=== PATIENT | female | born 1940 | race Caucasian/White ===

== ENCOUNTER 2018-07-01 13:16 | Outpatient (RCR) | payer OTHER ==
[2018-07-01 14:00] LABS: BASOPHILS % (AUTO) 0 % (0-10); EOSINOPHILS # (AUTO) 0.1 10^3/uL (0.0-0.3); EOSINOPHILS % (AUTO) 1 % (0-10); HEMATOCRIT 40 % (35-52); LYMPHOCYTES # (AUTO) 2.2 X 10^3 (1.0-4.0); LYMPHOCYTES % (AUTO) 18 % (12-44); MEAN CORPUSCULAR HEMOGLOBIN 26 PG (25-34); MEAN CORPUSCULAR HGB CONC 32 G/DL (32-36); MEAN CORPUSCULAR VOLUME 81 FL (80-99); MEAN PLATELET VOLUME 9.6 FL (7.4-10.4); MONOCYTES % (AUTO) 16 % (0-12); NEUTROPHILS # (AUTO) 8.1 X 10^3 (1.8-7.8); NEUTROPHILS % (AUTO) 65 % (42-75); PLATELET COUNT 218 10^3/uL (130-400); RED CELL DISTRIBUTION WIDTH 15.4 % (10.0-14.5); WHITE BLOOD COUNT 12.5 10^3/uL (4.3-11.0)
[2018-07-01 14:27] LABS: ALANINE AMINOTRANSFERASE 25 U/L (0-55); ALBUMIN 4.6 GM/DL (3.2-4.5); ALKALINE PHOSPHATASE 51 U/L (40-136); BILIRUBIN,TOTAL 0.3 MG/DL (0.1-1.0); BUN/CREATININE RATIO 15; CALCIUM 11.1 MG/DL (8.5-10.1); CARBON DIOXIDE 23 MMOL/L (21-32); CHLORIDE 103 MMOL/L (98-107); CREATININE SERUM 1.24 MG/DL (0.60-1.30); GFR ESTIMATED 42; GLUCOSE 113 MG/DL (70-105); POTASSIUM 3.9 MMOL/L (3.6-5.0); SODIUM 136 MMOL/L (135-145); TOTAL PROTEIN 8.2 GM/DL (6.4-8.2)
== END 2018-09-29 | disposition home or self-care (01) ==
LOC: ONC 13:16
PROVIDERS: ATTEND Internal Medicine Hematology & Oncology
DX: D72.828 Other elevated white blood cell count (principal); B35.1 Tinea unguium
CPT/HCPCS: 36415; 80053; 85025; 99214

== ENCOUNTER → 2018-10-23 | Outpatient (CLI) | payer MEDICARE, OTHER ==
[2018-10-23 09:06] LABS: BASOPHILS # (AUTO) 0.1 10^3/uL (0.0-0.1); BASOPHILS % (AUTO) 1 % (0-10); EOSINOPHILS # (AUTO) 0.2 10^3/uL (0.0-0.3); EOSINOPHILS % (AUTO) 1 % (0-10); HEMATOCRIT 40 % (35-52); HEMOGLOBIN 12.6 G/DL (11.5-16.0); LYMPHOCYTES # (AUTO) 2.5 X 10^3 (1.0-4.0); LYMPHOCYTES % (AUTO) 19 % (12-44); MEAN CORPUSCULAR HEMOGLOBIN 25 PG (25-34); MEAN CORPUSCULAR HGB CONC 31 G/DL (32-36); MEAN CORPUSCULAR VOLUME 78 FL (80-99); MEAN PLATELET VOLUME 9.9 FL (7.4-10.4); MONOCYTES # (AUTO) 2.2 X 10^3 (0.0-1.0); MONOCYTES % (AUTO) 17 % (0-12); NEUTROPHILS # (AUTO) 8.2 X 10^3 (1.8-7.8); NEUTROPHILS % (AUTO) 63 % (42-75); PLATELET COUNT 225 10^3/uL (130-400); RED CELL DISTRIBUTION WIDTH 16.1 % (10.0-14.5); WHITE BLOOD COUNT 13.1 10^3/uL (4.3-11.0)
[2018-10-23 09:25] LABS: ALANINE AMINOTRANSFERASE 28 U/L (0-55); ALBUMIN 4.6 GM/DL (3.2-4.5); ALKALINE PHOSPHATASE 50 U/L (40-136); BILIRUBIN,TOTAL 0.4 MG/DL (0.1-1.0); BUN/CREATININE RATIO 12; CALCIUM 11.2 MG/DL (8.5-10.1); CARBON DIOXIDE 19 MMOL/L (21-32); CHLORIDE 106 MMOL/L (98-107); CHOLESTEROL 173 MG/DL (< 200); CREATININE SERUM 1.12 MG/DL (0.60-1.30); GFR ESTIMATED 47; GLUCOSE 117 MG/DL (70-105); HDL CHOLESTEROL 48 MG/DL (40-60); POTASSIUM 3.9 MMOL/L (3.6-5.0); SODIUM 138 MMOL/L (135-145); TOTAL PROTEIN 8.2 GM/DL (6.4-8.2); TRIGLYCERIDES 129 MG/DL (<150); VLDL CHOLESTEROL 26 MG/DL (5-40)
== END ==
LOC: LAB 08:30
PROVIDERS: ATTEND Family Medicine
DX: E11.9 Type 2 diabetes mellitus without complications (principal); R53.83 Other fatigue; R79.89 Other specified abnormal findings of blood chemistry
CPT/HCPCS: 36415; 80053; 80061; 83036; 83970; 84443; 85025

== ENCOUNTER → 2020-01-03 | Outpatient (CLI) | payer MEDICARE ==
--- NOTE | 2020-01-03 18:21 | Diagnostic Imaging Report ---
INDICATION: Status post fall on a rock one year ago with continued small lump since then. Increasing in severity over the past 2 weeks. TECHNIQUE: Multiple real time ball scale sonographic images were obtained of the left gluteus region. CORRELATION STUDY: None FINDINGS: Imaging of the area of palpable concern, left gluteal region demonstrates a superficial heterogeneous mass to be present. This measures approximately 8.6 x 3.9 x 7.9 cm. There is presence of some vascular blood flow. IMPRESSION: 1. There is prominent, 8.6 cm vascularized mass in the left gluteal region, area of concern. This finding is nonspecific. However, given presence of vascularity, solid mass including neoplasm is not excluded. If further imaging evaluation is desired, contrast-enhanced CT and/or MRI would be recommended. Dictated by: Dictated on workstation # [id number]
== END ==
LOC: RAD 15:40
PROVIDERS: ATTEND Surgery
DX: R22.42 Localized swelling, mass and lump, left lower limb (principal); Z91.81 History of falling
CPT/HCPCS: 76881

== ENCOUNTER → 2020-01-24 | Outpatient (CLI) | payer MEDICARE ==
--- NOTE | 2020-01-24 16:33 | Diagnostic Imaging Report ---
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 Serum blood glucose level at the time of injection is 122 mg/dL. The patient was administered 14.2 mCi F18-FDG intravenously in the left forearm and PET imaging was performed from the top of the skull to mid thighs. Noncontrast CT was also performed for attenuation correction and anatomic correlation. COMPARISON: No prior studies are available for comparison. The visualized intracranial structures are unremarkable. There is hypermetabolic mass in the region of the left maxillary sinus as well as left nasal cavity and left-sided ethmoid air cells with SUV max of 9.4. The left half of the frontal sinus is opacified as well but not hypermetabolic. Remaining soft tissues of the neck are unremarkable. No mediastinal or hilar hypermetabolism is identified. There is a prominent right paratracheal lymph node measuring 14 mm short axis. No pulmonary parenchymal hypermetabolism is identified. There is a rounded soft tissue mass in a right para-aortic location at the level of the right adrenal gland measuring 5.1 cm. This demonstrates SUV max of 15. A mass arising from or inseparable from the left kidney is also noted measuring 7.8 x 5.4 cm and SUV max of 15. There is hypermetabolism within the left adrenal gland as well with SUV max of 8.5. Physiologic activity throughout the gastrointestinal tract is noted. There is a hypermetabolic mass in the subcutaneous tissues of the left buttock region measuring 9.2 x 5.2 cm. SUV max of 13.5. IMPRESSION: Multiple hypermetabolic masses, as described. These involve the left sided paranasal sinuses and left nasal cavity as well as the retroperitoneum and left adrenal gland as well as left buttock subcutaneous tissues. It is likely secondary to patient's known [place] cell neoplasm. Dictated by: Dictated on workstation # [id number]
== END ==
LOC: RAD 09:00
PROVIDERS: ATTEND Internal Medicine Hematology & Oncology
DX: C4A.59 Merkel cell carcinoma of other part of trunk (principal); J34.89 Other specified disorders of nose and nasal sinuses; E27.8 Other specified disorders of adrenal gland; N28.89 Other specified disorders of kidney and ureter
CPT/HCPCS: 78815; A9552

== ENCOUNTER 2020-01-27 05:43 | Outpatient (CLI) | payer MEDICARE ==
[~2020-01-27] VITALS: Ht 162 cm; Wt 71.8 kg
[2020-01-27] MEDS ORDERED: FLUT15.845 NS (10:55)
[2020-01-27] MEDS ORDERED: DILT240C87 PO (10:55)
[2020-01-27] MEDS ORDERED: PIOG30TA71 PO (10:55)
[2020-01-27] MEDS ORDERED: ASPI-999 PO (10:55)
[2020-01-27] MEDS ORDERED: OMEG10005 PO (10:55)
[2020-01-27] MEDS ORDERED: FEXO1TAB43 PO (10:55)
[2020-01-27] MEDS ORDERED: METF-397 PO (10:55)
[2020-01-27] MEDS ORDERED: CINN500C2 PO (10:55)
[2020-01-27] MEDS ORDERED: LISI-552 PO (10:55)
== END 2020-01-27 11:05 | disposition home or self-care (01) ==
LOC: PREOP 05:43
PROVIDERS: ATTEND Surgery
DX: Z01.818 Encounter for other preprocedural examination (principal)

== ENCOUNTER 2020-02-01 11:32 | Day surgery (SDC) | payer MEDICARE ==
[~2020-02-01] VITALS: Ht 162 cm; Wt 71.8 kg
[~2020-02-01 11:32] MED LIST: ASPI-999 PO; CINN500C2 PO; DILT240C87 PO; FEXO1TAB43 PO; FLUT15.845 NS; LISI-552 PO; METF-397 PO; OMEG10005 PO; PIOG30TA71 PO
[2020-02-01 11:45] VITALS: BP 175/83
[2020-02-01] MEDS ORDERED: LACTATED RINGERS 1,000 ML IV PRN (11:57)
[2020-02-01] MEDS ORDERED: ceFAZolin INJECTION 1,000 MG in WATER (STERILE) FOR INJECTION 10 ML IV ONE (12:00)
[2020-02-01] MEDS ORDERED: ACHD5005 PO (12:03)
[2020-02-01] MEDS ORDERED: proPOfol 200 MG/20 ML (DIPRIVAN) VIAL IV ONE (12:15)
[2020-02-01] MEDS ORDERED: MIDAZOLAM 2 MG/2 ML (VERSED) VIAL ONE (12:15)
[2020-02-01] MEDS ORDERED: LIDOCAINE PF 2% 5 ML (XYLOCAINE) VIAL ONE (12:15)
--- NOTE | 2020-02-01 12:23 | Progress Note-Pre Operative ---
Pre-Operative Progress Note H&P Reviewed The H&P was reviewed, patient examined and no changes noted. Time Seen by Provider: 11:58 Date H&P Reviewed: Feb 01, 2020 Time H&P Reviewed: 11:58 Pre-Operative Diagnosis: Yee Cell CA, Venous insufficiency VY MIR DO Feb 01, 2020 12:23
[2020-02-01] MEDS ORDERED: HEParin (CENTRAL IV FLUSH) 500 UNIT/5 ML SYR ONE (12:30)
[2020-02-01] MEDS ORDERED: 0.9% SODIUM CHLORIDE PF INJ 20 ML VIAL ONE (12:30)
[2020-02-01] MEDS ORDERED: BUP/EPI 0.25% 1:200,000 (MARCAINE) 30 ML VIAL ONE (12:30)
[2020-02-01 13:52] VITALS: BP 138/61
--- NOTE | 2020-02-01 13:55 | Progress Note-Post Operative ---
Post-Operative Progess Note Surgeon (s)/Raftsman (s) Surgeon VY MIR DO Raftsman: Sarah Victor, MSIII Pre-Operative Diagnosis [place] Cell CA, Venous insufficiency Post-Operative Diagnosis same Procedure & Operative Findings Date of Procedure 02/01/20 Procedure Performed/Findings PROCEDURE: [Right] subclavian port placement. COMPLICATIONS: None. INDICATIONS: The patient is a 79 year old female [with Yee Cell CA and venous insufficiency]. Patient understands the risks and benefits of port placement and wished to proceed with the procedure. Consent was signed on the chart. PROCEDURE: The patient was taken to the operating suite, was prepped and draped in the sterile fashion. A surgical pause was performed. Next local lidocaine was used to infiltrate toward the clavicle and on the anterior chest wall where the port would be placed. Using an 18 gauge finder needle with negative inspiration the subclavian vein was cannulated on the first attempt and dark nonpulsatile blood was withdrawn. The wire was inserted. Fluoroscopy assured proper placement. The needle was removed. The wire was then secured. A [#11] blade scalpel was used to make an incision over the [right] chest and along the guidewire. Cautery was used to dissect down to the pectoral fascia. A pocket was created with blunt dissection. The [place] catheter was tunneled into pocket and then inserted through the sheath and the sheath and wire were then removed. Fluoroscopy was used to cut to length and this was then attached to the port which was then placed within the pocket and sutured down to the chest wall with 3-0 prolene. The port was then accessed without difficulty. It was then flushed with saline and then heparin. The subcutaneous tissues were then reapproximated using 3-0 Vicryl. Skin was closed with 4-0 undyed monocryl; 3 interrupted sutures. The areas were then washed and dried. Skin Affix was placed over incision. The patient tolerated the procedure well without complication and was taken to recovery room in stable condition. Anesthesia Type IV sedation by anesthesia Estimated Blood Loss Estimated blood loss (mL): scant Specimens/Packing Specimens Removed none VY MIR DO Feb 01, 2020 13:55
--- NOTE | 2020-02-01 13:57 | Discharge Inst-Surgical ---
Discharge Inst-Surgical Depart Medication/Instructions New, Converted or Re-Newed RX: Other (pt has rx for pain meds already) Patient Instructions Follow up Appt: Make appointment for 1 week. [phone] Instructions: No strenuous activity. May shower in 24 hours, no tub bath or soaking. Use incentive spirometer at home as directed. No Smoking Skin/Wound Care: May remove bandages in am. You need to leave the Dermabond on incision it will fall off on it's own. Symptoms to Report: Appetite Changes, Extremity Discoloration, Numbness/Tingling, Swelling Increased, Bleeding Excessive, Eyesight Changes, Pain Increased, Urine Color Change, Constipation(Persistent), Fever over 101 degree F, Pain/Pressure in chest, Urinating Difficulty, Cough Up/Vomit Blood, Heart Beat Irreg/Pounding, Pain/Pressure in jaw, Cramps in feet or legs, Lightheadedness, Pain/Pressure in shoulder, Diarrhea(Persistent), Memory Changes Suddenly, Questions/Concerns, Weight gain consecutive days, Dizziness/Fainting, Nausea/Vomiting, Shortness of Breath, Weight gain over 2 pounds If questions or concerns contact your physician Or seek help at emergency department. Activity Activity as Tolerated: Yes Activity Instructions: Avoid Stress to Incision Driving Instructions: No Driving/Refer to Dr. Moses Discharge Diet: No Restrictions Diet After 24 Hours: Clear Liquid if Nauseous If Any Problems/Questions/Issu: Contact Your Physician, Go to Emergency Room Skin/Wound Care Infection Signs and Symptoms: Increased Redness, Foul Odor of Wound, Increased Drainage, Skin Itchy or Has a Rash, Increased Swelling, Temperature Above 101 F Bathing Instructions: Shower Stitches/Saritha/Dermabond Dis: Dermabond Ice Pack: Ice On and Off Site VY MIR DO Feb 01, 2020 13:57
[2020-02-01 14:00] VITALS: BP 154/70
--- NOTE | 2020-02-01 14:05 | Anesthesia-General Post-Op ---
MAC Patient Condition Mental Status/LOC: Same as Preop Cardiovascular: Satisfactory Nausea/Vomiting: Absent Respiratory: Satisfactory Pain: Controlled Complications: Absent Post Op Complications Complications None Follow Up Care/Instructions Patient Instructions None needed. Anesthesiology Discharge Order Discharge Order Patient is doing well, no complaints, stable vital signs, no apparent adverse anesthesia problems. WES ANDREWS DO Feb 01, 2020 14:05
--- NOTE | 2020-02-01 14:07 | Diagnostic Imaging Report ---
INDICATION: Fluoroscopy for right chest wall port placement. FINDINGS: Fluoroscopy was provided in the OR during port placement. 19 seconds of fluoroscopic time was utilized. A single image was obtained demonstrating a right chest wall port with the tip overlying the SVC. IMPRESSION: Fluoroscopy for right chest wall port placement. Dictated by: Dictated on workstation # [id number]
[2020-02-01 14:10] VITALS: BP_SYST 161; BP_DIAS 73; BP_DIAS 78
[2020-02-01] MEDS ORDERED: ONDANSETRON 4 MG/2 ML (SDV) Z0FRAN IVP PRN (14:15)
[2020-02-01 14:40] VITALS: BP_SYST 161; BP_SYST 166; BP_DIAS 76; BP_DIAS 78
== END 2020-02-01 14:45 | disposition home or self-care (01) ==
LOC: SDC 11:32
PROVIDERS: ATTEND Surgery
DX: C4A.59 Merkel cell carcinoma of other part of trunk (principal); E11.9 Type 2 diabetes mellitus without complications; I10 Essential (primary) hypertension; Z79.84 Long term (current) use of oral hypoglycemic drugs; Z79.899 Other long term (current) drug therapy; Z79.82 Long term (current) use of aspirin; Z11.2 Encounter for screening for other bacterial diseases
CPT/HCPCS: 36561; 76000; 82962; 87081; C1788

== ENCOUNTER 2020-04-09 14:01 | Outpatient (RCR) | payer MEDICARE ==
[2020-01-18 14:52] LABS: BASOPHILS % (AUTO) 0 % (0-10); EOSINOPHILS # (AUTO) 0.1 10^3/uL (0.0-0.3); EOSINOPHILS % (AUTO) 1 % (0-10); HEMATOCRIT 38 % (35-52); HEMOGLOBIN 12.5 G/DL (11.5-16.0); LYMPHOCYTES # (AUTO) 2.3 X 10^3 (1.0-4.0); LYMPHOCYTES % (AUTO) 15 % (12-44); MEAN CORPUSCULAR HEMOGLOBIN 25 PG (25-34); MEAN CORPUSCULAR HGB CONC 33 G/DL (32-36); MEAN CORPUSCULAR VOLUME 76 FL (80-99); MEAN PLATELET VOLUME 9.6 FL (7.4-10.4); MONOCYTES # (AUTO) 3.1 X 10^3 (0.0-1.0); MONOCYTES % (AUTO) 20 % (0-12); NEUTROPHILS # (AUTO) 9.8 X 10^3 (1.8-7.8); NEUTROPHILS % (AUTO) 64 % (42-75); PLATELET COUNT 234 10^3/uL (130-400); WHITE BLOOD COUNT 15.3 10^3/uL (4.3-11.0)
[2020-01-18 15:08] LABS: ALBUMIN 4.1 GM/DL (3.2-4.5); BILIRUBIN,TOTAL 0.3 MG/DL (0.1-1.0); CREATININE SERUM 1.25 MG/DL (0.60-1.30); POTASSIUM 4.4 MMOL/L (3.6-5.0); TOTAL PROTEIN 7.9 GM/DL (6.4-8.2)
[2020-02-15 13:30] LABS: BASOPHILS # (AUTO) 0.1 10^3/uL (0.0-0.1); BASOPHILS % (AUTO) 0 % (0-10); EOSINOPHILS # (AUTO) 0.2 10^3/uL (0.0-0.3); EOSINOPHILS % (AUTO) 1 % (0-10); HEMATOCRIT 37 % (35-52); HEMOGLOBIN 11.7 g/dL (11.5-16.0); LYMPHOCYTES # (AUTO) 1.7 10^3/uL (1.0-4.0); LYMPHOCYTES % (AUTO) 12 % (12-44); MEAN CORPUSCULAR HEMOGLOBIN 24 pg (25-34); MEAN CORPUSCULAR HGB CONC 32 g/dL (32-36); MEAN CORPUSCULAR VOLUME 78 fL (80-99); MEAN PLATELET VOLUME 9.1 fL (9.0-12.2); MONOCYTES % (AUTO) 14 % (0-12); NEUTROPHILS # (AUTO) 10.2 10^3/uL (1.8-7.8); NEUTROPHILS % (AUTO) 72 % (42-75); PLATELET COUNT 243 10^3/uL (130-400); WHITE BLOOD COUNT 14.1 10^3/uL (4.3-11.0)
[2020-02-15 13:54] LABS: BILIRUBIN,TOTAL 0.3 MG/DL (0.1-1.0); CALCIUM 10.1 MG/DL (8.5-10.1); CREATININE SERUM 1.05 MG/DL (0.60-1.30); POTASSIUM 4.1 MMOL/L (3.6-5.0); TOTAL PROTEIN 7.7 GM/DL (6.4-8.2)
[2020-03-14 15:02] LABS: BASOPHILS # (AUTO) 0.1 10^3/uL (0.0-0.1); BASOPHILS % (AUTO) 1 % (0-10); EOSINOPHILS # (AUTO) 0.1 10^3/uL (0.0-0.3); EOSINOPHILS % (AUTO) 0 % (0-10); HEMATOCRIT 40 % (35-52); HEMOGLOBIN 12.7 g/dL (11.5-16.0); LYMPHOCYTES # (AUTO) 2.5 10^3/uL (1.0-4.0); LYMPHOCYTES % (AUTO) 18 % (12-44); MEAN CORPUSCULAR HEMOGLOBIN 25 pg (25-34); MEAN CORPUSCULAR HGB CONC 32 g/dL (32-36); MEAN CORPUSCULAR VOLUME 77 fL (80-99); MEAN PLATELET VOLUME 9.4 fL (9.0-12.2); MONOCYTES # (AUTO) 2.5 10^3/uL (0.0-1.0); MONOCYTES % (AUTO) 18 % (0-12); NEUTROPHILS # (AUTO) 8.6 10^3/uL (1.8-7.8); NEUTROPHILS % (AUTO) 62 % (42-75); PLATELET COUNT 250 10^3/uL (130-400); WHITE BLOOD COUNT 13.8 10^3/uL (4.3-11.0)
[2020-03-14 15:15] LABS: ALBUMIN 4.5 GM/DL (3.2-4.5); BILIRUBIN,TOTAL 0.5 MG/DL (0.1-1.0); CALCIUM 10.9 MG/DL (8.5-10.1); CREATININE SERUM 1.2 MG/DL (0.60-1.30); POTASSIUM 4.4 MMOL/L (3.6-5.0); TOTAL PROTEIN 8.4 GM/DL (6.4-8.2)
[~2020-04-09] VITALS: Ht 162.6 cm; Wt 71.7 kg
[~2020-04-09 14:01] MED LIST changes: +ACHD5005 PO; +NIVOLUMAB 240 MG in NS (IVPB) CANCER CENTER 100 ML IV SCH; +NIVOLUMAB 480 MG in NS (IVPB) CANCER CENTER 100 ML IV SCH; +NS IV 500 ML (CANCER CENTER) IV SCH
[2020-04-09 14:40] LABS: BASOPHILS % (AUTO) 0 % (0-10); EOSINOPHILS % (AUTO) 0 % (0-10); HEMATOCRIT 38 % (35-52); HEMOGLOBIN 12.1 g/dL (11.5-16.0); LYMPHOCYTES % (AUTO) 17 % (12-44); MEAN CORPUSCULAR HEMOGLOBIN 24 pg (25-34); MEAN CORPUSCULAR HGB CONC 32 g/dL (32-36); MEAN CORPUSCULAR VOLUME 77 fL (80-99); MONOCYTES % (AUTO) 17 % (0-12); NEUTROPHILS # (AUTO) 7.8 10^3/uL (1.8-7.8); NEUTROPHILS % (AUTO) 66 % (42-75); PLATELET COUNT 227 10^3/uL (130-400); WHITE BLOOD COUNT 11.9 10^3/uL (4.3-11.0)
[2020-04-09 14:57] LABS: ALBUMIN 4.1 GM/DL (3.2-4.5); BILIRUBIN,TOTAL 0.4 MG/DL (0.1-1.0); CALCIUM 10.2 MG/DL (8.5-10.1); CREATININE SERUM 1.11 MG/DL (0.60-1.30); POTASSIUM 3.9 MMOL/L (3.6-5.0); TOTAL PROTEIN 7.8 GM/DL (6.4-8.2)
== END 2020-04-17 | disposition home or self-care (01) ==
LOC: ONC 14:01
PROVIDERS: ATTEND Internal Medicine Hematology & Oncology
DX: D72.9 Disorder of white blood cells, unspecified (principal); I10 Essential (primary) hypertension; E11.9 Type 2 diabetes mellitus without complications; C4A.59 Merkel cell carcinoma of other part of trunk; Z90.711 Acquired absence of uterus with remaining cervical stump
CPT/HCPCS: 80053; 85025; G0463; 36591; 84443; 96413; 99213; 99214

== ENCOUNTER 2020-05-07 13:56 | Outpatient (RCR) | payer MEDICARE ==
[~2020-05-07 13:56] MED LIST changes: -NIVOLUMAB 240 MG in NS (IVPB) CANCER CENTER 100 ML IV SCH
== END 2020-05-25 09:45 | disposition home or self-care (01) ==
LOC: ONC 13:56
PROVIDERS: ATTEND Internal Medicine Hematology & Oncology
DX: Z51.11 Encounter for antineoplastic chemotherapy (principal); C4A.59 Merkel cell carcinoma of other part of trunk; E11.9 Type 2 diabetes mellitus without complications; D72.9 Disorder of white blood cells, unspecified; I10 Essential (primary) hypertension; Z90.711 Acquired absence of uterus with remaining cervical stump
CPT/HCPCS: 96413

== ENCOUNTER → 2020-07-24 | Outpatient (CLI) | payer MEDICARE ==
[~2020-07-24] MED LIST changes: -LISI-552 PO; +LISI20TA26 PO; -NIVOLUMAB 480 MG in NS (IVPB) CANCER CENTER 100 ML IV SCH; -NS IV 500 ML (CANCER CENTER) IV SCH
--- NOTE | 2020-07-24 13:26 | Diagnostic Imaging Report ---
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 Serum blood glucose level at the time of injection is 136 mg/dL. Patient was administered 13.8 mCi of F-18 FDG intravenously in the left forearm and PET imaging was performed from the top of the skull to mid thighs. Noncontrast CT was also performed for attenuation correction and anatomic correlation. Correlation is made with prior PET/CT study from 01/24/2020. There is symmetric activity throughout the brain. A previously noted hypermetabolic mass in the left maxillary sinus and left nasal cavity and ethmoid air cells is no longer appreciated. No hypermetabolism at this location is identified on today's study. Soft tissues of the neck are unremarkable. No mediastinal or hilar hypermetabolism is seen. No pulmonary parenchymal hypermetabolism is identified. Previously noted nonmetabolic lymph node in the right paratracheal location is again noted and unchanged. Both adrenal glands have a normal appearance on today's exam. No suspicious hypermetabolism is identified. The soft tissue mass inseparable from the left kidney previously noted is no longer appreciated. The hypermetabolic mass in the subcutaneous tissues of the left gluteal region has resolved. There is physiologic activity throughout the gastrointestinal and genitourinary tract. No suspicious hypermetabolism is identified. IMPRESSION: Significant response to therapy since prior PET/CT study from 01/24/2020. Previously noted areas of a mass and hypermetabolism involving the left maxillary sinus and left nasal cavity as well as bilateral adrenal glands and left kidney and left gluteal region have all resolved. No new soft tissue mass or new area of hypermetabolism is identified. Dictated by: Dictated on workstation # [id number]
== END ==
LOC: RAD 08:15
PROVIDERS: ATTEND Internal Medicine Hematology & Oncology
DX: C4A.9 Merkel cell carcinoma, unspecified (principal)
CPT/HCPCS: 78815; A9552

== ENCOUNTER 2020-08-06 13:36 | Outpatient (RCR) | payer MEDICARE ==
[~2020-08-06 13:36] MED LIST changes: +NIVOLUMAB 480 MG in NS (IVPB) CANCER CENTER 100 ML IV SCH; +NS IV 500 ML (CANCER CENTER) IV SCH
[2020-08-06 14:24] LABS: BASOPHILS # (AUTO) 0.1 10^3/uL (0.0-0.1); BASOPHILS % (AUTO) 1 % (0-10); EOSINOPHILS % (AUTO) 0 % (0-10); HEMATOCRIT 38 % (35-52); HEMOGLOBIN 12.1 g/dL (11.5-16.0); LYMPHOCYTES % (AUTO) 14 % (12-44); MEAN CORPUSCULAR HEMOGLOBIN 24 pg (25-34); MEAN CORPUSCULAR HGB CONC 32 g/dL (32-36); MEAN CORPUSCULAR VOLUME 73 fL (80-99); MEAN PLATELET VOLUME 9.1 fL (9.0-12.2); MONOCYTES # (AUTO) 2.2 X 10^3 (0.0-1.0); MONOCYTES % (AUTO) 15 % (0-12); NEUTROPHILS # (AUTO) 10.2 X 10^3 (1.8-7.8); NEUTROPHILS % (AUTO) 70 % (42-75); PLATELET COUNT 195 10^3/uL (130-400); WHITE BLOOD COUNT 14.5 10^3/uL (4.3-11.0)
[2020-08-06 14:40] LABS: ALBUMIN 4.1 GM/DL (3.2-4.5); BILIRUBIN,TOTAL 0.3 MG/DL (0.1-1.0); CALCIUM 9.8 MG/DL (8.5-10.1); CREATININE SERUM 1.01 MG/DL (0.60-1.30); POTASSIUM 4.3 MMOL/L (3.6-5.0); TOTAL PROTEIN 7.7 GM/DL (6.4-8.2)
== END 2020-09-02 | disposition home or self-care (01) ==
LOC: ONC 13:36
PROVIDERS: ATTEND Internal Medicine Hematology & Oncology
DX: C4A.59 Merkel cell carcinoma of other part of trunk (principal); R53.83 Other fatigue; D72.829 Elevated white blood cell count, unspecified; M25.50 Pain in unspecified joint; M54.5 Low back pain
CPT/HCPCS: 80053; 85025; 96413; G0463; 36591

== ENCOUNTER → 2020-11-20 | Outpatient (CLI) | payer MEDICARE ==
[~2020-11-20] MED LIST changes: -NIVOLUMAB 480 MG in NS (IVPB) CANCER CENTER 100 ML IV SCH; -NS IV 500 ML (CANCER CENTER) IV SCH
--- NOTE | 2020-11-20 13:12 | Diagnostic Imaging Report ---
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 Study is performed for subsequent treatment strategy and restaging as well as to assess treatment response. Serum blood glucose level at the time of injection is 144 mg/dL. Patient was administered 14.8 mCi F-18 FDG intravenously in the right hand and PET imaging was performed from the top of the skull to mid thighs. Noncontrast CT was also performed for attenuation correction and anatomic correlation. Correlation is made with prior PET/CT study from 07/24/2020. There is symmetric activity throughout the brain. Soft tissues of the neck are unremarkable. No definite mediastinal hypermetabolism is identified. There is low level activity within a low right paratracheal node that demonstrates a short axis measurement of 12 mm. Activity within this nodes demonstrates an SUV max of 3.1. No pulmonary parenchymal hypermetabolism is seen. There is physiologic activity within the gastrointestinal and genitourinary tracts of the abdomen and pelvis. No hypermetabolic foci are seen. Uptake in the right gluteal region previously noted is no longer visualized. IMPRESSION: Continued stable PET/CT study when compared to exam from 07/24/2020. No new metabolic foci are detected. Dictated by: Dictated on workstation # [id number]
== END ==
LOC: RAD 08:15
PROVIDERS: ATTEND Internal Medicine Hematology & Oncology
DX: C4A.9 Merkel cell carcinoma, unspecified (principal)
CPT/HCPCS: 78815; A9552

== ENCOUNTER 2020-11-26 13:57 | Outpatient (RCR) | payer MEDICARE ==
[2020-10-01 13:37] LABS: BASOPHILS # (AUTO) 0.1 10^3/uL (0.0-0.1); BASOPHILS % (AUTO) 1 % (0-10); EOSINOPHILS % (AUTO) 0 % (0-10); HEMATOCRIT 39 % (35-52); HEMOGLOBIN 12.5 g/dL (11.5-16.0); LYMPHOCYTES # (AUTO) 2.1 10^3/uL (1.0-4.0); LYMPHOCYTES % (AUTO) 15 % (12-44); MEAN CORPUSCULAR HEMOGLOBIN 24 pg (25-34); MEAN CORPUSCULAR HGB CONC 32 g/dL (32-36); MEAN CORPUSCULAR VOLUME 75 fL (80-99); MONOCYTES # (AUTO) 2.1 10^3/uL (0.0-1.0); MONOCYTES % (AUTO) 15 % (0-12); NEUTROPHILS # (AUTO) 9.5 10^3/uL (1.8-7.8); NEUTROPHILS % (AUTO) 68 % (42-75); PLATELET COUNT 208 10^3/uL (130-400); WHITE BLOOD COUNT 13.9 10^3/uL (4.3-11.0)
[2020-10-01 13:58] LABS: ALBUMIN 4.3 GM/DL (3.2-4.5); BILIRUBIN,TOTAL 0.3 MG/DL (0.1-1.0); CALCIUM 10.4 MG/DL (8.5-10.1); CREATININE SERUM 1.14 MG/DL (0.60-1.30); POTASSIUM 4.2 MMOL/L (3.6-5.0); TOTAL PROTEIN 7.9 GM/DL (6.4-8.2)
[~2020-11-26 13:57] MED LIST changes: +NIVOLUMAB 480 MG in NS (IVPB) CANCER CENTER 100 ML IV SCH; +NS IV 500 ML (CANCER CENTER) IV SCH
[2020-11-26 14:39] LABS: EOSINOPHILS % (AUTO) 0 % (0-10); MEAN CORPUSCULAR HEMOGLOBIN 24 pg (25-34)
[2020-11-26 14:41] LABS: BASOPHILS % (AUTO) 0 % (0-10); HEMATOCRIT 40 % (35-52); HEMOGLOBIN 12.6 g/dL (11.5-16.0); LYMPHOCYTES # (AUTO) 1.8 10^3/uL (1.0-4.0); LYMPHOCYTES % (AUTO) 15 % (12-44); MEAN CORPUSCULAR HGB CONC 32 g/dL (32-36); MEAN CORPUSCULAR VOLUME 77 fL (80-99); MONOCYTES # (AUTO) 2.7 10^3/uL (0.0-1.0); MONOCYTES % (AUTO) 22 % (0-12); NEUTROPHILS # (AUTO) 7.2 10^3/uL (1.8-7.8); NEUTROPHILS % (AUTO) 59 % (42-75); PLATELET COUNT 100 10^3/uL (130-400); WHITE BLOOD COUNT 12.2 10^3/uL (4.3-11.0)
[2020-11-26 14:58] LABS: BILIRUBIN,TOTAL 0.4 MG/DL (0.1-1.0); CALCIUM 10.5 MG/DL (8.5-10.1); CREATININE SERUM 1.26 MG/DL (0.60-1.30); POTASSIUM 4.3 MMOL/L (3.6-5.0); TOTAL PROTEIN 7.4 GM/DL (6.4-8.2)
== END 2020-12-02 | disposition home or self-care (01) ==
LOC: ONC 13:57
PROVIDERS: ATTEND Internal Medicine Hematology & Oncology
DX: C4A.59 Merkel cell carcinoma of other part of trunk (principal); R53.83 Other fatigue; D72.829 Elevated white blood cell count, unspecified; M25.50 Pain in unspecified joint; M54.5 Low back pain
CPT/HCPCS: 36591; 80053; 85025; 96413

== ENCOUNTER → 2021-04-09 | Outpatient (CLI) | payer MEDICARE ==
[~2021-04-09] MED LIST changes: -NIVOLUMAB 480 MG in NS (IVPB) CANCER CENTER 100 ML IV SCH; -NS IV 500 ML (CANCER CENTER) IV SCH
--- NOTE | 2021-04-09 13:23 | Diagnostic Imaging Report ---
INDICATION: [place] cell carcinoma with restaging. TECHNIQUE: The serum blood glucose level at the time of injection was 132 mg/dL. The patient was administered 13.6 mCi of F-18 FDG intravenously in the right hand and PET imaging was performed from the top of the skull to the mid thighs. A noncontrast CT was also performed for attenuation correction and anatomic correlation. COMPARISON: PET/CT from 11/20/2020. FINDINGS: There is symmetric activity throughout the brain. The soft tissues of the neck are unremarkable. The previously noted low level activity in a right paratracheal node is no longer appreciated. No hypermetabolic foci in the mediastinum or kaur are seen. No pulmonary parenchymal hypermetabolism is identified. Physiologic activity throughout the GI and tracts of the abdomen and pelvis is noted. No suspicious hypermetabolism in the abdomen or pelvis is identified. IMPRESSION: Unremarkable PET/CT study. No suspicious regions of hypermetabolism are identified. Dictated by: Dictated on workstation # [id number]
== END ==
LOC: RAD 09:45
PROVIDERS: ATTEND Internal Medicine Hematology & Oncology
DX: C4A.9 Merkel cell carcinoma, unspecified (principal); D72.829 Elevated white blood cell count, unspecified
CPT/HCPCS: 78815; A9552

== ENCOUNTER 2021-04-17 14:43 | Outpatient (RCR) | payer MEDICARE ==
[2021-03-05 14:39] LABS: EOSINOPHILS % (AUTO) 0 % (0-10); MEAN PLATELET VOLUME 9.9 fL (9.0-12.2)
[2021-03-05 14:41] LABS: BASOPHILS % (AUTO) 0 % (0-10); HEMATOCRIT 37 % (35-52); HEMOGLOBIN 11.6 g/dL (11.5-16.0); LYMPHOCYTES # (AUTO) 5.5 10^3/uL (1.0-4.0); LYMPHOCYTES % (AUTO) 27 % (12-44); MEAN CORPUSCULAR HEMOGLOBIN 24 pg (25-34); MEAN CORPUSCULAR HGB CONC 32 g/dL (32-36); MEAN CORPUSCULAR VOLUME 76 fL (80-99); MONOCYTES # (AUTO) 4.5 10^3/uL (0.0-1.0); MONOCYTES % (AUTO) 22 % (0-12); NEUTROPHILS % (AUTO) 50 % (42-75); PLATELET COUNT 145 10^3/uL (130-400); WHITE BLOOD COUNT 20.1 10^3/uL (4.3-11.0)
[2021-03-05 15:11] LABS: BILIRUBIN,TOTAL 0.3 MG/DL (0.1-1.0); CALCIUM 10.6 MG/DL (8.5-10.1); CREATININE SERUM 1.11 MG/DL (0.60-1.30); POTASSIUM 4.4 MMOL/L (3.6-5.0)
[2021-03-19 12:55] LABS: BASOPHILS % (AUTO) 0 % (0-10); EOSINOPHILS % (AUTO) 0 % (0-10); HEMATOCRIT 39 % (35-52); HEMOGLOBIN 12.2 g/dL (11.5-16.0); LYMPHOCYTES # (AUTO) 4.9 10^3/uL (1.0-4.0); LYMPHOCYTES % (AUTO) 26 % (12-44); MEAN CORPUSCULAR HEMOGLOBIN 24 pg (25-34); MEAN CORPUSCULAR HGB CONC 31 g/dL (32-36); MEAN CORPUSCULAR VOLUME 76 fL (80-99); MEAN PLATELET VOLUME 9.8 fL (9.0-12.2); MONOCYTES # (AUTO) 4.1 10^3/uL (0.0-1.0); MONOCYTES % (AUTO) 22 % (0-12); NEUTROPHILS # (AUTO) 9.6 10^3/uL (1.8-7.8); NEUTROPHILS % (AUTO) 51 % (42-75); PLATELET COUNT 154 10^3/uL (130-400); WHITE BLOOD COUNT 18.7 10^3/uL (4.3-11.0)
== END 2021-05-17 | disposition home or self-care (01) ==
LOC: ONC 14:43
PROVIDERS: ATTEND Internal Medicine Hematology & Oncology
DX: Z45.2 Encounter for adjustment and management of vascular access device (principal); C4A.59 Merkel cell carcinoma of other part of trunk; D72.829 Elevated white blood cell count, unspecified; M25.50 Pain in unspecified joint
CPT/HCPCS: 80053; 85025; G0463; 36591; 99213

== ENCOUNTER 2021-07-24 14:51 | Outpatient (RCR) | payer MEDICARE ==
[2021-07-24 15:07] LABS: BASOPHILS % (AUTO) 0 % (0-10); EOSINOPHILS # (AUTO) 0.1 10^3/uL (0.0-0.3); EOSINOPHILS % (AUTO) 0 % (0-10); HEMATOCRIT 38 % (35-52); HEMOGLOBIN 12.2 g/dL (11.5-16.0); LYMPHOCYTES # (AUTO) 6.4 X 10^3 (1.0-4.0); LYMPHOCYTES % (AUTO) 31 % (12-44); MEAN CORPUSCULAR HEMOGLOBIN 25 pg (25-34); MEAN CORPUSCULAR HGB CONC 33 g/dL (32-36); MEAN CORPUSCULAR VOLUME 76 fL (80-99); MONOCYTES # (AUTO) 3.7 X 10^3 (0.0-1.0); MONOCYTES % (AUTO) 18 % (0-12); NEUTROPHILS # (AUTO) 10.3 X 10^3 (1.8-7.8); NEUTROPHILS % (AUTO) 50 % (42-75); PLATELET COUNT 390 10^3/uL (130-400); WHITE BLOOD COUNT 20.5 10^3/uL (4.3-11.0)
[2021-07-24 15:28] LABS: BILIRUBIN,TOTAL 0.3 MG/DL (0.1-1.0); CALCIUM 10.6 MG/DL (8.5-10.1); CREATININE SERUM 1.18 MG/DL (0.60-1.30); POTASSIUM 4.6 MMOL/L (3.6-5.0); TOTAL PROTEIN 7.8 GM/DL (6.4-8.2)
== END 2021-08-15 | disposition home or self-care (01) ==
LOC: ONC 14:51
PROVIDERS: ATTEND Internal Medicine Hematology & Oncology
DX: Z45.2 Encounter for adjustment and management of vascular access device (principal); C4A.59 Merkel cell carcinoma of other part of trunk; D72.829 Elevated white blood cell count, unspecified; M25.50 Pain in unspecified joint
CPT/HCPCS: 80053; 85025; G0463; 36415; 36591; 99213

== ENCOUNTER 2021-09-25 13:52 | Outpatient (RCR) | payer MEDICARE ==
[2021-09-25 14:16] LABS: BASOPHILS # (AUTO) 0.1 10^3/uL (0.0-0.1); BASOPHILS % (AUTO) 1 % (0-10); EOSINOPHILS # (AUTO) 0.2 10^3/uL (0.0-0.3); EOSINOPHILS % (AUTO) 1 % (0-10); HEMATOCRIT 38 % (35-52); HEMOGLOBIN 12.3 g/dL (11.5-16.0); LYMPHOCYTES # (AUTO) 6.3 10^3/uL (1.0-4.0); LYMPHOCYTES % (AUTO) 30 % (12-44); MEAN CORPUSCULAR HEMOGLOBIN 26 pg (25-34); MEAN CORPUSCULAR HGB CONC 32 g/dL (32-36); MEAN CORPUSCULAR VOLUME 79 fL (80-99); MONOCYTES # (AUTO) 3.6 10^3/uL (0.0-1.0); MONOCYTES % (AUTO) 17 % (0-12); NEUTROPHILS # (AUTO) 10.6 10^3/uL (1.8-7.8); NEUTROPHILS % (AUTO) 51 % (42-75); PLATELET COUNT 275 10^3/uL (130-400)
[2021-09-25 14:29] LABS: ALBUMIN 4.4 GM/DL (3.2-4.5)
[2021-09-25 14:30] LABS: POTASSIUM 4.4 MMOL/L (3.6-5.0)
[2021-09-25 14:31] LABS: CALCIUM 11.1 MG/DL (8.5-10.1)
[2021-09-25 14:32] LABS: TOTAL PROTEIN 8.4 GM/DL (6.4-8.2)
[2021-09-25 14:34] LABS: BILIRUBIN,TOTAL 0.3 MG/DL (0.1-1.0)
[2021-09-25 14:36] LABS: CREATININE SERUM 1.07 MG/DL (0.60-1.30)
== END 2021-10-15 | disposition home or self-care (01) ==
LOC: ONC 13:52
PROVIDERS: ATTEND Internal Medicine Hematology & Oncology
DX: Z45.2 Encounter for adjustment and management of vascular access device (principal); C4A.59 Merkel cell carcinoma of other part of trunk; D72.829 Elevated white blood cell count, unspecified; M25.50 Pain in unspecified joint; M54.50 Low back pain, unspecified
CPT/HCPCS: 36415; 36591; 80053; 85025

== ENCOUNTER 2021-12-25 12:43 | Outpatient (RCR) | payer MEDICARE ==
[2021-12-25 13:29] LABS: BASOPHILS # (AUTO) 0.1 10^3/uL (0.0-0.1); BASOPHILS % (AUTO) 1 % (0-10); EOSINOPHILS # (AUTO) 0.4 10^3/uL (0.0-0.3); EOSINOPHILS % (AUTO) 2 % (0-10); HEMATOCRIT 39 % (35-52); HEMOGLOBIN 12.6 g/dL (11.5-16.0); LYMPHOCYTES # (AUTO) 5.7 10^3/uL (1.0-4.0); LYMPHOCYTES % (AUTO) 30 % (12-44); MEAN CORPUSCULAR HEMOGLOBIN 26 pg (25-34); MEAN CORPUSCULAR HGB CONC 33 g/dL (32-36); MEAN CORPUSCULAR VOLUME 79 fL (80-99); MEAN PLATELET VOLUME 9.3 fL (9.0-12.2); MONOCYTES # (AUTO) 3.5 10^3/uL (0.0-1.0); MONOCYTES % (AUTO) 19 % (0-12); NEUTROPHILS # (AUTO) 9.1 10^3/uL (1.8-7.8); NEUTROPHILS % (AUTO) 48 % (42-75); PLATELET COUNT 241 10^3/uL (130-400); WHITE BLOOD COUNT 18.9 10^3/uL (4.3-11.0)
[2021-12-25 13:40] LABS: ALBUMIN 4.3 GM/DL (3.2-4.5); BILIRUBIN,TOTAL 0.4 MG/DL (0.1-1.0); CALCIUM 10.9 MG/DL (8.5-10.1); CREATININE SERUM 1.02 MG/DL (0.60-1.30); POTASSIUM 4.3 MMOL/L (3.6-5.0); TOTAL PROTEIN 7.8 GM/DL (6.4-8.2)
== END 2022-01-15 | disposition home or self-care (01) ==
LOC: ONC 12:43
PROVIDERS: ATTEND Internal Medicine Hematology & Oncology
DX: Z45.2 Encounter for adjustment and management of vascular access device (principal); C4A.59 Merkel cell carcinoma of other part of trunk; D72.829 Elevated white blood cell count, unspecified; M25.50 Pain in unspecified joint; M54.50 Low back pain, unspecified
CPT/HCPCS: 80053; 85025; G0463; 36591; 99213

== ENCOUNTER 2022-03-28 13:31 | Outpatient (RCR) | payer MEDICARE ==
[2022-03-28 14:00] LABS: BASOPHILS # (AUTO) 0.1 10^3/uL (0.0-0.1); BASOPHILS % (AUTO) 1 % (0-10); EOSINOPHILS # (AUTO) 0.4 10^3/uL (0.0-0.3); EOSINOPHILS % (AUTO) 2 % (0-10); HEMATOCRIT 39 % (35-52); HEMOGLOBIN 12.9 g/dL (11.5-16.0); LYMPHOCYTES # (AUTO) 5.3 10^3/uL (1.0-4.0); LYMPHOCYTES % (AUTO) 23 % (12-44); MEAN CORPUSCULAR HEMOGLOBIN 26 pg (25-34); MEAN CORPUSCULAR HGB CONC 33 g/dL (32-36); MEAN CORPUSCULAR VOLUME 78 fL (80-99); MEAN PLATELET VOLUME 9.5 fL (9.0-12.2); MONOCYTES # (AUTO) 4.3 10^3/uL (0.0-1.0); MONOCYTES % (AUTO) 18 % (0-12); NEUTROPHILS # (AUTO) 13.2 10^3/uL (1.8-7.8); NEUTROPHILS % (AUTO) 56 % (42-75); PLATELET COUNT 287 10^3/uL (130-400); WHITE BLOOD COUNT 23.4 10^3/uL (4.3-11.0)
[2022-03-28 14:23] LABS: ALBUMIN 4.4 GM/DL (3.2-4.5); BILIRUBIN,TOTAL 0.3 MG/DL (0.1-1.0); CALCIUM 11.4 MG/DL (8.5-10.1); CREATININE SERUM 1.1 MG/DL (0.60-1.30); POTASSIUM 4.4 MMOL/L (3.6-5.0)
== END 2022-04-16 | disposition home or self-care (01) ==
LOC: ONC 13:31
PROVIDERS: ATTEND Internal Medicine Hematology & Oncology
DX: C4A.59 Merkel cell carcinoma of other part of trunk (principal); D72.829 Elevated white blood cell count, unspecified; M25.50 Pain in unspecified joint; M54.50 Low back pain, unspecified; J32.9 Chronic sinusitis, unspecified
CPT/HCPCS: 36415; 80053; 85025

== ENCOUNTER → 2022-03-28 | Outpatient (CLI) | payer MEDICARE | LOC: LAB 13:58 | PROVIDERS: ATTEND Family Medicine | DX: Z01.89 Encounter for other specified special examinations (principal) | CPT/HCPCS: 36415; 83036 ==

== ENCOUNTER → 2022-04-07 | Outpatient (CLI) | payer MEDICARE ==
[~2022-04-07] MED LIST changes: +CATHETER FLUSH 10 ML SYR IV PRN; +HOLD METFORMIN - RECEIVED CONTRAST 20 ML VIAL IV SCH; +IOHEXOL 350 MG/ML 100 ML (OMNIPAQUE 350) VIAL IV ONE; +NS 100 ML (IVPB) BAG IV ONE
--- NOTE | 2022-04-07 14:25 | Diagnostic Imaging Report ---
EXAMINATION: CT chest, abdomen and pelvis with intravenous contrast. TECHNIQUE: Multiple contiguous axial images were obtained through the chest, abdomen and pelvis after the uneventful administration of intravenous contrast. All CT scans use one or more of the following dose optimizing techniques: automated exposure control, MA and/or KvP adjustment based on patient size and exam type or iterative reconstruction. HISTORY: Yee cell carcinoma COMPARISON: 04/09/2021 FINDINGS: There is no edema or pneumonia. No pleural effusion. No pneumothorax. No suspicious nodules. There is no axillary or supraclavicular lymphadenopathy. There is a stable 12 mm right lower paratracheal lymph node. Heart size is normal. There are moderate coronary artery calcifications. No pericardial effusion. Aorta is normal in caliber. The liver is normal without focal lesion. There is no biliary ductal dilation. Gallbladder is normal. Pancreas is normal. Spleen is normal. There is a new 5.1 x 3.5 cm left adrenal mass. The kidneys are normal. There is no hydronephrosis. Urinary bladder is normal. Bowel is normal in caliber without obstruction or inflammation. No free fluid or air. No abdominal or pelvic lymphadenopathy. Aorta is normal in caliber without aneurysm. There are no suspicious osseus lesions. IMPRESSION: 1. New large left adrenal mass consistent with metastatic disease. Dictated by: Dictated on workstation # [id number]
--- NOTE | 2022-04-07 19:02 | Diagnostic Imaging Report ---
PROCEDURE: CT maxillofacial with contrast. TECHNIQUE: After intravenous administration of contrast, axial images were obtained through the face and reformatted into coronal and sagittal planes. Auto Exposure Controls were utilized during the CT exam to meet ALARA standards for radiation dose reduction. INDICATION: Yee cell carcinoma There is minimal membrane thickening in some of the ethmoid air cells. The paranasal sinuses are clear including the mastoid air cells. Nasal passages are clear. Osseous structures appear normal. There is no pharyngeal mucosal thickening or prevertebral soft tissue swelling. Parapharyngeal fat planes are well-preserved. Submandibular and parotid glands appear normal. IMPRESSION: Minimal inflammatory change in the ethmoid air cells. Dictated by: Dictated on workstation # [id number]
== END ==
LOC: RAD 11:51
PROVIDERS: ATTEND Internal Medicine Hematology & Oncology
DX: C4A.9 Merkel cell carcinoma, unspecified (principal); E27.9 Disorder of adrenal gland, unspecified
CPT/HCPCS: 70487; 71260; 74177

== ENCOUNTER 2022-05-14 12:52 | Outpatient (RCR) | payer MEDICARE ==
[2022-05-01 10:53] LABS: BASOPHILS # (AUTO) 0.1 10^3/uL (0.0-0.1); BASOPHILS % (AUTO) 1 % (0-10); EOSINOPHILS # (AUTO) 0.5 10^3/uL (0.0-0.3); EOSINOPHILS % (AUTO) 3 % (0-10); HEMATOCRIT 38 % (35-52); HEMOGLOBIN 12.4 g/dL (11.5-16.0); LYMPHOCYTES # (AUTO) 4.6 10^3/uL (1.0-4.0); LYMPHOCYTES % (AUTO) 23 % (12-44); MEAN CORPUSCULAR HEMOGLOBIN 25 pg (25-34); MEAN CORPUSCULAR HGB CONC 32 g/dL (32-36); MEAN CORPUSCULAR VOLUME 79 fL (80-99); MEAN PLATELET VOLUME 9.5 fL (9.0-12.2); MONOCYTES # (AUTO) 2.9 10^3/uL (0.0-1.0); MONOCYTES % (AUTO) 15 % (0-12); NEUTROPHILS # (AUTO) 11.5 10^3/uL (1.8-7.8); NEUTROPHILS % (AUTO) 58 % (42-75); PLATELET COUNT 263 10^3/uL (130-400); WHITE BLOOD COUNT 19.7 10^3/uL (4.3-11.0)
[2022-05-01 11:19] LABS: ALBUMIN 4.2 GM/DL (3.2-4.5); BILIRUBIN,TOTAL 0.3 MG/DL (0.1-1.0); CALCIUM 10.7 MG/DL (8.5-10.1); CREATININE SERUM 1.24 MG/DL (0.60-1.30); POTASSIUM 3.6 MMOL/L (3.6-5.0)
[~2022-05-14] VITALS: Ht 162.6 cm; Wt 61.7 kg
[~2022-05-14 12:52] MED LIST changes: -CATHETER FLUSH 10 ML SYR IV PRN; +HEParin (CENTRAL IV FLUSH) 500 UNIT/5 ML SYR IV PRN; -HOLD METFORMIN - RECEIVED CONTRAST 20 ML VIAL IV SCH; -IOHEXOL 350 MG/ML 100 ML (OMNIPAQUE 350) VIAL IV ONE; +NIVOLUMAB 480 MG in NS (IVPB) 100 ML IV SCH; +NIVOLUMAB IV SCH; +NS (IVPB) 250 ML IV SCH; -NS 100 ML (IVPB) BAG IV ONE; +NS IV SCH
[2022-05-14 13:16] LABS: BASOPHILS # (AUTO) 0.1 10^3/uL (0.0-0.1); BASOPHILS % (AUTO) 1 % (0-10); EOSINOPHILS # (AUTO) 0.6 10^3/uL (0.0-0.3); EOSINOPHILS % (AUTO) 3 % (0-10); HEMATOCRIT 37 % (35-52); HEMOGLOBIN 11.8 g/dL (11.5-16.0); LYMPHOCYTES # (AUTO) 4.1 10^3/uL (1.0-4.0); LYMPHOCYTES % (AUTO) 23 % (12-44); MEAN CORPUSCULAR HEMOGLOBIN 25 pg (25-34); MEAN CORPUSCULAR HGB CONC 32 g/dL (32-36); MEAN CORPUSCULAR VOLUME 79 fL (80-99); MEAN PLATELET VOLUME 9.6 fL (9.0-12.2); MONOCYTES # (AUTO) 3.3 10^3/uL (0.0-1.0); MONOCYTES % (AUTO) 18 % (0-12); NEUTROPHILS # (AUTO) 9.6 10^3/uL (1.8-7.8); NEUTROPHILS % (AUTO) 54 % (42-75); PLATELET COUNT 247 10^3/uL (130-400); WHITE BLOOD COUNT 17.8 10^3/uL (4.3-11.0)
[2022-05-14 13:34] LABS: BILIRUBIN,TOTAL 0.3 MG/DL (0.1-1.0); CALCIUM 10.1 MG/DL (8.5-10.1); CREATININE SERUM 1.07 MG/DL (0.60-1.30); TOTAL PROTEIN 7.6 GM/DL (6.4-8.2)
== END 2022-05-17 | disposition home or self-care (01) ==
LOC: ONC 12:52
PROVIDERS: ATTEND Internal Medicine Hematology & Oncology
DX: Z51.11 Encounter for antineoplastic chemotherapy (principal); C4A.59 Merkel cell carcinoma of other part of trunk; D72.829 Elevated white blood cell count, unspecified; M25.50 Pain in unspecified joint; M54.50 Low back pain, unspecified; J32.9 Chronic sinusitis, unspecified
CPT/HCPCS: 36591; 80053; 85025; 96360; 96413; 99213

== ENCOUNTER 2022-06-10 13:49 | Inpatient (IN) | payer MEDICARE ==
[~2022-06-10] VITALS: Ht 162.5 cm; Wt 64.4 kg
[~2022-06-10 13:49] MED LIST changes: -HEParin (CENTRAL IV FLUSH) 500 UNIT/5 ML SYR IV PRN; -NIVOLUMAB 480 MG in NS (IVPB) 100 ML IV SCH; -NIVOLUMAB IV SCH; -NS (IVPB) 250 ML IV SCH; -NS IV SCH
[2022-06-10] MEDS ORDERED: fentaNYL INJ 100 MCG/2 ML AMP IVP STA (13:56)
--- NOTE | 2022-06-10 14:10 | ED Fall/Injury ---
General Chief Complaint: Trauma-Non Activation Stated Complaint: FALL | LT HIP PAIN Source: patient Exam Limitations: no limitations History of Present Illness Date Seen by Provider: Jun 10, 2022 Time Seen by Provider: 13:54 Initial Comments Here by EMS with report of fall at home. Apparently she was going out to put birdseed in the bird feeder when she slipped and fell and landed on her left hip. She did not fall all the way to her back and did not hit her head. She did not lose consciousness. She had to scoot her way to the house to call for help. EMS was summoned. They arrived and evaluated her. EMS reports that she did not have significant pain when not moving but she did have more significant pain on standing but still is only 2 or 3 out of 10. They did not give pain medicine. They do not note shortening or rotation. Patient reports pain to the left hip with movement and standing. She reports the same as above. Denies other injury. Patient is currently undergoing therapy for Yee tumor and has chemotherapy next week. Occurred: this afternoon (Approximately 1 hour ago) Severity: moderate Injuries/Pain Location: pelvis Loss of Consciousness: no loss of consciousness Modifying Factors: Worse With Movement Associated Symptoms (Fall): No Abdominal Pain, No Headache, No Nausea/Vomiting, No Neck Pain, No Shortness of Air Allergies and Home Medications Allergies Coded Allergies: No Known Drug Allergies (Unverified , 02/01/20) Patient Home Medication List Home Medication List Reviewed: Yes Aspirin (Aspirin) 81 Mg Tab.chew, 81 MG PO DAILY, (Reported) Entered as Reported by: PAULIE ARCE on 01/27/20 1055 Cinnamon Bark (Cinnamon) 500 Mg Capsule, 1,000 MG PO BID, (Reported) Entered as Reported by: PAULIE ARCE on 01/27/20 1055 Diltiazem HCl (Diltiazem ER) 240 Mg Capsule.er, 240 MG PO DAILY, (Reported) Entered as Reported by: PAULIE ARCE on 01/27/20 1055 Fexofenadine/Pseudoephedrine (Lachelle-D 24 Hour Tablet) 1 Each Tab.er.24h, 1 EACH PO DAILY, (Reported) Entered as Reported by: PAULIE ARCE on 01/27/20 1055 Fluticasone Propionate (Fluticasone Propionate) 15.8 Ml [place].susp, 15.8 ML NS BID, (Reported) Entered as Reported by: PAULIE ARCE on 01/27/20 1055 Hydrocodone/Acetaminophen (Hydrocodone-Acetamin 5-325 mg) 1 Each Tablet, 1 EACH PO, (Reported) Entered as Reported by: SENTHIL VERGARA on 02/01/20 1203 Lisinopril (Lisinopril) 20 Mg Tablet, 20 MG PO DAILY, (Reported) Entered as Reported by: PAULIE ARCE on 01/27/20 1055 Metformin HCl (Metformin HCl) 500 Mg Tablet, 1,000 MG PO BID, (Reported) Entered as Reported by: PAULIE ARCE on 01/27/20 1055 Franklin-3 Fatty Acids (Franklin-3) 1,000 Mg Capsule, 2,000 MG PO DAILY, (Reported) Entered as Reported by: PAULIE ARCE on 01/27/20 105 Pioglitazone HCl (Pioglitazone HCl) 30 Mg Tablet, 30 MG PO DAILY, (Reported) Entered as Reported by: PAULIE ARCE on 01/27/20 1055 Review of Systems Review of Systems Constitutional: see HPI; No chills, No fever Respiratory: No cough, No short of breath Cardiovascular: no symptoms reported Musculoskeletal: joint pain; No joint swelling; muscle pain Skin: No change in color, No lesions All Other Systems Reviewed Negative Unless Noted: Yes Past Ookgqec-Xtbjot-Czmzbu Hx Patient Social History Tobacco Use?: No Substance use?: No Alcohol Use?: No Seasonal Allergies Seasonal Allergies: Yes Past Medical History Surgeries: Yes (UMBILICAL HERNIA) Appendectomy, Hysterectomy, Oophorectomy Respiratory: No Currently Using CPAP: No Currently Using BIPAP: No Cardiac: Yes Hypertension Neurological: No 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 Sexually Transmitted Disease: No HIV/AIDS: No Genitourinary: No Gastrointestinal: No Musculoskeletal: No Endocrine: Yes Diabetes, Non-Insulin dep HEENT: Yes (READING GLASSES, DENTURES) Loss of Vision: Denies Hearing Impairment: Denies Cancer: Yes (YEE CELL CARCINOMA) Skin Psychosocial: No Integumentary: No Blood Disorders: No Adverse Reaction/Blood Tranf: No (N/A) Family Medical History Reviewed Nursing Family Hx Physical Exam Vital Signs Vital Signs - First Documented 06/10/22 13:52 Temp 36.3 Pulse 79 Resp 14 B/P (MAP) 114/44 (67) Pulse Ox 97 O2 Delivery Room Air Capillary Refill : Height, Weight, BMI Height: '" Weight: lbs. oz. kg; 27.35 BMI Method: General Appearance: WD/WN, no apparent distress HEENT: PERRL/EOMI, pharynx normal Neck: full range of motion, supple Cardiovascular: regular rate, rhythm, no murmur Respiratory: lungs clear, normal breath sounds Gastrointestinal: non tender, soft Back: normal inspection, no CVA tenderness, no vertebral tenderness Extremities: pelvis stable, other (Tender at left hip lateral and anterior no obvious bruising.) Neurologic/Psychiatric: alert, oriented x 3 Skin: normal color, warm/dry [place] Coma Score Best Eye Response: (4) Open Spontaneously Best Verbal Response: (5) Oriented Best Motor Response: (6) Obeys Commands Progress/Results/Core Measures Results/Orders My Orders Orders - AMANDA HERNANDES MD Ed Iv/Invasive Line Start (06/10/22 13:56) Fentanyl Inj (Sublimaze Injection) (06/10/22 13:56) Pelvis With Left Hip 2-3 Views (06/10/22 13:56) Chest 1 View, Ap/Pa Only (06/10/22 14:23) Cbc With Automated Diff (06/10/22 14:25) Comprehensive Metabolic Panel (06/10/22 14:25) Protime With Inr (06/10/22 14:25) Partial Thromboplastin Time (06/10/22 14:25) Ekg Tracing (06/10/22 14:25) Ed Admission (Communication) (06/10/22 14:48) Code/Resuscitation (06/10/22 14:48) Fentanyl Inj (Sublimaze Injection) (06/10/22 15:00) Vital Signs/I&O 06/10/22 13:52 Temp 36.3 Pulse 79 Resp 14 B/P (MAP) 114/44 (67) Pulse Ox 97 O2 Delivery Room Air Progress Progress Note : Progress Note Seen and evaluated. Poor access. Fentanyl 50 mcg IV ordered. X-ray of pelvis and left hip ordered. Monitor patient. Differential diagnosis includes pelvic fracture, hip fracture, contusion 1430: Left hip x-ray clearly shows intertrochanteric fracture on my interpretation. I have added chest x-ray as well as basic labs and EKG for admission. I have discussed the case with Dr. Verduzco and she accepts patient for admission, inpatient status. 1435: I have discussed the case with Dr. Mckeon who accepts patient in consult and request n.p.o. after midnight. All findings and concerns discussed with patient who agrees. Admit, inpatient status. We will repeat fentanyl 50 mcg IV as she is having continued pain. Initial ECG Impression Date: Jun 10, 2022 Initial ECG Impression Time: 14:33 Initial ECG Rate: 73 Initial ECG Rhythm: Normal Sinus Comment Sinus rhythm with normal axis. No evidence of ST elevation RI. Normal QRS duration. Interpreted by me. Diagnostic Imaging Diagonstic Imaging: Xray Plain Films/CT/US/NM/MRI: pelvis, hip Comments [facility] [place], [place] NAME: BRENDA COONEY [facility] REC#: [id number] PT STATUS: REG ER : 1940 PHYSICIAN: AMANDA HERNANDES MD ADMIT DATE: 06/10/22/ER Signed Date of Exam:06/10/22 PELVIS WITH LEFT HIP 2-3 VIEWS INDICATION: Pelvic pain. AP pelvis and two-view left hip performed There is an acute appearing intertrochanteric left hip fracture with no significant angulation. Femoral head is intact. The acetabulum and pubic rings intact. IMPRESSION: Intertrochanteric left femoral neck fracture. Underlying osteopenia suspected. No other injury. Dictated by: Dictated on workstation # [id number] Dict: 06/10/22 1434 Trans: 06/10/22 1439 [facility] [id number] Interpreted by: WENDY COLE Electronically signed by: WENDY COLE 06/10/22 1439 Diagonstic Imaging: Xray Plain Films/CT/US/NM/MRI: chest Comments [facility] [place] [place] NAME: BRENDA COONEY [facility] REC#: [id number] PT STATUS: REG ER : 1940 PHYSICIAN: AMANDA HERNANDES MD ADMIT DATE: 06/10/22/ER Signed Date of Exam:06/10/22 CHEST 1 VIEW, AP/PA ONLY INDICATION: Hip fracture. FINDINGS: There is an acute-appearing left seventh rib fracture laterally which may be incomplete. No significant displacement. No pulmonary parenchymal or pleural injury apparent. Hilar and mediastinal contours are normal. There is elevation of the right diaphragm but no findings of diaphragmatic injury. Subclavian line via the right chest wall port has its tip at the mid SVC. IMPRESSION: Acute or subacute left seventh rib fracture laterally. Clear lungs. No other significant finding. Dictated by: Dictated on workstation # [id number] Dict: 06/10/22 1435 Trans: 06/10/22 1439 [id number] [id number] Interpreted by: WENDY COLE Electronically signed by: WENDY COLE 06/10/22 1439 Departure Communication (Admissions) Time/Spoke to Admitting Phy: 14:30 Time/Spoke to Consulting Phy: 14:35 Impression Primary Impression: Hip fracture Qualified Codes: S72.002A - Fracture of unspecified part of neck of left femur, initial encounter for closed fracture Additional Impression: [place] cell carcinoma Disposition: ADMITTED INPATIENT Condition: Stable Admissions Decision to Admit Reason: Admit from ER (General) Decision to Admit/Date: Jun 10, 2022 Time/Decision to Admit Time: 14:30 Departure-Patient Inst. Referrals: RICK ROSS MD (PCP/Family) Primary Care Physician AMANDA HERNANDES MD Jun 10, 2022 14:10
--- NOTE | 2022-06-10 14:37 | Diagnostic Imaging Report ---
INDICATION: Pelvic pain. AP pelvis and two-view left hip performed There is an acute appearing intertrochanteric left hip fracture with no significant angulation. Femoral head is intact. The acetabulum and pubic rings intact. IMPRESSION: Intertrochanteric left femoral neck fracture. Underlying osteopenia suspected. No other injury. Dictated by: Dictated on workstation # [id number]
--- NOTE | 2022-06-10 14:41 | Diagnostic Imaging Report ---
INDICATION: Hip fracture. FINDINGS: There is an acute-appearing left seventh rib fracture laterally which may be incomplete. No significant displacement. No pulmonary parenchymal or pleural injury apparent. Hilar and mediastinal contours are normal. There is elevation of the right diaphragm but no findings of diaphragmatic injury. Subclavian line via the right chest wall port has its tip at the mid SVC. IMPRESSION: Acute or subacute left seventh rib fracture laterally. Clear lungs. No other significant finding. Dictated by: Dictated on workstation # [id number]
[2022-06-10] MEDS ORDERED: fentaNYL INJ 100 MCG/2 ML AMP IVP ONE (15:00)
--- NOTE | 2022-06-10 15:01 | History & Physical-Hospitalist ---
History of Present Illness HPI/Chief Complaint Patient is 81-year-old female past medical history of Yee cell tumor, yff-cupxpql-udcjwdicx diabetes type 2, hypertension who presented to the emergency department due to left hip pain. There is an upcoming snowstorm and she was walking out of the back of her porch to go fill up her birdfeeders when she tripped on the steps and fell. She was able to scoot back up the steps and call for help. She was found to have a left hip fracture on imaging in the ER. She is being admitted for operative management by orthopedic surgery. She reports pain as 2/10 but had no improvement with fentanyl. She otherwise has no complaints. She was to get her next dose of treatment for her cancer on 06/12. Source: patient Date Seen 06/10/22 Time Seen by a Provider: 14:55 Attending Physician Ever Rsos MD PCP Admitting Physician: Attending Physician: Referring Physician Date of Admission Home Medications & Allergies Home Medications Reviewed patient Home Medication Reconciliation performed by pharmacy medication reconciliations plating technician and/or nursing. Patients Allergies have been reviewed. Allergies Allergies Coded Allergies No Known Drug Allergies (Unverified02/01/20) Past Etztocz-Xbjrmk-Wnepda Hx Patient Social History Tobacco Use?: No Use of E-Cig and/or Vaping dev: No Substance use?: No Alcohol Use?: No Pt feels they are or have been: No Immunizations Up To Date Date of Influenza Vaccine: Feb 21, 2019 First/Initial COVID19 Vaccinat: YES Second COVID19 Vaccination Jabier: YES Date of Pneumonia Vaccine: Feb 19, 2015 Seasonal Allergies Seasonal Allergies: Yes Current Status Advance Directives: No Communicates: Verbally Primary Language: Salvadorean Preferred Spoken Language: Salvadorean Is interpretation needed?: No Past Medical History Surgeries: Appendectomy, Hysterectomy, Oophorectomy Currently Using CPAP: No Currently Using BIPAP: No 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 oz. kg; 23.00 BMI Method: General Appearance: No Apparent Distress, Thin HEENT: PERRL/EOMI, Moist Mucous Membranes Respiratory: Lungs Clear, No Respiratory Distress Cardiovascular: Regular Rate, Rhythm, No JVD, No Murmur Gastrointestinal: Normal Bowel Sounds, Non Tender, Soft Extremity: No Calf Tenderness, No Pedal Edema, Other Neurologic/Psychiatric: Alert, Oriented x3 Skin: Normal Color, Warm/Dry Results Results/Procedures Labs Laboratory Tests 06/10/22 14:56 06/11/22 05:30 Patient resulted labs reviewed. Imaging: Reviewed Imaging Films, Reviewed Imaging Report Imaging [facility], [place] NAME: BRENDA COONEY [facility] REC#: [id number] PT STATUS: REG ER : 1940 PHYSICIAN: AMANDA HERNANDES MD ADMIT DATE: 06/10/22/ER Signed Date of Exam:06/10/22 PELVIS WITH LEFT HIP 2-3 VIEWS INDICATION: Pelvic pain. AP pelvis and two-view left hip performed There is an acute appearing intertrochanteric left hip fracture with no significant angulation. Femoral head is intact. The acetabulum and pubic rings intact. IMPRESSION: Intertrochanteric left femoral neck fracture. Underlying osteopenia suspected. No other injury. Dictated by: Dictated on workstation # [id number] Dict: 06/10/22 1434 Trans: 06/10/22 1439 [facility] [id number] Interpreted by: WENDY COLE Electronically signed by: WENDY COLE 06/10/22 1439 Assessment/Plan Admission Diagnosis Intertrochanteric left hip fracture Admission Status: Inpatient Order (span 2 midnights) Reason for Inpatient Admission: see below Assessment and Plan Intertrochanteric left hip fracture Ortho consulted, appreciate recs Will continue fentanyl for pain Oxycodone prn as well NPO after midnight PT/OT after surgery NIDDMII Takes metformin only at home Hold for now SSI ACHS accu checks HTN On lisinopril/HCTZ at home BP well controlled, trend for now and resume if needed yee Cell tumor Follows with Dr Clark Was due for immunotherapy on 06/12 I called and updated Dr June on admission- reviewed leaukocytosis with her and up from her baseline but normally is around 20- likely stress response NO acute needs at this time DVT ppx: Lovenox after surgery Diagnosis/Problems Diagnosis/Problems (1) [place] cell carcinoma (2) Hip fracture Qualifiers: Encounter type: initial encounter Fracture type: closed Laterality: left Qualified Codes: S72.002A - Fracture of unspecified part of neck of left femur, initial encounter for closed fracture (3) Essential (primary) hypertension (4) Non-insulin dependent type 2 diabetes mellitus Copy Copies To 1: EVER ROSS MD, KATELYN M MD Jun 10, 2022 3:01 pm
[2022-06-10 15:21] LABS: ALBUMIN 3.9 GM/DL (3.2-4.5); POTASSIUM 3.9 MMOL/L (3.6-5.0)
[2022-06-10 15:22] LABS: CALCIUM 11.1 MG/DL (8.5-10.1)
[2022-06-10 15:24] LABS: TOTAL PROTEIN 7.6 GM/DL (6.4-8.2)
[2022-06-10 15:25] LABS: BILIRUBIN,TOTAL 0.3 MG/DL (0.1-1.0)
[2022-06-10 15:26] LABS: BASOPHILS # (AUTO) 0.2 10^3/uL (0.0-0.1); BASOPHILS % (AUTO) 1 % (0-10); EOSINOPHILS # (AUTO) 0.2 10^3/uL (0.0-0.3); EOSINOPHILS % (AUTO) 1 % (0-10); HEMATOCRIT 36 % (35-52); HEMOGLOBIN 11.4 g/dL (11.5-16.0); LYMPHOCYTES # (AUTO) 3.7 10^3/uL (1.0-4.0); LYMPHOCYTES % (AUTO) 11 % (12-44); MEAN CORPUSCULAR HEMOGLOBIN 25 pg (25-34); MEAN CORPUSCULAR HGB CONC 32 g/dL (32-36); MEAN CORPUSCULAR VOLUME 78 fL (80-99); MEAN PLATELET VOLUME 9.8 fL (9.0-12.2); MONOCYTES # (AUTO) 3.9 10^3/uL (0.0-1.0); MONOCYTES % (AUTO) 12 % (0-12); NEUTROPHILS # (AUTO) 23.8 10^3/uL (1.8-7.8); NEUTROPHILS % (AUTO) 73 % (42-75); PLATELET COUNT 326 10^3/uL (130-400)
[2022-06-10 15:35] VITALS: BP 133/62
[2022-06-10 15:36] LABS: WHITE BLOOD COUNT 32.7 10^3/uL (4.3-11.0)
[2022-06-10 15:40] LABS: PROTHROMBIN TIME PATIENT 13.7 SEC (12.2-14.7)
[2022-06-10] MEDS ORDERED: LACTULOSE SYRUP 10GM/15ML (ENULOSE) 30ML UDC PO PRN (16:00)
[2022-06-10] MEDS ORDERED: polyethylene glycoL POWDER 17 GM (MIRALAX) PACK PO PRN (16:00)
[2022-06-10] MEDS ORDERED: MELATONIN 3 MG TABLET PO PRN (16:00)
[2022-06-10] MEDS ORDERED: CALCIUM CARBONATE 500 MG (TUMS) TAB.CHEW PO PRN (16:00)
[2022-06-10] MEDS ORDERED: MILK OF MAGNESIA 400 MG/5 ML 30 ML UDC PO PRN (16:00)
[2022-06-10] MEDS ORDERED: BISACODYL 10 MG SUPP (DULCOLAX) PR PRN (16:00)
[2022-06-10] MEDS ORDERED: ONDANSETRON 4 MG/2 ML (SDV) Z0FRAN IV PRN (16:00)
[2022-06-10] MEDS ORDERED: ANTACID SUSP 30 ML UDC (MYLANTA) PO PRN (16:00)
[2022-06-10] MEDS ORDERED: ACETAMINOPHEN 325 MG TABLET PO PRN (16:00)
[2022-06-10 16:01] VITALS: BP 135/64
[2022-06-10 16:19] LABS: BAND NEUTROPHILS 2 %; LYMPHOCYTES % (MANUAL) 9 %; NEUTROPHILS % (MANUAL) 76 %
[2022-06-10 16:20] LABS: EOSINOPHILS % (MANUAL) 1 %; MICROCYTOSIS SLIGHT; MONOCYTES % (MANUAL) 12 %; POIKILOCYTOSIS SLIGHT
[2022-06-10] MEDS: oxyCODONE/APAP 5/325MG (PERCOCET 5) TABLET PO PRN ×2 (16:27→21:15)
--- NOTE | 2022-06-10 16:39 | CONSULTATION REPORT ---
DATE OF SERVICE: 06/10/2022 REASON FOR CONSULTATION: Left intertrochanteric femur fracture. HISTORY OF PRESENT ILLNESS: The patient is a 81-year-old independently living female who fell while filling her bird feeder at home. She landed on her left hip. She was found to have an intertrochanteric femur fracture for which she was admitted and I was consulted. She denies any antecedent pain. ALLERGIES: NO KNOWN DRUG ALLERGIES. PAST MEDICAL HISTORY: [place]'s carcinoma, hypertension, diabetes. PAST SURGICAL HISTORY: Appendectomy, hysterectomy, oophorectomy. ORTHOPEDIC EXAM: Left lower extremity is shortened and externally rotated. She has intact dorsiflexion and plantarflexion of the toes. Pulses are symmetric. She has intact sensation to light touch throughout. She is tender over the lateral aspect of her hip. Radiographs reveal a left intertrochanteric femur fracture. IMPRESSION: Left intertrochanteric femur fracture. PLAN: Left hip intramedullary nail. The risks, benefits, options, ramifications of recovery were discussed at length with the patient. She understands and wishes to proceed. Job ID: [id number] DocumentID: [id number] Dictated Date: 06/10/2022 16:24:01 Risk Control Manager Date: 06/10/2022 16:37:00 Dictated By: TREVOR MENENDEZ MD
[2022-06-10 19:02] VITALS: BP 139/63
[2022-06-10] MEDS: SENNOSIDES 8.6 MG (SENOKOT) TAB PO SCH (20:34)
[2022-06-10] MEDS: DOCUSATE SODIUM 100 MG (COLACE) CAP PO SCH (20:34)
[2022-06-10] MEDS: inSUlin ASPART (NovoLOG) 1 UNIT/0.01 ML (CHARGE PER UNIT) SC SCH (20:53)
[2022-06-10] MEDS: NS IV 1000 ML 1,000 ML IV SCH (21:24)
[2022-06-10 23:03] VITALS: BP 121/71
[2022-06-11] VITALS (13 sets, daily range): BP systolic 104–150; BP diastolic 52–69
[2022-06-11] MEDS: fentaNYL INJ 100 MCG/2 ML AMP IVP PRN ×3 (02:21→14:56)
[2022-06-11 05:54] LABS: HEMATOCRIT 29 % (35-52); HEMOGLOBIN 9.4 g/dL (11.5-16.0); MEAN CORPUSCULAR HEMOGLOBIN 25 pg (25-34); MEAN CORPUSCULAR HGB CONC 32 g/dL (32-36); MEAN CORPUSCULAR VOLUME 77 fL (80-99); MEAN PLATELET VOLUME 9.4 fL (9.0-12.2); PLATELET COUNT 269 10^3/uL (130-400); WHITE BLOOD COUNT 23.2 10^3/uL (4.3-11.0)
[2022-06-11 06:02] LABS: PROTHROMBIN TIME PATIENT 13.9 SEC (12.2-14.7)
[2022-06-11 06:15] LABS: CALCIUM 10.2 MG/DL (8.5-10.1); CREATININE SERUM 0.85 MG/DL (0.60-1.30); POTASSIUM 3.8 MMOL/L (3.6-5.0)
[2022-06-11] MEDS: inSUlin ASPART (NovoLOG) 1 UNIT/0.01 ML (CHARGE PER UNIT) SC SCH ×4 (06:18→20:46)
[2022-06-11] MEDS ORDERED: ONDANSETRON 4 MG/2 ML (SDV) Z0FRAN IVP PRN ×2 (07:30→11:45)
[2022-06-11] MEDS: SENNOSIDES 8.6 MG (SENOKOT) TAB PO SCH ×2 (07:39→20:49)
[2022-06-11] MEDS: DOCUSATE SODIUM 100 MG (COLACE) CAP PO SCH ×2 (07:39→20:49)
[2022-06-11] MEDS: NS IV 1000 ML 1,000 ML IV SCH ×3 (07:49→20:43)
--- NOTE | 2022-06-11 08:59 | Physical Therapy Progress Note ---
Therapy Progress Note Orders received for PT evaluation. Patient is having surgery today. Will check back this afternoon if patient is available or start in the morning. ADÁN FARIA PT Jun 11, 2022 08:59
[2022-06-11] MEDS ORDERED: BUPIVACAINE 0.25% 30 ML (SENSORCAINE) VIAL ONE (09:04)
--- NOTE | 2022-06-11 09:38 | Progress Note-Pre Operative ---
Pre-Operative Progress Note Date of Available H&P: Jun 11, 2022 Date H&P Reviewed: Jun 11, 2022 Time H&P Reviewed: 09:37 Changes from last HP none Pre-Operative Diagnosis: left hip intertrochanter femur fracture closed, displaced TREVOR MENENDEZ MD Jun 11, 2022 09:38
--- NOTE | 2022-06-11 09:40 | Progress Note-Post Operative ---
Post-Operative Progess Note Surgeon (s)/Automotive Manufacturer (s) Surgeon TREVOR MENENDEZ MD Automotive Manufacturer: Noam Faust Pre-Operative Diagnosis left hip intertrochanter femur fracture closed, displaced Post-Operative Diagnosis left hip intertrochanter femur fracture closed, displaced Procedure & Operative Findings Date of Procedure 06/11/22 Procedure Performed/Findings left hip intramedullary nail Anesthesia Type GETA Estimated Blood Loss Estimated blood loss (mL): 2ooml Specimens/Packing Specimens Removed none Packing: none TREVOR MENENDEZ MD Jun 11, 2022 09:40
[2022-06-11] MEDS ORDERED: SEVOFLURANE (ULTANE) 15 ML INHAL SOLN ONE ×2 (09:43→11:45)
[2022-06-11] MEDS ORDERED: ONDANSETRON 4 MG/2 ML (SDV) Z0FRAN ONE (09:43)
[2022-06-11] MEDS ORDERED: proPOfol 200 MG/20 ML (DIPRIVAN) VIAL IV ONE (09:43)
[2022-06-11] MEDS ORDERED: LIDOCAINE PF 2% 5 ML (XYLOCAINE) VIAL ONE (09:43)
[2022-06-11] MEDS ORDERED: fentaNYL INJ 100 MCG/2 ML AMP ONE (09:43)
--- NOTE | 2022-06-11 10:14 | Progress Note - Hospitalist ---
Subjective HPI/CC On Admission Date Seen by Provider: Jun 11, 2022 Patient is 81-year-old female past medical history of [place] cell tumor, ftc-qmenmgj-vsdgtyvqh diabetes type 2, hypertension who presented to the emergency department due to left hip pain. There is an upcoming snowstorm and she was walking out of the back of her porch to go fill up her birdfeeders when she tripped on the steps and fell. She was able to scoot back up the steps and call for help. She was found to have a left hip fracture on imaging in the ER. She is being admitted for operative management by orthopedic surgery. She reports pain as 2/10 but had no improvement with fentanyl. She otherwise has no complaints. She was to get her next dose of treatment for her cancer on 06/12. Subjective/Events-last exam Pt reports doing well. Pain controlled. States she was told surgery is scheduled around noon today. Objective Exam Vital Signs Vital Signs Date Time Temp Pulse Resp B/P (MAP) Pulse Ox O2 Delivery O2 Flow Rate FiO2 06/11/22 08:00 94 Room Air 06/11/22 07:17 36.8 79 20 150/69 (96) Capillary Refill : Less Than 3 Seconds General Appearance: No Apparent Distress, Thin Respiratory: Lungs Clear, No Accessory Muscle Use, No Respiratory Distress Cardiovascular: Regular Rate, Rhythm, No Murmur Gastrointestinal: Normal Bowel Sounds, Non Tender, Soft Neurologic/Psychiatric: Alert, Oriented x3 Results/Procedures Lab Laboratory Tests 06/10/22 14:56 06/11/22 05:30 Patient resulted labs reviewed. Imaging: Reviewed Imaging Films, Reviewed Imaging Report Assessment/Plan Assessment and Plan Assess & Plan/Chief Complaint Intertrochanteric left hip fracture Ortho consulted, appreciate recs Fentanyl for pain Oxycodone prn as well Scheduled for surgery today PT/OT after surgery NIDDMII Takes metformin only at home Hold for now SSI ACHS accu checks HTN On lisinopril/HCTZ at home BP mostly well controlled, trend for now and resume postoperatively shu Cell tumor Follows with Dr Clark Was due for immunotherapy on 06/12 I called and updated Dr Clark on admission- reviewed leaukocytosis with her and up from her baseline but normally is around 20- likely stress response WBC back down to baseline this AM No acute needs at this time DVT ppx: Lovenox after surgery Diagnosis/Problems Diagnosis/Problems (1) [place] cell carcinoma (2) Hip fracture Qualifiers: Encounter type: initial encounter Fracture type: closed Laterality: left Qualified Codes: S72.002A - Fracture of unspecified part of neck of left femur, initial encounter for closed fracture (3) Essential (primary) hypertension (4) Non-insulin dependent type 2 diabetes mellitus VAL VANESSA MD Jun 11, 2022 10:13 am
[2022-06-11] MEDS ORDERED: LACTATED RINGERS 1,000 ML IV PRN (10:30)
[2022-06-11] MEDS ORDERED: DIPH25CA79 PO (10:46)
[2022-06-11] MEDS ORDERED: ASCO-262 PO (10:46)
[2022-06-11] MEDS ORDERED: ASPI-808 PO (10:46)
[2022-06-11] MEDS ORDERED: LISI1TAB46 PO (10:46)
[2022-06-11] MEDS ORDERED: DILT240C91 PO (10:46)
[2022-06-11] MEDS ORDERED: [UNRECOGNIZED DRUG - CODE] IV (10:46)
[2022-06-11] MEDS ORDERED: CYAN500T8 PO (10:46)
--- NOTE | 2022-06-11 10:49 | Occ Therapy Progress Note ---
Therapy Progress Note OT orders received and chart reviewed, patient in surgery today, OT will monitor for evaluation and complete next available opportunity GUY SANDHU OT Jun 11, 2022 10:49
[2022-06-11] MEDS ORDERED: ROPIVACAINE 5MG/ML 30ML VIAL ONE (11:23)
[2022-06-11] MEDS ORDERED: MEPERIDINE (DEMEROL) INJ 50 MG/ML IVP ONE (11:45)
[2022-06-11] MEDS ORDERED: HYDROmorphone 2 MG/ML VIAL (DILAUDID) IV ONE (11:45)
[2022-06-11] MEDS ORDERED: PHENYLEPHRINE 100 MCG/ML 10 ML (ANESTHESIA) SYR ONE (11:45)
[2022-06-11] MEDS ORDERED: BUPIVACAINE 0.25% 30 ML (SENSORCAINE) VIAL INJ ONE (11:46)
[2022-06-11] MEDS ORDERED: ceFAZolin INJECTION 2,000 MG in NS (IVPB) 50 ML IV NR (12:00)
[2022-06-11] MEDS ORDERED: HYDROmorphone 2 MG/ML VIAL (DILAUDID) ONE (12:04)
--- NOTE | 2022-06-11 14:07 | Physical Therapy Evaluation ---
PT Evaluation-General Medical Diagnosis Admission Date Jun 10, 2022 at 14:50 Medical Diagnosis: left IM jessica Onset Date: Jun 11, 2022 Therapy Diagnosis Therapy Diagnosis: impaired mobility Precautions Precautions/Isolations: Fall Prevention, Standard Precautions Weight Bear Status Right Lower Extremity: Right Weight Bearing/Tolerated Left Lower Extremity: Left Weight Bearing/Tolerated Referral Physician: Govind Reason for Referral: Evaluation/Treatment Medical History Additional Medical History Past Medical History Surgeries: Appendectomy, Hysterectomy, Oophorectomy Currently Using CPAP: No Currently Using BIPAP: No 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 3-Erucyhmdgx-qsorakj completes the activity by him/herself with no assistance from a helper. 5-Set-up or Clean-up Assistance-helper sets up or cleans up; patient completes activity. [place] assists only prior to or following the activity. 4-Supervision or Touching Assistance-helper provides verbal cues and/or touching/steadying and/or contact guard assistance as patient completes activity . Assistance may be provided throughout the activity or intermittently. 3-Partial/Moderate Assistance-helper does LESS THAN HALF the effort. [place] lifts, holds or supports trunk or limbs, but provides less than half the effort. 2-Substantial/Maximal Assistance-helper does MORE THAN HALF the effort. [place] lifts or holds trunk or limbs and provides more than half the effort. 8-Mkfwrzfqf-crpaps does ALL the effort. Patient does none of the effort to complete the activity. Or, the assistance of 2 or more helpers is required for the patient to complete the activity. If activity was not attempted, code reason: 7-Patient Refused. 9-Not Applicable-not attempted and the patient did not perform the activity before the current illness, exacerbation or injury. 10-Not Attempted due to Environmental Limitations-(lack of equipment, weather restraints, etc.). 88-Not Attempted due to Medical Conditions or Safety Concerns. Bed Mobility: 6 Transfers (B,C,W/C): 6 Gait: 6 Stairs: 6 Indoor Mobility (Ambulation): Independent Stairs: Independent PT Evaluation-Current Subjective Patient in bed pre tx, agrees to PT, has 6/10 pain in left hip. Pt/Family Goals to be independent at home Objective Patient Orientation: Person, Place, Situation Attachments: Ogden Catheter, IV Sensory Vision: Functional Hearing: Functional Sensation Right Lower Extremit: Intact Sensation Left Lower Extremity: Intact Transfers Roll Left to Right (QC): 4 Sit to Lying (QC): 3 Lying to Sitting/Side of Bed(Q: 3 Sit to Stand (QC): 3 Patient needed min assist for supine to sit, min assist for sit to stand. Patient was not able to bear any weight on her left leg, just nacho. Sat back down, performed LLE exercises and they layed back down with min assist, she was able to scoot up in bed on her own with cues for positioning. Balance Sitting Static: Fair Sitting Dynamic: Fair Standing Static: Fair Treatment seated exercises x10 (GS, LAQ AAROM, AP) Assessment/Needs Patient in bed post tx with nurse call, phone, tray, all needs met. Patient has impaired mobility, strength, endurance. Patient was not able to ambulate yet, left leg nacho, cannot bear weight yet. Rehab Potential: Fair PT Residential Goals Residential Goals PT Communications Clerk Goals Time Frame: Jun 18, 2022 Roll Left & Right (QC): 6 Sit to Lying (QC): 4 Lying-Sitting on Side/Bed(QC): 4 Sit to Stand (QC): 4 Chair/Ckg-nh-Rrntv Xfer(QC): 4 Walk 10 feet (QC): 4 Walk 50ft with 2 Turns (QC): 4 PT Plan Problem List Problem List: Activity Tolerance, Functional Strength, Safety, Balance, Gait, Transfer, Bed Mobility, ROM Treatment/Plan Treatment Plan: Continue Plan of Care Treatment Plan: Bed Mobility, Education, Functional Activity Kaitlyn, Functional Strength, Gait, Safety, Therapeutic Exercise, Transfers Treatment Duration: Jun 18, 2022 Frequency: 11 times per week Estimated Hrs Per Day: .25 hour per day Patient and/or Family Agrees t: Yes Safety Risks/Education Patient Education: Correct Positioning, Safety Issues Teaching Recipient: Patient Teaching Methods: Demonstration, Discussion Response to Teaching: Reinforcement Needed Discharge Recommendations Plan Patient will perform bed mobility and transfer training, balance and endurance training, functional strengthening, stair training, gait training, and education, to improve functional mobility and independence at home. Therapy Discharge Recommendati: Home & Family, Post Acute PT Time Time In: 1330 Time Out: 1345 DATE: Jun 11, 2022 Total Billed Treatment Time: 15 Total Billed Treatment 1 visit THEODORE Martin' ADÁN FARIA PT Jun 11, 2022 14:07
[2022-06-11] MEDS: oxyCODONE/APAP 5/325MG (PERCOCET 5) TABLET PO PRN ×2 (14:56→20:43)
--- NOTE | 2022-06-11 19:51 | OPERATIVE REPORT ---
PREOPERATIVE DIAGNOSIS: Closed, displaced left intertrochanteric femur fracture. POSTOPERATIVE DIAGNOSIS: Closed, displaced left intertrochanteric femur fracture. PROCEDURE: Left hip intramedullary nail. SURGEON: Clovis Menendez MD SOLE CEMENTER: Noam Faust, who assisted throughout the procedure and closed the incisions. ANESTHESIA: General endotracheal by Celso Pandey CRNA. ESTIMATED BLOOD LOSS: 200 mL DRAINS: None. COMPLICATIONS: None. POSTOPERATIVE PLANS: Weightbearing as tolerated with a walker. MATERIALS: Synthes TFN short nail, 10 mm in diameter with a 105 mm blade statically locked. The patient was transferred to the recovery room awake and stable. STATEMENT OF MEDICAL NECESSITY: The patient is a 81-year-old female who fell yesterday and was found to have a closed displaced left intertrochanteric femur fracture. The patient was counseled regarding treatment options and elected to proceed with surgical intervention. DESCRIPTION OF PROCEDURE: After risks and benefits of the procedure were discussed and questions were answered, informed consent signed and placed on the chart. The operative site was confirmed in the preoperative holding area and initialed by surgeon. The patient was then transported to the operating room and after adequate levels of general endotracheal anesthetic was obtained, a timeout was called, confirming the operative site. The patient was then carefully placed on the fracture table, gentle longitudinal traction was applied. Under fluoroscopic visualization, the fracture was anatomically reduced. The left hip and lower extremity were then prepped and draped in the usual sterile fashion. An incision was made from the greater trochanter extending proximally. The iliotibial band was incised in line with the incision. The guidewire was passed into the femoral canal and was confirmed to have proper placement in the AP and lateral planes. This was then overreamed with the proximal reamer. A 10 mm short nail was then placed with good purchase. The guidewire was then passed through a percutaneous incision laterally into the femoral head. The patient's anatomy was in more varus than typically 430 degree nail, but the guidewire was felt to be in excellent position. This was then overreamed laterally and 105 mm blade was placed with good purchase. Fluoroscopy in AP and lateral planes revealed well reduced fracture with well placed hardware. Through the same distal percutaneous incision, a distal locking screw was placed with good purchase. Fluoroscopy in the AP and lateral planes revealed anatomic reduction and placement of the screw. Prior to distal screw placement, the fracture site was compressed. Fluoroscopy in AP and lateral planes revealed anatomic reduction of the fracture with well placed hardware. The wounds were copiously irrigated. The iliotibial band was closed with #1 Vicryl in diklgw-ns-zciwc interrupted fashion. The wounds were further irrigated. 2-0 Vicryl was used for the subcutaneous tissue. Skin was closed with saurabh. The incisions were infiltrated with plain Marcaine. A soft dressing was applied and the patient was transported to the recovery room awake and in stable condition. Job ID: [id number] DocumentID: [id number] Dictated Date: 06/11/2022 11:26:22 Detective Bureau Chief Date: 06/11/2022 19:50:00 Dictated By: CLOVIS MENENDEZ MD
[2022-06-12] VITALS (8 sets, daily range): BP systolic 119–145; BP diastolic 60–70
[2022-06-12] MEDS: oxyCODONE/APAP 5/325MG (PERCOCET 5) TABLET PO PRN ×4 (05:57→21:42)
[2022-06-12 06:14] LABS: MEAN CORPUSCULAR HEMOGLOBIN 26 pg (25-34); MEAN CORPUSCULAR HGB CONC 33 g/dL (32-36); MEAN CORPUSCULAR VOLUME 78 fL (80-99); MEAN PLATELET VOLUME 9.6 fL (9.0-12.2); PLATELET COUNT 205 10^3/uL (130-400); WHITE BLOOD COUNT 27.7 10^3/uL (4.3-11.0)
[2022-06-12 06:16] LABS: HEMOGLOBIN 6.3 g/dL (11.5-16.0)
[2022-06-12 06:17] LABS: HEMATOCRIT 19 % (35-52)
[2022-06-12] MEDS: inSUlin ASPART (NovoLOG) 1 UNIT/0.01 ML (CHARGE PER UNIT) SC SCH ×4 (06:18→20:17)
[2022-06-12 06:23] LABS: POTASSIUM 4.5 MMOL/L (3.6-5.0)
[2022-06-12 06:24] LABS: CALCIUM 9.1 MG/DL (8.5-10.1)
[2022-06-12 06:28] LABS: CREATININE SERUM 0.92 MG/DL (0.60-1.30)
--- NOTE | 2022-06-12 07:38 | Progress Note ---
Standard Progress Note Progress Notes/Assess & Plan Date Seen by a Provider: Jun 12, 2022 Time Seen by a Provider: 07:36 Progress/Assessment & Plan no complaints Laboratory Tests Test 06/11/22 15:49 06/11/22 20:42 06/12/22 05:23 06/12/22 06:00 Range/Units Glucometer 170 H 219 H 151 H 70-110 MG/DL White Blood Count 27.7 H 4.3-11.0 10^3/uL Red Blood Count 2.44 L 3.80-5.11 10^6/uL Hemoglobin 6.3 #*L 11.5-16.0 g/dL Hematocrit 19 *L 35-52 % Mean Corpuscular Volume 78 L 80-99 fL Mean Corpuscular Hemoglobin 26 25-34 pg Mean Corpuscular Hemoglobin Concent 33 32-36 g/dL Red Cell Distribution Width 16.0 H 10.0-14.5 % Platelet Count 205 130-400 10^3/uL Mean Platelet Volume 9.6 9.0-12.2 fL Sodium Level 132 L 135-145 MMOL/L Potassium Level 4.5 3.6-5.0 MMOL/L Chloride Level 105 98-107 MMOL/L Carbon Dioxide Level 21 21-32 MMOL/L Anion Gap 6 5-14 MMOL/L Blood Urea Nitrogen 19 H 7-18 MG/DL Creatinine 0.92 0.60-1.30 MG/DL Estimat Glomerular Filtration Rate 63 BUN/Creatinine Ratio 21 Glucose Level 149 H 70-105 MG/DL Calcium Level 9.1 8.5-10.1 MG/DL Vital Signs Date Time Temp Pulse Resp B/P (MAP) Pulse Ox O2 Delivery O2 Flow Rate FiO2 06/12/22 06:27 36.5 06/12/22 05:57 36.5 06/12/22 03:00 36.5 80 20 122/60 (80) 93 Room Air 0.00 0.00 06/11/22 23:12 36.1 76 20 108/67 (81) 95 Room Air 06/11/22 21:13 36.2 06/11/22 20:43 36.2 06/11/22 20:00 Room Air 06/11/22 19:40 36.2 78 20 104/52 (69) Room Air 06/11/22 18:34 Room Air 06/11/22 15:20 36.4 76 20 120/60 (80) 96 Room Air 06/11/22 12:37 36.3 71 18 141/64 (89) 93 Room Air 06/11/22 12:30 OxyMask 3.00 06/11/22 12:30 36.4 18 114/53 (73) 97 Room Air 06/11/22 12:20 14 120/52 (74) 94 Room Air 06/11/22 12:15 OxyMask 3.00 06/11/22 12:10 12 118/52 (74) 97 OxyMask 3.00 06/11/22 12:00 OxyMask 3.00 06/11/22 12:00 12 126/59 (81) 98 OxyMask 3.00 06/11/22 11:50 14 133/57 (82) 99 OxyMask 8 06/11/22 11:45 OxyMask 8 06/11/22 11:40 16 138/62 (87) 99 OxyMask 8 06/11/22 11:34 OxyMask 8 06/11/22 11:34 36.2 16 128/60 (82) 97 OxyMask 8 06/11/22 08:00 94 Room Air I & O 06/12/22 07:00 Intake Total 1010 ml Output Total 1600 ml Balance -590 ml LLE--dressing intact intact DF and PF of toes and ankle sensation intact to light touch throughout pulses equal s/p L hip IM jessica mobilize TREVOR Vela MD Jun 12, 2022 07:38
[2022-06-12] MEDS ORDERED: NS IV 500 ML 500 ML IV SCH ×2 (07:45)
[2022-06-12] MEDS: DOCUSATE SODIUM 100 MG (COLACE) CAP PO SCH ×2 (08:21→19:56)
[2022-06-12] MEDS: SENNOSIDES 8.6 MG (SENOKOT) TAB PO SCH ×2 (08:21→19:56)
[2022-06-12] MEDS: ENOXAPARIN 40 MG/0.4 ML (LOVENOX) SYR SC SCH ×2 (08:22→08:25)
--- NOTE | 2022-06-12 09:21 | Occupational Therapy Eval ---
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 0-Fpajyuduvs-bjgieel completes the activity by him/herself with no assistance from a helper. 5-Set-up or Clean-up Assistance-helper sets up or cleans up; patient completes activity. [place] assists only prior to or following the activity. 4-Supervision or Touching Assistance-helper provides verbal cues and/or touching/steadying and/or contact guard assistance as patient completes activity. Assistance may be provided throughout the activity or intermittently. 3-Partial/Moderate Assistance-helper does LESS THAN HALF the effort. [place] lifts, holds or supports trunk or limbs, but provides less than half the effort. 2-Substantial/Maximal Assistance-helper does MORE THAN HALF the effort. [place] lifts or holds trunk or limbs and provides more than half the effort. 4-Papiuoddg-vfbqbu does ALL the effort. Patient does none of the effort to complete the activity. Or, the assistance of 2 or more helpers is required for the patient to complete the activity. If activity was not attempted, code reason: 7-Patient Refused. 9-Not Applicable-not attempted and the patient did not perform the activity before the current illness, exacerbation or injury. 10-Not Attempted due to Environmental Limitations-(lack of equipment, weather restraints, etc.). 88-Not Attempted due to Medical Conditions or Safety Concerns. Self Care: Independent Functional Cognition: Independent Drive Self: Yes OT Current Status Subjective Up in chair, finished breakfast and therapy w/ PT Pain Numeric Pain Scale: 5-Moderate Pain Location: Left Location Body Site: Hip Pain Description: Ache, Pressure Comment: edema noted on LLE Mental Status/Objective Patient Orientation: Person, Place, Time, Situation Attachments: Mena Catheter, IV Current Glasses/Contacts: Yes Upper Extremity ROM BUE ROM WFLS Upper Extremity Strength BUE WFLS -4/5 however does not tolerate endurance for FWW mobility and offloading of LLE s/p IM nail WBAT ADL-Treatment ADL-Current Verbal and demonstration education for LB dressing/transfer sequences and ADS use Eating (QC): 6 Upper Body Dressing (QC): 3 (d/t tubing and cords) Lower Body Dressing (QC): 2 (Requires assist with threading mena, LLE weakness, does not lift LLE from floor, requires assist with pants over hips and balance corrction during LB garment management) On/Off Footwear (QC): 2 Education OT Patient Education: Correct positioning, Modified ADL techniques, Progress toward Goal/Update tx plan, Purpose of tx/functional activities, Reviewed precautions, Rehab process, Safety issues, Transfer techniques, Use of adapted equipment Teaching Recipient: Patient Teaching Methods: Demonstration, Discussion Response to Teaching: Verbalize Understanding, Return Demonstration, Reinforcement Needed OT Fci Goals Fci Goals Eating (QC): 6 Oral Hygiene (QC): 6 Toileting Hygiene (QC): 6 Shower/Bathe Self (QC): 6 Upper Body Dressing (QC): 6 Lower Body Dressing (QC): 6 On/Off Footwear (QC): 6 1=Demonstrate adherence to instructed precautions during ADL tasks. 2=Patient will verbalize/demonstrate understanding of assistive devices/modifications for ADL. 3=Patient will improve strength/tolerance for activity to enable patient to perform ADL's. OT Education/Plan Problem List/Assessment Assessment: Decreased Activ Tolerance, Decreased UE Strength, Edema, Impaired Bed Mobility, Impaired Funct Balance, Impaired I ADL's, Impaired Self-Care Skills Discharge Recommendations Plan/Recommendations: Continue POC Therapy Discharge Recommendati: Post Acute OT Treatment Plan/Plan of Care Treatment,Training & Education: Yes Patient would benefit from OT for education, treatment and training to promote independence in ADL's, mobility, safety and/or upper extremity function for ADL's. Plan of Care: ADL Retraining, Concurrent Therapy, Functional Mobility, Group Exercise/Act as Ind, UE Funct Exercise/Act Treatment Duration: Jun 21, 2022 Frequency: 3 times per week (3-5 times per week) Estimated Hrs Per Day: .25 hour per day Agreement: Yes Rehab Potential: Fair Time Start Time: 08:57 Stop Time: 09:29 DATE: Jun 12, 2022 Total Time Billed (hr/min): 32 Billed Treatment Time 1 EVM 15min, 1 ADL 17min GUY SANDHU OT Jun 12, 2022 09:21
--- NOTE | 2022-06-12 09:22 | Progress Note - Hospitalist ---
Subjective HPI/CC On Admission Date Seen by Provider: Jun 12, 2022 Patient is 81-year-old female past medical history of [place] cell tumor, lzw-mzeushz-idnbswwdm diabetes type 2, hypertension who presented to the emergency department due to left hip pain. There is an upcoming snowstorm and she was walking out of the back of her porch to go fill up her birdfeeders when she tripped on the steps and fell. She was able to scoot back up the steps and call for help. She was found to have a left hip fracture on imaging in the ER. She is being admitted for operative management by orthopedic surgery. She reports pain as 2/10 but had no improvement with fentanyl. She otherwise has no complaints. She was to get her next dose of treatment for her cancer on 06/12. Subjective/Events-last exam Pt reports doing well. No complaints. Pain controlled. Discussed Hgb results and need for transfusion. She has needed this transfusions in the past as well. We also discussed rehab options and she is hopeful for DC to IRU if needed. Objective Exam Vital Signs Vital Signs Date Time Temp Pulse Resp B/P (MAP) Pulse Ox O2 Delivery O2 Flow Rate FiO2 06/12/22 07:48 36.5 83 17 120/67 (84) 97 Room Air 06/12/22 03:00 0.00 0.00 Capillary Refill : Less Than 3 SecondsLess Than 3 Seconds General Appearance: No Apparent Distress Respiratory: Lungs Clear, No Respiratory Distress Cardiovascular: Regular Rate, Rhythm, No Murmur Neurologic/Psychiatric: Alert, Oriented x3 Results/Procedures Lab Laboratory Tests 06/12/22 06:00 Patient resulted labs reviewed. Imaging: Reviewed Imaging Films, Reviewed Imaging Report Assessment/Plan Assessment and Plan Assess & Plan/Chief Complaint Intertrochanteric left hip fracture Ortho consulted, appreciate recs Fentanyl for pain Oxycodone prn as well POD #1 PT/OT DC mena if mobility improves today Hold Lovenox today for anemia Anemia Likely multifactorial (baseline anemia, dilution, and iatrogenic from blood draws) transfuse 1 unit pRBCs today Trend Surgical dressing without significant bleeding NIDDMII Takes metformin only at home Hold for now SSI ACHS accu checks HTN On lisinopril/HCTZ at home BP mostly well controlled, trend for now and resume if need shu Cell tumor Follows with Dr Clark Was due for immunotherapy on 06/12 I called and updated Dr Clark on admission- reviewed leaukocytosis with her and up from her baseline but normally is around 20- likely stress response WBC up slightly today likely in response to surgery No acute needs at this time DVT ppx: SCDs Diagnosis/Problems Diagnosis/Problems (1) [place]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
--- NOTE | 2022-06-12 09:38 | Physical Therapy Daily Note ---
PT Daily Note-Current Subjective Patient agrees to PT. Pain Numeric Pain Scale: 5-Moderate Pain Location: Left Location Body Site: Hip Pain Description: Acute Section J - Health Conditions 1. Rarely or not at all 2. Occasionally 3. Frequently 4. Almost constantly 8. Unable to answer Pain Effect on Sleep: 1 Pain Interference with Therapy: 1 Pain Interference w/Day-to-Day: 1 Mental Status Patient Orientation: Normal For Age Attachments: Ogden Catheter, IV Transfers SCALE: Activities may be completed with or without assistive devices. 2-Liyiifocxw-rwccyaa completes the activity by him/herself with no assistance from a helper. 5-Set-up or Clean-up Assistance-helper sets up or cleans up; patient completes activity. [place] assists only prior to or following the activity. 4-Supervision or Touching Assistance-helper provides verbal cues and/or touching/steadying and/or contact guard assistance as patient completes activity. Assistance may be provided throughout the activity or intermittently. 3-Partial/Moderate Assistance-helper does LESS THAN HALF the effort. [place] lifts, holds or supports trunk or limbs, but provides less than half the effort. 2-Substantial/Maximal Assistance-helper does MORE THAN HALF the effort. [place] lifts or holds trunk or limbs and provides more than half the effort. 5-Lmkspdoib-mtwbvu does ALL the effort. Patient does none of the effort to complete the activity. Or, the assistance of 2 or more helpers is required for the patient to complete the activity. If activity was not attempted, code reason: 7-Patient Refused. 9-Not Applicable-not attempted and the patient did not perform the activity before the current illness, exacerbation or injury. 10-Not Attempted due to Environmental Limitations-(lack of equipment, weather restraints, etc.). 88-Not Attempted due to Medical Conditions or Safety Concerns. Lying to Sitting/Side of Bed(Q: 3 Sit to Stand (QC): 3 Chair/Iov-wt-Bohze Xfer(QC): 3 Weight Bearing Right Lower Extremity: Right Weight Bearing/Tolerated Left Lower Extremity: Left Weight Bearing/Tolerated Gait Training Distance: 10' Walk 10 feet (QC): 3 Gait Assistive Device: FWW step to gait sequence Exercises Seated Therapy Exercises: Ankle pumps, Long arc quads, Hip flexion Seated Reps: 12 (AAROM left with minimal quad contraction noted) Assessment Patient reports less pain today with activity. Patient has critical Hgb and will be receiving PRBC. Patient c/o lightheadedness with minimal activity this morning. PT to increase activity as tolerated by patient. PT Sand Bobber Goals Longterm Goals PT Longterm Goals Time Frame: Jun 18, 2022 Roll Left & Right (QC): 6 Sit to Lying (QC): 4 Lying-Sitting on Side/Bed(QC): 4 Sit to Stand (QC): 4 Chair/Xdk-ot-Jrgby Xfer(QC): 4 Walk 10 feet (QC): 4 Walk 50ft with 2 Turns (QC): 4 PT Plan Treatment/Plan Treatment Plan: Continue Plan of Care Treatment Plan: Bed Mobility, Education, Functional Activity Kaitlyn, Functional Strength, Gait, Safety, Therapeutic Exercise, Transfers Treatment Duration: Jun 18, 2022 Frequency: 11 times per week Estimated Hrs Per Day: .25 hour per day Patient and/or Family Agrees t: Yes Time Time In: 806 Time Out: 820 DATE: Jun 12, 2022 Total Billed Treatment Time: 14 Total Billed Treatment 1 visit FA 14 min ROYA PHILLIPS PT Jun 12, 2022 09:38
[2022-06-12] MEDS: NS IV 1000 ML 1,000 ML IV SCH ×2 (13:22→23:27)
--- NOTE | 2022-06-12 13:54 | Physical Therapy Daily Note ---
PT Daily Note-Current Subjective Patient is very flushed and report her heart is pounding. RN notified to assess patient. Pain Section J - Health Conditions 1. Rarely or not at all 2. Occasionally 3. Frequently 4. Almost constantly 8. Unable to answer Pain Effect on Sleep: 1 Pain Interference with Therapy: 1 Pain Interference w/Day-to-Day: 1 Mental Status Patient Orientation: Normal For Age Transfers SCALE: Activities may be completed with or without assistive devices. 9-Ptohgwaxxx-haunufk completes the activity by him/herself with no assistance from a helper. 5-Set-up or Clean-up Assistance-helper sets up or cleans up; patient completes activity. [place] assists only prior to or following the activity. 4-Supervision or Touching Assistance-helper provides verbal cues and/or touching/steadying and/or contact guard assistance as patient completes activity. Assistance may be provided throughout the activity or intermittently. 3-Partial/Moderate Assistance-helper does LESS THAN HALF the effort. [place] lifts, holds or supports trunk or limbs, but provides less than half the effort. 2-Substantial/Maximal Assistance-helper does MORE THAN HALF the effort. [place] lifts or holds trunk or limbs and provides more than half the effort. 5-Mnjpnclwc-mipnpy does ALL the effort. Patient does none of the effort to complete the activity. Or, the assistance of 2 or more helpers is required for the patient to complete the activity. If activity was not attempted, code reason: 7-Patient Refused. 9-Not Applicable-not attempted and the patient did not perform the activity before the current illness, exacerbation or injury. 10-Not Attempted due to Environmental Limitations-(lack of equipment, weather restraints, etc.). 88-Not Attempted due to Medical Conditions or Safety Concerns. Weight Bearing Right Lower Extremity: Right Weight Bearing/Tolerated Left Lower Extremity: Left Weight Bearing/Tolerated Exercises Supine Ex: Ankle pumps, Quad Set, Heel Slides, Straight leg raise Supine Reps: 15 (x 2 sets) Assessment Patient to receive PRBC and is not safe for OOB activity at this time. Bilateral LE exercises AAROM performed. PT Mcc Goals Fuel Storage Technician Goals PT Fuel Storage Technician Goals Time Frame: Jun 18, 2022 Roll Left & Right (QC): 6 Sit to Lying (QC): 4 Lying-Sitting on Side/Bed(QC): 4 Sit to Stand (QC): 4 Chair/Xtj-od-Cximr Xfer(QC): 4 Walk 10 feet (QC): 4 Walk 50ft with 2 Turns (QC): 4 PT Plan Treatment/Plan Treatment Plan: Continue Plan of Care Treatment Plan: Bed Mobility, Education, Functional Activity Kaitlyn, Functional Strength, Gait, Safety, Therapeutic Exercise, Transfers Treatment Duration: Jun 18, 2022 Frequency: 11 times per week Estimated Hrs Per Day: .25 hour per day Patient and/or Family Agrees t: Yes Time Time In: 1306 Time Out: 1318 DATE: Jun 12, 2022 Total Billed Treatment Time: 12 Total Billed Treatment 1 visit EX 12 min ROYA PHILLIPS PT Jun 12, 2022 13:54
--- NOTE | 2022-06-12 17:53 | Physician Query Clarification ---
Physician Query-General Query to Physician: The medical record reflects the following clinical evidence: Clinical Indicators: Admission H/H 11.4/36 decreased to 6.3/19, EBL of 200, Documentation of "Anemia, likely multifactorial" Risk Factor(s): Fall with Left Hip Fracture with surgical repair, [place] Cell tumor on Immunotherapy Treatment: Frequent H/H monitoring, 1 Unit PRBC's, Question: Can you further specify Anemia (multifactorial) per the clinical indicators above? Please document your response in the Progress Notes or Discharge Summary. 1. Anemia, likely due in part to acute blood loss 2. Other, with explanation of clinical findings 3. Clinically undetermined, no explanation for clinical findings Please clarify and document your clinical opinion in the Progress Notes and Discharge Summary including the definitive and/or presumptive diagnosis, (suspected or probable), related to the above clinical findings. Please include clinical findings supporting your diagnosis. In responding to this query, please exercise your independent professional judgment. The purpose of this communication is to more accurately reflect the complexity of your patients condition. The fact that a question is asked does not imply that any particular answer is desired or expected. Thank you for timely response to this clarification. Daisha House, MSN, RN Clinical Maintenance And Repair Worker [phone] [email or web address] PHYSICIAN RESPONSE: Based on the clinical findings in the record, please respond to the query above on this document as an addendum. Physician Response: Physician Response 2- likely multifactorial from surgery, blood draws, and cancer If you have questions please contact: Rock Mason Apprentice: Ext: Thank you for your time and cooperation. Clinical Maintenance And Repair Worker/[employer] Mason Apprentice This is a permanent part of the medical record DAISHA HOUSE Jun 12, 2022 17:53 VAL VANESSA MD Jun 13, 2022 14:30
[2022-06-12] MEDS: fentaNYL INJ 100 MCG/2 ML AMP IVP PRN (20:00)
[2022-06-13] VITALS (7 sets, daily range): BP systolic 121–171; BP diastolic 70–85
[2022-06-13] MEDS: oxyCODONE/APAP 5/325MG (PERCOCET 5) TABLET PO PRN ×2 (02:04→06:48)
[2022-06-13 05:06] LABS: POTASSIUM 4.2 MMOL/L (3.6-5.0)
[2022-06-13 05:07] LABS: CALCIUM 8.6 MG/DL (8.5-10.1)
[2022-06-13] MEDS: fentaNYL INJ 100 MCG/2 ML AMP IVP PRN (05:07)
[2022-06-13 05:12] LABS: CREATININE SERUM 0.84 MG/DL (0.60-1.30)
[2022-06-13] MEDS: inSUlin ASPART (NovoLOG) 1 UNIT/0.01 ML (CHARGE PER UNIT) SC SCH ×4 (05:14→21:47)
[2022-06-13 05:30] LABS: HEMATOCRIT 22 % (35-52); HEMOGLOBIN 7.3 g/dL (11.5-16.0); MEAN CORPUSCULAR HEMOGLOBIN 27 pg (25-34); MEAN CORPUSCULAR HGB CONC 34 g/dL (32-36); MEAN CORPUSCULAR VOLUME 80 fL (80-99); MEAN PLATELET VOLUME 9.6 fL (9.0-12.2); PLATELET COUNT 179 10^3/uL (130-400); WHITE BLOOD COUNT 28.3 10^3/uL (4.3-11.0)
--- NOTE | 2022-06-13 07:02 | Progress Note ---
Standard Progress Note Progress Notes/Assess & Plan Date Seen by a Provider: Jun 13, 2022 Time Seen by a Provider: 07:00 Progress/Assessment & Plan no complaints Laboratory Tests Test 06/11/22 15:49 06/11/22 20:42 06/12/22 05:23 06/12/22 06:00 Range/Units Glucometer 170 H 219 H 151 H 70-110 MG/DL White Blood Count 27.7 H 4.3-11.0 10^3/uL Red Blood Count 2.44 L 3.80-5.11 10^6/uL Hemoglobin 6.3 #*L 11.5-16.0 g/dL Hematocrit 19 *L 35-52 % Mean Corpuscular Volume 78 L 80-99 fL Mean Corpuscular Hemoglobin 26 25-34 pg Mean Corpuscular Hemoglobin Concent 33 32-36 g/dL Red Cell Distribution Width 16.0 H 10.0-14.5 % Platelet Count 205 130-400 10^3/uL Mean Platelet Volume 9.6 9.0-12.2 fL Sodium Level 132 L 135-145 MMOL/L Potassium Level 4.5 3.6-5.0 MMOL/L Chloride Level 105 98-107 MMOL/L Carbon Dioxide Level 21 21-32 MMOL/L Anion Gap 6 5-14 MMOL/L Blood Urea Nitrogen 19 H 7-18 MG/DL Creatinine 0.92 0.60-1.30 MG/DL Estimat Glomerular Filtration Rate 63 BUN/Creatinine Ratio 21 Glucose Level 149 H 70-105 MG/DL Calcium Level 9.1 8.5-10.1 MG/DL Vital Signs Date Time Temp Pulse Resp B/P (MAP) Pulse Ox O2 Delivery O2 Flow Rate FiO2 06/12/22 06:27 36.5 06/12/22 05:57 36.5 06/12/22 03:00 36.5 80 20 122/60 (80) 93 Room Air 0.00 0.00 06/11/22 23:12 36.1 76 20 108/67 (81) 95 Room Air 06/11/22 21:13 36.2 06/11/22 20:43 36.2 06/11/22 20:00 Room Air 06/11/22 19:40 36.2 78 20 104/52 (69) Room Air 06/11/22 18:34 Room Air 06/11/22 15:20 36.4 76 20 120/60 (80) 96 Room Air 06/11/22 12:37 36.3 71 18 141/64 (89) 93 Room Air 06/11/22 12:30 OxyMask 3.00 06/11/22 12:30 36.4 18 114/53 (73) 97 Room Air 06/11/22 12:20 14 120/52 (74) 94 Room Air 06/11/22 12:15 OxyMask 3.00 06/11/22 12:10 12 118/52 (74) 97 OxyMask 3.00 06/11/22 12:00 OxyMask 3.00 06/11/22 12:00 12 126/59 (81) 98 OxyMask 3.00 06/11/22 11:50 14 133/57 (82) 99 OxyMask 8 06/11/22 11:45 OxyMask 8 06/11/22 11:40 16 138/62 (87) 99 OxyMask 8 06/11/22 11:34 OxyMask 8 06/11/22 11:34 36.2 16 128/60 (82) 97 OxyMask 8 06/11/22 08:00 94 Room Air I & O 06/12/22 07:00 Intake Total 1010 ml Output Total 1600 ml Balance -590 ml LLE--dressing intact intact DF and PF of toes and ankle sensation intact to light touch throughout pulses equal s/p L hip IM jessica mobilize IRU eval Final Diagnosis no complaints Laboratory Tests Test 06/12/22 11:04 06/12/22 16:04 06/12/22 19:30 06/13/22 04:50 Range/Units Glucometer 170 H 151 H 174 H 70-110 MG/DL Sodium Level 135 135-145 MMOL/L Potassium Level 4.2 3.6-5.0 MMOL/L Chloride Level 106 98-107 MMOL/L Carbon Dioxide Level 20 L 21-32 MMOL/L Anion Gap 9 5-14 MMOL/L Blood Urea Nitrogen 18 7-18 MG/DL Creatinine 0.84 0.60-1.30 MG/DL Estimat Glomerular Filtration Rate 71 BUN/Creatinine Ratio 21 Glucose Level 131 H 70-105 MG/DL Calcium Level 8.6 8.5-10.1 MG/DL Test 06/13/22 05:12 Range/Units White Blood Count 28.3 H 4.3-11.0 10^3/uL Red Blood Count 2.72 L 3.80-5.11 10^6/uL Hemoglobin 7.3 L 11.5-16.0 g/dL Hematocrit 22 L 35-52 % Mean Corpuscular Volume 80 80-99 fL Mean Corpuscular Hemoglobin 27 25-34 pg Mean Corpuscular Hemoglobin Concent 34 32-36 g/dL Red Cell Distribution Width 15.8 H 10.0-14.5 % Platelet Count 179 130-400 10^3/uL Mean Platelet Volume 9.6 9.0-12.2 fL Glucometer 123 H 70-110 MG/DL Vital Signs Date Time Temp Pulse Resp B/P (MAP) Pulse Ox O2 Delivery O2 Flow Rate FiO2 06/13/22 03:44 36.7 84 18 147/70 (95) 98 Room Air 0.00 0.00 06/12/22 23:39 37.1 98 18 145/64 (91) 99 Room Air 0.00 0.00 06/12/22 22:15 36.9 06/12/22 20:30 99 Room Air 06/12/22 19:26 36.9 98 18 132/67 (88) 98 Room Air 06/12/22 15:43 36.8 84 18 121/62 (81) 98 Room Air 06/12/22 13:57 36.6 86 18 139/63 98 Room Air 06/12/22 13:47 97 Room Air 06/12/22 13:38 36.4 95 18 137/63 97 Room Air 06/12/22 11:36 36.7 83 18 119/70 (86) 97 Room Air 06/12/22 08:00 Room Air 06/12/22 07:48 36.5 83 17 120/67 (84) 97 Room Air I & O 06/13/22 07:00 Intake Total 1790 ml Output Total 2950 ml Balance -1160 ml L hip incisions clean and dry no calf tenderness s/p L hip IM jessica continue PT IRU? TREVOR MENENDEZ MD Jun 13, 2022 07:01
--- NOTE | 2022-06-13 07:12 | Anesthesia-General Post-Op ---
General Patient Condition Mental Status/LOC: Same as Preop Cardiovascular: Satisfactory Nausea/Vomiting: Absent Respiratory: Satisfactory Pain: Controlled Complications: Absent Post Op Complications Complications None Follow Up Care/Instructions Patient Instructions None needed. Anesthesia/Patient Condition Patient Condition Patient is doing well, does have some hip pain which is controlled and expected, stable vital signs, no apparent adverse anesthesia problems. No complications reported per nursing. WES ANDREWS DO Jun 13, 2022 07:12
[2022-06-13] MEDS: ENOXAPARIN 40 MG/0.4 ML (LOVENOX) SYR SC SCH (09:08)
[2022-06-13] MEDS: NS IV 1000 ML 1,000 ML IV SCH ×2 (09:08→15:17)
[2022-06-13] MEDS: DOCUSATE SODIUM 100 MG (COLACE) CAP PO SCH ×2 (09:08→19:20)
[2022-06-13] MEDS: SENNOSIDES 8.6 MG (SENOKOT) TAB PO SCH ×2 (09:08→19:20)
--- NOTE | 2022-06-13 10:12 | Physical Therapy Daily Note ---
PT Daily Note-Current Subjective Patient agrees to PT. Pain Numeric Pain Scale: 5-Moderate Pain Location: Left Location Body Site: Hip Pain Description: Acute Section J - Health Conditions 1. Rarely or not at all 2. Occasionally 3. Frequently 4. Almost constantly 8. Unable to answer Pain Effect on Sleep: 1 Pain Interference with Therapy: 1 Pain Interference w/Day-to-Day: 1 Mental Status Patient Orientation: Normal For Age Attachments: IV Transfers SCALE: Activities may be completed with or without assistive devices. 1-Hbmktndwgp-nfplfwj completes the activity by him/herself with no assistance from a helper. 5-Set-up or Clean-up Assistance-helper sets up or cleans up; patient completes activity. [place] assists only prior to or following the activity. 4-Supervision or Touching Assistance-helper provides verbal cues and/or to uching/steadying and/or contact guard assistance as patient completes activity. Assistance may be provided throughout the activity or intermittently. 3-Partial/Moderate Assistance-helper does LESS THAN HALF the effort. [place] lifts, holds or supports trunk or limbs, but provides less than half the effort. 2-Substantial/Maximal Assistance-helper does MORE THAN HALF the effort. [place] lifts or holds trunk or limbs and provides more than half the effort. 8-Wvdhrzbkp-lvozqr does ALL the effort. Patient does none of the effort to complete the activity. Or, the assistance of 2 or more helpers is required for the patient to complete the activity. If activity was not attempted, code reason: 7-Patient Refused. 9-Not Applicable-not attempted and the patient did not perform the activity before the current illness, exacerbation or injury. 10-Not Attempted due to Environmental Limitations-(lack of equipment, weather restraints, etc.). 88-Not Attempted due to Medical Conditions or Safety Concerns. Lying to Sitting/Side of Bed(Q: 3 Sit to Stand (QC): 3 Chair/Fsi-hl-Azkvs Xfer(QC): 3 Toilet Transfer (QC): 3 Weight Bearing Right Lower Extremity: Right Weight Bearing/Tolerated Left Lower Extremity: Left Weight Bearing/Tolerated Gait Training Distance: 15' x 2 Walk 10 feet (QC): 3 Walk 50 ft with 2 Turns(QC): 7 Gait Assistive Device: FWW very slow, NBOS with VC's to widen, trunk flexed posture with VC's to correct Exercises Supine Ex: Ankle pumps, Quad Set, Heel Slides, Straight leg raise (AAROM) Supine Reps: 15 Seated Therapy Exercises: Long arc quads Seated Reps: 15 Assessment Patient improving slowly with treatment plan. Patient is up in recliner with needs met. PT to continue to increase activity as tolerated by patient. PT Paste Maker Goals Retirement Goals PT Retirement Goals Time Frame: Jun 18, 2022 Roll Left & Right (QC): 6 Sit to Lying (QC): 4 Lying-Sitting on Side/Bed(QC): 4 Sit to Stand (QC): 4 Chair/Tmt-hk-Nlmce Xfer(QC): 4 Walk 10 feet (QC): 4 Walk 50ft with 2 Turns (QC): 4 PT Plan Treatment/Plan Treatment Plan: Continue Plan of Care Treatment Plan: Bed Mobility, Education, Functional Activity Kaitlyn, Functional Strength, Gait, Safety, Therapeutic Exercise, Transfers Treatment Duration: Jun 18, 2022 Frequency: 11 times per week Estimated Hrs Per Day: .25 hour per day Patient and/or Family Agrees t: Yes Time Time In: 750 Time Out: 813 DATE: Jun 13, 2022 Total Billed Treatment Time: 23 Total Billed Treatment 1 visit EX 9 min GT 14 min ROYA PHILLIPS PT Jun 13, 2022 10:12
--- NOTE | 2022-06-13 11:24 | Progress Note - Hospitalist ---
Subjective HPI/CC On Admission Date Seen by Provider: Jun 13, 2022 Patient is 81-year-old female past medical history of [place] cell tumor, vbp-thtqido-uefqyhbdu diabetes type 2, hypertension who presented to the emergency department due to left hip pain. There is an upcoming snowstorm and she was walking out of the back of her porch to go fill up her birdfeeders when she tripped on the steps and fell. She was able to scoot back up the steps and call for help. She was found to have a left hip fracture on imaging in the ER. She is being admitted for operative management by orthopedic surgery. She reports pain as 2/10 but had no improvement with fentanyl. She otherwise has no complaints. She was to get her next dose of treatment for her cancer on 06/12. Subjective/Events-last exam Pt reports doing well. No complaints. Pain controlled. Awaiting response from insurance to request for approval for ARU. Objective Exam Vital Signs Vital Signs Date Time Temp Pulse Resp B/P (MAP) Pulse Ox O2 Delivery O2 Flow Rate FiO2 06/13/22 09:18 Room Air 06/13/22 08:31 36.7 78 18 121/85 (97) 91 06/13/22 03:44 0.00 0.00 Capillary Refill : Less Than 3 SecondsLess Than 3 Seconds General Appearance: No Apparent Distress, WD/WN Respiratory: Lungs Clear, No Respiratory Distress Cardiovascular: Regular Rate, Rhythm, No Murmur Gastrointestinal: Normal Bowel Sounds, Non Tender, Soft Neurologic/Psychiatric: Alert, Oriented x3 Results/Procedures Lab Laboratory Tests 06/13/22 04:50 06/13/22 05:12 Patient resulted labs reviewed. Imaging: Reviewed Imaging Films, Reviewed Imaging Report Assessment/Plan Assessment and Plan Assess & Plan/Chief Complaint Intertrochanteric left hip fracture Ortho consulted, appreciate recs Fentanyl for pain Oxycodone prn as well POD #2 PT/OT Resume Lovenox Await insurance response Anemia s/p 1 unit pRBCs yesterday Trend, up today Surgical dressing without significant bleeding NIDDMII Takes metformin only at home Hold for now SSI ACHS accu checks HTN On lisinopril/HCTZ at home BP mostly well controlled, trend for now and resume if need shu Cell tumor Follows with Dr Clark Was due for immunotherapy on 06/12 No acute needs at this time DVT ppx: SCDs Diagnosis/Problems Diagnosis/Problems (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
--- NOTE | 2022-06-13 12:05 | Occupational Ther Daily Note ---
OT Current Status-Daily Note Subjective Up in chair discussion DC plan and home accommodations with daughter Mental Status/Objective Patient Orientation: Person, Place, Time, Situation Attachments: IV Melvi DC'd, ADL-Treatment Toileting tasks and standing hand hygiene, safety w/ FWW use and thoroughly drying hands Therapy Code Descriptions/Definitions Functional [place] Measure: 0=Not Assessed/NA 4=Minimal Assistance 1=Total Assistance 5=Supervision or Setup 2=Maximal Assistance 6=Modified [place] 3=Moderate Assistance 7=Complete IndependenceSCALE: Activities may be completed with or without assistive devices. 2-Iqfnafwuxo-gzypnka completes the activity by him/herself with no assistance from a helper. 5-Set-up or Clean-up Assistance-helper sets up or cleans up; patient completes activity. [place] assists only prior to or following the activity. 4-Supervision or Touching Assistance-helper provides verbal cues and/or touching/steadying and/or contact guard assistance as patient completes activity. Assistance may be provided throughout the activity or intermittently. 3-Partial/Moderate Assistance-helper does LESS THAN HALF the effort. [place] lifts, holds or supports trunk or limbs, but provides less than half the effort. 2-Substantial/Maximal Assistance-helper does MORE THAN HALF the effort. [place] lifts or holds trunk or limbs and provides more than half the effort. 8-Ywvzxvhlq-egolzq does ALL the effort. Patient does none of the effort to complete the activity. Or, the assistance of 2 or more helpers is required for the patient to complete the activity. If activity was not attempted, code reason: 7-Patient Refused. 9-Not Applicable-not attempted and the patient did not perform the activity before the current illness, exacerbation or injury. 10-Not Attempted due to Environmental Limitations-(lack of equipment, weather restraints, etc.). 88-Not Attempted due to Medical Conditions or Safety Concerns. Toileting Hygiene (QC): 3 Toilet Transfer (QC): 3 patient reports increased pain in LLE from this morning, Education OT Patient Education: Energy conservation, Modified ADL techniques, Progress toward Goal/Update tx plan, Purpose of tx/functional activities, Reviewed precautions, Rehab process, Safety issues, Transfer techniques, Use of adapted equipment Teaching Recipient: Patient Teaching Methods: Demonstration, Discussion Response to Teaching: Verbalize Understanding, Return Demonstration, Reinf orcement Needed OT Care Home Goals Care Home Goals Eating (QC): 6 Oral Hygiene (QC): 6 Toileting Hygiene (QC): 6 Shower/Bathe Self (QC): 6 Upper Body Dressing (QC): 6 Lower Body Dressing (QC): 6 On/Off Footwear (QC): 6 1=Demonstrate adherence to instructed precautions during ADL tasks. 2=Patient will verbalize/demonstrate understanding of assistive devices/modifications for ADL. 3=Patient will improve strength/tolerance for activity to enable patient to perf orm ADL's. OT Education/Plan Problem List/Assessment Assessment: Decreased Activ Tolerance, Impaired Funct Balance, Impaired Self- Care Skills Discharge Recommendations Plan/Recommendations: Continue POC Therapy Discharge Recommendati: Post Acute OT Treatment Plan/Plan of Care Treatment,Training & Education: Yes Patient would benefit from OT for education, treatment and training to promote independence in ADL's, mobility, safety and/or upper extremity function for ADL's. Plan of Care: ADL Retraining, Concurrent Therapy, Functional Mobility, Group Exercise/Act as Ind, UE Funct Exercise/Act Treatment Duration: Jun 21, 2022 Frequency: 3 times per week (3-5 times per week) Estimated Hrs Per Day: .25 hour per day Agreement: Yes Rehab Potential: Fair Patient returned to recliner w/ lunch meal set up. all needs met Time Start Time: 11:37 Stop Time: 11:56 DATE: Jun 13, 2022 Total Time Billed (hr/min): 19 Billed Treatment Time 1 ADL 19 min GUY SANDHU OT Jun 13, 2022 12:05
[2022-06-13] MEDS: HYDROcodone/APAP 7.5 MG/325 MG (LORTAB, LORCET PLUS) TABLET PO PRN (13:17)
--- NOTE | 2022-06-13 13:50 | Physical Therapy Daily Note ---
PT Daily Note-Current Subjective Patient had just returned to bed. Declined OOB activity. Agrees to bed exercises. Pain Numeric Pain Scale: 7 Location: Left Location Body Site: Hip Pain Description: Acute Section J - Health Conditions 1. Rarely or not at all 2. Occasionally 3. Frequently 4. Almost constantly 8. Unable to answer Pain Effect on Sleep: 1 Pain Interference with Therapy: 1 Pain Interference w/Day-to-Day: 1 Mental Status Attachments: IV Transfers SCALE: Activities may be completed with or without assistive devices. 4-Eooyrrdjah-uajarsj completes the activity by him/herself with no assistance from a helper. 5-Set-up or Clean-up Assistance-helper sets up or cleans up; patient completes activity. [place] assists only prior to or following the activity. 4-Supervision or Touching Assistance-helper provides verbal cues and/or touching/steadying and/or contact guard assistance as patient completes activity. Assistance may be provided throughout the activity or intermittently. 3-Partial/Moderate Assistance-helper does LESS THAN HALF the effort. [place] lifts, holds or supports trunk or limbs, but provides less than half the effort. 2-Substantial/Maximal Assistance-helper does MORE THAN HALF the effort. [place] l ifts or holds trunk or limbs and provides more than half the effort. 3-Kocojtwfy-nuelyl does ALL the effort. Patient does none of the effort to complete the activity. Or, the assistance of 2 or more helpers is required for the patient to complete the activity. If activity was not attempted, code reason: 7-Patient Refused. 9-Not Applicable-not attempted and the patient did not perform the activity before the current illness, exacerbation or injury. 10-Not Attempted due to Environmental Limitations-(lack of equipment, weather restraints, etc.). 88-Not Attempted due to Medical Conditions or Safety Concerns. Weight Bearing Right Lower Extremity: Right Weight Bearing/Tolerated Left Lower Extremity: Left Weight Bearing/Tolerated Exercises Supine Ex: Ankle pumps, Quad Set, Heel Slides, Straight leg raise, Hip abd/add Supine Reps: 15 (x 2 sets AAROM) Assessment Current Status: Fair Progress Patient progressing with AROM left LE. Continue to increase activity PT Mcc Goals Mcc Goals PT Mcc Goals Time Frame: Jun 18, 2022 Roll Left & Right (QC): 6 Sit to Lying (QC): 4 Lying-Sitting on Side/Bed(QC): 4 Sit to Stand (QC): 4 Chair/Nzb-xl-Xmtdv Xfer(QC): 4 Walk 10 feet (QC): 4 Walk 50ft with 2 Turns (QC): 4 PT Plan Treatment/Plan Treatment Plan: Continue Plan of Care Treatment Plan: Bed Mobility, Education, Functional Activity Kaitlyn, Functional Strength, Gait, Safety, Therapeutic Exercise, Transfers Treatment Duration: Jun 18, 2022 Frequency: 11 times per week Estimated Hrs Per Day: .25 hour per day Patient and/or Family Agrees t: Yes Time Time In: 1310 Time Out: 1322 DATE: Jun 13, 2022 Total Billed Treatment Time: 12 Total Billed Treatment 1 visit EX 12 min ROYA PHILLIPS PT Jun 13, 2022 13:50
[2022-06-14] VITALS (10 sets, daily range): BP systolic 144–181; BP diastolic 66–82
[2022-06-14] MEDS: NS IV 1000 ML 1,000 ML IV SCH ×3 (02:05→23:01)
[2022-06-14 04:17] LABS: MEAN CORPUSCULAR HEMOGLOBIN 27 pg (25-34); MEAN CORPUSCULAR HGB CONC 34 g/dL (32-36); MEAN CORPUSCULAR VOLUME 81 fL (80-99); MEAN PLATELET VOLUME 9.4 fL (9.0-12.2); PLATELET COUNT 187 10^3/uL (130-400); WHITE BLOOD COUNT 28.9 10^3/uL (4.3-11.0)
[2022-06-14 04:30] LABS: HEMATOCRIT 20 % (35-52)
[2022-06-14 04:31] LABS: HEMOGLOBIN 6.7 g/dL (11.5-16.0)
[2022-06-14 04:38] LABS: POTASSIUM 3.8 MMOL/L (3.6-5.0)
[2022-06-14 04:39] LABS: CALCIUM 8.7 MG/DL (8.5-10.1)
[2022-06-14 04:43] LABS: CREATININE SERUM 0.73 MG/DL (0.60-1.30)
[2022-06-14] MEDS: inSUlin ASPART (NovoLOG) 1 UNIT/0.01 ML (CHARGE PER UNIT) SC SCH ×4 (05:05→20:21)
--- NOTE | 2022-06-14 06:28 | Progress Note ---
Standard Progress Note Progress Notes/Assess & Plan Date Seen by a Provider: Jun 14, 2022 Time Seen by a Provider: 06:26 Progress/Assessment & Plan no complaints Laboratory Tests Test 06/11/22 15:49 06/11/22 20:42 06/12/22 05:23 06/12/22 06:00 Range/Units Glucometer 170 H 219 H 151 H 70-110 MG/DL White Blood Count 27.7 H 4.3-11.0 10^3/uL Red Blood Count 2.44 L 3.80-5.11 10^6/uL Hemoglobin 6.3 #*L 11.5-16.0 g/dL Hematocrit 19 *L 35-52 % Mean Corpuscular Volume 78 L 80-99 fL Mean Corpuscular Hemoglobin 26 25-34 pg Mean Corpuscular Hemoglobin Concent 33 32-36 g/dL Red Cell Distribution Width 16.0 H 10.0-14.5 % Platelet Count 205 130-400 10^3/uL Mean Platelet Volume 9.6 9.0-12.2 fL Sodium Level 132 L 135-145 MMOL/L Potassium Level 4.5 3.6-5.0 MMOL/L Chloride Level 105 98-107 MMOL/L Carbon Dioxide Level 21 21-32 MMOL/L Anion Gap 6 5-14 MMOL/L Blood Urea Nitrogen 19 H 7-18 MG/DL Creatinine 0.92 0.60-1.30 MG/DL Estimat Glomerular Filtration Rate 63 BUN/Creatinine Ratio 21 Glucose Level 149 H 70-105 MG/DL Calcium Level 9.1 8.5-10.1 MG/DL Vital Signs Date Time Temp Pulse Resp B/P (MAP) Pulse Ox O2 Delivery O2 Flow Rate FiO2 06/12/22 06:27 36.5 06/12/22 05:57 36.5 06/12/22 03:00 36.5 80 20 122/60 (80) 93 Room Air 0.00 0.00 06/11/22 23:12 36.1 76 20 108/67 (81) 95 Room Air 06/11/22 21:13 36.2 06/11/22 20:43 36.2 06/11/22 20:00 Room Air 06/11/22 19:40 36.2 78 20 104/52 (69) Room Air 06/11/22 18:34 Room Air 06/11/22 15:20 36.4 76 20 120/60 (80) 96 Room Air 06/11/22 12:37 36.3 71 18 141/64 (89) 93 Room Air 06/11/22 12:30 OxyMask 3.00 06/11/22 12:30 36.4 18 114/53 (73) 97 Room Air 06/11/22 12:20 14 120/52 (74) 94 Room Air 06/11/22 12:15 OxyMask 3.00 06/11/22 12:10 12 118/52 (74) 97 OxyMask 3.00 06/11/22 12:00 OxyMask 3.00 06/11/22 12:00 12 126/59 (81) 98 OxyMask 3.00 06/11/22 11:50 14 133/57 (82) 99 OxyMask 8 06/11/22 11:45 OxyMask 8 06/11/22 11:40 16 138/62 (87) 99 OxyMask 8 06/11/22 11:34 OxyMask 8 06/11/22 11:34 36.2 16 128/60 (82) 97 OxyMask 8 06/11/22 08:00 94 Room Air I & O 06/12/22 07:00 Intake Total 1010 ml Output Total 1600 ml Balance -590 ml LLE--dressing intact intact DF and PF of toes and ankle sensation intact to light touch throughout pulses equal s/p L hip IM jessica mobilize IRU eval Final Diagnosis no complaints Vital Signs Date Time Temp Pulse Resp B/P (MAP) Pulse Ox O2 Delivery O2 Flow Rate FiO2 06/14/22 05:49 37.0 84 18 157/75 93 Room Air 06/14/22 05:31 36.5 86 20 149/76 95 Room Air 06/14/22 03:38 36.6 80 16 161/71 (101) 95 Room Air 06/13/22 23:22 36.9 93 16 149/74 (99) 95 Room Air 06/13/22 20:40 37.1 06/13/22 20:29 37.1 95 20 160/72 (101) 93 Room Air 06/13/22 19:23 Room Air 06/13/22 19:21 38.7 06/13/22 19:13 38.7 74 20 159/74 (102) 96 Room Air 06/13/22 15:51 36.8 86 20 171/77 (108) 97 Room Air 06/13/22 12:17 36.6 85 18 155/73 (100) 99 Room Air 06/13/22 09:18 Room Air 06/13/22 08:31 36.7 78 18 121/85 (97) 91 Room Air I & O 06/14/22 07:00 Intake Total 3370 ml Output Total 950 ml Balance 2420 ml Laboratory Tests Test 06/13/22 11:18 06/13/22 13:28 06/13/22 15:49 06/13/22 20:35 Range/Units Glucometer 129 H 141 H 189 H 70-110 MG/DL Lab Scanned Report Transfusion Reaction Form [id number] Test 06/14/22 04:10 Range/Units White Blood Count 28.9 H 4.3-11.0 10^3/uL Red Blood Count 2.47 L 3.80-5.11 10^6/uL Hemoglobin 6.7 *L 11.5-16.0 g/dL Hematocrit 20 *L 35-52 % Mean Corpuscular Volume 81 80-99 fL Mean Corpuscular Hemoglobin 27 25-34 pg Mean Corpuscular Hemoglobin Concent 34 32-36 g/dL Red Cell Distribution Width 16.1 H 10.0-14.5 % Platelet Count 187 130-400 10^3/uL Mean Platelet Volume 9.4 9.0-12.2 fL Sodium Level 134 L 135-145 MMOL/L Potassium Level 3.8 3.6-5.0 MMOL/L Chloride Level 104 98-107 MMOL/L Carbon Dioxide Level 22 21-32 MMOL/L Anion Gap 8 5-14 MMOL/L Blood Urea Nitrogen 15 7-18 MG/DL Creatinine 0.73 0.60-1.30 MG/DL Estimat Glomerular Filtration Rate 84 BUN/Creatinine Ratio 21 Glucose Level 139 H 70-105 MG/DL Calcium Level 8.7 8.5-10.1 MG/DL L hip incisions clean and dry no calf tenderness s/p L hip IM jessica receiving blood await placement continue PT/OT TREVOR MENENDEZ MD Jun 14, 2022 06:28
[2022-06-14] MEDS: ENOXAPARIN 40 MG/0.4 ML (LOVENOX) SYR SC SCH (07:54)
[2022-06-14] MEDS: DOCUSATE SODIUM 100 MG (COLACE) CAP PO SCH ×2 (07:55→19:09)
[2022-06-14] MEDS: SENNOSIDES 8.6 MG (SENOKOT) TAB PO SCH ×2 (07:55→19:09)
--- NOTE | 2022-06-14 08:36 | Progress Note - Hospitalist ---
Subjective HPI/CC On Admission Date Seen by Provider: Jun 14, 2022 Patient is 81-year-old female past medical history of [place] cell tumor, zyr-tibamvb-lresosczw diabetes type 2, hypertension who presented to the emergency department due to left hip pain. There is an upcoming snowstorm and she was walking out of the back of her porch to go fill up her birdfeeders when she tripped on the steps and fell. She was able to scoot back up the steps and call for help. She was found to have a left hip fracture on imaging in the ER. She is being admitted for operative management by orthopedic surgery. She reports pain as 2/10 but had no improvement with fentanyl. She otherwise has no complaints. She was to get her next dose of treatment for her cancer on 06/12. Subjective/Events-last exam Pt reports doing well. Up in chair. Pain controlled. Currently getting blood transfusion. Objective Exam Vital Signs Vital Signs Date Time Temp Pulse Resp B/P (MAP) Pulse Ox O2 Delivery O2 Flow Rate FiO2 06/14/22 07:45 36.5 79 18 167/80 97 Room Air 06/13/22 03:44 0.00 0.00 Capillary Refill : Less Than 3 SecondsLess Than 3 Seconds General Appearance: No Apparent Distress, WD/WN Respiratory: Lungs Clear, No Respiratory Distress Cardiovascular: Regular Rate, Rhythm, No Murmur Neurologic/Psychiatric: Alert, Oriented x3 Results/Procedures Lab Laboratory Tests 06/14/22 04:10 Patient resulted labs reviewed. Imaging: Reviewed Imaging Films, Reviewed Imaging Report Assessment/Plan Assessment and Plan Assess & Plan/Chief Complaint Intertrochanteric left hip fracture Ortho consulted, appreciate recs Fentanyl for pain Oxycodone prn as well POD #3 PT/OT Hold Lovenox with worsening anemia Await insurance response Anemia s/p 1 unit pRBCs yand receiving another now Back down to 6.7 this AM likely multifactorial Attempt to call her oncologist- awaiting phone call back Surgical dressing without significant bleeding NIDDMII Takes metformin only at home Hold for now SSI ACHS accu checks HTN On lisinopril/HCTZ at home BP mostly well controlled, trend for now and resume if need yee Cell tumor Follows with Dr Clark Was due for immunotherapy on 06/12 No acute needs at this time DVT ppx: SCDs Diagnosis/Problems Diagnosis/Problems (1) Yee cell carcinoma (2) Hip fracture Qualifiers: Encounter type: initial encounter Fracture type: closed Laterality: left Qualified Codes: S72.002A - Fracture of unspecified part of neck of left femur, initial encounter for closed fracture (3) Essential (primary) hypertension (4) Non-insulin dependent type 2 diabetes mellitus VAL VANESSA MD Jun 14, 2022 8:36 am
[2022-06-14 10:01] LABS: HEMOGLOBIN 9.2 g/dL (11.5-16.0)
--- NOTE | 2022-06-14 10:42 | Physical Therapy Daily Note ---
PT Daily Note-Current Subjective Patient sitting in chair upon PT arrival, agreeable to treatment. Rates pain currently at 3/10 Pain Section J - Health Conditions 1. Rarely or not at all 2. Occasionally 3. Frequently 4. Almost constantly 8. Unable to answer Pain Effect on Sleep: 1 Pain Interference with Therapy: 1 Pain Interference w/Day-to-Day: 1 Mental Status Patient Orientation: Person, Place, Time, Situation Transfers SCALE: Activities may be completed with or without assistive devices. 9-Fvxxvkbwcz-iwoofue completes the activity by him/herself with no assistance from a helper. 5-Set-up or Clean-up Assistance-helper sets up or cleans up; patient completes activity. [place] assists only prior to or following the activity. 4-Supervision or Touching Assistance-helper provides verbal cues and/or touching/steadying and/or contact guard assistance as patient completes activity. Assistance may be provided throughout the activity or intermittently. 3-Partial/Moderate Assistance-helper does LESS THAN HALF the effort. [place] lifts, holds or supports trunk or limbs, but provides less than half the effort. 2-Substantial/Maximal Assistance-helper does MORE THAN HALF the effort. [place] lifts or holds trunk or limbs and provides more than half the effort. 6-Xgqhatbej-skwbei does ALL the effort. Patient does none of the effort to complete the activity. Or, the assistance of 2 or more helpers is required for the patient to complete the activity. If activity was not attempted, code reason: 7-Patient Refused. 9-Not Applicable-not attempted and the patient did not perform the activity before the current illness, exacerbation or injury. 10-Not Attempted due to Environmental Limitations-(lack of equipment, weather restraints, etc.). 88-Not Attempted due to Medical Conditions or Safety Concerns. Sit to Stand (QC): 3 Chair/Nxu-ui-Bxibj Xfer(QC): 3 Toilet Transfer (QC): 3 Weight Bearing Right Lower Extremity: Right Weight Bearing/Tolerated Left Lower Extremity: Left Weight Bearing/Tolerated Gait Training Does the Patient Walk?: Yes Distance: 50 feet Walk 10 feet (QC): 4 Walk 50 ft with 2 Turns(QC): 4 Gait Assistive Device: FWW Assessment Current Status: Fair Progress Patient tolerated treatment well. Demonstrates improved overall gait pattern and distance. Patient ambulates 50 feet with FWW with CGA and verbal cues for posture, progression and conservation of energy. Patient ambulates into the BR and requires min A while standing and lowering her pants to use BR. Patient ambulates to the chair with CGA. Patient in chair post treatment with all needs met, nursing notified, call light in hand. PT Supervisor Public Message Service Goals Detention Goals PT Supervisor Public Message Service Goals Time Frame: Jun 18, 2022 Roll Left & Right (QC): 6 Sit to Lying (QC): 4 Lying-Sitting on Side/Bed(QC): 4 Sit to Stand (QC): 4 Chair/Mmw-wj-Fxxah Xfer(QC): 4 Walk 10 feet (QC): 4 Walk 50ft with 2 Turns (QC): 4 PT Plan Treatment/Plan Treatment Plan: Continue Plan of Care Treatment Plan: Bed Mobility, Education, Functional Activity Kaitlyn, Functional Strength, Gait, Safety, Therapeutic Exercise, Transfers Treatment Duration: Jun 18, 2022 Frequency: 11 times per week Estimated Hrs Per Day: .25 hour per day Patient and/or Family Agrees t: Yes Safety Risks/Education Patient Education: Gait Training Teaching Recipient: Patient Teaching Methods: Demonstration, Discussion Response to Teaching: Verbalize Understanding, Return Demonstration Time Time In: 855 Time Out: 911 DATE: Jun 14, 2022 Total Billed Treatment Time: 16 Total Billed Treatment Visit, EITAN Garrett PT Jun 14, 2022 10:42
--- NOTE | 2022-06-14 11:35 | Oncology Consultation ---
Visit Information Visit Information Date of Admission Jun 10, 2022 at 14:50 Attending Physician Ever Peterson MD Admitting Physician Admitting Physician: Lyly Verdzuco MD Attending Physician: Lyly Verduzco MD Chief Complaint Called to see patient about anemia and leukocytosis, left hip fracture s/p surgery. 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 She fall while going to feed her bird and broke her left hip. She had surgical repair and did well during and a fter the procedure. She became anemia Hb 6.7 after surgery and required 3 units of RBC transfusion. Dr Verduzco called me to make sure that she is doing all right and we are not missing anything else in terms of her treatment. She is now up to chair and doing her rehab. She has quite bit swelling of the left thigh and leg. The plan is to got rehab next Thursday. Pertinent PMH [place] cell carcinoma, stage IV as of 01/24/2020, as shown above of PET CT. Multiple organ lesions, largest 9.2cm at left buttock. She had complete response after the 6 cycles treatment of Opdivo treatment and complete resolution of the tumor throughout. We then had additional 3 more months of the treatment and then treatment stopped 10/2020. Repeat PET CT 11/20/2020 showed unremarkable scan as above Repeat PET CT 04-09-2021 to evaluate elevated WBC showed stable PET CT. She has the recurrence of sinus issues and CBC showed elevated WBC again and chronic diarrhea. CT of sinus, chest, abd/pelvis with contrast evaluation 2021 showed recurrence of disease in the adrenal. Since she had excellent response to opdivo before and her disease recurrence when she is off the opdivo, she was back on opdivo treatment. I consulted the patient on: 06/14/22 11:24 Time Seen by Provider: 11:00 Review of Systems Constitutional: see HPI Health Status Allergies Coded Allergies: No Known Drug Allergies (Unverified , 02/01/20) Home Medications Ascorbate Calcium (Vitamin C) 500 Mg Tablet, 500 MG PO DAILY, (Reported) Aspirin (Aspirin) 325 Mg Tablet, 325 MG PO 1800, (Reported) Cinnamon Bark (Cinnamon) 500 Mg Capsule, 1,000 MG PO BID, (Reported) Cyanocobalamin (Vitamin B-12) (Vitamin B-12) 500 Mcg Tablet, 500 MCG PO DAILY, (Reported) Diltiazem HCl (Diltiazem 24Hr ER) 240 Mg Cap.er.24h, 240 MG PO DAILY, (Reported) Diphenhydramine HCl (Benadryl) 25 Mg Capsule, 25 MG PO DAILY, (Reported) Lisinopril/Hydrochlorothiazide (Lisinopril-Hctz 20-12.5 mg Tab) 20 Mg-12.5 Mg Tablet, 1 EA PO DAILY, (Reported) Metformin HCl (Metformin HCl) 500 Mg Tablet, 1,000 MG PO BID WITH MEALS, (Reported) TAKE 2 (500MG) TABS Nivolumab (Opdivo) 120 Mg/12 Ml Vial, 480 MG IV MONTHLY, (Reported) VOJ-Ggsbac-Sunlrs Hx Patient Social History 2nd Hand Smoke Exposure: No Recent Hopitalizations: No Alcohol Use?: Yes Have you traveled recently?: No Immunizations Up To Date Date of Pneumonia Vaccine: Feb 19, 2015 Date of Influenza Vaccine: Feb 21, 2019 Physical Exam Vital Signs Vital Signs - First Documented 06/10/22 13:52 Temp 36.3 Pulse 79 Resp 14 B/P (MAP) 114/44 (67) Pulse Ox 97 O2 Delivery Room Air Capillary Refill : Less Than 3 SecondsLess Than 3 Seconds Height, Weight, BMI Height: '" Weight: lbs. oz. kg; 23.74 BMI Method: General Appearance: No Apparent Distress HEENT: PERRL/EOMI Respiratory: No Accessory Muscle Use, No Respiratory Distress Cardiovascular: Regular Rate, Rhythm Gastrointestinal: Non Tender Extremity: Swelling Neurologic/Psychiatric: Alert, Oriented x3 Data Review Labs Laboratory Tests 06/16/22 05:08 Laboratory Tests 06/13/22 15:49: Glucometer 141H 06/13/22 20:35: Glucometer 189H 06/14/22 04:10: White Blood Count 28.9H, Red Blood Count 2.47L, Hemoglobin 6.7*L, Hematocrit 20*L, Red Cell Distribution Width 16.1H, Sodium Level 134L, Glucose Level 139H 06/14/22 09:53: Hemoglobin 9.2#L, Hematocrit 27L 06/14/22 11:10: Glucometer 135H 06/14/22 16:15: Glucometer 124H 06/14/22 20:20: Glucometer 143H 06/15/22 05:22: White Blood Count 26.5H, Red Blood Count 3.01L, Hemoglobin 8.4L, Hematocrit 25L, Red Cell Distribution Width 16.0H, Glucose Level 128H 06/15/22 10:10: Glucometer 162H 06/15/22 16:00: Glucometer 155H 06/15/22 20:53: Glucometer 153H 06/16/22 05:08: White Blood Count 30.2*H, Red Blood Count 3.09L, Hemoglobin 8.6L, Hematocrit 26L , Red Cell Distribution Width 17.2H, Glucose Level 142H 06/16/22 11:26: Glucometer 124H Impression & Plan Impression & Plan IMP: 1. Left hip fracture, s/p surgical repair, doing well so far. 2. Anemia most likely due to the bleeding into soft tissue of left thigh. Pt can have one liter blood slowly oozing into the soft tissue without showing any sign outside or skin. She had proper response to 3 units of blood transfusion. Her Hb was up from 6.7 to 9.3 today. 3. Leukocytosis due to Yee cell carcinoma 4. Recurrence stage IV Yee cell carcinoma extensive disease on immunotherapy Opdivo, last dose 6 weeks ago. Plan: 1. Agree to rehab next week. 2. Contact cancer center once discharge from rehab to schedule next immunotherapy. 3. Since the iron from the soft tissue hemorrhage will be reabsorbed again, she does NOT need extra oral iron supplement which will have risk to cause her constipation specially when she is on narcotic for the pain. 4. I anticipate she will do well and be able to go home soon. Thank you for the consultation. SHERLY POLO MD Jun 14, 2022 11:35
[2022-06-14] MEDS: HYDROcodone/APAP 7.5 MG/325 MG (LORTAB, LORCET PLUS) TABLET PO PRN (19:12)
[2022-06-14] MEDS ORDERED: lisINopril 20 MG (PRINIVIL) TABLET PO ONE (21:00)
[2022-06-14] MEDS: oxyCODONE/APAP 5/325MG (PERCOCET 5) TABLET PO PRN (21:27)
[2022-06-15 03:32] VITALS: BP 160/70
[2022-06-15 05:30] LABS: HEMATOCRIT 25 % (35-52); HEMOGLOBIN 8.4 g/dL (11.5-16.0); MEAN CORPUSCULAR HEMOGLOBIN 28 pg (25-34); MEAN CORPUSCULAR HGB CONC 34 g/dL (32-36); MEAN CORPUSCULAR VOLUME 82 fL (80-99); MEAN PLATELET VOLUME 9.4 fL (9.0-12.2); PLATELET COUNT 200 10^3/uL (130-400); WHITE BLOOD COUNT 26.5 10^3/uL (4.3-11.0)
[2022-06-15 05:36] LABS: POTASSIUM 3.7 MMOL/L (3.6-5.0)
[2022-06-15 05:38] LABS: CALCIUM 8.8 MG/DL (8.5-10.1)
[2022-06-15 05:42] LABS: CREATININE SERUM 0.72 MG/DL (0.60-1.30)
[2022-06-15] MEDS: inSUlin ASPART (NovoLOG) 1 UNIT/0.01 ML (CHARGE PER UNIT) SC SCH ×4 (05:54→21:40)
[2022-06-15 07:28] VITALS: BP 163/83
[2022-06-15] MEDS: lisINopril 20 MG (PRINIVIL) TABLET PO SCH (08:26)
[2022-06-15] MEDS: HYDROcodone/APAP 7.5 MG/325 MG (LORTAB, LORCET PLUS) TABLET PO PRN (08:26)
[2022-06-15] MEDS: DOCUSATE SODIUM 100 MG (COLACE) CAP PO SCH ×2 (08:26→19:24)
[2022-06-15] MEDS: SENNOSIDES 8.6 MG (SENOKOT) TAB PO SCH ×2 (08:27→19:24)
--- NOTE | 2022-06-15 10:19 | Progress Note - Hospitalist ---
Subjective HPI/CC On Admission Date Seen by Provider: Jun 15, 2022 Patient is 81-year-old female past medical history of [place] cell tumor, puo-xzojyca-tlhqjxrcg diabetes type 2, hypertension who presented to the emergency department due to left hip pain. There is an upcoming snowstorm and she was walking out of the back of her porch to go fill up her birdfeeders when she tripped on the steps and fell. She was able to scoot back up the steps and call for help. She was found to have a left hip fracture on imaging in the ER. She is being admitted for operative management by orthopedic surgery. She reports pain as 2/10 but had no improvement with fentanyl. She otherwise has no complaints. She was to get her next dose of treatment for her cancer on 06/12. Subjective/Events-last exam Pt up walking to the bathroom today. Doing well. pain controlled. No complaints. Objective Exam Vital Signs Vital Signs Date Time Temp Pulse Resp B/P (MAP) Pulse Ox O2 Delivery O2 Flow Rate FiO2 06/15/22 07:28 36.7 78 16 163/83 (109) 96 Room Air 06/15/22 07:27 0.00 Capillary Refill : Less Than 3 SecondsLess Than 3 Seconds General Appearance: No Apparent Distress, WD/WN Respiratory: No Respiratory Distress Neurologic/Psychiatric: Alert, Oriented x3, Other (antalgic gait) Results/Procedures Lab Laboratory Tests 06/15/22 05:22 Patient resulted labs reviewed. Imaging: Reviewed Imaging Films, Reviewed Imaging Report Assessment/Plan Assessment and Plan Assess & Plan/Chief Complaint Intertrochanteric left hip fracture Ortho consulted, appreciate recs Fentanyl for pain Oxycodone prn as well POD #4 PT/OT Hold Lovenox with worsening anemia- resume tomorrow Await insurance response for IRF prior auth Anemia s/p 2 unit pRBCs total Hgb up today Heme consulted, appreciate recs Surgical dressing without significant bleeding NIDDMII Takes metformin only at home Hold for now SSI ACHS accu checks- BS within goal HTN BP trended up overnight Lisinopril resumed shu Cell tumor Follows with Dr Clark Was due for immunotherapy on 06/12 No acute needs at this time DVT ppx: SCDs Diagnosis/Problems Diagnosis/Problems (1) [place] cell carcinoma (2) Hip fracture Qualifiers: Encounter type: initial encounter Fracture type: closed Laterality: left Qualified Codes: S72.002A - Fracture of unspecified part of neck of left femur, initial encounter for closed fracture (3) Essential (primary) hypertension (4) Non-insulin dependent type 2 diabetes mellitus VAL VANESSA MD Jun 15, 2022 10:19
[2022-06-15] MEDS: NS IV 1000 ML 1,000 ML IV SCH ×2 (10:20→19:24)
[2022-06-15 11:18] VITALS: BP 137/81
[2022-06-15 15:35] VITALS: BP 163/75
[2022-06-15] MEDS: oxyCODONE/APAP 5/325MG (PERCOCET 5) TABLET PO PRN (19:24)
[2022-06-15 19:56] VITALS: BP 173/72
[2022-06-15 23:12] VITALS: BP 153/69
[2022-06-16 03:13] VITALS: BP 154/68
[2022-06-16] MEDS: oxyCODONE/APAP 5/325MG (PERCOCET 5) TABLET PO PRN (05:02)
[2022-06-16] MEDS: NS IV 1000 ML 1,000 ML IV SCH ×2 (05:02→14:41)
[2022-06-16 05:13] LABS: HEMATOCRIT 26 % (35-52); HEMOGLOBIN 8.6 g/dL (11.5-16.0); MEAN CORPUSCULAR HEMOGLOBIN 28 pg (25-34); MEAN CORPUSCULAR HGB CONC 33 g/dL (32-36); MEAN CORPUSCULAR VOLUME 84 fL (80-99); MEAN PLATELET VOLUME 9.1 fL (9.0-12.2); PLATELET COUNT 221 10^3/uL (130-400)
[2022-06-16 05:17] LABS: WHITE BLOOD COUNT 30.2 10^3/uL (4.3-11.0)
[2022-06-16 05:28] LABS: POTASSIUM 3.7 MMOL/L (3.6-5.0)
[2022-06-16 05:33] LABS: CREATININE SERUM 0.83 MG/DL (0.60-1.30)
[2022-06-16] MEDS: inSUlin ASPART (NovoLOG) 1 UNIT/0.01 ML (CHARGE PER UNIT) SC SCH ×3 (06:07→16:15)
[2022-06-16 07:37] VITALS: BP 148/74
[2022-06-16] MEDS: lisINopril 20 MG (PRINIVIL) TABLET PO SCH (08:09)
[2022-06-16] MEDS: SENNOSIDES 8.6 MG (SENOKOT) TAB PO SCH (08:09)
[2022-06-16] MEDS: DOCUSATE SODIUM 100 MG (COLACE) CAP PO SCH (08:09)
[2022-06-16] MEDS: HYDROcodone/APAP 7.5 MG/325 MG (LORTAB, LORCET PLUS) TABLET PO PRN (08:10)
--- NOTE | 2022-06-16 08:22 | Occupational Ther Daily Note ---
OT Current Status-Daily Note Subjective Up in recliner w/ feet elevated, watching TV Pain Numeric Pain Scale: 4 Location: Left Location Body Site: Hip Pain Description: Ache, Pressure Comment: Reports ambulation w/ PT earlier this morning. Mental Status/Objective Patient Orientation: Person, Place, Time, Situation Attachments: IV ADL-Treatment Ambulation to bathroom for grooming ADLS and toileting, OT assisted w/ IV pole management and VCs given for use of FWW for transfers, hand placement and safety Therapy Code Descriptions/Definitions Functional [place] Measure: 0=Not Assessed/NA 4=Minimal Assistance 1=Total Assistance 5=Supervision or Setup 2=Maximal Assistance 6=Modified [place] 3=Moderate Assistance 7=Complete IndependenceSCALE: Activities may be completed with or without assistive devices. 7-Rnuxvznhav-ptmimyq completes the activity by him/herself with no assistance from a helper. 5-Set-up or Clean-up Assistance-helper sets up or cleans up; patient completes activity. [place] assists only prior to or following the activity. 4-Supervision or Touching Assistance-helper provides verbal cues and/or touching/steadying and/or contact guard assistance as patient completes activity. Assistance may be provided throughout the activity or intermittently. 3-Partial/Moderate Assistance-helper does LESS THAN HALF the effort. [place] lifts, holds or supports trunk or limbs, but provides less than half the effort. 2-Substantial/Maximal Assistance-helper does MORE THAN HALF the effort. [place] lifts or holds trunk or limbs and provides more than half the effort. 9-Itopmulsf-jdpgac does ALL the effort. Patient does none of the effort to complete the activity. Or, the assistance of 2 or more helpers is required for the patient to complete the activity. If activity was not attempted, code reason: 7-Patient Refused. 9-Not Applicable-not attempted and the patient did not perform the activity before the current illness, exacerbation or injury. 10-Not Attempted due to Environmental Limitations-(lack of equipment, weather restraints, etc.). 88-Not Attempted due to Medical Conditions or Safety Concerns. Eating (QC): 6 (finished breakfast prior to therapy) Oral Hygiene (QC): 5 (continues to stand garded at sink fo rgrooming w/ FWW) Shower/Bathe Self (QC): 7 (OT offered assitance to shower and patient declined) Upper Body Dressing (QC): 4 (remains in gown, requires assistance d/t IV) Lower Body Dressing (QC): 4 (Sequence cues and LLE assistance) On/Off Footwear: 4 (nonskid slipper socks) Toileting Hygiene (QC): 4 (VC for safety and rotation to flush and use trash) Toilet Transfer (QC): 4 (VC for transfer and hand placemnt patient attemtps to poush and pull on FWW during transfer) Education OT Patient Education: Correct positioning, Modified ADL techniques, Progress toward Goal/Update tx plan, Purpose of tx/functional activities, Reviewed precautions, Rehab process, Safety issues, Transfer techniques, Use of adapted equipment Teaching Recipient: Patient Teaching Methods: Demonstration, Discussion Response to Teaching: Verbalize Understanding, Return Demonstration, Reinforcement Needed (Patient returned to recliner and OT assisted in functional reach education to adjust pillows and blankets. IV plugged in behind recliner, tray table beside patient w/ call light and phon ein reach, RN to address pain. All needs met.) OT Alf Goals Alf Goals Eating (QC): 6 Oral Hygiene (QC): 6 Toileting Hygiene (QC): 6 Shower/Bathe Self (QC): 6 Upper Body Dressing (QC): 6 Lower Body Dressing (QC): 6 On/Off Footwear (QC): 6 1=Demonstrate adherence to instructed precautions during ADL tasks. 2=Patient will verbalize/demonstrate understanding of assistive devices/modifications for ADL. 3=Patient will improve strength/tolerance for activity to enable patient to perform ADL's. OT Education/Plan Problem List/Assessment Assessment: Decreased Activ Tolerance, Decreased Safety Aware, Decreased UE Strength, Impaired Bed Mobility, Impaired Funct Balance, Impaired I ADL's, Restricted Funct UE ROM Discharge Recommendations Plan/Recommendations: Continue POC Therapy Discharge Recommendati: Post Acute OT Treatment Plan/Plan of Care Patient would benefit from OT for education, treatment and training to promote independence in ADL's, mobility, safety and/or upper extremity function for ADL's. Plan of Care: ADL Retraining, Concurrent Therapy, Functional Mobility, Group Exercise/Act as Ind, UE Funct Exercise/Act Treatment Duration: Jun 21, 2022 Frequency: 3 times per week (3-5 times per week) Estimated Hrs Per Day: .25 hour per day Agreement: Yes Rehab Potential: Fair Time Start Time: 08:57 Stop Time: 08:20 DATE: Jun 16, 2022 Total Time Billed (hr/min): 23 Billed Treatment Time 1 visit ADL 2 23 min GUY SANDHU OT Jun 16, 2022 08:21
--- NOTE | 2022-06-16 09:19 | Physical Therapy Daily Note ---
PT Daily Note-Current Subjective Patient agrees to PT. Pain Numeric Pain Scale: 3 Location: Left Location Body Site: Hip Section J - Health Conditions 1. Rarely or not at all 2. Occasionally 3. Frequently 4. Almost constantly 8. Unable to answer Pain Effect on Sleep: 1 Pain Interference with Therapy: 1 Pain Interference w/Day-to-Day: 1 Mental Status Patient Orientation: Normal For Age Attachments: Central Line Transfers SCALE: Activities may be completed with or without assistive devices. 7-Kzqvqyanwc-eyaqomu completes the activity by him/herself with no assistance from a helper. 5-Set-up or Clean-up Assistance-helper sets up or cleans up; patient completes activity. [place] assists only prior to or following the activity. 4-Supervision or Touching Assistance-helper provides verbal cues and/or touching/steadying and/or contact guard assistance as patient completes activity. Assistance may be provided throughout the activity or intermittently. 3-Partial/Moderate Assistance-helper does LESS THAN HALF the effort. [place] lifts, holds or supports trunk or limbs, but provides less than half the effort. 2-Substantial/Maximal Assistance-helper does MORE THAN HALF the effort. [place] lifts or holds trunk or limbs and provides more than half the effort. 8-Jpryxnotd-grpiqe does ALL the effort. Patient does none of the effort to complete the activity. Or, the assistance of 2 or more helpers is required for the patient to complete the activity. If activity was not attempted, code reason: 7-Patient Refused. 9-Not Applicable-not attempted and the patient did not perform the activity before the current illness, exacerbation or injury. 10-Not Attempted due to Environmental Limitations-(lack of equipment, weather restraints, etc.). 88-Not Attempted due to Medical Conditions or Safety Concerns. Sit to Stand (QC): 4 Weight Bearing Right Lower Extremity: Right Weight Bearing/Tolerated Left Lower Extremity: Left Weight Bearing/Tolerated Gait Training Distance: 200' Walk 10 feet (QC): 4 Walk 50 ft with 2 Turns(QC): 4 Walk 150 ft (QC): 4 Gait Assistive Device: FWW slow, reciprocal pattern/slightly antalgic Exercises Supine Ex: Ankle pumps, Quad Set, Heel Slides Supine Reps: 15 (in recliner with bilateral LE elevated) Seated Therapy Exercises: Ankle pumps, Long arc quads, Hip flexion Seated Reps: 15 Assessment Patient progressing with treatment plan and remains up in recliner. PT to continue to increase activity as tolerated by patient. PT Jail Goals Jail Goals PT Jail Goals Time Frame: Jun 18, 2022 Roll Left & Right (QC): 6 Sit to Lying (QC): 4 Lying-Sitting on Side/Bed(QC): 4 Sit to Stand (QC): 4 Chair/Qwt-em-Aptgq Xfer(QC): 4 Walk 10 feet (QC): 4 Walk 50ft with 2 Turns (QC): 4 PT Plan Treatment/Plan Treatment Plan: Continue Plan of Care Treatment Plan: Bed Mobility, Education, Functional Activity Kaitlyn, Functional Strength, Gait, Safety, Therapeutic Exercise, Transfers Treatment Duration: Jun 18, 2022 Frequency: 11 times per week Estimated Hrs Per Day: .25 hour per day Patient and/or Family Agrees t: Yes Time Time In: 725 Time Out: 748 DATE: Jun 16, 2022 Total Billed Treatment Time: 23 Total Billed Treatment 1 visit EX 9 min GT 14 min ROYA PHILLIPS PT Jun 16, 2022 09:19
[2022-06-16 11:23] VITALS: BP 149/76
--- NOTE | 2022-06-16 13:33 | Physical Therapy Daily Note ---
PT Daily Note-Current Subjective Patient agrees to PT. Pain Numeric Pain Scale: 5-Moderate Pain Location: Left Location Body Site: Hip Pain Description: Acute Section J - Health Conditions 1. Rarely or not at all 2. Occasionally 3. Frequently 4. Almost constantly 8. Unable to answer Pain Effect on Sleep: 1 Pain Interference with Therapy: 1 Pain Interference w/Day-to-Day: 1 Mental Status Patient Orientation: Normal For Age Attachments: Central Line Transfers SCALE: Activities may be completed with or without assistive devices. 6-Iqcbzmsjkl-utgdwlh completes the activity by him/herself with no assistance from a helper. 5-Set-up or Clean-up Assistance-helper sets up or cleans up; patient completes activity. [place] assists only prior to or following the activity. 4-Supervision or Touching Assistance-helper provides verbal cues and/or touching/steadying and/or contact guard assistance as patient completes activity. Assistance may be provided throughout the activity or intermittently. 3-Partial/Moderate Assistance-helper does LESS THAN HALF the effort. [place] lifts, holds or supports trunk or limbs, but provides less than half the effort. 2-Substantial/Maximal Assistance-helper does MORE THAN HALF the effort. [place] lifts or holds trunk or limbs and provides more than half the effort. 6-Zctcjoome-ppdqmg does ALL the effort. Patient does none of the effort to complete the activity. Or, the assistance of 2 or more helpers is required for the patient to complete the activity. If activity was not attempted, code reason: 7-Patient Refused. 9-Not Applicable-not attempted and the patient did not perform the activity before the current illness, exacerbation or injury. 10-Not Attempted due to Environmental Limitations-(lack of equipment, weather restraints, etc.). 88-Not Attempted due to Medical Conditions or Safety Concerns. Sit to Stand (QC): 4 Weight Bearing Right Lower Extremity: Right Weight Bearing/Tolerated Left Lower Extremity: Left Weight Bearing/Tolerated Gait Training Distance: 200' Walk 10 feet (QC): 4 Walk 50 ft with 2 Turns(QC): 4 Walk 150 ft (QC): 4 Gait Assistive Device: FWW reciprocal, antalgic Exercises Supine Ex: Ankle pumps, Quad Set, Heel Slides Supine Reps: 12 (AAROM left) Seated Therapy Exercises: Long arc quads Seated Reps: 15 Assessment Improved jose this p.m. Improving with treatment plan. PT Fdc Goals Fdc Goals PT Fdc Goals Time Frame: Jun 18, 2022 Roll Left & Right (QC): 6 Sit to Lying (QC): 4 Lying-Sitting on Side/Bed(QC): 4 Sit to Stand (QC): 4 Chair/Dxu-od-Zofom Xfer(QC): 4 Walk 10 feet (QC): 4 Walk 50ft with 2 Turns (QC): 4 PT Plan Treatment/Plan Treatment Plan: Continue Plan of Care Treatment Plan: Bed Mobility, Education, Functional Activity Kaitlyn, Functional Strength, Gait, Safety, Therapeutic Exercise, Transfers Treatment Duration: Jun 18, 2022 Frequency: 11 times per week Estimated Hrs Per Day: .25 hour per day Patient and/or Family Agrees t: Yes Time Time In: 1305 Time Out: 1321 DATE: Jun 16, 2022 Total Billed Treatment Time: 16 Total Billed Treatment 1 visit FA 16 min ROYA PHILLIPS PT Jun 16, 2022 13:33
[2022-06-16 16:08] VITALS: BP 149/73
--- NOTE | 2022-06-16 20:29 | Discharge Summary ---
Discharge Summary Hospital Course Problems/Dx: (1) Hip fracture Qualifiers: Qualified Codes: S72.002A - Fracture of unspecified part of neck of left femur, initial encounter for closed fracture (2) [place] cell carcinoma (3) Essential (primary) hypertension (4) Non-insulin dependent type 2 diabetes mellitus Hospital Course Date of Admission: Jun 10, 2022 at 14:50 Admission Diagnosis : Family Physician/Provider: Ever Peterson MD Date of Discharge: 06/16/22 Discharge Diagnosis: [ ] Hospital Course: [ ] Labs and Pending Lab Test: Laboratory Tests 06/15/22 20:53: Glucometer 153H 06/16/22 05:08: White Blood Count 30.2*H, Red Blood Count 3.09L, Hemoglobin 8.6L, Hematocrit 26L , Mean Corpuscular Volume 84, Mean Corpuscular Hemoglobin 28, Mean Corpuscular Hemoglobin Concent 33, Red Cell Distribution Width 17.2H, Platelet Count 221, Mean Platelet Volume 9.1, Sodium Level 135, Potassium Level 3.7, Chloride Level 104, Carbon Dioxide Level 21, Anion Gap 10, Blood Urea Nitrogen 14, Creatinine 0.83, Estimat Glomerular Filtration Rate 72, BUN/Creatinine Ratio 17, Glucose Level 142H, Calcium Level 9.0 06/16/22 11:26: Glucometer 124H 06/16/22 15:32: Glucometer 171H Microbiology 06/10/22 MRSA Screen - Final, Complete MRSA not isolated Home Meds Active Reported Vitamin C (Ascorbate Calcium) 500 Mg Tablet 500 Mg PO DAILY Aspirin 325 Mg Tablet 325 Mg PO 1800 Vitamin B-12 (Cyanocobalamin (Vitamin B-12)) 500 Mcg Tablet 500 Mcg PO DAILY Benadryl (Diphenhydramine HCl) 25 Mg Capsule 25 Mg PO DAILY Diltiazem 24Hr ER (Diltiazem HCl) 240 Mg Cap.er.24h 240 Mg PO DAILY Lisinopril-Hctz 20-12.5 mg Tab (Lisinopril/Hydrochlorothiazide) 20 Mg-12.5 Mg Ta blet 1 Ea PO DAILY Opdivo (Nivolumab) 120 Mg/12 Ml Vial 480 Mg IV MONTHLY Cinnamon (Cinnamon Bark) 500 Mg Capsule 1,000 Mg PO BID Metformin HCl 500 Mg Tablet 1,000 Mg PO BID WITH MEALS TAKE 2 (500MG) TABS Discharge Planning: >30 minutes discharge planning Discharge Instructions Discharge Diet: No Restrictions Activity as Tolerated: Yes Discharge Physical Examination Vital Signs Vital Signs Date Time Temp Pulse Resp B/P (MAP) Pulse Ox O2 Delivery O2 Flow Rate FiO2 06/16/22 16:08 36.8 78 16 149/73 (98) 97 Room Air 06/16/22 08:00 0.00 Allergies: Coded Allergies: No Known Drug Allergies (Unverified , 02/01/20) Discharge Summary Date of Admission Jun 10, 2022 at 14:50 Date of Discharge Jun 16, 2022 at 16:30 Discharge Date: Jun 16, 2022 Admission Diagnosis Intertrochanteric left hip fracture Discharge Diagnosis (1) [place] cell carcinoma (2) Hip fracture Qualifiers: Qualified Codes: S72.002A - Fracture of unspecified part of neck of left femur, initial encounter for closed fracture (3) Essential (primary) hypertension (4) Non-insulin dependent type 2 diabetes mellitus RAJAN HURT MD Jun 16, 2022 20:29
== END 2022-06-16 16:30 | DRG 481 ==
LOC: EDUNIT# 13:49 → ER 13:50 → 4TH 14:50
PROVIDERS: ADMIT Family Medicine; ATTEND Internal Medicine
PROC: 0QS736Z Reposition Left Upper Femur with Intramedullary Internal Fixation Device, Percutaneous Approach (ICD-10-PCS; principal; 2022-06-11 10:19)
DX: S72.142A Displaced intertrochanteric fracture of left femur, initial encounter for closed fracture (principal); C79.70 Secondary malignant neoplasm of unspecified adrenal gland; D63.0 Anemia in neoplastic disease; D50.0 Iron deficiency anemia secondary to blood loss (chronic); E11.9 Type 2 diabetes mellitus without complications; I10 Essential (primary) hypertension; Z85.821 Personal history of Merkel cell carcinoma; Z79.82 Long term (current) use of aspirin; Z79.84 Long term (current) use of oral hypoglycemic drugs; W01.0XXA Fall on same level from slipping, tripping and stumbling without subsequent striking against object, initial encounter; Y92.007 Garden or yard of unspecified non-institutional (private) residence as the place of occurrence of the external cause
CPT/HCPCS: 36415; 71045; 76000; 80048; 80053; 82947; 85007; 85014; 85018; 85027; 85610; 85730; 86850; 86900; 86901; 86920; 87081; 93005; 94664; 94760

== ENCOUNTER 2022-06-16 15:41 | Inpatient (IN) | payer MEDICARE ==
[~2022-06-16] VITALS: Ht 162.5 cm; Wt 64.4 kg
[~2022-06-16 15:41] MED LIST changes: +ASCO-262 PO; +ASPI-808 PO; +CYAN500T8 PO; +DILT240C91 PO; +DIPH25CA79 PO; +LISI1TAB46 PO; +[UNRECOGNIZED DRUG - CODE] IV
[2022-06-16] MEDS ORDERED: ALPRAZolam 0.25 MG (XANAX) TAB PO PRN (16:15)
[2022-06-16] MEDS ORDERED: LACTULOSE SYRUP 10GM/15ML (ENULOSE) 30ML UDC PO PRN (16:15)
[2022-06-16] MEDS ORDERED: MELATONIN 3 MG TABLET PO PRN (16:15)
[2022-06-16] MEDS ORDERED: ONDANSETRON 4 MG (ZOFRAN) ORAL DISSOLVE TAB PO PRN (16:15)
[2022-06-16] MEDS ORDERED: DOCUSATE SODIUM 100 MG (COLACE) CAP PO PRN (16:15)
[2022-06-16] MEDS ORDERED: CALCIUM CARBONATE 500 MG (TUMS) TAB.CHEW PO PRN (16:15)
[2022-06-16] MEDS ORDERED: diphenhydrAMINE 25 MG TAB (BENADRYL) PO PRN (16:15)
[2022-06-16] MEDS ORDERED: FLEET ENEMA ADULT 1 EA BTL PR PRN (16:15)
[2022-06-16] MEDS ORDERED: BISACODYL 10 MG SUPP (DULCOLAX) PR PRN (16:15)
[2022-06-16] MEDS ORDERED: guaiFENesin/CODEINE (ROBITUSSIN AC) 10ML UDC PO PRN (16:15)
[2022-06-16 17:07] VITALS: BP 190/83
[2022-06-16] MEDS ORDERED: cloNIDine 0.1 MG (CATAPRES) TAB PO PRN (17:45)
--- NOTE | 2022-06-16 17:45 | Progress Note ---
TRAVIS PARRA 06/16/22 1745: Progress Note HPI Ramya Valladares is a pleasant 81 yo F who [facility] with a chief complaint of left hip fracture. She was brought by EMS to [facility] ED on 06/10/2022 after a fall in her home. Imaging resulted an intertrochanteric left hip fracture and patient was subsequently taken to surgery on 06/11/[address] Mckeon for a left hip intramedullary nail. Upon interview the patient is relaxing comfortably in a recliner. She is alert, oriented, and in no acute distress. She reports that she has been working with PT/OT already and has been ambulating throughout the hallways. She is independent with eating, voiding fine, and notes two soft bowel movements were taken one or two days ago. There is some 2-3/10 pain in the left hip at rest. She has been receiving Fentanyl and prn Percocet and believes her pain is well controlled. Patient has a past medical history of [place] cell carcinoma for which she receives immunotherapy treatments. Mentions these treatments decrease her appetite but she has had no trouble eating. Last treatment was 06/12/2022 and she states her next one is possibly next week. She has a port in place. PMH: Intertrochanteric left hip fracture, Non-insulin dependent diabetes mellitus II, Essential HTN, [place] cell carcinoma, and Anemia with hx of blood transfusion PSH: Left Hip intramedullary nail, Appendectomy (in her 30s), Complete Hysterectomy (in her 40s) ALL: NKDA Meds: reviewed with patient and correctly listed in chart SH: Never smoker, denies chewing tobacco or illicit drug use, has one glass of wine on occasion FH: F: HTN, DM; M: HTN; Brother: Hemochromatosis; Sister: Breast cancer ROS: (+) swelling left leg (-) CP, SOB, palpitations, diarrhea Physical Exam Heart: regular rate and rhythm, normal S1/S2, no murmur, rubs, or gallops Lungs: clear to auscultation bilaterally, normal air movement throughout, no wheezing, rales, or rhonchi Abdomen: soft, non-tender, non-distended, normoactive bowel sounds Chest: Non-tender, Port in place on right side Neck: supple, no cervical lymphadenopathy, no thyromegaly Extremities: Non-pitting edema present in the left lower extremity compared to the right Pulses: 2+ radial bilaterally Assessment Left hip Fracture Non-insulin dependent diabetes mellitus II Essential HTN Leukocytosis Yee cell carcinoma Anemia with hx of blood transfusion Plan Left hip Fracture Continue to increase strength and endurance with PT/OT Manage pain with current regimen and taper with improvement Non-insulin dependent diabetes mellitus II Monitor blood glucose ADA diet Essential HTN Recent BP was 190/83 (HR: 118) Managed with Lisinopril Leukocytosis Likely elevated due to postoperative status Patient is afebrile with no current signs of infection Yee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 Clark Anemia with hx of blood transfusion Last HgB was 8.6 Monitor for decreases RENETTA ADEN DO 06/17/22 0527: Supervisory-Addendum Brief Verification & Attestation Participated in pt care: history, MDM, physical Personally performed: exam, history, MDM, supervision of care Care discussed with: Medical Student Procedures: n/a Results interpretation: Verified all documentation Verification and Attestation of Medical Student E/M Service A medical student performed and documented this service in my presence. I reviewed and verified all information documented by the medical student and made modifications to such information, when appropriate. I personally performed the physical exam and medical decision making. Renetta Aden, Jun 17, 2022,05:27 TRAVIS PARRA Jun 16, 2022 17:45 RENETTA ADEN DO Jun 17, 2022 05:27
--- NOTE | 2022-06-16 17:47 | PM&R Post Admission Assessment ---
PM&R Date of Visit: Jun 16, 2022 Time of Visit: 18:00 History of Present Illness CC: Left hip fracture with debility HPI Ramya Valladares is a pleasant 81 yo F who is admitted to Inpatient Rehab from [facility] with a chief complaint of left hip fracture. She was brought by EMS to [facility] ED on 06/10/2022 after a fall in her home. Imaging resulted an intertrochanteric left hip fracture and patient was subsequently taken to [facility] on 06/11/[address] Mckeon for a left hip intramedullary nail. Upon interview the patient is relaxing comfortably in a recliner. She is alert, oriented, and in no acute distress. She reports that she has been working with PT/OT already and has been ambulating throughout the hallways. She is independent with eating, voiding fine, and notes two soft bowel movements were taken one or two days ago. There is some 2-3/10 pain in the left hip at rest. She has been receiving Fentanyl and prn Percocet and believes her pain is well controlled. 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 Mentions these treatments decrease her appetite but she has had no trouble eating. Last treatment was 06/12/2022 and she states her next one is possibly next week. She has a port in place. PMH: Intertrochanteric left hip fracture, Non-insulin dependent diabetes mellitus II, Essential HTN, Yee cell carcinoma, and Anemia with hx of blood transfusion PSH: Left Hip intramedullary nail, Appendectomy (in her 30s), Complete Hysterectomy (in her 40s) ALL: NKDA Meds: reviewed with patient and correctly listed in chart SH: Never smoker, denies chewing tobacco or illicit drug use, has one glass of wine on occasion FH: F: HTN, DM; M: HTN; Brother: Hemochromatosis; Sister: Breast cancer ROS: (+) swelling left leg (-) CP, SOB, palpitations, diarrhea Physical Exam Heart: regular rate and rhythm, normal S1/S2, no murmur, rubs, or gallops Lungs: clear to auscultation bilaterally, normal air movement throughout, no wheezing, rales, or rhonchi Abdomen: soft, non-tender, non-distended, normoactive bowel sounds Chest: Non-tender, Port in place on right side Neck: supple, no cervical lymphadenopathy, no thyromegaly Extremities: Non-pitting edema present in the left lower extremity compared to the right Pulses: 2+ radial bilaterally Assessment Left hip Fracture Non-insulin dependent diabetes mellitus II Essential HTN Leukocytosis Yee cell carcinoma Anemia with hx of blood transfusion Plan Left hip Fracture Continue to increase strength and endurance with PT/OT Manage pain with current regimen and taper with improvement Non-insulin dependent diabetes mellitus II Monitor blood glucose ADA diet Essential HTN Recent BP was 190/83 (HR: 118) Managed with Lisinopril Leukocytosis Likely elevated due to postoperative status Patient is afebrile with no current signs of infection [place]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 Clark Anemia with hx of blood transfusion Last HgB was 8.6 Monitor for decreases Past Hxpwvmy-Ftzwuo-Qevhrp Hx Past Med/Social Hx: Reviewed Nursing Past Med/Soc Hx, Reviewed and Corrections made Patient Social History Marrital Status: single Employed/Student: retired Alcohol Use: Rarely Uses Smoking Status: Never a Smoker 2nd Hand Smoke Exposure: No Recent Hopitalizations: No Immunizations Up To Date Date of Pneumonia Vaccine: Feb 19, 2015 Date of Influenza Vaccine: Feb 21, 2019 Seasonal Allergies Seasonal Allergies: Yes Past Medical History Surgeries: Appendectomy, Hysterectomy, Oophorectomy, Orthopedic Currently Using CPAP: No Currently Using BIPAP: No Cardiac: Hypertension Sexually Transmitted Disease: No HIV/AIDS: No Hysterectomy Endocrine: Diabetes, Non-Insulin dep Loss of Vision: Denies Hearing Impairment: Denies Cancer: Skin History of Blood Disorders: No Adverse Reaction to Blood Stiles: No (N/A) PM&R Allergy/Meds/Data Review Allergies Coded Allergies: No Known Drug Allergies (Unverified , 02/01/20) Home Medications Scheduled Ascorbate Calcium (Vitamin C), 500 MG PO DAILY, (Reported) Aspirin (Aspirin), 325 MG PO 1800, (Reported) Cinnamon Bark (Cinnamon), 1,000 MG PO BID, (Reported) Cyanocobalamin (Vitamin B-12) (Vitamin B-12), 500 MCG PO DAILY, (Reported) Diltiazem HCl (Diltiazem 24Hr ER), 240 MG PO DAILY, (Reported) Diphenhydramine HCl (Benadryl), 25 MG PO DAILY, (Reported) Lisinopril/Hydrochlorothiazide (Lisinopril-Hctz 20-12.5 mg Tab), 1 EA PO DAILY, (Reported) Metformin HCl (Metformin HCl), 1,000 MG PO BID WITH MEALS, (Reported) Nivolumab (Opdivo), 480 MG IV MONTHLY, (Reported) Discontinued Medications Aspirin (Aspirin), 81 MG PO DAILY, (Reported) Discontinued Reason: No Longer Taking Diltiazem HCl (Diltiazem ER), 240 MG PO DAILY, (Reported) Discontinued Reason: No Longer Taking Fexofenadine/Pseudoephedrine (Lachelle-D 24 Hour Tablet), 1 EACH PO DAILY, (Reported) Discontinued Reason: No Longer Taking Fluticasone Propionate (Fluticasone Propionate), 15.8 ML NS BID, (Reported) Discontinued Reason: No Longer Taking Hydrocodone/Acetaminophen (Hydrocodone-Acetamin 5-325 mg), 1 EACH PO, (Reported) Discontinued Reason: No Longer Taking Lisinopril (Lisinopril), 20 MG PO DAILY, (Reported) Discontinued Reason: No Longer Taking [place]-3 Fatty Acids ([place]-3), 2,000 MG PO DAILY, (Reported) Discontinued Reason: No Longer Taking Pioglitazone HCl (Pioglitazone HCl), 30 MG PO DAILY, (Reported) Discontinued Reason: No Longer Taking Current Medications Current Medications Reviewed Review of Systems Constitutional: see HPI, malaise, weakness EENTM: no symptoms reported Respiratory: no symptoms reported Cardiovascular: no symptoms reported Gastrointestinal: constipation Genitourinary: no symptoms reported Musculoskeletal: back pain, joint pain Skin: no symptoms reported Psychiatric/Neurological: No Symptoms Reported All Other Systems Reviewed Negative Unless Noted: Yes Physical Exam Physical Exam Vital Signs Vital Signs - First Documented 06/16/22 17:07 Temp 36.2 Pulse 82 Resp 16 B/P (MAP) 190/83 (118) Pulse Ox 97 O2 Delivery Room Air Capillary Refill : Height, Weight, BMI Height: '" Weight: lbs. oz. kg; 24.38 BMI Method: General Appearance: No Apparent Distress, WD/WN, Chronically ill Eyes: Bilateral Eye Normal Inspection, Bilateral Eye PERRL HEENT: PERRL/EOMI, Normal ENT Inspection, Pharynx Normal Neck: Full Range of Motion, Normal Inspection, Non Tender, Supple, Carotid Bruit Respiratory: Chest Non Tender, Lungs Clear, Normal Breath Sounds, No Accessory Muscle Use, No Respiratory Distress Cardiovascular: Regular Rate, Rhythm, No Edema, No Gallop, No JVD, No Murmur, Normal Peripheral Pulses Gastrointestinal: Normal Bowel Sounds, No Organomegaly, No Pulsatile Mass, Non Tender, Soft Back: Normal Inspection, No CVA Tenderness, No Vertebral Tenderness Extremity: Normal Capillary Refill, Normal Inspection, Normal Range of Motion ( except left leg), Non Tender, No Calf Tenderness, No Pedal Edema Neurologic/Psychiatric: Alert, Oriented x3, No Motor/Sensory Deficits, Normal Mood/Affect, Abnormal Gait (left leg), Motor Weakness Skin: Normal Color, Warm/Dry Lymphatic: No Adenopathy PM&R Medical Assessment & Plan REHAB/MEDICAL ASSESSMENT AND PLAN: REHAB IMPAIRMENT GROUP: [ ] ETIOLOGIC DIAGNOSIS: [ (condition that led to rehab admission) ] The comorbidities that impact the patients function and/or functional outcome by: [ ] REHAB PLAN: The patient is being admitted to our comprehensive inpatient rehabilitation facility and can tolerate the intensity of service consisting of at least: 180 minutes of therapy a day, 5 out of 7 days a week Rehab treatment will consist of: [ (write brief focus that includes physician, rehab nursing and therapies/modalitiesIPOC will have more specifics) ] The patient/family has a good understanding of our discharge process and will benefit from an interdisciplinary inpatient rehabilitation program. The patient has potential to make improvement and is in need of at least two of the following multidisciplinary therapies including but not limited to physical, occupational, speech, and prosthetics and orthotics. Additionally the patient will need services from respiratory, nutritional services, wound care, psychology, etc. (Customize this to each patient). Given the patients complex condition and risk of further medical complications, rehabilitation services cannot be safely or effectively provided at a lower level of care such as a alf facility. BARRIERS TO DISCHARGE: [ ] ESTIMATED LOS: [ ] DISPOSITION: [ ] RELEVANT CHANGES SINCE PREADMISSION SCREENING: I have compared the patients medical and functional status at the time of the preadmission screening and there are: [no changes] [changes as follows: (if there is a discrepancy between the IGC/Etiologic stated on the PAS, address/clarify this as well) ] PROGNOSIS: [ ] REHABILITATION GOALS: 1. [ (specific to the patient) ] All the above goals were reviewed with the patient and he/she is in agreement. By signing this document, I acknowledge that I have personally performed a full physical examination on this patient within 24 hours of admission to this inpatient rehabilitation facility and have determined the patient to be able to tolerate the above course of treatment at an intensive level for a reasonable period of time. I will be completing a detailed individualized Plan of Care for this patient by day #4 of the patients stay based upon the Preadmission Screen, the Post-Admission Evaluation, and the therapy evaluations. Admission Dx/Comorbidities: (1) Hip fracture ICD Codes: S72.009A - Fracture of unspecified part of neck of unspecified femur, initial encounter for closed fracture (2) Non-insulin dependent type 2 diabetes mellitus ICD Codes: E11.9 - Type 2 diabetes mellitus without complications (3) Essential (primary) hypertension ICD Codes: I10 - Essential (primary) hypertension (4) Yee cell carcinoma ICD Codes: C4A.9 - [place] cell carcinoma, unspecified Assessment/Plan Assessment and Plan Assess & Plan/Chief Complaint Assessment Left hip Fracture Non-insulin dependent diabetes mellitus II Essential HTN Leukocytosis [place] cell carcinoma Anemia with hx of blood transfusion Plan Left hip Fracture Continue to increase strength and endurance with PT/OT Manage pain with current regimen and taper with improvement Non-insulin dependent diabetes mellitus II Monitor blood glucose ADA diet Essential HTN Recent BP was 190/83 (HR: 118) Managed with Lisinopril Leukocytosis Likely elevated due to postoperative status Patient is afebrile with no current signs of infection [place]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 Clark Anemia with hx of blood transfusion Last HgB was 8.6 Monitor for decreases Plan: Rehab protocol Monitor hgb Pain control JEREMIAH ADEN DO Jun 16, 2022 17:47
[2022-06-16 17:58] VITALS: BP 151/80
[2022-06-16] MEDS: ASPIRIN 325 MG (5 GR) TABLET PO SCH (18:40)
[2022-06-16] MEDS: metFORMIN 500 MG (GLUCOPHAGE) TAB PO SCH (18:40)
[2022-06-16 19:48] VITALS: BP 159/74
[2022-06-16] MEDS: DOCUSATE SODIUM 100 MG (COLACE) CAP PO SCH (20:57)
[2022-06-16] MEDS: inSUlin ASPART (NovoLOG) 1 UNIT/0.01 ML (CHARGE PER UNIT) SC SCH (20:57)
[2022-06-16] MEDS: ACETAMINOPHEN 325 MG TABLET PO PRN (20:57)
[2022-06-16] MEDS: SENNA W/DOCUSATE (SENOKOT S) TABLET PO SCH (20:58)
[2022-06-16] MEDS: polyethylene glycoL POWDER 17 GM (MIRALAX) PACK PO SCH (21:00)
[2022-06-16] MEDS ORDERED: NON-FORMULARY MEDICATION 1 EA EA (Cinnamon Bark (Cinnamon) 1,000 MG) PO SCH (21:00)
[2022-06-17] VITALS (7 sets, daily range): BP systolic 125–174; BP diastolic 66–79
[2022-06-17] MEDS: ASCORBIC ACID (VIT C) 500 MG TABLET PO SCH (06:01)
[2022-06-17] MEDS: CYANOCOBALAMIN 1,000 MCG (VITAMIN B-12) TABLET PO SCH (06:02)
[2022-06-17] MEDS: ACETAMINOPHEN 325 MG TABLET PO PRN ×3 (06:02→17:25)
[2022-06-17 06:19] LABS: BASOPHILS # (AUTO) 0.1 10^3/uL (0.0-0.1); BASOPHILS % (AUTO) 0 % (0-10); EOSINOPHILS # (AUTO) 0.1 10^3/uL (0.0-0.3); EOSINOPHILS % (AUTO) 0 % (0-10); HEMATOCRIT 28 % (35-52); LYMPHOCYTES % (AUTO) 21 % (12-44); MEAN CORPUSCULAR HEMOGLOBIN 28 pg (25-34); MEAN CORPUSCULAR HGB CONC 33 g/dL (32-36); MEAN CORPUSCULAR VOLUME 85 fL (80-99); MEAN PLATELET VOLUME 9.3 fL (9.0-12.2); MONOCYTES % (AUTO) 18 % (0-12); NEUTROPHILS # (AUTO) 15.9 10^3/uL (1.8-7.8); NEUTROPHILS % (AUTO) 57 % (42-75); PLATELET COUNT 256 10^3/uL (130-400); WHITE BLOOD COUNT 27.9 10^3/uL (4.3-11.0)
--- NOTE | 2022-06-17 06:29 | PM&R Progress Note ---
Subjective HPI/CC On Admission Date Seen by Provider: Jun 17, 2022 Time Seen by Provider: 08:40 Subjective/Events-last exam 06/17/2022: Patient doing well Slept well last night No BM so laxatives given Pain improved Review of Systems General: Fatigue, Malaise Objective Exam Vital Signs Vital Signs Date Time Temp Pulse Resp B/P (MAP) Pulse Ox O2 Delivery O2 Flow Rate FiO2 06/17/22 14:39 77 18 125/66 (85) 96 Room Air 06/17/22 07:52 36.8 Capillary Refill : General Appearance: No Apparent Distress, WD/WN, Chronically ill HEENT: PERRL/EOMI, Normal ENT Inspection, Pharynx Normal Neck: Full Range of Motion, Normal Inspection, Non Tender, Supple, Carotid Bruit Respiratory: Chest Non Tender, Lungs Clear, Normal Breath Sounds, No Accessory Muscle Use, No Respiratory Distress Cardiovascular: Regular Rate, Rhythm, No Edema, No Gallop, No JVD, No Murmur, Normal Peripheral Pulses Gastrointestinal: Normal Bowel Sounds, No Organomegaly, No Pulsatile Mass, Non Tender, Soft Back: Normal Inspection, No CVA Tenderness, No Vertebral Tenderness Extremity: Normal Capillary Refill, Normal Inspection, Normal Range of Motion (except left leg), Non Tender, No Calf Tenderness, No Pedal Edema Neurologic/Psychiatric: Alert, Oriented x3, No Motor/Sensory Deficits, Normal Mood/Affect, Abnormal Gait (left leg), Motor Weakness Skin: Normal Color, Warm/Dry Lymphatic: No Adenopathy Results/Procedures Lab Laboratory Tests 06/17/22 06:10 Patient resulted labs reviewed. FIM Transfers Therapy Code Descriptions/Definitions Functional [place] Measure: 0=Not Assessed/NA 4=Minimal Assistance 1=Total Assistance 5=Supervision or Setup 2=Maximal Assistance 6=Modified [place] 3=Moderate Assistance 7=Complete IndependenceSCALE: Activities may be completed with or without assistive devices. 7-Tmmxarvuqz-tkvjfhk completes the activity by him/herself with no assistance from a helper. 5-Set-up or Clean-up Assistance-helper sets up or cleans up; patient completes activity. [place] assists only prior to or following the activity. 4-Supervision or Touching Assistance-helper provides verbal cues and/or touching/steadying and/or contact guard assistance as patient completes activity. Assistance may be provided throughout the activity or intermittently. 3-Partial/Moderate Assistance-helper does LESS THAN HALF the effort. [place] lifts, holds or supports trunk or limbs, but provides less than half the effort. 2-Substantial/Maximal Assistance-helper does MORE THAN HALF the effort. [place] lifts or holds trunk or limbs and provides more than half the effort. 9-Imfsgzjhq-zddnmu does ALL the effort. Patient does none of the effort to complete the activity. Or, the assistance of 2 or more helpers is required for the patient to complete the activity. If activity was not attempted, code reason: 7-Patient Refused. 9-Not Applicable-not attempted and the patient did not perform the activity before the current illness, exacerbation or injury. 10-Not Attempted due to Environmental Limitations-(lack of equipment, weather restraints, etc.). 88-Not Attempted due to Medical Conditions or Safety Concerns. Assessment/Plan Assessment and Plan Assess & Plan/Chief Complaint Assessment Left hip Fracture Non-insulin dependent diabetes mellitus II Essential HTN Leukocytosis [place] cell carcinoma Anemia with hx of blood transfusion Plan Left hip Fracture Continue to increase strength and endurance with PT/OT Manage pain with current regimen and taper with improvement Non-insulin dependent diabetes mellitus II Monitor blood glucose ADA diet Essential HTN Recent BP was 190/83 (HR: 118) Managed with Lisinopril Leukocytosis Likely elevated due to postoperative status Patient is afebrile with no current signs of infection [place]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 Clark Anemia with hx of blood transfusion Last HgB was 8.6 Monitor for decreases Plan: Rehab protocol Monitor hgb Pain control 06/17/2022: Hgb monitored Pain control (1) Hip fracture (2) Non-insulin dependent type 2 diabetes mellitus (3) Essential (primary) hypertension (4) [place] cell carcinoma JEREMIAH ADEN DO Jun 17, 2022 06:29
[2022-06-17 06:33] LABS: ALBUMIN 3.1 GM/DL (3.2-4.5)
[2022-06-17 06:35] LABS: CALCIUM 9.5 MG/DL (8.5-10.1)
[2022-06-17 06:38] LABS: BILIRUBIN,TOTAL 1.4 MG/DL (0.1-1.0); LYMPHOCYTES % (MANUAL) 14 %; MONOCYTES % (MANUAL) 18 %; NEUTROPHILS % (MANUAL) 68 %
[2022-06-17 06:39] LABS: ANISOCYTOSIS MODERATE; CREATININE SERUM 0.79 MG/DL (0.60-1.30); MICROCYTOSIS SLIGHT; NUCLEATED RED BLOOD CELLS 1; POIKILOCYTOSIS SLIGHT; POLYCHROMASIA MODERATE
[2022-06-17] MEDS: inSUlin ASPART (NovoLOG) 1 UNIT/0.01 ML (CHARGE PER UNIT) SC SCH ×4 (06:50→20:29)
[2022-06-17] MEDS ORDERED: diphenhydrAMINE 25 MG TAB (BENADRYL) PO SCH (09:00)
[2022-06-17] MEDS ORDERED: NON-FORMULARY MEDICATION 1 EA EA (Ascorbate Calcium (Vitamin C) 500 MG) PO SCH (09:00)
[2022-06-17] MEDS ORDERED: NON-FORMULARY MEDICATION 1 EA EA (Cyanocobalamin (Vitamin B-12) (Vitamin B-12) 500 MCG) PO SCH (09:00)
[2022-06-17] MEDS ORDERED: NON-FORMULARY MEDICATION 1 EA EA (Diphenhydramine HCl (Benadryl) 25 MG) PO SCH (09:00)
[2022-06-17] MEDS: metFORMIN 500 MG (GLUCOPHAGE) TAB PO SCH ×2 (09:35→17:21)
[2022-06-17] MEDS: HydroCHLOROthiazide CAP/TABLET 12.5 MG TAB PO SCH (09:39)
[2022-06-17] MEDS: lisINopril 20 MG (PRINIVIL) TABLET PO SCH (09:40)
[2022-06-17] MEDS: polyethylene glycoL POWDER 17 GM (MIRALAX) PACK PO SCH ×2 (09:48→20:07)
[2022-06-17] MEDS: DOCUSATE SODIUM 100 MG (COLACE) CAP PO SCH ×2 (09:54→20:07)
[2022-06-17] MEDS: SENNA W/DOCUSATE (SENOKOT S) TABLET PO SCH ×2 (09:54→20:07)
--- NOTE | 2022-06-17 09:58 | Physical Therapy Evaluation ---
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 3-Hbpyducxwc-jyqlcou completes the activity by him/herself with no assistance from a helper. 5-Set-up or Clean-up Assistance-helper sets up or cleans up; patient completes activity. [place] assists only prior to or following the activity. 4-Supervision or Touching Assistance-helper provides verbal cues and/or touching/steadying and/or contact guard assistance as patient completes activity. Assistance may be provided throughout the activity or intermittently. 3-Partial/Moderate Assistance-helper does LESS THAN HALF the effort. [place] lifts, holds or supports trunk or limbs, but provides less than half the effort. 2-Substantial/Maximal Assistance-helper does MORE THAN HALF the effort. [place] lifts or holds trunk or limbs and provides more than half the effort. 2-Xyoafidwd-mksldo does ALL the effort. Patient does none of the effort to compl ete the activity. Or, the assistance of 2 or more helpers is required for the patient to complete the activity. If activity was not attempted, code reason: 7-Patient Refused. 9-Not Applicable-not attempted and the patient did not perform the activity before the current illness, exacerbation or injury. 10-Not Attempted due to Environmental Limitations-(lack of equipment, weather restraints, etc.). 88-Not Attempted due to Medical Conditions or Safety Concerns. Bed Mobility: 6 Transfers (B,C,W/C): 6 Gait: 6 Stairs: 6 Indoor Mobility (Ambulation): Independent Stairs: Independent PT Evaluation-Current Subjective Patient in recliner pre tx, agrees to PT, has 6/10 pain in left hip. Pain Section J - Health Conditions 1. Rarely or not at all 2. Occasionally 3. Frequently 4. Almost constantly 8. Unable to answer Pain Effect on Sleep: 3 Pain Interference with Therapy: 2 Pain Interference w/Day-to-Day: 2 Pt/Family Goals to be independent at home Objective Patient Orientation: Person, Place, Situation Sensory Hearing: Functional Sensation Right Lower Extremit: Intact Sensation Left Lower Extremity: Intact Transfers Roll Left & Right (QC): 4 Sit to Lying (QC): 3 Lying to Sitting/Side of Bed(Q: 3 Sit to Stand (QC): 4 Chair/Lcd-ue-Kbebg Xfer(QC): 4 Toilet Transfer (QC): 4 Car Transfer (QC): 3 Patient performs rolling with SBA, supine <-> sit min assist, sit <-> stand and transfers CGA, car transfer min assist. Patient needs occasional cues for hand placement and positioning. Gait Does the Patient Walk?: Yes Mode of Locomotion: Walk Anticipated Mode of Locomotion: Walk Walk 10 feet (QC): 4 Walk 50 ft with 2 Turns(QC): 4 Walk 150 ft (QC): 4 Walking 10ft/uneven surface-QC: 4 Distance: 150'x2 Gait Assistive Device: FWW Comments/Gait Description Patient can ambulate 150' with a rolling walker with CGA (including 50' with at least 2 turns of 90 degrees and 10' over an uneven surface), gait is slow and antalgic, decreased weight bearing on left leg. Wheelchair Training Wheel 50 ft with 2 turns (QC): 9 Wheel 150 ft (QC): 9 Stairs #of Steps: 1 1 Step (curb) (QC): 4 4 Steps (QC): 88 12 Steps (QC): 88 Patient can go up and down 1 step using 2 handrails with CGA, cues for foot placement, attempted more but she could not do it due to pain Balance Sitting Static: Normal Sitting Dynamic: Normal Standing Static: Fair Standing Dynamic: Fair Picking up an Object (QC): 4 (CGA using a instantizer operator) Treatment NuStep level 4 for 15 min Assessment/Needs Patient in recliner post tx with nurse call, phone, tray, all needs met. Patient has impaired mobility, strength, endurance. CGA with most transfers and ambulation. Has some pain with activity. Rehab Potential: Fair PT Short Term Goals Short Term Goals Time Frame: Jun 24, 2022 Sit to lyin Lying to sitting on side of be: 4 Walk 10 feet: 4 Walk 50 feet with two turns: 4 Walk 150 feet: 4 PT Care Home Goals Principal Law Clerk Goals PT Care Home Goals Time Frame: Jul 01, 2022 Roll Left to Right (QC): 6 Sit to Lying (QC): 6 Lying-Sitting on Side/Bed(QC): 6 Sit to Stand (QC): 6 Chair/Vtr-yd-Weqmx Xfer(QC): 6 Toilet/Commode Transfer (QC): 6 Car Transfer (QC): 6 Walk 10 feet (QC): 6 Walk 10ft-Uneven Surface(QC): 6 Walk 50ft with 2 Turns (QC): 6 Walk 150 ft (QC): 6 Wheel 50 feet with 2 turns (QC: 9 Wheel 150 feet: 9 1 Step (curb) (QC): 4 (SBA) 4 Steps (QC): 4 (SBA) 12 Steps (QC): 88 Picking up an Object (QC): 6 (using instantizer operator) PT Plan Problem List Problem List: Activity Tolerance, Functional Strength, Safety, Balance, Gait, Transfer, Bed Mobility, ROM Treatment/Plan Treatment Plan: Continue Plan of Care Treatment Plan: Bed Mobility, Education, Functional Activity Kaitlyn, Functional Strength, Group Therapy, Gait, Safety, Therapeutic Exercise, Transfers Treatment Duration: Jul 01, 2022 Frequency: At least 5 of 7 days/Wk (IRF) Estimated Hrs Per Day: 1.5 hours per day Patient and/or Family Agrees t: Yes Safety Risks/Education Patient Education: Gait Training, Transfer Techniques, Steps, Correct Positioning, Safety Issues Teaching Recipient: Patient Teaching Methods: Demonstration, Discussion Response to Teaching: Reinforcement Needed Discharge Recommendations Plan Patient will perform bed mobility and transfer training, balance and endurance training, functional strengthening, stair training, gait training, and education, to improve functional mobility and independence at home. Therapy Discharge Recommendati: Home & Family, Post Acute PT Time Time In: 0900 Time Out: 1000 DATE: Jun 17, 2022 Total Billed Treatment Time: 60 Total Billed Treatment 1 visit EVL 15' EX 15' FA 30' ADÁN FARIA PT Jun 17, 2022 09:58
--- NOTE | 2022-06-17 11:09 | Occupational Therapy Eval ---
OT Evaluation-General/PLF Medical Diagnosis Admission Date Jun 16, 2022 at 16:45 Medical Diagnosis: left IM jessica Onset Date: Jun 11, 2022 Therapy Diagnosis Therapy Diagnosis: decreased ADL status Precautions Precautions/Isolations: Standard Precautions Weight Bear Status Weight Bearing Restriction: Weight Bearing/Tolerated Location Restriction: L LE Referral Physician: Renetta Powers DO Referral Reason: Evaluation/Treatment Medical History Additional Medical History [place] cell tumor, DM, HTN Current History ED due to L hip pain after fall 06/10/22, s/p L IM nail 06/11/22 Social History Home: Single Level Current Living Status: Alone Entry Into Home: Stairs With Railing Steps Into Home: 3 ADL-Prior Level of Function SCALE: Activities may be completed with or without assistive devices. 2-Gxvnmvksac-pdxmfri completes the activity by him/herself with no assistance from a helper. 5-Set-up or Clean-up Assistance-helper sets up or cleans up; patient completes activity. [place] assists only prior to or following the activity. 4-Supervision or Touching Assistance-helper provides verbal cues and/or touching/steadying and/or contact guard assistance as patient completes activity. Assistance may be provided throughout the activity or intermittently. 3-Partial/Moderate Assistance-helper does LESS THAN HALF the effort. [place] lifts, holds or supports trunk or limbs, but provides less than half the effort. 2-Substantial/Maximal Assistance-helper does MORE THAN HALF the effort. [place] lifts or holds trunk or limbs and provides more than half the effort. 8-Qhnwnzeul-sctfzs does ALL the effort. Patient does none of the effort to complete the activity. Or, the assistance of 2 or more helpers is required for the patient to complete the activity. If activity was not attempted, code reason: 7-Patient Refused. 9-Not Applicable-not attempted and the patient did not perform the activity before the current illness, exacerbation or injury. 10-Not Attempted due to Environmental Limitations-(lack of equipment, weather restraints, etc.). 88-Not Attempted due to Medical Conditions or Safety Concerns. ADL PLOF Comments Pt reports IND with ADLs and functional mobility at OF, no AD. She was independent with IADLs, driving and completing her own grocery shopping. Pt has a walk in shower, no SC. her bathroom is small, pt unsure if a walker will fit, but she has a sturdy vanity she can hold on to. Self Care: Independent Functional Cognition: Independent DME/Equipment: Shower OT Current Status Subjective Pt agreeable to OT tx. Rates L hip pain as 4/10 Mental Status/Objective Patient Orientation: Person, Place, Time, Situation Current Glasses/Contacts: Yes (reading) Hearing Aids: No Dentures/Partials: Yes (upper) Hand Dominance: Right Upper Extremity ROM WFL Upper Extremity Coordination WFL Upper Extremity Sensation WFL Upper Extremity Strength grossly 4-/5 BUEs. ADL-Treatment Eating (QC): 6 Oral Hygiene (QC): 4 (CGA) Shower/Bathe Self (QC): 3 (Min A washing/drying L foot.) Upper Body Dressing (QC): 5 Lower Body Dressing (QC): 3 (Min A threading RLE) On/Off Footwear (QC): 3 (Mod A. Pt able to doff/don R gripper sock, assist L.) Toileting Hygiene (QC): 4 (CGA) Other Treatments Pt up in recliner, agreeable to OT evaluation followed by ADL tx. Pt used FWW to transfer into bathroom, onto BSC over toilet, CGA. Pt completed toileting, then transferred to IA. Pt doffed clothes, completed shower, then donned clothes. Pt had increased difficulty with dressing of LLE due to swelling/pain. Pt may benefit from education on AE for LE dressing. Pt used FWW to transfer into bedroom, transferring to recliner, [facility]. Pt stood at [facility], as RN changed bandages on L hip. Post tx, pt in recliner, call light in reach and all needs met. Education OT Patient Education: Correct positioning, Energy conservation, Modified ADL techniques, Progress toward Goal/Update tx plan, Purpose of tx/functional activities, Rehab process Teaching Recipient: Patient Teaching Methods: Discussion Response to Teaching: Verbalize Understanding BIMS CAM BIMS Expression of Ideas and Wants: Without Difficulty Understanding Verbal Content: Understands IRF SHARON BIMS: IRF SHARON BIMS Response (Comments) Value Repitition of Three Words Three 3 Recalls Socks Yes, No Cue Required 2 Recalls Blue Yes, No Cue Required 2 Recalls Bed No, Could Not Recall 0 Year Correct 3 Month Accurate Within 5 Days 2 Day Correct 1 Total [address] Staff Asses[address] Mental [address] No CAM Mental Status Change/Baseline: 0 Inattention: 0 Disorganized thinkin Altered level of consciousness: 0 OT Short Term Goals Short Term Goals Time Frame: Jun 27, 2022 Shower/bathe self: 5 Upper body dressin Lower body dressin Putting on/taking off footwear: 5 OT Detail Technician Goals Care Home Goals Time Frame: Jul 11, 2022 Eating (QC): 6 Oral Hygiene (QC): 6 Toileting Hygiene (QC): 6 Shower/Bathe Self (QC): 6 Upper Body Dressing (QC): 6 Lower Body Dressing (QC): 6 On/Off Footwear (QC): 6 Additional Goals: 1-Demonstrate ADL Tasks, 2-Verbalize Understanding, 3- ImproveStrength/Kaitlyn 1=Demonstrate adherence to instructed precautions during ADL tasks. 2=Patient will verbalize/demonstrate understanding of assistive devices/modifications for ADL. 3=Patient will improve strength/tolerance for activity to enable patient to perform ADL's. OT Education/Plan Problem List/Assessment Assessment: Decreased Activ Tolerance, Decreased UE Strength, Impaired Funct Balance, Impaired I ADL's, Impaired Self-Care Skills Discharge Recommendations Plan/Recommendations: Continue POC Equpiment Recommendations-D/C: Bath Chair, Hip Kit Treatment Plan/Plan of Care Patient would benefit from OT for education, treatment and training to promote independence in ADL's, mobility, safety and/or upper extremity function for ADL's. Plan of Care: ADL Retraining, Functional Mobility, Group Exercise/Act as Ind, UE Funct Exercise/Act Treatment Duration: Jul 11, 2022 Frequency: At least 5 of 7 days/Wk (IRF) Estimated Hrs Per Day: 1.5 hours per day Agreement: Yes Rehab Potential: Good Time Start Time: 10:00 Stop Time: 11:20 DATE: Jun 17, 2022 Total Time Billed (hr/min): 80 Billed Treatment Time 1, EVM (15'), ADL 4 (65') YESSENIA MELENDEZ OT Jun 17, 2022 11:09
--- NOTE | 2022-06-17 11:52 | ST Cognitive Linguistic Eval ---
Speech Evaluation-General Medical Diagnosis Left IM Sunny Onset Date: Jun 11, 2022 Therapy Diagnosis Therapy Diagnosis: Intact (Baseline) Cognition Precautions Precautions: Fall Precautions/Isolations: Fall Prevention, Standard Precautions Referral Referring Physician: Dr. Powers Reason for Referral: Evaluation/Treatment Medical History Reviewed History: Yes Social History Current Living Status: Alone Speech PLF-Current Status Prior Level of Function The patient denied prior or current concerns with her speech, language, or cognition. Subjective The patient was seated upright in her recliner, awake and alert, upon entrance to her room by the clinician. The patient greeted the clinician appropriately and was agreeable to participation in the cognitive linguistic assessment. Language Eval: Auditory Comprehends Simple Yes/No Ques: Functional Indent/Objects Multiple Yañez: Functional Follows 1-Step Commands: Functional Follows Complex Directions: Functional Follows General Conversations: Functional Language Eval: Verbal Language Completes Spontaneous Greeting: Functional Produces Auto, Serial Info: Functional Word Finding: Functional Requests Basic Needs: Functional States Basic Personal Info: Functional Language Evaluation: Reading Follows Simple Written Direct: Functional Language Evaluation: Writing Writes to Simple Dictation: Functional Cognitive Patient Orientation The patient was independently oriented to self, location, month, day of the week, date and year. Objective Cognitive Domain Attention: WNL Memory: WNL Problem Solving: Functional Executive Functions: WNL Visuospatial Skills: WNL Composite Severity Rating: WNL Clock Drawing Severity Rating: WNL Objective Formal/Standardized Tests [facility] Mental Status Exam (UMS) Results The patient demonstrated a result of +30/30 on the SLUMS which correlates to cognitive linguistic skills within normal limits. Oral Motor/Speech Production The patient does not display dysarthria or apraxia of speech. The patient is 100% intelligible in known and unknown contexts. Impression The patient displays cognitive linguistic skills within normal limits. Speech-Plan Treatment Plan Speech Therapy Treatment Plan: Discontinue ST Treatment Duration: Jun 17, 2022 Frequency: 1 time per week Estimated Hrs Per Day: .25 hour per day Rehab Potential: Good Safety Risks/Education Teaching Recipient: Patient Teaching Methods: Discussion Response to Teaching: Verbalize Understanding Education Topics Provided: Results, Recommendations, Plan of Care Time Speech Therapy Time In: 08:40 Speech Therapy Time Out: 09:00 DATE: Jun 17, 2022 Total Billed Time: 20 Billed Treatment Time 1, JOSE FLANNERY ELIZ[facility] ST Jun 17, 2022 11:52
--- NOTE | 2022-06-17 13:16 | Physical Therapy Daily Note ---
PT Daily Note-Current Subjective Patient in recliner pre tx, agrees to PT, has 6/10 pain Pain Section J - Health Conditions 1. Rarely or not at all 2. Occasionally 3. Frequently 4. Almost constantly 8. Unable to answer Pain Effect on Sleep: 3 Pain Interference with Therapy: 2 Pain Interference w/Day-to-Day: 2 Appearance Patient in recliner post tx with nurse call, phone, tray, all needs met. Transfers SCALE: Activities may be completed with or without assistive devices. 5-Yubvntqjqi-hcbrzgf completes the activity by him/herself with no assistance from a helper. 5-Set-up or Clean-up Assistance-helper sets up or cleans up; patient completes activity. [place] assists only prior to or following the activity. 4-Supervision or Touching Assistance-helper provides verbal cues and/or touching/steadying and/or contact guard assistance as patient completes activity. Assistance may be provided throughout the activity or intermittently. 3-Partial/Moderate Assistance-helper does LESS THAN HALF the effort. [place] lifts, holds or supports trunk or limbs, but provides less than half the effort. 2-Substantial/Maximal Assistance-helper does MORE THAN HALF the effort. [place] lifts or holds trunk or limbs and provides more than half the effort. 8-Zaioegdcb-mygbke does ALL the effort. Patient does none of the effort to complete the activity. Or, the assistance of 2 or more helpers is required for the patient to complete the activity. If activity was not attempted, code reason: 7-Patient Refused. 9-Not Applicable-not attempted and the patient did not perform the activity before the current illness, exacerbation or injury. 10-Not Attempted due to Environmental Limitations-(lack of equipment, weather restraints, etc.). 88-Not Attempted due to Medical Conditions or Safety Concerns. 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 Ch[facility] Goals PT [facility] Goals Time Frame: Jul 01, 2022 Roll Left & Right (QC): 6 Sit to Lying (QC): 6 Lying-Sitting on Side/Bed(QC): 6 Sit to Stand (QC): 6 Chair/Fxb-wa-Rghno Xfer(QC): 6 Toilet Transfer (QC): 6 Car Transfer (QC): 6 Does the Patient Walk: Yes Walk 10 feet (QC): 6 Walk 50ft with 2 Turns (QC): 6 Walk 150 ft (QC): 6 Walking 10ft on Uneven Surface: 6 1 Step (curb) (QC): 4 (SBA) 4 Steps (QC): 4 (SBA) 12 Steps (QC): 88 Picking up an Object (QC): 6 (using hot dip plater) Wheel 50 feet with 2 turns (QC: 9 Wheel 150 feet: 9 PT Plan Problem List Problem List: Activity Tolerance, Functional Strength, Safety, Balance, Gait, Transfer, Bed Mobility, ROM Treatment/Plan Treatment Plan: Continue Plan of Care Treatment Plan: Bed Mobility, Education, Functional Activity Kaitlyn, Functional Strength, Group Therapy, Gait, Safety, Therapeutic Exercise, Transfers Treatment Duration: Jul 01, 2022 Frequency: At least 5 of 7 days/Wk (IRF) Estimated Hrs Per Day: 1.5 hours per day Patient and/or Family Agrees t: Yes Safety Risks/Education Patient Education: Gait Training, Transfer Techniques, Correct Positioning, Safety Issues Teaching Recipient: Patient Teaching Methods: Demonstration, Discussion Response to Teaching: Reinforcement Needed Time Time In: 1255 Time Out: 1315 DATE: Jun 17, 2022 Total Billed Treatment Time: 20 Total Billed Treatment 1 visit FA 20' ADÁN FARIA PT Jun 17, 2022 13:16
[2022-06-17] MEDS: ASPIRIN 325 MG (5 GR) TABLET PO SCH (17:20)
[2022-06-17] MEDS: LOPERAMIDE 2 MG (IMODIUM) TABLET PO PRN (20:04)
[2022-06-18] MEDS: ACETAMINOPHEN 325 MG TABLET PO PRN ×4 (00:23→21:06)
[2022-06-18] MEDS: LOPERAMIDE 2 MG (IMODIUM) TABLET PO PRN (04:01)
--- NOTE | 2022-06-18 04:56 | Individualized Plan of Care ---
Individualized Plan of Care Rehab Nursing IPOC Order Admission Date Jun 16, 2022 at 16:45 Current Orders Orders Admission Order(Inpt,Obs,Sdc) (06/16/22 16:10) Vital Signs: Per Unit Policy ( 08,16,00 (06/16/22 16:10) Lee Cantu ,21 (06/16/22 16:10) Sequential Compression Device (06/16/22 16:10) Livestock Trucker-Inpt Rehab Con (06/16/22 16:10) Rehab Nursing Orders-Ipoc (06/16/22 16:10) Physical Therapy Rehab Orders (06/16/22 16:10) Occupational Therapy Rehab Ord (06/16/22 16:10) Speech Therapy Rehab Orders (06/16/22 16:10) Cbc With Automated Diff (06/17/22 06:00) Comprehensive Metabolic Panel (06/17/22 06:00) Precautions (Aru) (06/16/22 16:10) Rehab-Intensity Of Therapy (06/16/22 16:10) Initiate Admission Nursing Pro .admission (06/16/22 16:10) Alprazolam Tablet (Xanax Tablet) (06/16/22 16:15) Calcium Carbonate Chew Tablet (Antacid C (06/16/22 16:15) Diphenhydramine Tablet (Benadryl Tablet) (06/16/22 16:15) Docusate Sodium Capsule (Colace Capsule) (06/16/22 21:00) Docusate Sodium Capsule (Colace Capsule) (06/16/22 16:15) Bisacodyl Suppository (Dulcolax Supposit (06/16/22 16:15) Lactulose Oral Solution (Enulose Oral So (06/16/22 16:15) Na Phos/Na Biphos Enema (Fleet Enema Allen (06/16/22 16:15) Guaifenesin/Codeine Syrup (Robitussin Ac (06/16/22 16:15) Loperamide Tablet (Imodium Tablet) (06/16/22 16:15) Melatonin Tablet (Melatonin Tablet) (06/16/22 16:15) Polyethylene Glycol Powder Pkt (Miralax (06/16/22 21:00) Ondansetron Oral Dissolve Tab (Zofran (06/16/22 16:15) Senna S Tablet (Senokot S Tablet) (06/16/22 21:00) Acetaminophen Tablet/Caplet (Tylenol T (06/16/22 16:15) Admission Arrival Bed Request (06/16/22 15:57) Aspirin Tablet (Aspirin Tablet) (06/16/22 18:00) Diltiazem Cd 24 Hr Capsule (Cardizem Cd (06/17/22 09:00) Metformin Tablet (Glucophage Tablet) (06/16/22 18:00) (Nf) Ascorbate Calcium (Vitamin C) (06/17/22 09:00) (Nf) Cinnamon Bark (Cinnamon) (06/16/22 21:00) (Nf) Cyanocobalamin (Vitamin B-12) (Adeline (06/17/22 09:00) (Nf) Diphenhydramine Hcl (Benadryl) (06/17/22 09:00) (Nf) Lisinopril/Hydrochlorothiazide (Lis (06/17/22 09:00) Clonidine Tablet (Catapres Tablet) (06/16/22 17:45) Ascorbic Acid Tablet (Vitamin C Tablet) (06/17/22 07:00) Accucheck Achs ACHS (06/16/22 17:38) Insulin Aspart (Novolog) (Novolog (Charg (06/16/22 21:00) Cyanocobalamin Tablet (Vitamin B-12 Tabl (06/17/22 07:00) Lisinopril Tablet (Zestril Tablet) (06/17/22 09:00) Hydrochlorothiazide Cap/Tablet (Hctz Cap (06/17/22 09:00) Diphenhydramine Tablet (Benadryl Tablet) (06/17/22 09:00) Manual Differential (06/17/22 06:10) Cho 75g/M 3snack (21-2400 Danial) (06/17/22 Breakfast) Patient Visit (06/17/22 ) Speech Sound Lang Comp (06/17/22 ) Treat. Speech/Lang/Voice (06/17/22 ) Patient Visit (06/17/22 ) Pt Eval Low Complexity (06/17/22 ) Exercise Therap, Ea 15 Min (06/17/22 ) Functional Activities, Ea 15 (06/17/22 ) Diphenhydramine Tablet (Benadryl Tablet) (06/18/22 21:00) Patient Visit (06/18/22 ) Exercise Therap, Ea 15 Min (06/18/22 ) Functional Activities, Ea 15 (06/18/22 ) Gait Training, Ea 15 Min (06/18/22 ) Rehab Nursing Orders: Ongoing Assess. of Cognitive Status, Ongoing Assess. of Function Status, Bladder Management, Bladder Scan, Bladder Training, Bowel Management, Bowel Training, Disease Management & Educaiton, DVT Prophylaxis, Fall Prevention, Fluid/Electrolyte/Nutrition Mgmt, Infection Prevention, Medication Management & Education, Management of Risks & Complications, Management of Skin Intergrity, Nutrition Management, Pain Management, Patient/Family Support, Safety Management Intensity of Therapy to be met Patient to be seen: Min.3h per day/5 of 7d PT IPOC Problem List: Activity Tolerance, Functional Strength, Safety, Balance, Gait, Transfer, Bed Mobility, ROM Treatment Plan: Continue Plan of Care Bed Mobility, Education, Functional Activity Kaitlyn, Functional Strength, Group Therapy, Gait, Safety, Therapeutic Exercise, Transfers Treatment Duration: Jul 01, 2022 Frequency: At least 5 of 7 days/Wk (IRF) Estimated Hrs Per Day: 1.5 hours per day OT IPOC Problems: Decreased Activ Tolerance, Decreased UE Strength, Impaired Funct Balance, Impaired I ADL's, Impaired Self-Care Skills OT Treatment, Training and Edu: Yes Plan of Care: ADL Retraining, Functional Mobility, Group Exercise/Act as Ind, UE Funct Exercise/Act Treatment Duration: Jul 11, 2022 Frequency: At least 5 of 7 days/Wk (IRF) Estimated Hrs Per Day: 1.[address] IPOC Speech Therapy Treatment Plan: Discontinue ST Treatment Duration: Jun 17, 2022 Frequency: 1 time per week Estimated Hrs Per Day: .25 hour per day Livestock Trucker/Case Mgmt Livestock Trucker/Case Managemen: Discharge Planning Dietitian/Planner Intern Dietitian/Planner Intern to monitor nutritional status and make changes and/or recommendations as needed and work with speech pathology on dietary upgrades as the occur. Physician IPOC Medical Issues being managed closely and that require the 24 hour availability of a physician: Recent hip fracture with current cancer process with severe anemia and higher risk for infection will require close monitoring from physician to note subtle signs of decline Medical Issues: Bowel/Bladder Function, DVT Prophylaxis, Falls Precautions, Fluid/Electrolyte/Nutrition Balance, Infection Protection, Pain Management, Wound Care Brief Synthesis of Preadmission Screen, Post-Admission Evaluation, and Therapy Evaluations: PT OT will focus on regaining function with use of AD in order to regain function in order to return back to independent living Medical Prognosis: Good Anticipated Length of Stay: 7 days JEREMIAH ADEN DO Jun 18, 2022 04:56
--- NOTE | 2022-06-18 04:56 | PM&R Progress Note ---
Subjective HPI/CC On Admission Date Seen by Provider: Jun 18, 2022 Time Seen by Provider: 08:30 Subjective/Events-last exam 06/18/2022: Much improved Walking with therapy Pain controlled BM+ loose 06/17/2022: Patient doing well Slept well last night No BM so laxatives given Pain improved Review of Systems General: Fatigue, Malaise Musculoskeletal: leg pain Objective Exam Vital Signs Vital Signs Date Time Temp Pulse Resp B/P (MAP) Pulse Ox O2 Delivery O2 Flow Rate FiO2 06/18/22 21:10 96 Room Air 06/18/22 19:49 36.4 73 18 144/65 (91) Capillary Refill : General Appearance: No Apparent Distress, WD/WN, Chronically ill HEENT: PERRL/EOMI, Normal ENT Inspection, Pharynx Normal Neck: Full Range of Motion, Normal Inspection, Non Tender, Supple, Carotid Bruit Respiratory: Chest Non Tender, Lungs Clear, Normal Breath Sounds, No Accessory Muscle Use, No Respiratory Distress Cardiovascular: Regular Rate, Rhythm, No Edema, No Gallop, No JVD, No Murmur, N ormal Peripheral Pulses Gastrointestinal: Normal Bowel Sounds, No Organomegaly, No Pulsatile Mass, Non Tender, Soft Back: Normal Inspection, No CVA Tenderness, No Vertebral Tenderness Extremity: Normal Capillary Refill, Normal Inspection, Normal Range of Motion (except left leg), Non Tender, No Calf Tenderness, No Pedal Edema Neurologic/Psychiatric: Alert, Oriented x3, No Motor/Sensory Deficits, Normal Mood/Affect, Abnormal Gait (left leg), Motor Weakness Skin: Normal Color, Warm/Dry Lymphatic: No Adenopathy Results/Procedures Lab Patient resulted labs reviewed. FIM Transfers Therapy Code Descriptions/Definitions Functional [place] Measure: 0=Not Assessed/NA 4=Minimal Assistance 1=Total Assistance 5=Supervision or Setup 2=Maximal Assistance 6=Modified [place] 3=Moderate Assistance 7=Complete IndependenceSCALE: Activities may be completed with or without assistive devices. 4-Mrxfkwkbri-yjmqllp completes the activity by him/herself with no assistance from a helper. 5-Set-up or Clean-up Assistance-helper sets up or cleans up; patient completes activity. [place] assists only prior to or following the activity. 4-Supervision or Touching Assistance-helper provides verbal cues and/or touching/steadying and/or contact guard assistance as patient completes activity. Assistance may be provided throughout the activity or intermittently. 3-Partial/Moderate Assistance-helper does LESS THAN HALF the effort. [place] lifts, holds or supports trunk or limbs, but provides less than half the effort. 2-Substantial/Maximal Assistance-helper does MORE THAN HALF the effort. [place] lifts or holds trunk or limbs and provides more than half the effort. 2-Sgmobeqku-fnhnqt does ALL the effort. Patient does none of the effort to complete the activity. Or, the assistance of 2 or more helpers is required for the patient to complete the activity. If activity was not attempted, code reason: 7-Patient Refused. 9-Not Applicable-not attempted and the patient did not perform the activity before the current illness, exacerbation or injury. 10-Not Attempted due to Environmental Limitations-(lack of equipment, weather restraints, etc.). 88-Not Attempted due to Medical Conditions or Safety Concerns. Roll Left to Right (QC): 4 Sit to Lying (QC): 3 Sit to Stand (QC): 4 Chair/Zkc-xx-Admeu Xfer(QC): 4 Car Transfer (QC): 3 Gait Training Does the Patient Walk?: Yes Distance: 150'x2 Walk 10 feet (QC): 4 Walk 50 ft with 2 Turns(QC): 4 Walk 150 ft (QC): 4 Walking 10ft/uneven surface-QC: 4 Gait Assistive Device: FWW Wheelchair Training Does the Pt Use a Wheelchair?: No Wheel 50 ft with 2 turns (QC): 9 Wheel 150 ft (QC): 9 Type of Wheelchair: N/A Stair Training #of Steps: 1 1 Step (curb) (QC): 4 4 Steps (QC): 88 12 Steps (QC): 88 Balance Picking up an Object (QC): 4 (CGA using a patient care coordinator) ADL-Treatment Eating (QC): 6 Oral Hygiene (QC): 4 (CGA) Shower/Bathe Self (QC): 3 (Min A washing/drying L foot.) Upper Body Dressing (QC): 5 Lower Body Dressing (QC): 3 (Min A threading RLE) On/Off Footwear (QC): 3 (Mod A. 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 Clark Anemia with hx of blood transfusion Last HgB was 8.6 Monitor for decreases Plan: Rehab protocol Monitor hgb Pain control 06/17/2022: Hgb monitored Pain control 06/18/2022: Pain control (1) Hip fracture (2) Non-insulin dependent type 2 diabetes mellitus (3) Essential (primary) hypertension (4) Yee cell carcinoma JEREMIAH ADEN DO Jun 18, 2022 04:56
[2022-06-18] MEDS: inSUlin ASPART (NovoLOG) 1 UNIT/0.01 ML (CHARGE PER UNIT) SC SCH ×4 (06:14→20:24)
[2022-06-18] MEDS: CYANOCOBALAMIN 1,000 MCG (VITAMIN B-12) TABLET PO SCH (06:51)
[2022-06-18] MEDS: ASCORBIC ACID (VIT C) 500 MG TABLET PO SCH (06:51)
[2022-06-18 07:27] VITALS: BP 150/66
--- NOTE | 2022-06-18 08:52 | Physical Therapy Daily Note ---
PT Daily Note-Current Subjective Pt.c/o pain in left hip at 4/10. Pt. states the bed is very uncomfortable and she did not sleep well. Pain Numeric Pain Scale: 4 Location: Left Location Body Site: Hip Pain Description: Tightness Section J - Health Conditions 1. Rarely or not at all 2. Occasionally 3. Frequently 4. Almost constantly 8. Unable to answer Pain Effect on Sleep: 3 Pain Interference with Therapy: 2 Pain Interference w/Day-to-Day: 2 Appearance continued edema left hip and distally Mental Status Patient Orientation: Normal For Age Transfers SCALE: Activities may be completed with or without assistive devices. 5-Muklnyuxqs-pxfkuhu completes the activity by him/herself with no assistance from a helper. 5-Set-up or Clean-up Assistance-helper sets up or cleans up; patient completes activity. [place] assists only prior to or following the activity. 4-Supervision or Touching Assistance-helper provides verbal cues and/or touching/steadying and/or contact guard assistance as patient completes activity. Assistance may be provided throughout the activity or intermittently. 3-Partial/Moderate Assistance-helper does LESS THAN HALF the effort. [place] lifts, holds or supports trunk or limbs, but provides less than half the effort. 2-Substantial/Maximal Assistance-helper does MORE THAN HALF the effort. [place] lifts or holds trunk or limbs and provides more than half the effort. 4-Gujdtfkyz-mvspbt does ALL the effort. Patient does none of the effort to complete the activity. Or, the assistance of 2 or more helpers is required for the patient to complete the activity. If activity was not attempted, code reason: 7-Patient Refused. 9-Not Applicable-not attempted and the patient did not perform the activity before the current illness, exacerbation or injury. 10-Not Attempted due to Environmental Limitations-(lack of equipment, weather restraints, etc.). 88-Not Attempted due to Medical Conditions or Safety Concerns. Roll Left & Right (QC): 4 Sit to Lying (QC): 4 Lying to Sitting/Side of Bed(Q: 4 Sit to Stand (QC): 6 Chair/Veu-se-Pdslm Xfer(QC): 4 Toilet Transfer (QC): 4 emphasis on sit to supine mimicking her home bed situation as much as possible. this required min to CGA of left leg and instruction Weight Bearing Left Lower Extremity: Left Weight Bearing/Tolerated Gait Training Does the Patient Walk?: Yes Walk 10 feet (QC): 4 Walk 50 ft with 2 Turns(QC): 4 Walk 150 ft (QC): 4 Gait Persons Needed: 1 Gait Assistive Device: FWW slow, heavy wt bearing on FWW, flexed posture Exercises Supine Ex: Ankle pumps, Quad Set, Rolling, Glut sets, Heel Slides (asstd), Short Arc Quads, Scooting, Straight leg raise (asst x 4 only), Hip abd/add (asstd) Supine Reps: 10 (x2) Seated Therapy Exercises: Ankle pumps, Sit to stand, Long arc quads, Hip abd/add Seated Reps: 15 NuStep Minutes: 8 NuStep Workload: 1 Treatments TRFs, toileting, gait, therex, Assessment Current Status: Good Progress gives full effort, progress noted PT Short Term Goals Short Term Goals Time Frame: Jun 24, 2022 Sit to lyin Lying to sitting on side of be: 4 Walk 10 feet: 4 Walk 50 feet with two turns: 4 Walk 150 feet: 4 PT Retirement Goals Retirement Goals PT Retirement Goals Time Frame: Jul 01, 2022 Roll Left & Right (QC): 6 Sit to Lying (QC): 6 Lying-Sitting on Side/Bed(QC): 6 Sit to Stand (QC): 6 Chair/Fkp-mr-Tusgy Xfer(QC): 6 Toilet Transfer (QC): 6 Car Transfer (QC): 6 Does the Patient Walk: Yes Walk 10 feet (QC): 6 Walk 50ft with 2 Turns (QC): 6 Walk 150 ft (QC): 6 Walking 10ft on Uneven Surface: 6 1 Step (curb) (QC): 4 (SBA) 4 Steps (QC): 4 (SBA) 12 Steps (QC): 88 Picking up an Object (QC): 6 (using clinical rehabilitation specialist) Wheel 50 feet with 2 turns (QC: 9 Wheel 150 feet: 9 PT Plan Treatment/Plan Treatment Plan: Continue Plan of Care Treatment Plan: Bed Mobility, Education, Functional Activity Kaitlyn, Functional Strength, Group Therapy, Gait, Safety, Therapeutic Exercise, Transfers Treatment Duration: Jul 01, 2022 Frequency: At least 5 of 7 days/Wk (IRF) Estimated Hrs Per Day: 1.5 hours per day Patient and/or Family Agrees t: Yes Safety Risks/Education Patient Education: Gait Training, Transfer Techniques, Correct Positioning, Disease Process, Safety Issues Teaching Recipient: Patient Teaching Methods: Demonstration, Discussion Response to Teaching: Verbalize Understanding, Return Demonstration, Reinforcement Needed Time Time In: 730 Time Out: 900 DATE: Jun 18, 2022 Total Billed Treatment Time: 90 Total Billed Treatment 1,FA35m,GT25m,EX30m HUI WAYNE FACING GRINDER Jun 18, 2022 08:51
[2022-06-18] MEDS: metFORMIN 500 MG (GLUCOPHAGE) TAB PO SCH ×2 (09:16→17:32)
[2022-06-18] MEDS: lisINopril 20 MG (PRINIVIL) TABLET PO SCH (09:16)
[2022-06-18] MEDS: HydroCHLOROthiazide CAP/TABLET 12.5 MG TAB PO SCH (09:16)
[2022-06-18] MEDS: polyethylene glycoL POWDER 17 GM (MIRALAX) PACK PO SCH ×2 (09:17→20:54)
[2022-06-18] MEDS: DOCUSATE SODIUM 100 MG (COLACE) CAP PO SCH ×2 (09:17→20:54)
[2022-06-18] MEDS: SENNA W/DOCUSATE (SENOKOT S) TABLET PO SCH ×2 (09:17→20:55)
--- NOTE | 2022-06-18 10:42 | Occupational Ther Daily Note ---
OT Current Status-Daily Note Subjective Pt up in recliner, agreeable to OT Tx. Pt rates pain 1-2/10 in L hip. ADL-Treatment Therapy Code Descriptions/Definitions Functional [place] Measure: 0=Not Assessed/NA 4=Minimal Assistance 1=Total Assistance 5=Supervision or Setup 2=Maximal Assistance 6=Modified [place] 3=Moderate Assistance 7=Complete IndependenceSCALE: Activities may be completed with or without assistive devices. 0-Nrjljdkhfk-duasrxi completes the activity by him/herself with no assistance from a helper. 5-Set-up or Clean-up Assistance-helper sets up or cleans up; patient completes activity. [place] assists only prior to or following the activity. 4-Supervision or Touching Assistance-helper provides verbal cues and/or touching/steadying and/or contact guard assistance as patient completes activity. Assistance may be provided throughout the activity or intermittently. 3-Partial/Moderate Assistance-helper does LESS THAN HALF the effort. [place] lifts, holds or supports trunk or limbs, but provides less than half the effort. 2-Substantial/Maximal Assistance-helper does MORE THAN HALF the effort. [place] lifts or holds trunk or limbs and provides more than half the effort. 5-Mbhsdqexl-zoupcf does ALL the effort. Patient does none of the effort to complete the activity. Or, the assistance of 2 or more helpers is required for the patient to complete the activity. If activity was not attempted, code reason: 7-Patient Refused. 9-Not Applicable-not attempted and the patient did not perform the activity before the current illness, exacerbation or injury. 10-Not Attempted due to Environmental Limitations-(lack of equipment, weather restraints, etc.). 88-Not Attempted due to Medical Conditions or Safety Concerns. Toileting Hygiene (QC): 4 (sba) Other Treatment Pt in recliner, agreeable to OT Tx. Pt declines ADLs on this date, as she had a shower yesterday. Pt agreeable to OT tx with focus on UE strengthening and activity tolerance. Pt used FWW to perform functional mobility to therapy gym, [facility]. Pt completed arm bike, x20 Watt resistance, 15 mins, no rest breaks. Pt removed beads from moderate resistance (green) theraputty, able to locate all beads without cues. Pt indicates she likes to complete fine motor crafts at home, this task was performed for fine motor strengthening. Pt completed UE reaching task, placing/removing 1" pegs from foam pegboard, alternating hands, 1lb wrist weights BUEs. Pt used FWW to return to room, transferring to toilet, SBA. Pt completed toileting, then used FWW to transfer to chair in kitchen area. OT educated pt on kitchen management, and walker basket to increase pt's safety and independence at home, as pt lives by herself. Pt verbalized understanding, and states she has no concerns with managing the kitchen upon returning home. Pt used FWW to return to room, SBA, transferring to recliner. Post tx, pt in recliner, call light in reach and all needs met. Education OT Patient Education: Correct positioning, Energy conservation, Modified ADL techniques, Progress toward Goal/Update tx plan, Purpose of tx/functional activities, Rehab process Teaching Recipient: Patient Teaching Methods: Discussion Response to Teaching: Verbalize Understanding OT Short Term Goals Short Term Goals Time Frame: Jun 27, 2022 Shower/bathe self: 5 Upper body dressin Lower body dressin Putting on/taking off footwear: 5 OT Game Advisor Goals Mcc Goals Time Frame: Jul 11, 2022 Acute change in mental status: 0 Inattention: 0 Disorganized thinkin Altered level of consciousness: 0 Eating (QC): 6 Oral Hygiene (QC): 6 Toileting Hygiene (QC): 6 Shower/Bathe Self (QC): 6 Upper Body Dressing (QC): 6 Lower Body Dressing (QC): 6 On/Off Footwear (QC): 6 Additional Goals: 1-Demonstrate ADL Tasks, 2-Verbalize Understanding, 3- ImproveStrength/Kaitlyn 1=Demonstrate adherence to instructed precautions during ADL tasks. 2=Patient will verbalize/demonstrate understanding of assistive devices/modifications for ADL. 3=Patient will improve strength/tolerance for activity to enable patient to perform ADL's. OT Education/Plan Problem List/Assessment Assessment: Decreased Activ Tolerance, Decreased UE Strength, Impaired Funct B alance, Impaired I ADL's, Impaired Self-Care Skills Discharge Recommendations Plan/Recommendations: Continue POC Treatment Plan/Plan of Care Patient would benefit from OT for education, treatment and training to promote independence in ADL's, mobility, safety and/or upper extremity function for ADL's. Plan of Care: ADL Retraining, Functional Mobility, Group Exercise/Act as Ind, UE Funct Exercise/Act Treatment Duration: Jul 11, 2022 Frequency: At least 5 of 7 days/Wk (IRF) Estimated Hrs Per Day: 1.5 hours per day Agreement: Yes Rehab Potential: Fair Time Start Time: 10:15 Stop Time: 11:45 DATE: Jun 18, 2022 Total Time Billed (hr/min): 90 Billed Treatment Time 1, EX (15'), ADL 2 (30'), FA 3 (45') YESSENIA MELENDEZ OT Jun 18, 2022 10:42
--- NOTE | 2022-06-18 11:33 | Progress Note ---
Standard Progress Note Progress Notes/Assess & Plan Date Seen by a Provider: Jun 18, 2022 Time Seen by a Provider: 11:00 Progress/Assessment & Plan no complaints working with OT able to SLR on left s/p L hip IM jessica PT/OT TREVOR MENENDEZ MD Jun 18, 2022 11:33
[2022-06-18] MEDS: ASPIRIN 325 MG (5 GR) TABLET PO SCH (17:32)
[2022-06-18 19:49] VITALS: BP 144/65
[2022-06-18] MEDS: diphenhydrAMINE 25 MG TAB (BENADRYL) PO SCH (20:54)
[2022-06-19] MEDS: ASCORBIC ACID (VIT C) 500 MG TABLET PO SCH (05:57)
[2022-06-19] MEDS: CYANOCOBALAMIN 1,000 MCG (VITAMIN B-12) TABLET PO SCH (05:57)
[2022-06-19] MEDS: inSUlin ASPART (NovoLOG) 1 UNIT/0.01 ML (CHARGE PER UNIT) SC SCH ×4 (06:17→20:50)
[2022-06-19 07:20] VITALS: BP 145/67
[2022-06-19] MEDS: metFORMIN 500 MG (GLUCOPHAGE) TAB PO SCH ×2 (08:41→17:37)
[2022-06-19] MEDS: HydroCHLOROthiazide CAP/TABLET 12.5 MG TAB PO SCH (08:42)
[2022-06-19] MEDS: lisINopril 20 MG (PRINIVIL) TABLET PO SCH (08:42)
[2022-06-19] MEDS: ACETAMINOPHEN 325 MG TABLET PO PRN (08:42)
[2022-06-19] MEDS: DOCUSATE SODIUM 100 MG (COLACE) CAP PO SCH ×3 (08:43→20:01)
[2022-06-19] MEDS: SENNA W/DOCUSATE (SENOKOT S) TABLET PO SCH ×2 (08:44→20:01)
[2022-06-19] MEDS: polyethylene glycoL POWDER 17 GM (MIRALAX) PACK PO SCH ×2 (08:44→20:01)
--- NOTE | 2022-06-19 08:45 | Physical Therapy Daily Note ---
PT Daily Note-Current Subjective Pt. agrees to Rx, states she was up a lot last night to urinate. Pt. initially does not c/o pain but during TRF training pt. began to c/o pain in left hip and requested pain meds. Pain Numeric Pain Scale: 6 Location: Left Location Body Site: Hip Pain Description: Ache Section J - Health Conditions 1. Rarely or not at all 2. Occasionally 3. Frequently 4. Almost constantly 8. Unable to answer Pain Effect on Sleep: 2 Pain Interference with Therapy: 3 Pain Interference w/Day-to-Day: 3 Mental Status Patient Orientation: Normal For Age Transfers SCALE: Activities may be completed with or without assistive devices. 9-Ammefpgdkt-tdetocy completes the activity by him/herself with no assistance from a helper. 5-Set-up or Clean-up Assistance-helper sets up or cleans up; patient completes activity. [place] assists only prior to or following the activity. 4-Supervision or Touching Assistance-helper provides verbal cues and/or touching/steadying and/or contact guard assistance as patient completes activity. Assistance may be provided throughout the activity or intermittently. 3-Partial/Moderate Assistance-helper does LESS THAN HALF the effort. [place] lifts, holds or supports trunk or limbs, but provides less than half the effort. 2-Substantial/Maximal Assistance-helper does MORE THAN HALF the effort. [place] lifts or holds trunk or limbs and provides more than half the effort. 5-Rcbrzefxb-gtzmfi does ALL the effort. Patient does none of the effort to complete the activity. Or, the assistance of 2 or more helpers is required for the patient to complete the activity. If activity was not attempted, code reason: 7-Patient Refused. 9-Not Applicable-not attempted and the patient did not perform the activity before the current illness, exacerbation or injury. 10-Not Attempted due to Environmental Limitations-(lack of equipment, weather restraints, etc.). 88-Not Attempted due to Medical Conditions or Safety Concerns. Roll Left & Right (QC): 6 Sit to Lying (QC): 4 Lying to Sitting/Side of Bed(Q: 4 Sit to Stand (QC): 6 Chair/Rja-dy-Xmovv Xfer(QC): 6 Toilet Transfer (QC): 6 Car Transfer (QC): 6 pt. requires only min to CGA LLE and instruction. in out car slow but indep with instruct Weight Bearing Left Lower Extremity: Left Weight Bearing/Tolerated Gait Training Does the Patient Walk?: Yes Walk 10 feet (QC): 6 Walk 50 ft with 2 Turns(QC): 6 Walk 150 ft (QC): 6 Gait Persons Needed: 1 Gait Assistive Device: FWW no LOB, good use of device with heavy wt bearing and antalgic gait, this pt requires FWW for safe gait and is unable to manage gait with out this device, pt. is dependent on this device for safe ambulation and demonstrates her ability to function with this device in a safe manner during Rx Stair Training Stair Training: Handrails/: 2 handrails #of Steps: 4 4 Steps (QC): 4 Stairs: Pattern: Step to Exercises Supine Ex: Ankle pumps, Quad Set, Rolling, Glut sets, Heel Slides, Short Arc Quads, Scooting, Straight leg raise (asstd), Hip abd/add (asstd) Supine Reps: 10 (x2) Seated Therapy Exercises: Ankle pumps, Sit to stand, Long arc quads Seated Reps: 15 NuStep Minutes: 12 NuStep Workload: 1 Treatments TRFs, toileting, gait , therex, car TRF, steps Assessment Current Status: Good Progress good progress, some pain at end of Rx, fatigue as well but recovers well, motivated PT Short Term Goals Short Term Goals Time Frame: Jun 24, 2022 Sit to lyin Lying to sitting on side of be: 4 Walk 10 feet: 4 Walk 50 feet with two turns: 4 Walk 150 feet: 4 PT Nursing Home Goals Director Of Institutional Research Goals PT Nursing Home Goals Time Frame: Jul 01, 2022 Roll Left & Right (QC): 6 Sit to Lying (QC): 6 Lying-Sitting on Side/Bed(QC): 6 Sit to Stand (QC): 6 Chair/Kpx-gb-Eetry Xfer(QC): 6 Toilet Transfer (QC): 6 Car Transfer (QC): 6 Does the Patient Walk: Yes Walk 10 feet (QC): 6 Walk 50ft with 2 Turns (QC): 6 Walk 150 ft (QC): 6 Walking 10ft on Uneven Surface: 6 1 Step (curb) (QC): 4 (SBA) 4 Steps (QC): 4 (SBA) 12 Steps (QC): 88 Picking up an Object (QC): 6 (using shingles roofer) Wheel 50 feet with 2 turns (QC: 9 Wheel 150 feet: 9 PT Plan Treatment/Plan Treatment Plan: Continue Plan of Care Treatment Plan: Bed Mobility, Education, Functional Activity Kaitlyn, Functional Strength, Group Therapy, Gait, Safety, Therapeutic Exercise, Transfers Treatment Duration: Jul 01, 2022 Frequency: At least 5 of 7 days/Wk (IRF) Estimated Hrs Per Day: 1.5 hours per day Patient and/or Family Agrees t: Yes Safety Risks/Education Patient Education: Gait Training, Transfer Techniques, Steps, Correct Positioning, Disease Process, Safety Issues Teaching Recipient: Patient Teaching Methods: Demonstration, Discussion Response to Teaching: Verbalize Understanding, Return Demonstration, Reinforcement Needed Time Time In: 730 Time Out: 900 DATE: Jun 19, 2022 Total Billed Treatment Time: 90 Total Billed Treatment 1 ,GT25m,EX37m,FA28m HUI WAYNE MANAGER ACCESS Jun 19, 2022 08:45
--- NOTE | 2022-06-19 11:03 | Occupational Ther Daily Note ---
OT Current Status-Daily Note Subjective Pt up in recliner, agreeable to OT Tx with focus on ADLs. Pt rates pain ~3/10 in L hip ADL-Treatment Therapy Code Descriptions/Definitions Functional [place] Measure: 0=Not Assessed/NA 4=Minimal Assistance 1=Total Assistance 5=Supervision or Setup 2=Maximal Assistance 6=Modified [place] 3=Moderate Assistance 7=Complete IndependenceSCALE: Activities may be completed with or without assistive devices. 3-Qjkdwpjghz-ynpgkxd completes the activity by him/herself with no assistance from a helper. 5-Set-up or Clean-up Assistance-helper sets up or cleans up; patient completes activity. [place] assists only prior to or following the activity. 4-Supervision or Touching Assistance-helper provides verbal cues and/or touching/steadying and/or contact guard assistance as patient completes activity. Assistance may be provided throughout the activity or intermittently. 3-Partial/Moderate Assistance-helper does LESS THAN HALF the effort. [place] lif ts, holds or supports trunk or limbs, but provides less than half the effort. 2-Substantial/Maximal Assistance-helper does MORE THAN HALF the effort. [place] lifts or holds trunk or limbs and provides more than half the effort. 0-Ogzdlxylj-qalclj does ALL the effort. Patient does none of the effort to complete the activity. Or, the assistance of 2 or more helpers is required for the patient to complete the activity. If activity was not attempted, code reason: 7-Patient Refused. 9-Not Applicable-not attempted and the patient did not perform the activity before the current illness, exacerbation or injury. 10-Not Attempted due to Environmental Limitations-(lack of equipment, weather restraints, etc.). 88-Not Attempted due to Medical Conditions or Safety Concerns. Eating (QC): 6 Oral Hygiene (QC): 6 Shower/Bathe Self (QC): 5 Upper Body Dressing (QC): 5 Lower Body Dressing (QC): 4 (SBA, min VCs using information developer) On/Off Footwear: 4 (SBA, min VCs with sock aide.) Toileting Hygiene (QC): 6 Toilet Transfer (QC): 6 Other Treatment Pt in recliner, agreeable to OT Tx. Pt used FWW to transfer into bathroom and onto toilet independently. Pt completed toileting independently, then transferred to WA. Pt doffed clothes, education on utilizing information developer to doff L gripper sock. Pt completed shower, LH sponge provided to wash L foot. Pt then donned clothes, educated on AE for LE dressing, pt demo'd understanding after instruction. Pt stood at sink for oral care, IND, transferring to recliner for seated rest break using FWW, IND. Pt then used FWW to perform functional mobility to therapy gym, IND, no LOB. In order to increase BUE strength and activity tolerance, pt completed arm bike, x15 mins, 15-20 Watt resistance, no rest break. Pt used FWW to return to her room, transferring to recliner, IND. Post tx, pt in recliner, call light in reach and all needs met, Education OT Patient Education: Correct positioning, Energy conservation, Exercise program, Modified ADL techniques, Progress toward Goal/Update tx plan, Purpose of tx/functional activities, Rehab process Teaching Recipient: Patient OT Short Term Goals Short Term Goals Time Frame: Jun 27, 2022 Shower/bathe self: 5 Upper body dressin Lower body dressin Putting on/taking off footwear: 5 OT Nursing Home Goals Nursing Home Goals Time Frame: Jul 11, 2022 Acute change in mental status: 0 Inattention: 0 Disorganized thinkin Altered level of consciousness: 0 Eating (QC): 6 Oral Hygiene (QC): 6 Toileting Hygiene (QC): 6 Shower/Bathe Self (QC): 6 Upper Body Dressing (QC): 6 Lower Body Dressing (QC): 6 On/Off Footwear (QC): 6 Additional Goals: 1-Demonstrate ADL Tasks, 2-Verbalize Understanding, 3- ImproveStrength/Kaitlyn 1=Demonstrate adherence to instructed precautions during ADL tasks. 2=Patient will verbalize/demonstrate understanding of assistive devices/modifications for ADL. 3=Patient will improve strength/tolerance for activity to enable patient to perform ADL's. OT Education/Plan Problem List/Assessment Assessment: Decreased Activ Tolerance, Decreased UE Strength, Impaired I ADL's, Impaired Self-Care Skills Discharge Recommendations Plan/Recommendations: Continue POC Treatment Plan/Plan of Care Patient would benefit from OT for education, treatment and training to promote independence in ADL's, mobility, safety and/or upper extremity function for ADL's. Plan of Care: ADL Retraining, Functional Mobility, Group Exercise/Act as Ind, UE Funct Exercise/Act Treatment Duration: Jul 11, 2022 Frequency: At least 5 of 7 days/Wk (IRF) Estimated Hrs Per Day: 1.5 hours per day Agreement: Yes Rehab Potential: Fair Time Start Time: 10:50 Stop Time: 11:20 DATE: Jun 19, 2022 Total Time Billed (hr/min): 90 Billed Treatment Time 1, ADL 5 (75'), EX (15') YESSENIA MELENDEZ OT Jun 19, 2022 11:03
--- NOTE | 2022-06-19 12:04 | PM&R Progress Note ---
Subjective HPI/CC On Admission Date Seen by Provider: Jun 19, 2022 Subjective/Events-last exam 06/19/2022: Improved overall Pain minimal No loose stools now Voiding well 06/18/2022: Much improved Walking with therapy Pain controlled BM+ loose 06/17/2022: Patient doing well Slept well last night No BM so laxatives given Pain improved Review of Systems General: Fatigue, Malaise Musculoskeletal: leg pain Objective Exam Vital Signs Vital Signs Date Time Temp Pulse Resp B/P (MAP) Pulse Ox O2 Delivery O2 Flow Rate FiO2 06/19/22 20:47 36.4 74 12 130/70 (90) 94 Room Air Capillary Refill : General Appearance: No Apparent Distress, WD/WN, Chronically ill HEENT: PERRL/EOMI, Normal ENT Inspection, Pharynx Normal Neck: Full Range of Motion, Normal Inspection, Non Tender, Supple, Carotid Bruit Respiratory: Chest Non Tender, Lungs Clear, Normal Breath Sounds, No Accessory Muscle Use, No Respiratory Distress Cardiovascular: Regular Rate, Rhythm, No Edema, No Gallop, No JVD, No Murmur, Normal Peripheral Pulses Gastrointestinal: Normal Bowel Sounds, No Organomegaly, No Pulsatile Mass, Non Tender, Soft Back: Normal Inspection, No CVA Tenderness, No Vertebral Tenderness Extremity: Normal Capillary Refill, Normal Inspection, Normal Range of Motion (except left leg), Non Tender, No Calf Tenderness, No Pedal Edema Neurologic/Psychiatric: Alert, Oriented x3, No Motor/Sensory Deficits, Normal Mood/Affect, Abnormal Gait (left leg), Motor Weakness Skin: Normal Color, Warm/Dry Lymphatic: No Adenopathy Results/Procedures Lab Patient resulted labs reviewed. FIM Transfers Therapy Code Descriptions/Definitions Functional [place] Measure: 0=Not Assessed/NA 4=Minimal Assistance 1=Total Assistance 5=Supervision or Setup 2=Maximal Assistance 6=Modified [place] 3=Moderate Assistance 7=Complete IndependenceSCALE: Activities may be completed with or without assistive devices. 8-Ugswcfdddy-ngfmjeg completes the activity by him/herself with no assistance from a helper. 5-Set-up or Clean-up Assistance-helper sets up or cleans up; patient completes activity. [place] assists only prior to or following the activity. 4-Supervision or Touching Assistance-helper provides verbal cues and/or touching/steadying and/or contact guard assistance as patient completes activity. Assistance may be provided throughout the activity or intermittently. 3-Partial/Moderate Assistance-helper does LESS THAN HALF the effort. [place] lifts, holds or supports trunk or limbs, but provides less than half the effort. 2-Substantial/Maximal Assistance-helper does MORE THAN HALF the effort. [place] lifts or holds trunk or limbs and provides more than half the effort. 8-Spzyocdux-hpbiyl does ALL the effort. Patient does none of the effort to compl ete the activity. Or, the assistance of 2 or more helpers is required for the patient to complete the activity. If activity was not attempted, code reason: 7-Patient Refused. 9-Not Applicable-not attempted and the patient did not perform the activity before the current illness, exacerbation or injury. 10-Not Attempted due to Environmental Limitations-(lack of equipment, weather restraints, etc.). 88-Not Attempted due to Medical Conditions or Safety Concerns. Roll Left to Right (QC): 6 Sit to Lying (QC): 4 Sit to Stand (QC): 6 Chair/Kvj-wr-Eesab Xfer(QC): 6 Car Transfer (QC): 6 Gait Training Does the Patient Walk?: Yes Distance: 150'x2 Walk 10 feet (QC): 6 Walk 50 ft with 2 Turns(QC): 6 Walk 150 ft (QC): 6 Walking 10ft/uneven surface-QC: 4 Gait Persons Needed: 1 Gait Assistive Device: FWW Wheelchair Training Does the Pt Use a Wheelchair?: No Wheel 50 ft with 2 turns (QC): 9 Wheel 150 ft (QC): 9 Type of Wheelchair: N/A Stair Training Stair Training: Handrails/: 2 handrails #of Steps: 4 1 Step (curb) (QC): 4 4 Steps (QC): 4 12 Steps (QC): 88 Stairs: Pattern: Step to Balance Picking up an Object (QC): 4 (CGA using a learning and development director) ADL-Treatment Eating (QC): 6 Oral Hygiene (QC): 6 Shower/Bathe Self (QC): 5 Upper Body Dressing (QC): 5 Lower Body Dressing (QC): 4 (SBA, min VCs using learning and development director) On/Off Footwear (QC): 4 (SBA, min VCs with sock aide.) Toileting Hygiene (QC): 6 Toilet Transfer (QC): 6 Assessment/Plan Assessment and Plan Assess & Plan/Chief Complaint Assessment Left hip Fracture Non-insulin dependent diabetes mellitus II Essential HTN Leukocytosis 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 Clark Anemia with hx of blood transfusion Last HgB was 8.6 Monitor for decreases Plan: Rehab protocol Monitor hgb Pain control 06/17/2022: Hgb monitored Pain control 06/18/2022: Pain control 06/19/2022: Improved overall (1) Hip fracture (2) Non-insulin dependent type 2 diabetes mellitus (3) Essential (primary) hypertension (4) [place] cell carcinoma JEREMIAH DAEN DO Jun 19, 2022 12:04
[2022-06-19] MEDS: ASPIRIN 325 MG (5 GR) TABLET PO SCH (17:37)
[2022-06-19 20:47] VITALS: BP 130/70
[2022-06-19] MEDS: diphenhydrAMINE 25 MG TAB (BENADRYL) PO SCH (20:57)
[2022-06-20] MEDS: ACETAMINOPHEN 325 MG TABLET PO PRN ×3 (00:56→21:16)
[2022-06-20] MEDS: inSUlin ASPART (NovoLOG) 1 UNIT/0.01 ML (CHARGE PER UNIT) SC SCH ×4 (05:56→21:11)
--- NOTE | 2022-06-20 06:20 | PM&R Progress Note ---
Subjective HPI/CC On Admission Date Seen by Provider: Jun 20, 2022 Time Seen by Provider: 12:30 Subjective/Events-last exam 06/20/2022: Doing well DC planned for Thursday Pain controlled 06/19/2022: Improved overall Pain minimal No loose stools now Voiding well 06/18/2022: Much improved Walking with therapy Pain controlled BM+ loose 06/17/2022: Patient doing well Slept well last night No BM so laxatives given Pain improved Review of Systems General: Fatigue, Malaise Musculoskeletal: leg pain Objective Exam Vital Signs Vital Signs Date Time Temp Pulse Resp B/P (MAP) Pulse Ox O2 Delivery O2 Flow Rate FiO2 06/20/22 09:11 Room Air 06/20/22 07:18 36.1 77 18 151/72 (98) 96 Capillary Refill : General Appearance: No Apparent Distress, WD/WN, Chronically ill HEENT: PERRL/EOMI, Normal ENT Inspection, Pharynx Normal Neck: Full Range of Motion, Normal Inspection, Non Tender, Supple, Carotid Bruit Respiratory: Chest Non Tender, Lungs Clear, Normal Breath Sounds, No Accessory Muscle Use, No Respiratory Distress Cardiovascular: Regular Rate, Rhythm, No Edema, No Gallop, No JVD, No Murmur, Normal Peripheral Pulses Gastrointestinal: Normal Bowel Sounds, No Organomegaly, No Pulsatile Mass, Non Tender, Soft Back: Normal Inspection, No CVA Tenderness, No Vertebral Tenderness Extremity: Normal Capillary Refill, Normal Inspection, Normal Range of Motion (except left leg), Non Tender, No Calf Tenderness, No Pedal Edema Neurologic/Psychiatric: Alert, Oriented x3, No Motor/Sensory Deficits, Normal Mood/Affect, Abnormal Gait (left leg), Motor Weakness Skin: Normal Color, Warm/Dry Lymphatic: No Adenopathy Results/Procedures Lab Laboratory Tests 06/20/22 06:50 Patient resulted labs reviewed. FIM Transfers Therapy Code Descriptions/Definitions Functional [place] Measure: 0=Not Assessed/NA 4=Minimal Assistance 1=Total Assistance 5=Supervision or Setup 2=Maximal Assistance 6=Modified [place] 3=Moderate Assistance 7=Complete IndependenceSCALE: Activities may be completed with or without assistive devices. 7-Hapbywdnrl-osylskw completes the activity by him/herself with no assistance from a helper. 5-Set-up or Clean-up Assistance-helper sets up or cleans up; patient completes activity. [place] assists only prior to or following the activity. 4-Supervision or Touching Assistance-helper provides verbal cues and/or touching/steadying and/or contact guard assistance as patient completes activity. Assistance may be provided throughout the activity or intermittently. 3-Partial/Moderate Assistance-helper does LESS THAN HALF the effort. [place] lift s, holds or supports trunk or limbs, but provides less than half the effort. 2-Substantial/Maximal Assistance-helper does MORE THAN HALF the effort. [place] lifts or holds trunk or limbs and provides more than half the effort. 3-Xmhznvoqy-hhmiao does ALL the effort. Patient does none of the effort to complete the activity. Or, the assistance of 2 or more helpers is required for the patient to complete the activity. If activity was not attempted, code reason: 7-Patient Refused. 9-Not Applicable-not attempted and the patient did not perform the activity before the current illness, exacerbation or injury. 10-Not Attempted due to Environmental Limitations-(lack of equipment, weather restraints, etc.). 88-Not Attempted due to Medical Conditions or Safety Concerns. Roll Left to Right (QC): 6 Sit to Lying (QC): 4 Sit to Stand (QC): 6 Chair/Ire-ml-Ynjac Xfer(QC): 6 Car Transfer (QC): 6 Gait Training Does the Patient Walk?: Yes Distance: 150'x2 Walk 10 feet (QC): 6 Walk 50 ft with 2 Turns(QC): 6 Walk 150 ft (QC): 6 Walking 10ft/uneven surface-QC: 4 Gait Persons Needed: 1 Gait Assistive Device: FWW Wheelchair Training Does the Pt Use a Wheelchair?: No Wheel 50 ft with 2 turns (QC): 9 Wheel 150 ft (QC): 9 Type of Wheelchair: N/A Stair Training Stair Training: Handrails/: 2 handrails #of Steps: 4 1 Step (curb) (QC): 4 4 Steps (QC): 4 12 Steps (QC): 88 Stairs: Pattern: Step to Balance Picking up an Object (QC): 4 (CGA using a outside sales advertising executive) ADL-Treatment Eating (QC): 6 Oral Hygiene (QC): 6 Shower/Bathe Self (QC): 5 Upper Body Dressing (QC): 5 Lower Body Dressing (QC): 4 (SBA, min VCs using outside sales advertising executive) On/Off Footwear (QC): 4 (SBA, min VCs with sock aide.) Toileting Hygiene (QC): 6 Toilet Transfer (QC): 6 Assessment/Plan Assessment and Plan Assess & Plan/Chief Complaint Assessment Left hip Fracture Non-insulin dependent diabetes mellitus II Essential HTN Leukocytosis 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 Clark Anemia with hx of blood transfusion Last HgB was 8.6 Monitor for decreases Plan: Rehab protocol Monitor hgb Pain control 06/17/2022: Hgb monitored Pain control 06/18/2022: Pain control 06/19/2022: Improved overall 06/20/2022: Monitor closely Supportive care (1) Hip fracture (2) Non-insulin dependent type 2 diabetes mellitus (3) Essential (primary) hypertension (4) [place] cell carcinoma JEREMIAH ADEN DO Jun 20, 2022 06:20
[2022-06-20] MEDS: ASCORBIC ACID (VIT C) 500 MG TABLET PO SCH (06:23)
[2022-06-20] MEDS: CYANOCOBALAMIN 1,000 MCG (VITAMIN B-12) TABLET PO SCH (06:23)
--- NOTE | 2022-06-20 06:58 | Progress Note ---
Standard Progress Note Progress Notes/Assess & Plan Date Seen by a Provider: Jun 20, 2022 Time Seen by a Provider: 06:51 Progress/Assessment & Plan no complaints working with OT able to SLR on left s/p L hip IM jessica PT/OT Final Diagnosis no complaints Vital Signs Date Time Temp Pulse Resp B/P (MAP) Pulse Ox O2 Delivery O2 Flow Rate FiO2 06/19/22 20:47 36.4 74 12 130/70 (90) 94 Room Air 06/19/22 20:20 Room Air 06/19/22 09:08 Room Air 06/19/22 07:20 35.7 69 18 145/67 (93) 95 Room Air I & O 06/20/22 07:00 Intake Total 1865 ml Balance 1865 ml Laboratory Tests Test 06/19/22 10:51 06/19/22 15:07 06/19/22 20:46 06/20/22 05:51 Range/Units Glucometer 112 H 116 H 98 122 H 70-110 MG/DL LLE without calf tenderness neg Allyssa's s/p L hip IM jessica continue PT/OT TREVOR MENENDEZ MD Jun 20, 2022 06:58
[2022-06-20 07:03] LABS: BASOPHILS # (AUTO) 0.1 10^3/uL (0.0-0.1); BASOPHILS % (AUTO) 0 % (0-10); EOSINOPHILS % (AUTO) 0 % (0-10); HEMATOCRIT 29 % (35-52); HEMOGLOBIN 9.4 g/dL (11.5-16.0); LYMPHOCYTES # (AUTO) 4.2 10^3/uL (1.0-4.0); LYMPHOCYTES % (AUTO) 20 % (12-44); MEAN CORPUSCULAR HEMOGLOBIN 28 pg (25-34); MEAN CORPUSCULAR HGB CONC 33 g/dL (32-36); MEAN CORPUSCULAR VOLUME 87 fL (80-99); MEAN PLATELET VOLUME 9.4 fL (9.0-12.2); MONOCYTES # (AUTO) 3.3 10^3/uL (0.0-1.0); MONOCYTES % (AUTO) 16 % (0-12); NEUTROPHILS # (AUTO) 12.8 10^3/uL (1.8-7.8); NEUTROPHILS % (AUTO) 62 % (42-75); PLATELET COUNT 343 10^3/uL (130-400); WHITE BLOOD COUNT 20.5 10^3/uL (4.3-11.0)
[2022-06-20 07:18] VITALS: BP 151/72
[2022-06-20 07:23] LABS: ALBUMIN 3.1 GM/DL (3.2-4.5); BILIRUBIN,TOTAL 1.1 MG/DL (0.1-1.0); CREATININE SERUM 0.8 MG/DL (0.60-1.30); POTASSIUM 3.8 MMOL/L (3.6-5.0); TOTAL PROTEIN 6.4 GM/DL (6.4-8.2)
--- NOTE | 2022-06-20 08:56 | Physical Therapy Daily Note ---
PT Daily Note-Current Subjective Pt. states she slept a little better. States she has pain in left hip at 5/10 after Rx. Pain Numeric Pain Scale: 5-Moderate Pain Location: Left Location Body Site: Hip Pain Description: Ache Section J - Health Conditions 1. Rarely or not at all 2. Occasionally 3. Frequently 4. Almost constantly 8. Unable to answer Pain Effect on Sleep: 2 Pain Interference with Therapy: 3 Pain Interference w/Day-to-Day: 3 Mental Status Patient Orientation: Normal For Age Transfers SCALE: Activities may be completed with or without assistive devices. 2-Optoiqkzmk-bzukyfs completes the activity by him/herself with no assistance from a helper. 5-Set-up or Clean-up Assistance-helper sets up or cleans up; patient completes activity. [place] assists only prior to or following the activity. 4-Supervision or Touching Assistance-helper provides verbal cues and/or touching/steadying and/or contact guard assistance as patient completes activity. Assistance may be provided throughout the activity or intermittently. 3-Partial/Moderate Assistance-helper does LESS THAN HALF the effort. [place] lifts, holds or supports trunk or limbs, but provides less than half the effort. 2-Substantial/Maximal Assistance-helper does MORE THAN HALF the effort. [place] lifts or holds trunk or limbs and provides more than half the effort. 9-Bpqxelmkd-yjzllw does ALL the effort. Patient does none of the effort to complete the activity. Or, the assistance of 2 or more helpers is required for the patient to complete the activity. If activity was not attempted, code reason: 7-Patient Refused. 9-Not Applicable-not attempted and the patient did not perform the activity before the current illness, exacerbation or injury. 10-Not Attempted due to Environmental Limitations-(lack of equipment, weather restraints, etc.). 88-Not Attempted due to Medical Conditions or Safety Concerns. Roll Left & Right (QC): 6 Sit to Lying (QC): 4 Lying to Sitting/Side of Bed(Q: 4 Sit to Stand (QC): 6 Chair/Kvm-tm-Slmjp Xfer(QC): 6 Toilet Transfer (QC): 6 Weight Bearing Left Lower Extremity: Left Weight Bearing/Tolerated Gait Training Does the Patient Walk?: Yes Walk 10 feet (QC): 6 Walk 50 ft with 2 Turns(QC): 6 Walk 150 ft (QC): 6 Gait Persons Needed: 1 Gait Assistive Device: FWW antalgic gait, heavy wt bearing on FWW, flexed over FWW at times, pt. voicing pain c/o at end of Rx Stair Training stairs were demonstrated to pt today , will trial tomorrow Exercises Supine Ex: Ankle pumps, Quad Set, Rolling, Glut sets, Heel Slides, Short Arc Quads, Scooting, Straight leg raise (asstd), Hip abd/add (asstd) Supine Reps: 12 (x2) Seated Therapy Exercises: Ankle pumps, Sit to stand, Long arc quads, Hip abd/add Seated Reps: 12 Standing: Hip Abduction (left), Hamstring curls (left), Heel/toe raises, Marching Standing Reps: 12 Nustep leg presses x 12 NuStep Minutes: 12 NuStep Workload: 1 Treatments TRFs, gait, ex, toileting Assessment Current Status: Good Progress PT Short Term Goals Short Term Goals Time Frame: Jun 24, 2022 Sit to lyin Lying to sitting on side of be: 4 Walk 10 feet: 4 Walk 50 feet with two turns: 4 Walk 150 feet: 4 PT Senior Living Goals Senior Living Goals PT Senior Living Goals Time Frame: Jul 01, 2022 Roll Left & Right (QC): 6 Sit to Lying (QC): 6 Lying-Sitting on Side/Bed(QC): 6 Sit to Stand (QC): 6 Chair/Wma-rd-Ywjdj Xfer(QC): 6 Toilet Transfer (QC): 6 Car Transfer (QC): 6 Does the Patient Walk: Yes Walk 10 feet (QC): 6 Walk 50ft with 2 Turns (QC): 6 Walk 150 ft (QC): 6 Walking 10ft on Uneven Surface: 6 1 Step (curb) (QC): 4 (SBA) 4 Steps (QC): 4 (SBA) 12 Steps (QC): 88 Picking up an Object (QC): 6 (using cosmetics presser) Wheel 50 feet with 2 turns (QC: 9 Wheel 150 feet: 9 PT Plan Treatment/Plan Treatment Plan: Continue Plan of Care Treatment Plan: Bed Mobility, Education, Functional Activity Kaitlyn, Functional Strength, Group Therapy, Gait, Safety, Therapeutic Exercise, Transfers Treatment Duration: Jul 01, 2022 Frequency: At least 5 of 7 days/Wk (IRF) Estimated Hrs Per Day: 1.5 hours per day Patient and/or Family Agrees t: Yes Safety Risks/Education Patient Education: Gait Training, Transfer Techniques, Correct Positioning, Disease Process, Safety Issues Teaching Recipient: Patient Teaching Methods: Demonstration, Discussion Response to Teaching: Verbalize Understanding, Return Demonstration, Reinforcement Needed Time Time In: 730 Time Out: 900 DATE: Jun 20, 2022 Total Billed Treatment Time: 900 Total Billed Treatment 1,GT28m,,EX41m,FA21m HUI WAYNE FREIGHT CAR BUILDER Jun 20, 2022 08:56
[2022-06-20] MEDS: HydroCHLOROthiazide CAP/TABLET 12.5 MG TAB PO SCH (09:08)
[2022-06-20] MEDS: lisINopril 20 MG (PRINIVIL) TABLET PO SCH (09:08)
[2022-06-20] MEDS: metFORMIN 500 MG (GLUCOPHAGE) TAB PO SCH ×2 (09:08→17:19)
[2022-06-20] MEDS: polyethylene glycoL POWDER 17 GM (MIRALAX) PACK PO SCH ×2 (09:10→21:12)
[2022-06-20] MEDS: SENNA W/DOCUSATE (SENOKOT S) TABLET PO SCH ×2 (09:10→21:12)
[2022-06-20] MEDS: DOCUSATE SODIUM 100 MG (COLACE) CAP PO SCH ×2 (09:10→21:12)
[2022-06-20] MEDS ORDERED: CATHETER FLUSH 10 ML SYR IVP PRN (09:15)
--- NOTE | 2022-06-20 10:15 | Occupational Ther Daily Note ---
OT Current Status-Daily Note Subjective Pt up in recliner, agreeable to OT Tx. ADL-Treatment Therapy Code Descriptions/Definitions Functional [place] Measure: 0=Not Assessed/NA 4=Minimal Assistance 1=Total Assistance 5=Supervision or Setup 2=Maximal Assistance 6=Modified [place] 3=Moderate Assistance 7=Complete IndependenceSCALE: Activities may be completed with or without assistive devices. 2-Eqsviwuwti-dvtydav completes the activity by him/herself with no assistance from a helper. 5-Set-up or Clean-up Assistance-helper sets up or cleans up; patient completes activity. [place] assists only prior to or following the activity. 4-Supervision or Touching Assistance-helper provides verbal cues and/or touching/steadying and/or contact guard assistance as patient completes activity. Assistance may be provided throughout the activity or intermittently. 3-Partial/Moderate Assistance-helper does LESS THAN HALF the effort. [place] lifts, holds or supports trunk or limbs, but provides less than half the effort. 2-Substantial/Maximal Assistance-helper does MORE THAN HALF the effort. [place] lifts or holds trunk or limbs and provides more than half the effort. 1-Xnmwmzqgj-mikvjn does ALL the effort. Patient does none of the effort to co mplete the activity. Or, the assistance of 2 or more helpers is required for the patient to complete the activity. If activity was not attempted, code reason: 7-Patient Refused. 9-Not Applicable-not attempted and the patient did not perform the activity before the current illness, exacerbation or injury. 10-Not Attempted due to Environmental Limitations-(lack of equipment, weather restraints, etc.). 88-Not Attempted due to Medical Conditions or Safety Concerns. Other Treatment Pt up in recliner, agreeable to OT Tx. Pt used FWW to transfer into bathroom, completing toileting independently. Pt then performed functional mobility to therapy gym, FWW, IND. OT tx focused on increasing BUE strength and activity tolerance. Pt completed arm bike x15 mins, 20 Watt resistance, no rest breaks. Pt then completed UE reaching task, placing/removing 1" pegs from foam pegboard, alternating hands, 1lb wrist weights BUEs. Pt completed x100 pegs. Pt completed UE reaching task, 1lb wrist weights BUEs, placing/removing nuts/bolts from block. Pt able to complete x32. Pt used FWW to return to her room, transferring to recliner independently. Post tx, pt in recliner, call light in reach and all needs met. Education OT Patient Education: Correct positioning, Energy conservation, Modified ADL techniques, Progress toward Goal/Update tx plan, Purpose of tx/functional activities Teaching Recipient: Patient Teaching Methods: Discussion Response to Teaching: Verbalize Understanding OT Short Term Goals Short Term Goals Time Frame: Jun 27, 2022 Shower/bathe self: 5 Upper body dressin Lower body dressin Putting on/taking off footwear: 5 OT Senior Care Goals Package Center Supervisor Goals Time Frame: Jul 11, 2022 Acute change in mental status: 0 Inattention: 0 Disorganized thinkin Altered level of consciousness: 0 Eating (QC): 6 Oral Hygiene (QC): 6 Toileting Hygiene (QC): 6 Shower/Bathe Self (QC): 6 Upper Body Dressing (QC): 6 Lower Body Dressing (QC): 6 On/Off Footwear (QC): 6 Additional Goals: 1-Demonstrate ADL Tasks, 2-Verbalize Understanding, 3- ImproveStrength/Kaitlyn 1=Demonstrate adherence to instructed precautions during ADL tasks. 2=Patient will verbalize/demonstrate understanding of assistive devices/modifications for ADL. 3=Patient will improve strength/tolerance for activity to enable patient to perform ADL's. OT Education/Plan Problem List/Assessment Assessment: Decreased Activ Tolerance, Decreased UE Strength, Impaired I ADL's, Impaired Self-Care Skills Discharge Recommendations Plan/Recommendations: Continue POC Treatment Plan/Plan of Care Patient would benefit from OT for education, treatment and training to promote independence in ADL's, mobility, safety and/or upper extremity function for ADL's. Plan of Care: ADL Retraining, Functional Mobility, Group Exercise/Act as Ind, UE Funct Exercise/Act Treatment Duration: Jul 11, 2022 Frequency: At least 5 of 7 days/Wk (IRF) Estimated Hrs Per Day: 1.5 hours per day Agreement: Yes Rehab Potential: Fair Time Start Time: 09:45 Stop Time: 11:15 DATE: Jun 20, 2022 Total Time Billed (hr/min): 90 Billed Treatment Time 1, ADL (15'), EX (15'), FA 4 (60') YESSENIA MELENDEZ OT Jun 20, 2022 10:15
[2022-06-20] MEDS: CATHETER FLUSH 10 ML SYR IVP SCH ×2 (14:00→21:17)
[2022-06-20] MEDS: LOPERAMIDE 2 MG (IMODIUM) TABLET PO PRN ×3 (15:34→21:22)
[2022-06-20] MEDS: ASPIRIN 325 MG (5 GR) TABLET PO SCH (17:19)
[2022-06-20 20:00] VITALS: BP 132/63
[2022-06-20] MEDS: diphenhydrAMINE 25 MG TAB (BENADRYL) PO SCH (21:16)
[2022-06-21] MEDS: inSUlin ASPART (NovoLOG) 1 UNIT/0.01 ML (CHARGE PER UNIT) SC SCH ×4 (06:00→20:33)
[2022-06-21] MEDS: CATHETER FLUSH 10 ML SYR IVP SCH ×3 (06:24→20:37)
[2022-06-21] MEDS: ASCORBIC ACID (VIT C) 500 MG TABLET PO SCH (06:24)
[2022-06-21] MEDS: CYANOCOBALAMIN 1,000 MCG (VITAMIN B-12) TABLET PO SCH (06:24)
--- NOTE | 2022-06-21 06:38 | PM&R Progress Note ---
Subjective HPI/CC On Admission Date Seen by Provider: Jun 21, 2022 Time Seen by Provider: 12:00 Subjective/Events-last exam 06/21/2022: Patient doing really well Taking Tylenol for the pain No major concerns 06/20/2022: Doing well DC planned for Thursday Pain controlled 06/19/2022: Improved overall Pain minimal No loose stools now Voiding well 06/18/2022: Much improved Walking with therapy Pain controlled BM+ loose 06/17/2022: Patient doing well Slept well last night No BM so laxatives given Pain improved Review of Systems General: Fatigue, Malaise Objective Exam Vital Signs Vital Signs Date Time Temp Pulse Resp B/P (MAP) Pulse Ox O2 Delivery O2 Flow Rate FiO2 06/21/22 08:54 Room Air 06/21/22 07:24 36.6 80 16 145/78 (100) 96 Capillary Refill : General Appearance: No Apparent Distress, WD/WN, Chronically ill HEENT: PERRL/EOMI, Normal ENT Inspection, Pharynx Normal Neck: Full Range of Motion, Normal Inspection, Non Tender, Supple, Carotid Bruit Respiratory: Chest Non Tender, Lungs Clear, Normal Breath Sounds, No Accessory Muscle Use, No Respiratory Distress Cardiovascular: Regular Rate, Rhythm, No Edema, No Gallop, No JVD, No Murmur, Normal Peripheral Pulses Gastrointestinal: Normal Bowel Sounds, No Organomegaly, No Pulsatile Mass, Non Tender, Soft Back: Normal Inspection, No CVA Tenderness, No Vertebral Tenderness Extremity: Normal Capillary Refill, Normal Inspection, Normal Range of Motion (except left leg), Non Tender, No Calf Tenderness, No Pedal Edema Neurologic/Psychiatric: Alert, Oriented x3, No Motor/Sensory Deficits, Normal Mood/Affect, Abnormal Gait (left leg), Motor Weakness Skin: Normal Color, Warm/Dry Lymphatic: No Adenopathy Results/Procedures Lab Patient resulted labs reviewed. FIM Transfers Therapy Code Descriptions/Definitions Functional [place] Measure: 0=Not Assessed/NA 4=Minimal Assistance 1=Total Assistance 5=Supervision or Setup 2=Maximal Assistance 6=Modified [place] 3=Moderate Assistance 7=Complete IndependenceSCALE: Activities may be completed with or without assistive devices. 7-Ozjvtcqztk-kcisugg completes the activity by him/herself with no assistance from a helper. 5-Set-up or Clean-up Assistance-helper sets up or cleans up; patient completes activity. [place] assists only prior to or following the activity. 4-Supervision or Touching Assistance-helper provides verbal cues and/or touching/steadying and/or contact guard assistance as patient completes activity. Assistance may be provided throughout the activity or intermittently. 3-Partial/Moderate Assistance-helper does LESS THAN HALF the effort. [place] lifts, holds or supports trunk or limbs, but provides less than half the effort. 2-Substantial/Maximal Assistance-helper does MORE THAN HALF the effort. [place] lifts or holds trunk or limbs and provides more than half the effort. 9-Mxtonpugi-axdtwl does ALL the effort. Patient does none of the effort to complete the activity. Or, the assistance of 2 or more helpers is required for the patient to complete the activity. If activity was not attempted, code reason: 7-Patient Refused. 9-Not Applicable-not attempted and the patient did not perform the activity before the current illness, exacerbation or injury. 10-Not Attempted due to Environmental Limitations-(lack of equipment, weather restraints, etc.). 88-Not Attempted due to Medical Conditions or Safety Concerns. Roll Left to Right (QC): 6 Sit to Lying (QC): 4 Sit to Stand (QC): 6 Chair/Rrc-og-Ffytp Xfer(QC): 6 Car Transfer (QC): 6 Gait Training Does the Patient Walk?: Yes Distance: 150'x2 Walk 10 feet (QC): 6 Walk 50 ft with 2 Turns(QC): 6 Walk 150 ft (QC): 6 Walking 10ft/uneven surface-QC: 4 Gait Persons Needed: 1 Gait Assistive Device: FWW Wheelchair Training Does the Pt Use a Wheelchair?: No Wheel 50 ft with 2 turns (QC): 9 Wheel 150 ft (QC): 9 Type of Wheelchair: N/A Stair Training Stair Training: Handrails/: 2 handrails #of Steps: 4 1 Step (curb) (QC): 4 4 Steps (QC): 4 12 Steps (QC): 88 Stairs: Pattern: Step to Balance Picking up an Object (QC): 4 (CGA using a auto former machine operator) ADL-Treatment Eating (QC): 6 Oral Hygiene (QC): 6 Shower/Bathe Self (QC): 5 Upper Body Dressing (QC): 5 Lower Body Dressing (QC): 4 (SBA, min VCs using auto former machine operator) On/Off Footwear (QC): 4 (SBA, min VCs with sock aide.) Toileting Hygiene (QC): 6 Toilet Transfer (QC): 6 Assessment/Plan Assessment and Plan Assess & Plan/Chief Complaint Assessment Left hip Fracture Non-insulin dependent diabetes mellitus II Essential HTN Leukocytosis Adrian cell carcinoma Anemia with hx of blood transfusion Polyneuropathy Plan Left hip Fracture Continue to increase strength and endurance with PT/OT Manage pain with current regimen and taper with improvement Non-insulin dependent diabetes mellitus II Monitor blood glucose ADA diet Essential HTN Recent BP was 190/83 (HR: 118) Managed with Lisinopril Leukocytosis Likely elevated due to postoperative status Patient is afebrile with no current signs of infection 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
[2022-06-21 07:24] VITALS: BP 145/78
--- NOTE | 2022-06-21 07:27 | Occupational Ther Daily Note ---
OT Current Status-Daily Note Subjective Pt alert, sitting in recliner. Pt agrees to therapy. No c/o pain. Mental Status/Objective Patient Orientation: Person, Place, Time, Situation ADL-Treatment Pt agrees to shower after breakfast. Pt educated on donning/doffing shoes using AE and modifications to shoes, demonstrated understanding. Pt educated on using leg credit risk specialist to use to lift L LE into bed or higher surfaces, demonstrated understanding. Independent with eating. SBA to gather clothing from drawer, education on safety with FWW mobility when reaching/retrieving objects. Independent with toileting using FWW, grabbars and BSC. Sitting on shower bench, pt able to complete shower using grabbars and hand held shower by self, set up. Using AE pt able to doff lower body clothing, dons clothing over feet by self then SBA to hike over hips. Pt able to don/doff shirt by self. Assist to don JEANNE hose. Min A to don shoes. Independent standing at sink to complete oral care. After session, pt sitting in recliner with call light/phone in reach. All needs met in room. Therapy Code Descriptions/Definitions Functional [place] Measure: 0=Not Assessed/NA 4=Minimal Assistance 1=Total Assistance 5=Supervision or Setup 2=Maximal Assistance 6=Modified [place] 3=Moderate Assistance 7=Complete IndependenceSCALE: Activities may be completed with or without assistive devices. 0-Dusciftzis-cmueqds completes the activity by him/herself with no assistance from a helper. 5-Set-up or Clean-up Assistance-helper sets up or cleans up; patient completes activity. [place] assists only prior to or following the activity. 4-Supervision or Touching Assistance-helper provides verbal cues and/or touching/steadying and/or contact guard assistance as patient completes activity. Assistance may be provided throughout the activity or intermittently. 3-Partial/Moderate Assistance-helper does LESS THAN HALF the effort. [place] lifts, holds or supports trunk or limbs, but provides less than half the effort. 2-Substantial/Maximal Assistance-helper does MORE THAN HALF the effort. [place] lifts or holds trunk or limbs and provides more than half the effort. 9-Wqyamazau-cstkpt does ALL the effort. Patient does none of the effort to complete the activity. Or, the assistance of 2 or more helpers is required for the patient to complete the activity. If activity was not attempted, code reason: 7-Patient Refused. 9-Not Applicable-not attempted and the patient did not perform the activity before the current illness, exacerbation or injury. 10-Not Attempted due to Environmental Limitations-(lack of equipment, weather restraints, etc.). 88-Not Attempted due to Medical Conditions or Safety Concerns. Eating (QC): 6 Oral Hygiene (QC): 6 Shower/Bathe Self (QC): 5 Upper Body Dressing (QC): 5 Lower Body Dressing (QC): 4 On/Off Footwear: 3 (assist with donning JEANNE hose) Toileting Hygiene (QC): 6 Toilet Transfer (QC): 6 Other Treatment Pt completed 3 B UE exercises with 2# wt, 1 set 30 reps each. OT Short Term Goals Short Term Goals Time Frame: Jun 27, 2022 Shower/bathe self: 5 Upper body dressin Lower body dressin Putting on/taking off footwear: 5 OT Chairman & Ceo Goals Jail Goals Time Frame: Jul 11, 2022 Acute change in mental status: 0 Inattention: 0 Disorganized thinkin Altered level of consciousness: 0 Eating (QC): 6 Oral Hygiene (QC): 6 Toileting Hygiene (QC): 6 Shower/Bathe Self (QC): 6 Upper Body Dressing (QC): 6 Lower Body Dressing (QC): 6 On/Off Footwear (QC): 6 Additional Goals: 1-Demonstrate ADL Tasks, 2-Verbalize Understanding, 3- ImproveStrength/Kaitlyn 1=Demonstrate adherence to instructed precautions during ADL tasks. 2=Patient will verbalize/demonstrate understanding of assistive devices/modifications for ADL. 3=Patient will improve strength/tolerance for activity to enable patient to perform ADL's. OT Education/Plan Problem List/Assessment Assessment: Impaired Self-Care Skills Discharge Recommendations Plan/Recommendations: Continue POC Treatment Plan/Plan of Care Patient would benefit from OT for education, treatment and training to promote independence in ADL's, mobility, safety and/or upper extremity function for A DL's. Plan of Care: ADL Retraining, Functional Mobility, Group Exercise/Act as Ind, UE Funct Exercise/Act Treatment Duration: Jul 11, 2022 Frequency: At least 5 of 7 days/Wk (IRF) Estimated Hrs Per Day: 1.5 hours per day Agreement: Yes Rehab Potential: Fair Time Start Time: 06:30 Stop Time: 08:15 DATE: Jun 21, 2022 Total Time Billed (hr/min): 105 Billed Treatment Time 1 visit-ADL 6 (90 min) EX 1 (15 min) GABY SKINNER Jun 21, 2022 07:26
[2022-06-21] MEDS: metFORMIN 500 MG (GLUCOPHAGE) TAB PO SCH ×2 (08:59→17:07)
[2022-06-21] MEDS: HydroCHLOROthiazide CAP/TABLET 12.5 MG TAB PO SCH (09:03)
[2022-06-21] MEDS: lisINopril 20 MG (PRINIVIL) TABLET PO SCH (09:03)
[2022-06-21] MEDS: DOCUSATE SODIUM 100 MG (COLACE) CAP PO SCH ×2 (09:06→20:33)
[2022-06-21] MEDS: polyethylene glycoL POWDER 17 GM (MIRALAX) PACK PO SCH ×2 (09:06→20:33)
[2022-06-21] MEDS: SENNA W/DOCUSATE (SENOKOT S) TABLET PO SCH ×2 (09:07→20:33)
[2022-06-21] MEDS: ACETAMINOPHEN 325 MG TABLET PO PRN (09:10)
--- NOTE | 2022-06-21 12:05 | Physical Therapy Daily Note ---
PT Daily Note-Current Subjective Pt. delightful and agrees to Rx. still c/o pain at 5/10 left hip sushil after and during Rx. Subsides with rest. Pain Numeric Pain Scale: 5-Moderate Pain Location: Left Location Body Site: Hip Pain Description: Ache Section J - Health Conditions 1. Rarely or not at all 2. Occasionally 3. Frequently 4. Almost constantly 8. Unable to answer Pain Effect on Sleep: 2 Pain Interference with Therapy: 3 Pain Interference w/Day-to-Day: 3 Mental Status Patient Orientation: Normal For Age Transfers SCALE: Activities may be completed with or without assistive devices. 9-Iuosgodovx-pxyszse completes the activity by him/herself with no assistance from a helper. 5-Set-up or Clean-up Assistance-helper sets up or cleans up; patient completes activity. [place] assists only prior to or following the activity. 4-Supervision or Touching Assistance-helper provides verbal cues and/or touching/steadying and/or contact guard assistance as patient completes activity. Assistance may be provided throughout the activity or intermittently. 3-Partial/Moderate Assistance-helper does LESS THAN HALF the effort. [place] lifts, holds or supports trunk or limbs, but provides less than half the effort. 2-Substantial/Maximal Assistance-helper does MORE THAN HALF the effort. [place] lifts or holds trunk or limbs and provides more than half the effort. 9-Kslashhfk-tvbryr does ALL the effort. Patient does none of the effort to complete the activity. Or, the assistance of 2 or more helpers is required for the patient to complete the activity. If activity was not attempted, code reason: 7-Patient Refused. 9-Not Applicable-not attempted and the patient did not perform the activity before the current illness, exacerbation or injury. 10-Not Attempted due to Environmental Limitations-(lack of equipment, weather restraints, etc.). 88-Not Attempted due to Medical Conditions or Safety Concerns. Car Transfer (QC): 6 all TRFs SBA to Mod I only Weight Bearing Left Lower Extremity: Left Weight Bearing/Tolerated Gait Training Does the Patient Walk?: Yes Gait Assistive Device: FWW 150 ft SBA, no LOB, antalgia conts, heavy wt bearing on FWW Stair Training Stair Training: Handrails/: 2 handrails #of Steps: 4 4 Steps (QC): 4 Stairs: Pattern: Step to needs CGA and sequence instructions Exercises Supine Ex: Ankle pumps, Quad Set, Glut sets, Heel Slides, Short Arc Quads, Scooting, Straight leg raise (asstd), Hip abd/add (asstd) Supine Reps: 12 (x2) Seated Therapy Exercises: Ankle pumps, Sit to stand, Long arc quads, Hip abd/add Seated Reps: 15 (x2) NuStep Minutes: 10 NuStep Workload: 1 Treatments 2 Rx sessions , TRFs, gait, therex sit and supine, Nustep, car TRFs, Assessment Current Status: Good Progress PT Short Term Goals Short Term Goals Time Frame: Jun 24, 2022 Sit to lyin Lying to sitting on side of be: 4 Walk 10 feet: 4 Walk 50 feet with two turns: 4 Walk 150 feet: 4 PT Nursing Home Goals Audit Reviewer Goals PT Audit Reviewer Goals Time Frame: Jul 01, 2022 Roll Left & Right (QC): 6 Sit to Lying (QC): 6 Lying-Sitting on Side/Bed(QC): 6 Sit to Stand (QC): 6 Chair/Dvd-ff-Nqgss Xfer(QC): 6 Toilet Transfer (QC): 6 Car Transfer (QC): 6 Does the Patient Walk: Yes Walk 10 feet (QC): 6 Walk 50ft with 2 Turns (QC): 6 Walk 150 ft (QC): 6 Walking 10ft on Uneven Surface: 6 1 Step (curb) (QC): 4 (SBA) 4 Steps (QC): 4 (SBA) 12 Steps (QC): 88 Picking up an Object (QC): 6 (using shuttle threader) Wheel 50 feet with 2 turns (QC: 9 Wheel 150 feet: 9 PT Plan Treatment/Plan Treatment Plan: Continue Plan of Care Treatment Plan: Bed Mobility, Education, Functional Activity Kaitlyn, Functional Strength, Group Therapy, Gait, Safety, Therapeutic Exercise, Transfers Treatment Duration: Jul 01, 2022 Frequency: At least 5 of 7 days/Wk (IRF) Estimated Hrs Per Day: 1.5 hours per day Patient and/or Family Agrees t: Yes Safety Risks/Education Patient Education: Gait Training, Transfer Techniques, Steps, Reviewed Precautions, Correct Positioning, Disease Process, Safety Issues Teaching Recipient: Patient Teaching Methods: Demonstration, Discussion Response to Teaching: Verbalize Understanding, Return Demonstration, Reinforcement Needed Time Time In: 915 (9184) Time Out: 1000 (1130) DATE: Jun 21, 2022 Total Billed Treatment Time: 90 Total Billed Treatment 1x2,GT35m,[id number] HUI WAYNE NATIONAL GUARD MEMBER Jun 21, 2022 12:05
[2022-06-21] MEDS: ASPIRIN 325 MG (5 GR) TABLET PO SCH (17:07)
[2022-06-21] MEDS: LOPERAMIDE 2 MG (IMODIUM) TABLET PO PRN (17:38)
[2022-06-21 19:15] VITALS: BP 153/67
[2022-06-21] MEDS: diphenhydrAMINE 25 MG TAB (BENADRYL) PO SCH (20:37)
[2022-06-22] MEDS: ACETAMINOPHEN 325 MG TABLET PO PRN ×3 (02:18→23:49)
[2022-06-22] MEDS: ASCORBIC ACID (VIT C) 500 MG TABLET PO SCH (06:33)
[2022-06-22] MEDS: CYANOCOBALAMIN 1,000 MCG (VITAMIN B-12) TABLET PO SCH (06:33)
[2022-06-22] MEDS: inSUlin ASPART (NovoLOG) 1 UNIT/0.01 ML (CHARGE PER UNIT) SC SCH ×4 (06:43→20:22)
[2022-06-22] MEDS: CATHETER FLUSH 10 ML SYR IVP SCH ×3 (06:43→21:12)
[2022-06-22 07:37] VITALS: BP 125/68
--- NOTE | 2022-06-22 07:44 | PM&R Progress Note ---
Subjective HPI/CC On Admission Date Seen by Provider: Jun 22, 2022 Time Seen by Provider: 12:00 Subjective/Events-last exam 06/22/2022: Patient doing really well No pain is reported No falls Ambulating around pretty well 06/21/2022: Patient doing really well Taking Tylenol for the pain No major concerns 06/20/2022: Doing well DC planned for Thursday Pain controlled 06/19/2022: Improved overall Pain minimal No loose stools now Voiding well 06/18/2022: Much improved Walking with therapy Pain controlled BM+ loose 06/17/2022: Patient doing well Slept well last night No BM so laxatives given Pain improved Review of Systems General: Fatigue, Malaise Objective Exam Vital Signs Vital Signs Date Time Temp Pulse Resp B/P (MAP) Pulse Ox O2 Delivery O2 Flow Rate FiO2 06/22/22 08:17 Room Air 06/22/22 07:37 36.4 75 20 125/68 (87) 97 Capillary Refill : General Appearance: No Apparent Distress, WD/WN, Chronically ill HEENT: PERRL/EOMI, Normal ENT Inspection, Pharynx Normal Neck: Full Range of Motion, Normal Inspection, Non Tender, Supple, Carotid Bruit Respiratory: Chest Non Tender, Lungs Clear, Normal Breath Sounds, No Accessory Muscle Use, No Respiratory Distress Cardiovascular: Regular Rate, Rhythm, No Edema, No Gallop, No JVD, No Murmur, Normal Peripheral Pulses Gastrointestinal: Normal Bowel Sounds, No Organomegaly, No Pulsatile Mass, Non Tender, Soft Back: Normal Inspection, No CVA Tenderness, No Vertebral Tenderness Extremity: Normal Capillary Refill, Normal Inspection, Normal Range of Motion (except left leg), Non Tender, No Calf Tenderness, No Pedal Edema Neurologic/Psychiatric: Alert, Oriented x3, No Motor/Sensory Deficits, Normal Mood/Affect, Abnormal Gait (left leg), Motor Weakness Skin: Normal Color, Warm/Dry Lymphatic: No Adenopathy Results/Procedures Lab Patient resulted labs reviewed. FIM Transfers Therapy Code Descriptions/Definitions Functional [place] Measure: 0=Not Assessed/NA 4=Minimal Assistance 1=Total Assistance 5=Supervision or Setup 2=Maximal Assistance 6=Modified [place] 3=Moderate Assistance 7=Complete IndependenceSCALE: Activities may be completed with or without assistive devices. 0-Dbiythohbu-hgbnhxl completes the activity by him/herself with no assistance f rom a helper. 5-Set-up or Clean-up Assistance-helper sets up or cleans up; patient completes activity. [place] assists only prior to or following the activity. 4-Supervision or Touching Assistance-helper provides verbal cues and/or touching/steadying and/or contact guard assistance as patient completes activity. Assistance may be provided throughout the activity or intermittently. 3-Partial/Moderate Assistance-helper does LESS THAN HALF the effort. [place] lifts, holds or supports trunk or limbs, but provides less than half the effort. 2-Substantial/Maximal Assistance-helper does MORE THAN HALF the effort. [place] lifts or holds trunk or limbs and provides more than half the effort. 5-Yjaqknyhk-fjkwfm does ALL the effort. Patient does none of the effort to complete the activity. Or, the assistance of 2 or more helpers is required for the patient to complete the activity. If activity was not attempted, code reason: 7-Patient Refused. 9-Not Applicable-not attempted and the patient did not perform the activity before the current illness, exacerbation or injury. 10-Not Attempted due to Environmental Limitations-(lack of equipment, weather restraints, etc.). 88-Not Attempted due to Medical Conditions or Safety Concerns. Roll Left to Right (QC): 6 Sit to Lying (QC): 4 Sit to Stand (QC): 6 Chair/Frs-li-Qrsqk Xfer(QC): 6 Car Transfer (QC): 6 Gait Training Does the Patient Walk?: Yes Distance: 150'x2 Walk 10 feet (QC): 6 Walk 50 ft with 2 Turns(QC): 6 Walk 150 ft (QC): 6 Walking 10ft/uneven surface-QC: 4 Gait Persons Needed: 1 Gait Assistive Device: FWW Wheelchair Training Does the Pt Use a Wheelchair?: No Wheel 50 ft with 2 turns (QC): 9 Wheel 150 ft (QC): 9 Type of Wheelchair: N/A Stair Training Stair Training: Handrails/: 2 handrails #of Steps: 4 1 Step (curb) (QC): 4 4 Steps (QC): 4 12 Steps (QC): 88 Stairs: Pattern: Step to Balance Picking up an Object (QC): 4 (CGA using a senior mechanical estimator) ADL-Treatment Eating (QC): 6 Oral Hygiene (QC): 6 Shower/Bathe Self (QC): 5 Upper Body Dressing (QC): 5 Lower Body Dressing (QC): 4 On/Off Footwear (QC): 3 (assist with donning JEANNE hose) Toileting Hygiene (QC): 6 Toilet Transfer (QC): 6 Assessment/Plan Assessment and Plan Assess & Plan/Chief Complaint Assessment Left hip Fracture Non-insulin dependent diabetes mellitus II Essential HTN Leukocytosis 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 Clark Anemia with hx of blood transfusion Last HgB was 8.6 Monitor for decreases Plan: Rehab protocol Monitor hgb Pain control 06/17/2022: Hgb monitored Pain control 06/18/2022: Pain control 06/19/2022: Improved overall 06/20/2022: Monitor closely Supportive care 06/21/2022: Pain control 06/22/2022: Supportive care (1) Hip fracture (2) Non-insulin dependent type 2 diabetes mellitus Status: Chronic (3) Essential (primary) hypertension Status: Chronic (4) Yee cell carcinoma Status: Chronic JEREMIAH ADEN DO Jun 22, 2022 07:44
[2022-06-22] MEDS: lisINopril 20 MG (PRINIVIL) TABLET PO SCH (08:13)
[2022-06-22] MEDS: metFORMIN 500 MG (GLUCOPHAGE) TAB PO SCH ×2 (08:13→17:44)
[2022-06-22] MEDS: DOCUSATE SODIUM 100 MG (COLACE) CAP PO SCH ×2 (08:13→20:22)
[2022-06-22] MEDS: SENNA W/DOCUSATE (SENOKOT S) TABLET PO SCH ×2 (08:13→20:22)
[2022-06-22] MEDS: polyethylene glycoL POWDER 17 GM (MIRALAX) PACK PO SCH ×2 (08:13→20:22)
[2022-06-22] MEDS: HydroCHLOROthiazide CAP/TABLET 12.5 MG TAB PO SCH (08:13)
[2022-06-22] MEDS: ASPIRIN 325 MG (5 GR) TABLET PO SCH (17:44)
[2022-06-22 19:44] VITALS: BP 124/69
[2022-06-22] MEDS: diphenhydrAMINE 25 MG TAB (BENADRYL) PO SCH (21:12)
--- NOTE | 2022-06-23 05:16 | PM&R Progress Note ---
Subjective HPI/CC On Admission Date Seen by Provider: Jun 23, 2022 Time Seen by Provider: 08:30 Subjective/Events-last exam 06/23/2022: Improved status Ready for DC tomorrow 06/22/2022: Patient doing really well No pain is reported No falls Ambulating around pretty well 06/21/2022: Patient doing really well Taking Tylenol for the pain No major concerns 06/20/2022: Doing well DC planned for Thursday Pain controlled 06/19/2022: Improved overall Pain minimal No loose stools now Voiding well 06/18/2022: Much improved Walking with therapy Pain controlled BM+ loose 06/17/2022: Patient doing well Slept well last night No BM so laxatives given Pain improved Review of Systems General: Fatigue, Malaise Objective Exam Vital Signs Vital Signs Date Time Temp Pulse Resp B/P (MAP) Pulse Ox O2 Delivery O2 Flow Rate FiO2 06/23/22 20:30 Room Air 06/23/22 20:12 36.5 76 20 132/72 (92) 96 Capillary Refill : General Appearance: No Apparent Distress, WD/WN, Chronically ill HEENT: PERRL/EOMI, Normal ENT Inspection, Pharynx Normal Neck: Full Range of Motion, Normal Inspection, Non Tender, Supple, Carotid Bruit Respiratory: Chest Non Tender, Lungs Clear, Normal Breath Sounds, No Accessory Muscle Use, No Respiratory Distress Cardiovascular: Regular Rate, Rhythm, No Edema, No Gallop, No JVD, No Murmur, Normal Peripheral Pulses Gastrointestinal: Normal Bowel Sounds, No Organomegaly, No Pulsatile Mass, Non Tender, Soft Back: Normal Inspection, No CVA Tenderness, No Vertebral Tenderness Extremity: Normal Capillary Refill, Normal Inspection, Normal Range of Motion (except left leg), Non Tender, No Calf Tenderness, No Pedal Edema Neurologic/Psychiatric: Alert, Oriented x3, No Motor/Sensory Deficits, Normal Mood/Affect, Abnormal Gait (left leg), Motor Weakness Skin: Normal Color, Warm/Dry Lymphatic: No Adenopathy Results/Procedures Lab Laboratory Tests 06/23/22 05:15 Patient resulted labs reviewed. FIM Transfers Therapy Code Descriptions/Definitions Functional [place] Measure: 0=Not Assessed/NA 4=Minimal Assistance 1=Total Assistance 5=Supervision or Setup 2=Maximal Assistance 6=Modified [place] 3=Moderate Assistance 7=Complete IndependenceSCALE: Activities may be completed with or without assistive devices. 9-Ymkbsxtyow-nztmzgh completes the activity by him/herself with no assistance from a helper. 5-Set-up or Clean-up Assistance-helper sets up or cleans up; patient completes activity. [place] assists only prior to or following the activity. 4-Supervision or Touching Assistance-helper provides verbal cues and/or touching/steadying and/or contact guard assistance as patient completes activity. Assistance may be provided throughout the activity or intermittently. 3-Partial/Moderate Assistance-helper does LESS THAN HALF the effort. [place] lifts, holds or supports trunk or limbs, but provides less than half the effort. 2-Substantial/Maximal Assistance-helper does MORE THAN HALF the effort. [place] lifts or holds trunk or limbs and provides more than half the effort. 3-Qiwtovkhy-hnonve does ALL the effort. Patient does none of the effort to complete the activity. Or, the assistance of 2 or more helpers is required for the patient to complete the activity. If activity was not attempted, code reason: 7-Patient Refused. 9-Not Applicable-not attempted and the patient did not perform the activity before the current illness, exacerbation or injury. 10-Not Attempted due to Environmental Limitations-(lack of equipment, weather restraints, etc.). 88-Not Attempted due to Medical Conditions or Safety Concerns. Roll Left to Right (QC): 6 Sit to Lying (QC): 4 Sit to Stand (QC): 6 Chair/Wsi-ps-Neqqd Xfer(QC): 6 Car Transfer (QC): 6 Gait Training Does the Patient Walk?: Yes Distance: 150'x2 Walk 10 feet (QC): 6 Walk 50 ft with 2 Turns(QC): 6 Walk 150 ft (QC): 6 Walking 10ft/uneven surface-QC: 4 Gait Persons Needed: 1 Gait Assistive Device: FWW Wheelchair Training Does the Pt Use a Wheelchair?: No Wheel 50 ft with 2 turns (QC): 9 Wheel 150 ft (QC): 9 Type of Wheelchair: N/A Stair Training Stair Training: Handrails/: 2 handrails #of Steps: 4 1 Step (curb) (QC): 4 4 Steps (QC): 4 12 Steps (QC): 88 Stairs: Pattern: Step to Balance Picking up an Object (QC): 4 (CGA using a insurance sales producer) ADL-Treatment Eating (QC): 6 Oral Hygiene (QC): 6 Shower/Bathe Self (QC): 5 Upper Body Dressing (QC): 5 Lower Body Dressing (QC): 4 On/Off Footwear (QC): 3 (assist with donning JEANNE hose) Toileting Hygiene (QC): 6 Toilet Transfer (QC): 6 Assessment/Plan Assessment and Plan Assess & Plan/Chief Complaint Assessment Left hip Fracture Non-insulin dependent diabetes mellitus II Essential HTN Leukocytosis 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 Clark Anemia with hx of blood transfusion Last HgB was 8.6 Monitor for decreases Plan: Rehab protocol Monitor hgb Pain control 06/17/2022: Hgb monitored Pain control 06/18/2022: Pain control 06/19/2022: Improved overall 06/20/2022: Monitor closely Supportive care 06/21/2022: Pain control 06/22/2022: Supportive care 06/23/2022: DC home tomorrow (1) Hip fracture (2) Non-insulin dependent type 2 diabetes mellitus Status: Chronic (3) Essential (primary) hypertension Status: Chronic (4) [place]urry cell carcinoma Status: Chronic JEREMIAH ADEN DO Jun 23, 2022 05:16
[2022-06-23] MEDS: CYANOCOBALAMIN 1,000 MCG (VITAMIN B-12) TABLET PO SCH (05:25)
[2022-06-23] MEDS: ASCORBIC ACID (VIT C) 500 MG TABLET PO SCH (05:25)
[2022-06-23] MEDS: ACETAMINOPHEN 325 MG TABLET PO PRN ×2 (05:26→09:36)
[2022-06-23] MEDS: CATHETER FLUSH 10 ML SYR IVP SCH ×3 (05:26→21:24)
[2022-06-23 05:43] LABS: BASOPHILS # (AUTO) 0.1 10^3/uL (0.0-0.1); BASOPHILS % (AUTO) 0 % (0-10); EOSINOPHILS % (AUTO) 0 % (0-10); HEMATOCRIT 33 % (35-52); HEMOGLOBIN 10.4 g/dL (11.5-16.0); LYMPHOCYTES # (AUTO) 4.6 10^3/uL (1.0-4.0); LYMPHOCYTES % (AUTO) 21 % (12-44); MEAN CORPUSCULAR HEMOGLOBIN 28 pg (25-34); MEAN CORPUSCULAR HGB CONC 32 g/dL (32-36); MEAN CORPUSCULAR VOLUME 88 fL (80-99); MEAN PLATELET VOLUME 9.3 fL (9.0-12.2); MONOCYTES # (AUTO) 3.5 10^3/uL (0.0-1.0); MONOCYTES % (AUTO) 16 % (0-12); NEUTROPHILS # (AUTO) 14.1 10^3/uL (1.8-7.8); NEUTROPHILS % (AUTO) 63 % (42-75); PLATELET COUNT 411 10^3/uL (130-400); WHITE BLOOD COUNT 22.5 10^3/uL (4.3-11.0)
[2022-06-23] MEDS: inSUlin ASPART (NovoLOG) 1 UNIT/0.01 ML (CHARGE PER UNIT) SC SCH ×4 (06:27→21:14)
[2022-06-23 06:29] LABS: ALBUMIN 3.4 GM/DL (3.2-4.5); BILIRUBIN,TOTAL 0.9 MG/DL (0.1-1.0); CALCIUM 10.3 MG/DL (8.5-10.1); CREATININE SERUM 0.95 MG/DL (0.60-1.30); POTASSIUM 4.1 MMOL/L (3.6-5.0); TOTAL PROTEIN 6.9 GM/DL (6.4-8.2)
[2022-06-23 07:52] VITALS: BP 137/80
--- NOTE | 2022-06-23 09:29 | Physical Therapy Daily Note ---
PT Daily Note-Current Subjective Patient sitting in chair upon PT arrival, agreeable to treatment. Patient rates pain at 1/10 in left hip/knee. Pain Section J - Health Conditions 1. Rarely or not at all 2. Occasionally 3. Frequently 4. Almost constantly 8. Unable to answer Pain Effect on Sleep: 1 Pain Interference with Therapy: 1 Pain Interference w/Day-to-Day: 1 Mental Status Patient Orientation: Person, Place, Time, Situation Transfers SCALE: Activities may be completed with or without assistive devices. 7-Mnqkzcruub-ifflhzf completes the activity by him/herself with no assistance from a helper. 5-Set-up or Clean-up Assistance-helper sets up or cleans up; patient completes activity. [place] assists only prior to or following the activity. 4-Supervision or Touching Assistance-helper provides verbal cues and/or touchi ng/steadying and/or contact guard assistance as patient completes activity. Assistance may be provided throughout the activity or intermittently. 3-Partial/Moderate Assistance-helper does LESS THAN HALF the effort. [place] lifts, holds or supports trunk or limbs, but provides less than half the effort. 2-Substantial/Maximal Assistance-helper does MORE THAN HALF the effort. [place] lifts or holds trunk or limbs and provides more than half the effort. 1-Ztzmllwka-pnlrnv does ALL the effort. Patient does none of the effort to complete the activity. Or, the assistance of 2 or more helpers is required for the patient to complete the activity. If activity was not attempted, code reason: 7-Patient Refused. 9-Not Applicable-not attempted and the patient did not perform the activity before the current illness, exacerbation or injury. 10-Not Attempted due to Environmental Limitations-(lack of equipment, weather restraints, etc.). 88-Not Attempted due to Medical Conditions or Safety Concerns. Roll Left & Right (QC): 6 Sit to Lying (QC): 6 Lying to Sitting/Side of Bed(Q: 6 Sit to Stand (QC): 6 Chair/Cmm-nh-Wdvit Xfer(QC): 6 Toilet Transfer (QC): 6 Car Transfer (QC): 6 Weight Bearing Left Lower Extremity: Left Weight Bearing/Tolerated Gait Training Does the Patient Walk?: Yes Distance: 150 feet x 4 Walk 10 feet (QC): 6 Walk 50 ft with 2 Turns(QC): 6 Walk 150 ft (QC): 6 Gait Assistive Device: FWW Wheelchair Training Does the Pt Use a Wheelchair?: No Stair Training Stair Training: Handrails/: 2 handrails #of Steps: 12 1 Step (curb) (QC): 6 4 Steps (QC): 6 12 Steps (QC): 6 Stairs: Pattern: Step to Balance Picking up an Object (QC): 6 Special Test Comments Performed with use of FWW and public housing manager Exercises Seated Therapy Exercises: Ankle pumps, Long arc quads, Hip flexion, Hamstring Curls, Hip abd/add Seated Reps: 20 NuStep Minutes: 10 NuStep Workload: 3 Assessment Current Status: Excellent Progress Patient tolerated treatment well. Demonstrates good overall improvement in bed mobility, transfers, gait distance and ability to perform stair. Patient performs all bed mobility and transfers with independence. Patient ambulates 150 feet x 4 with FWW, with independence. Patient ascends/descends 4 steps x 3 reps with bilateral handrails and independence. Patient performs LE therapeutic exercise as listed above. Patient in chair post treatment with all needs met, nursing notified, call light in hand. PT Short Term Goals Short Term Goals Time Frame: Jun 24, 2022 Sit to lyin Lying to sitting on side of be: 4 Walk 10 feet: 4 Walk 50 feet with two turns: 4 Walk 150 feet: 4 PT Fdc Goals Fdc Goals PT Cable Installer Repairer Goals Time Frame: Jul 01, 2022 Roll Left & Right (QC): 6 (MET) Sit to Lying (QC): 6 (MET) Lying-Sitting on Side/Bed(QC): 6 (MET) Sit to Stand (QC): 6 (MET) Chair/Qvy-uj-Chogs Xfer(QC): 6 (MET) Toilet Transfer (QC): 6 (MET) Car Transfer (QC): 6 (MET) Does the Patient Walk: Yes Walk 10 feet (QC): 6 (MET) Walk 50ft with 2 Turns (QC): 6 (MET) Walk 150 ft (QC): 6 (MET) Walking 10ft on Uneven Surface: 6 (MET) 1 Step (curb) (QC): 4 (SBA) 4 Steps (QC): 4 (SBA) 12 Steps (QC): 88 Picking up an Object (QC): 6 (using public housing manager) Does the Pt use WC or Scooter?: No Wheel 50 feet with 2 turns (QC: 9 Wheel 150 feet: 9 PT Plan Treatment/Plan Treatment Plan: Discontinue PT, goals met Treatment Plan: Bed Mobility, Education, Functional Activity Kaitlyn, Functional Strength, Group Therapy, Gait, Safety, Therapeutic Exercise, Transfers Treatment Duration: Jul 01, 2022 Frequency: At least 5 of 7 days/Wk (IRF) Estimated Hrs Per Day: 1.5 hours per day Patient and/or Family Agrees t: Yes Safety Risks/Education Patient Education: Gait Training, Transfer Techniques, Steps Teaching Recipient: Patient Teaching Methods: Demonstration, Discussion Response to Teaching: Verbalize Understanding, Return Demonstration Time Time In: 800 Time Out: 930 DATE: Jun 23, 2022 Total Billed Treatment Time: 90 Total Billed Treatment Visit, Gait (2), FA (2), Ex (2) EITAN VALERO PT Jun 23, 2022 09:29
[2022-06-23] MEDS: metFORMIN 500 MG (GLUCOPHAGE) TAB PO SCH ×2 (09:35→17:24)
[2022-06-23] MEDS: lisINopril 20 MG (PRINIVIL) TABLET PO SCH (09:36)
[2022-06-23] MEDS: HydroCHLOROthiazide CAP/TABLET 12.5 MG TAB PO SCH (09:36)
[2022-06-23] MEDS: DOCUSATE SODIUM 100 MG (COLACE) CAP PO SCH ×2 (09:37→19:38)
[2022-06-23] MEDS: polyethylene glycoL POWDER 17 GM (MIRALAX) PACK PO SCH ×2 (09:37→19:38)
[2022-06-23] MEDS: SENNA W/DOCUSATE (SENOKOT S) TABLET PO SCH ×2 (09:37→19:38)
--- NOTE | 2022-06-23 10:24 | Occupational Ther Daily Note ---
OT Current Status-Daily Note Subjective Pt agreeable to OT Tx. States she feels ready for d/c tomorrow. ADL-Treatment Therapy Code Descriptions/Definitions Functional [place] Measure: 0=Not Assessed/NA 4=Minimal Assistance 1=Total Assistance 5=Supervision or Setup 2=Maximal Assistance 6=Modified [place] 3=Moderate Assistance 7=Complete IndependenceSCALE: Activities may be completed with or without assistive devices. 7-Qkjcjltssi-fookvml completes the activity by him/herself with no assistance from a helper. 5-Set-up or Clean-up Assistance-helper sets up or cleans up; patient completes activity. [place] assists only prior to or following the activity. 4-Supervision or Touching Assistance-helper provides verbal cues and/or touc ruy/steadying and/or contact guard assistance as patient completes activity. Assistance may be provided throughout the activity or intermittently. 3-Partial/Moderate Assistance-helper does LESS THAN HALF the effort. [place] lifts, holds or supports trunk or limbs, but provides less than half the effort. 2-Substantial/Maximal Assistance-helper does MORE THAN HALF the effort. [place] lifts or holds trunk or limbs and provides more than half the effort. 6-Yvkizyxvz-lvaoso does ALL the effort. Patient does none of the effort to complete the activity. Or, the assistance of 2 or more helpers is required for the patient to complete the activity. If activity was not attempted, code reason: 7-Patient Refused. 9-Not Applicable-not attempted and the patient did not perform the activity before the current illness, exacerbation or injury. 10-Not Attempted due to Environmental Limitations-(lack of equipment, weather restraints, etc.). 88-Not Attempted due to Medical Conditions or Safety Concerns. Eating (QC): 6 Oral Hygiene (QC): 6 Shower/Bathe Self (QC): 6 Upper Body Dressing (QC): 6 Lower Body Dressing (QC): 6 On/Off Footwear: 6 Toileting Hygiene (QC): 6 Toilet Transfer (QC): 6 Other Treatment Pt in recliner, used FWW in room to gather clothes. Pt completed toileting, then transferred to PR. Pt completed showering and dressing. Pt did not use AE for LE dressing on this date. Pt stood at sink for oral care and grooming tasks, independently. Pt used FWW to return to recliner, IND. Post tx, ANDERSON present for continued OT tx. Education OT Patient Education: Correct positioning, Energy conservation, Modified ADL techniques, Progress toward Goal/Update tx plan, Purpose of tx/functional activities, Rehab process Teaching Recipient: Patient Teaching Methods: Discussion Response to Teaching: Verbalize Understanding BIMS CAM BIMS Expression of Ideas and Wants: Without Difficulty Understanding Verbal Content: Understands Brief Interview/Mental Status: Yes IRF SHARON BIMS: IRF SHARON BIMS Response (Comments) Value Repitition of Three Words Three 3 Recalls Socks Yes, No Cue Required 2 Recalls Blue Yes, No Cue Required 2 Recalls Bed Yes, No Cue Required 2 Year Correct 3 Month Accurate Within 5 Days 2 Day Correct 1 Total 15 Should Staff Asses. Mental St.: No CAM Mental Status Change/Baseline: 0 Inattention: 0 Disorganized thinkin Altered level of consciousness: 0 OT Short Term Goals Short Term Goals Time Frame: Jun 27, 2022 Shower/bathe self: 5 Upper body dressin Lower body dressin Putting on/taking off footwear: 5 OT Skilled Nursing Goals Body Joiner Goals Time Frame: Jul 11, 2022 Acute change in mental status: 0 Inattention: 0 Disorganized thinkin Altered level of consciousness: 0 Eating (QC): 6 (met) Oral Hygiene (QC): 6 (met) Toileting Hygiene (QC): 6 (met) Shower/Bathe Self (QC): 6 (met) Upper Body Dressing (QC): 6 (met) Lower Body Dressing (QC): 6 (met) On/Off Footwear (QC): 6 (met) Additional Goals: 1-Demonstrate ADL Tasks, 2-Verbalize Understanding, 3- ImproveStrength/[place] 1=Demonstrate adherence to instructed precautions during ADL tasks. 2=Patient will verbalize/demonstrate understanding of assistive devices/modifications for ADL. 3=Patient will improve strength/tolerance for activity to enable patient to perform ADL's. OT Education/Plan Problem List/Assessment Assessment: Decreased Activ Tolerance, Decreased UE Strength, Impaired I ADL's Discharge Recommendations Plan/Recommendations: Continue POC Treatment Plan/Plan of Care Patient would benefit from OT for education, treatment and training to promote independence in ADL's, mobility, safety and/or upper extremity function for ADL's. Plan of Care: ADL Retraining, Functional Mobility, Group Exercise/Act as Ind, UE Funct Exercise/Act Treatment Duration: Jul 11, 2022 Frequency: At least 5 of 7 days/Wk (IRF) Estimated Hrs Per Day: 1.5 hours per day Agreement: Yes Rehab Potential: Fair Time Start Time: 10:00 Stop Time: 11:00 DATE: Jun 23, 2022 Total Time Billed (hr/min): 60 Billed Treatment Time 1, ADL 4 YESSENIA MELENDEZ OT Jun 23, 2022 10:24
--- NOTE | 2022-06-23 11:36 | Occupational Ther Daily Note ---
OT Current Status-Daily Note Subjective Pt alert, sitting in recliner. Pt agrees to therapy. No c/o pain. Mental Status/Objective Patient Orientation: Person, Place, Time ADL-Treatment Therapy Code Descriptions/Definitions Functional [place] Measure: 0=Not Assessed/NA 4=Minimal Assistance 1=Total Assistance 5=Supervision or Setup 2=Maximal Assistance 6=Modified [place] 3=Moderate Assistance 7=Complete IndependenceSCALE: Activities may be completed with or without assistive devices. 2-Pxjyavoqgy-fcigrtm completes the activity by him/herself with no assistance from a helper. 5-Set-up or Clean-up Assistance-helper sets up or cleans up; patient completes activity. Rumsey assists only prior to or following the activity. 4-Supervision or Touching Assistance-helper provides verbal cues and/or touching/steadying and/or contact guard assistance as patient completes activity. Assistance may be provided throughout the activity or intermittently. 3-Partial/Moderate Assistance-helper does LESS THAN HALF the effort. Rumsey lifts, holds or supports trunk or limbs, but provides less than half the effort. 2-Substantial/Maximal Assistance-helper does MORE THAN HALF the effort. Rumsey lifts or holds trunk or limbs and provides more than half the effort. 0-Uorwrldvl-sgaurn does ALL the effort. Patient does none of the effort to co mplete the activity. Or, the assistance of 2 or more helpers is required for the patient to complete the activity. If activity was not attempted, code reason: 7-Patient Refused. 9-Not Applicable-not attempted and the patient did not perform the activity before the current illness, exacerbation or injury. 10-Not Attempted due to Environmental Limitations-(lack of equipment, weather restraints, etc.). 88-Not Attempted due to Medical Conditions or Safety Concerns. Other Treatment Pt given med/light resistance theraband and HEP for use in room and home to increase strength and activity tolerance for daily functional tasks. Skilled instruction for correct technique and modifications when needed. 2 sets 15 reps for each 5 exercises. Resistive clothespins with each hand to increase professional architect/pinch strength. After therapy, pt sitting in recliner with call light/phone in reach. All needs met in room. OT Short Term Goals Short Term Goals Time Frame: Jun 27, 2022 Shower/bathe self: 5 Upper body dressin Lower body dressin Putting on/taking off footwear: 5 OT Mcfp Goals Safe And Vault Mechanic Goals Time Frame: Jul 11, 2022 Acute change in mental status: 0 Inattention: 0 Disorganized thinkin Altered level of consciousness: 0 Eating (QC): 6 (met) Oral Hygiene (QC): 6 (met) Toileting Hygiene (QC): 6 (met) Shower/Bathe Self (QC): 6 (met) Upper Body Dressing (QC): 6 (met) Lower Body Dressing (QC): 6 (met) On/Off Footwear (QC): 6 (met) Additional Goals: 1-Demonstrate ADL Tasks, 2-Verbalize Understanding, 3- ImproveStrength/Kaitlyn 1=Demonstrate adherence to instructed precautions during ADL tasks. 2=Patient will verbalize/demonstrate understanding of assistive devices/modifications for ADL. 3=Patient will improve strength/tolerance for activity to enable patient to perform ADL's. OT Education/Plan Problem List/Assessment Assessment: Decreased UE Strength Discharge Recommendations Plan/Recommendations: Continue POC Treatment Plan/Plan of Care Patient would benefit from OT for education, treatment and training to promote independence in ADL's, mobility, safety and/or upper extremity function for AD L's. Plan of Care: ADL Retraining, Functional Mobility, Group Exercise/Act as Ind, UE Funct Exercise/Act Treatment Duration: Jul 11, 2022 Frequency: At least 5 of 7 days/Wk (IRF) Estimated Hrs Per Day: 1.5 hours per day Agreement: Yes Rehab Potential: Fair Time Start Time: 11:00 Stop Time: 11:30 DATE: Jun 23, 2022 Total Time Billed (hr/min): 30 Billed Treatment Time 1 visit-EX 2 (30 min) GABY SKINNER Jun 23, 2022 11:36
[2022-06-23] MEDS: ASPIRIN 325 MG (5 GR) TABLET PO SCH (17:24)
[2022-06-23 20:12] VITALS: BP 132/72
[2022-06-23] MEDS: diphenhydrAMINE 25 MG TAB (BENADRYL) PO SCH (21:24)
[2022-06-24] MEDS: ACETAMINOPHEN 325 MG TABLET PO PRN ×3 (00:15→11:55)
--- NOTE | 2022-06-24 05:10 | D/C HH Face to Face Order ---
D/C HH Face to Face Orders Reconcile Patient Problems Problems Reviewed?: Yes Instructions for Patient HH Patient Instructions/FollowUp: PCP 1 week Physician to follow Patient: PCP Discharge Diet for Home: No Restrictions Patient Problems: Hip fx Patient Data-Allergies,Ht & Wt Patient Allergies: Coded Allergies: No Known Drug Allergies (Unverified , 02/01/20) Home Health Need/Face to Face Date of Face to Face: Jun 24, 2022 Clinical Findings: Generalized weakness and fatigue, Pain with ambulation I have seen Pt gjhl-os-oykf: Yes Discharged To: Home Diagnosis/Conditions: hip fx Patient is Homebound due to: Pain w/ambulation Homebound Status Due to the above stated illness, injury or surgical procedure (medical condition or diagnosis) and associated clinical findings, the patient is homebound because of his/her inability to leave home except with aid of a supportive device and/or person AND leaving the home requires a considerable and taxing effort or is medically contraindicated. Pt req the following assistanc: Walker Home Health Nursing Orders Home Health Services Order: Nursing Services, Scrubber System Attendant-Evaluate & Treat, Physical Therapy-Evaluate & Treat Certify Stmt I certify that this patient is under my care and that I, a nurse practitioner or a physician; a cardiovascular physician assistant working with me, had a face to face encounter that - meets the physician face to face encounter requirements with this patient as dated. JEREMIAH ADEN DO Jun 24, 2022 05:10
--- NOTE | 2022-06-24 05:11 | Discharge Summary ---
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 Slow recovery occurred but she was able to participate in therapy and bowel function returned to normal and pain was controlled. Labs remained stable for h/o cancer. Hgb stabilized. Overall she was able to regain function and return home. Labs (last 24 hrs) Laboratory Tests 06/16/22 20:27: Glucometer 161H 06/17/22 06:10: White Blood Count 27.9H, Red Blood Count 3.22L, Hemoglobin 9.0L, Hematocrit 28L, Mean Corpuscular Volume 85, Mean Corpuscular Hemoglobin 28, Mean Corpuscular Hemoglobin Concent 33, Red Cell Distribution Width 18.1H, Platelet Count 256, Mean Platelet Volume 9.3, Immature Granulocyte % (Auto) 3, Neutrophils (%) (Auto) 57, Lymphocytes (%) (Auto) 21, Monocytes (%) (Auto) 18H, Eosinophils (%) (Auto) 0, Basophils (%) (Auto) 0, Neutrophils # (Auto) 15.9H, Lymphocytes # (Auto) 6.0H, Monocytes # (Auto) 5.0H, Eosinophils # (Auto) 0.1, Basophils # (Auto) 0.1, Immature Granulocyte # (Auto) 0.8H, Neutrophils % (Manual) 68, Lymphocytes % (Manual) 14, Monocytes % (Manual) 18, Nucleated Red Blood Cells 1, Polychromasia MODERATE, Poikilocytosis SLIGHT, Anisocytosis MODERATE, Microcytosis SLIGHT, Sodium Level 137, Potassium Level 4.0, Chloride Level 106, Carbon Dioxide Level 21, Anion Gap 10, Blood Urea Nitrogen 16, Creatinine 0.79, Estimat Glomerular Filtration Rate 76, BUN/Creatinine Ratio 20, Glucose Level 126H, Calcium Level 9.5, Corrected Calcium 10.2H, Total Bilirubin 1.4H, Aspartate Amino Transf (AST/SGOT) 42H, Alanine Aminotransferase (ALT/SGPT) 73H, Alkaline Phosphatase 54, Total Protein 6.0L, Albumin 3.1L 06/17/22 11:00: Glucometer 129H 06/17/22 15:55: Glucometer 119H 06/17/22 20:19: Glucometer 139H 06/18/22 06:07: Glucometer 135H 06/18/22 10:51: Glucometer 124H 06/18/22 15:17: Glucometer 131H 06/18/22 20:12: Glucometer 115H 06/19/22 06:06: Glucometer 123H 06/19/22 10:51: Glucometer 112H 06/19/22 15:07: Glucometer 116H 06/19/22 20:46: Glucometer 98 06/20/22 05:51: Glucometer 122H 06/20/22 06:50: White Blood Count 20.5H, Red Blood Count 3.31L, Hemoglobin 9.4L, Hematocrit 29L, Mean Corpuscular Volume 87, Mean Corpuscular Hemoglobin 28, Mean Corpuscular Hemoglobin Concent 33, Red Cell Distribution Width 19.7H, Platelet Count 343, Mean Platelet Volume 9.4, Immature Granulocyte % (Auto) 1, Neutrophils (%) (Auto) 62, Lymphocytes (%) (Auto) 20, Monocytes (%) (Auto) 16H, Eosinophils (%) (Auto) 0, Basophils (%) (Auto) 0, Neutrophils # (Auto) 12.8H, Lymphocytes # (Auto) 4.2H, Monocytes # (Auto) 3.3H, Eosinophils # (Auto) 0.0, Basophils # (Auto) 0.1, Immature Granulocyte # (Auto) 0.2H, Sodium Level 134L, Potassium Level 3.8, Chloride Level 102, Carbon Dioxide Level 25, Anion Gap 7, Blood Urea Nitrogen 20H, Creatinine 0.80, Estimat Glomerular Filtration Rate 75, BUN/Creatinine Ratio 25, Glucose Level 124H, Calcium Level 10.0, Corrected Calcium 10.7H, Total Bilirubin 1.1H, Aspartate Amino Transf (AST/SGOT) 21, Alanine Aminotransferase (ALT/SGPT) 35, Alkaline Phosphatase 60, Total Protein 6.4, Albumin 3.1L 06/20/22 11:01: Glucometer 117H 06/20/22 15:38: Glucometer 133H 06/20/22 20:18: Glucometer 148H 06/21/22 06:16: Glucometer 122H 06/21/22 10:42: Glucometer 93 06/21/22 16:08: Glucometer 106 06/21/22 20:04: Glucometer 97 06/22/22 06:32: Glucometer 112H 06/22/22 11:21: Glucometer 77 06/22/22 15:39: Glucometer 122H 06/22/22 20:19: Glucometer 112H 06/23/22 05:15: White Blood Count 22.5H, Red Blood Count 3.70L, Hemoglobin 10.4L, Hematocrit 33L , Mean Corpuscular Volume 88, Mean Corpuscular Hemoglobin 28, Mean Corpuscular Hemoglobin Concent 32, Red Cell Distribution Width 19.5H, Platelet Count 411H, Mean Platelet Volume 9.3, Immature Granulocyte % (Auto) 1, Neutrophils (%) (Auto) 63, Lymphocytes (%) (Auto) 21, Monocytes (%) (Auto) 16H, Eosinophils (%) (Auto) 0, Basophils (%) (Auto) 0, Neutrophils # (Auto) 14.1H, Lymphocytes # (Auto) 4.6H, Monocytes # (Auto) 3.5H, Eosinophils # (Auto) 0.0, Basophils # (Auto) 0.1, Immature Granulocyte # (Auto) 0.2H, Sodium Level 135, Potassium Level 4.1, Chloride Level 101, Carbon Dioxide Level 23, Anion Gap 11, Blood Urea Nitrogen 23H, Creatinine 0.95, Estimat Glomerular Filtration Rate 61, BUN/Creatinine Ratio 24, Glucose Level 122H, Calcium Level 10.3H, Corrected Calcium 10.8H, Total Bilirubin 0.9, Aspartate Amino Transf (AST/SGOT) 19, Alanine Aminotransferase (ALT/SGPT) 21, Alkaline Phosphatase 76, Total Protein 6.9, Albumin 3.4 06/23/22 10:47: Glucometer 105 06/23/22 15:08: Glucometer 101 06/23/22 20:15: Glucometer 118H 06/24/22 05:57: Glucometer 104 Pending Labs Laboratory Tests 06/16/22 20:27: Glucometer 161 06/17/22 06:10: White Blood Count 27.9, Red Blood Count 3.22, Hemoglobin 9.0, Hematocrit 28, Mean Corpuscular Volume 85, Mean Corpuscular Hemoglobin 28, Mean Corpuscular Hemoglobin Concent 33, Red Cell Distribution Width 18.1, Platelet Count 256, Mean Platelet Volume 9.3, Immature Granulocyte % (Auto) 3, Neutrophils (%) (Auto) 57, Lymphocytes (%) (Auto) 21, Monocytes (%) (Auto) 18, Eosinophils (%) (Auto) 0, Basophils (%) (Auto) 0, Neutrophils # (Auto) 15.9, Lymphocytes # (Auto) 6.0, Monocytes # (Auto) 5.0, Eosinophils # (Auto) 0.1, Basophils # (Auto) 0.1, Immature Granulocyte # (Auto) 0.8, Neutrophils % (Manual) 68, Lymphocytes % (Manual) 14, Monocytes % (Manual) 18, Nucleated Red Blood Cells 1, Polychromasia MODERATE, Poikilocytosis SLIGHT, Anisocytosis MODERATE, Microcytosis SLIGHT, Sodium Level 137, Potassium Level 4.0, Chloride Level 106, Carbon Dioxide Level 21, Anion Gap 10, Blood Urea Nitrogen 16, Creatinine 0.79, Estimat Glomerular Filtration Rate 76, BUN/Creatinine Ratio 20, Glucose Level 126, Calcium Level 9.5, Corrected Calcium 10.2, Total Bilirubin 1.4, Aspartate Amino Transf (AST/SGOT) 42, Alanine Aminotransferase (ALT/SGPT) 73, Alkaline Phosphatase 54, Total Protein 6.0, Albumin 3.1 06/17/22 11:00: Glucometer 129 06/17/22 15:55: Glucometer 119 06/17/22 20:19: Glucometer 139 06/18/22 06:07: Glucometer 135 06/18/22 10:51: Glucometer 124 06/18/22 15:17: Glucometer 131 06/18/22 20:12: Glucometer 115 06/19/22 06:06: Glucometer 123 06/19/22 10:51: Glucometer 112 06/19/22 15:07: Glucometer 116 06/19/22 20:46: Glucometer 98 06/20/22 05:51: Glucometer 122 06/20/22 06:50: White Blood Count 20.5, Red Blood Count 3.31, Hemoglobin 9.4, Hematocrit 29, Mean Corpuscular Volume 87, Mean Corpuscular Hemoglobin 28, Mean Corpuscular Hemoglobin Concent 33, Red Cell Distribution Width 19.7, Platelet Count 343, Mean Platelet Volume 9.4, Immature Granulocyte % (Auto) 1, Neutrophils (%) (Auto) 62, Lymphocytes (%) (Auto) 20, Monocytes (%) (Auto) 16, Eosinophils (%) (Auto) 0, Basophils (%) (Auto) 0, Neutrophils # (Auto) 12.8, Lymphocytes # (Auto) 4.2, Monocytes # (Auto) 3.3, Eosinophils # (Auto) 0.0, Basophils # (Auto) 0.1, Immature Granulocyte # (Auto) 0.2, Sodium Level 134, Potassium Level 3.8, Chloride Level 102, Carbon Dioxide Level 25, Anion Gap 7, Blood Urea Nitrogen 20, Creatinine 0.80, Estimat Glomerular Filtration Rate 75, BUN/Creatinine Ratio 25, Glucose Level 124, Calcium Level 10.0, Corrected Calcium 10.7, Total Bilirubin 1.1, Aspartate Amino Transf (AST/SGOT) 21, Alanine Aminotransferase (ALT/SGPT) 35, Alkaline Phosphatase 60, Total Protein 6.4, Albumin 3.1 06/20/22 11:01: Glucometer 117 06/20/22 15:38: Glucometer 133 06/20/22 20:18: Glucometer 148 06/21/22 06:16: Glucometer 122 06/21/22 10:42: Glucometer 93 06/21/22 16:08: Glucometer 106 06/21/22 20:04: Glucometer 97 06/22/22 06:32: Glucometer 112 06/22/22 11:21: Glucometer 77 06/22/22 15:39: Glucometer 122 06/22/22 20:19: Glucometer 112 06/23/22 05:15: White Blood Count 22.5, Red Blood Count 3.70, Hemoglobin 10.4, Hematocrit 33, Mean Corpuscular Volume 88, Mean Corpuscular Hemoglobin 28, Mean Corpuscular Hemoglobin Concent 32, Red Cell Distribution Width 19.5, Platelet Count 411, Mean Platelet Volume 9.3, Immature Granulocyte % (Auto) 1, Neutrophils (%) (Auto) 63, Lymphocytes (%) (Auto) 21, Monocytes (%) (Auto) 16, Eosinophils (%) (Auto) 0, Basophils (%) (Auto) 0, Neutrophils # (Auto) 14.1, Lymphocytes # (Auto) 4.6, Monocytes # (Auto) 3.5, Eosinophils # (Auto) 0.0, Basophils # (Auto) 0.1, Immature Granulocyte # (Auto) 0.2, Sodium Level 135, Potassium Level 4.1, Chloride Level 101, Carbon Dioxide Level 23, Anion Gap 11, Blood Urea Nitrogen 23, Creatinine 0.95, Estimat Glomerular Filtration Rate 61, BUN/Creatinine Ratio 24, Glucose Level 122, Calcium Level 10.3, Corrected Calcium 10.8, Total Bilirubin 0.9, Aspartate Amino Transf (AST/SGOT) 19, Alanine Aminotransferase (ALT/SGPT) 21, Alkaline Phosphatase 76, Total Protein 6.9, Albumin 3.4 06/23/22 10:47: Glucometer 105 06/23/22 15:08: Glucometer 101 06/23/22 20:15: Glucometer 118 06/24/22 05:57: Glucometer 104 Discharge Home Medications: Active Scripts Active Reported Vitamin C (Ascorbate Calcium) 500 Mg Tablet 500 Mg PO DAILY Aspirin 325 Mg Tablet 325 Mg PO 1800 Vitamin B-12 (Cyanocobalamin (Vitamin B-12)) 500 Mcg Tablet 500 Mcg PO DAILY Benadryl (Diphenhydramine HCl) 25 Mg Capsule 25 Mg PO DAILY Diltiazem 24Hr ER (Diltiazem HCl) 240 Mg Cap.er.24h 240 Mg PO DAILY Lisinopril-Hctz 20-12.5 mg Tab (Lisinopril/Hydrochlorothiazide) 20 Mg-12.5 Mg Tablet 1 Ea PO DAILY Opdivo (Nivolumab) 120 Mg/12 Ml Vial 480 Mg IV MONTHLY Cinnamon (Cinnamon Bark) 500 Mg Capsule 1,000 Mg PO BID Metformin HCl 500 Mg Tablet 1,000 Mg PO BID WITH MEALS TAKE 2 (500MG) TABS Instructions to patient/family Please see electronic discharge instructions given to patient. 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
[2022-06-24] MEDS: inSUlin ASPART (NovoLOG) 1 UNIT/0.01 ML (CHARGE PER UNIT) SC SCH (06:04)
[2022-06-24] MEDS: ASCORBIC ACID (VIT C) 500 MG TABLET PO SCH (06:15)
[2022-06-24] MEDS: CATHETER FLUSH 10 ML SYR IVP SCH (06:15)
[2022-06-24] MEDS: CYANOCOBALAMIN 1,000 MCG (VITAMIN B-12) TABLET PO SCH (06:15)
[2022-06-24 07:35] VITALS: BP 161/80
[2022-06-24] MEDS: HydroCHLOROthiazide CAP/TABLET 12.5 MG TAB PO SCH (08:31)
[2022-06-24] MEDS: metFORMIN 500 MG (GLUCOPHAGE) TAB PO SCH (08:31)
[2022-06-24] MEDS: lisINopril 20 MG (PRINIVIL) TABLET PO SCH (08:32)
[2022-06-24] MEDS: DOCUSATE SODIUM 100 MG (COLACE) CAP PO SCH (08:33)
[2022-06-24] MEDS: SENNA W/DOCUSATE (SENOKOT S) TABLET PO SCH (08:33)
[2022-06-24] MEDS: polyethylene glycoL POWDER 17 GM (MIRALAX) PACK PO SCH (08:33)
--- NOTE | 2022-06-24 11:10 | Therapy Team Discharge Summary ---
Therapy Discharge Summary Discharge Recommendations Date of Discharge Physical Therapy Patient came to rehab post left IM jessica. Upon evaluation patient performs rolling with SBA, supine <-> sit min assist, sit <-> stand and transfers CGA, car transfer min assist, can ambulate 150' with a rolling walker with CGA (inc luding 50' with at least 2 turns of 90 degrees and 10' over an uneven surface), go up and down 1 step using 2 handrails with CGA, and could burr picker an object from the floor using a nurse practitioner per diem with CGA. Patient has been performing bed mobility and transfer training, balance and endurance training, functional strengthening, stair training, gait training, and education. Patient has made good progress and has met all of her terminal worker goals. Now, patient performs rolling and supine <-> sit with independence, sit <-> stand and transfers with independence, car transfer independent, ambulates 150' with a rolling walker with independence (including 50' with at least 2 turns of 90 degrees and 10' over an uneven surface), can go up and down 12 steps using 2 handrails with independence, and can burr picker an object from the floor using a nurse practitioner per diem with independence. Patient is being discharged from this facility today and will be discharged from PT at this time. Roll Left to Right (QC): 6 Sit to Lying (QC): 6 Lying to Sitting/Side of Bed(Q: 6 Sit to Stand (QC): 6 Chair/Fpm-bp-Woxix Xfer(QC): 6 Toilet Transfer (QC): 6 Car Transfer (QC): 6 Does the Patient Walk: Yes Mode of Locomotion: Walk Anticipated Mode of Locomotion: Walk Walk 10 feet (QC): 6 Walk 50 ft with 2 Turns(QC): 6 Walk 150 ft (QC): 6 Walking 10ft on uneven surface: 6 Distance: 150'x2 Gait Assistive Device: FWW Does the Pt Use a Wheelchair: No Wheel 50 ft with 2 turns (QC): 9 Wheel 150 ft (QC): 9 Type of Wheelchair: N/A #of Steps: 12 1 Step (curb) (QC): 6 4 Steps (QC): 6 12 Steps (QC): 6 Balance Sitting Static: Normal Balance Sitting Dynamic: Normal Balance-Standing Static: Fair Picking up an Object (QC): 6 Occupational Therapy Decreased UE Strength Eating (QC): 6 Oral Hygiene (QC): 6 Shower/Bathe Self (QC): 6 Upper Body Dressing (QC): 6 Lower Body Dressing (QC): 6 On/Off Footwear (QC): 6 Toileting Hygiene (QC): 6 PT Ultrasound Applications Specialist Goals Ultrasound Applications Specialist Goals PT [facility] Goals Time Frame: Jul 01, 2022 Roll Left to Right (QC): 6 (MET) Sit to Lying (QC): 6 (MET) Lying-Sitting on Side/Bed(QC): 6 (MET) Sit to Stand (QC): 6 (MET) Chair/Axy-ut-Tfbkz Xfer(QC): 6 (MET) Toilet/Commode Transfer (QC): 6 (MET) Car Transfer (QC): 6 (MET) Does the Patient Walk: Yes Walk 10 feet (QC): 6 (MET) Walk 10ft-Uneven Surface(QC): 6 (MET) Walk 50ft with 2 Turns (QC): 6 (MET) Walk 150 ft (QC): 6 (MET) Does the Pt use WC or Scooter?: No Wheel 50 feet with 2 turns (QC: 9 Wheel 150 feet: 9 1 Step (curb) (QC): 4 (SBA) 4 Steps (QC): 4 (SBA) 12 Steps (QC): 88 Picking up an Object (QC): 6 (using nurse practitioner per diem) OT [facility] Goals [facility] Goals Time Frame: Jul 11, 2022 Acute change in mental status: 0 Inattention: 0 Disorganized thinkin Altered level of consciousness: 0 Eating (QC): 6 (met) Oral Hygiene (QC): 6 (met) Toileting Hygiene (QC): 6 (met) Shower/Bathe Self (QC): 6 (met) Upper Body Dressing (QC): 6 (met) Lower Body Dressing (QC): 6 (met) On/Off Footwear (QC): 6 (met) Additional Goals: 1-Demonstrate ADL Tasks, 2-Verbalize Understanding, 3- ImproveStrength/Kaitlyn 1=Demonstrate adherence to instructed precautions during ADL tasks. 2=Patient will verbalize/demonstrate understanding of assistive devices/brady fications for ADL. 3=Patient will improve strength/tolerance for activity to enable patient to perform ADL's. ADÁN FARIA PT Jun 24, 2022 11:10
--- NOTE | 2022-06-24 13:29 | Therapy Team Discharge Summary ---
Therapy Discharge Summary Discharge Recommendations Date of Discharge Physical Therapy Roll Left to Right (QC): 6 Sit to Lying (QC): 6 Lying to Sitting/Side of Bed(Q: 6 Sit to Stand (QC): 6 Chair/Csl-mq-Vrktj Xfer(QC): 6 Toilet Transfer (QC): 6 Car Transfer (QC): 6 Does the Patient Walk: Yes Mode of Locomotion: Walk Anticipated Mode of Locomotion: Walk Walk 10 feet (QC): 6 Walk 50 ft with 2 Turns(QC): 6 Walk 150 ft (QC): 6 Walking 10ft on uneven surface: 6 Distance: 150'x2 Gait Assistive Device: FWW Does the Pt Use a Wheelchair: No Wheel 50 ft with 2 turns (QC): 9 Wheel 150 ft (QC): 9 Type of Wheelchair: N/A #of Steps: 12 1 Step (curb) (QC): 6 4 Steps (QC): 6 12 Steps (QC): 6 Balance Sitting Static: Normal Balance Sitting Dynamic: Normal Balance-Standing Static: Fair Picking up an Object (QC): 6 Occupational Therapy Pt admitted to ARU s/p L IM jessica. At OF, pt was independent with ADLs and functional mobility without AD. Upon initial evaluation, pr was independent with eating, required CGA with oral care and toileting, min A showering and LE dressing, set up UE dressing and mod A footwear. OT tx focused on increasing BUE Strength and activity tolerance and increasing safety and independence with ADLS and functional mobility. Pt made good progress throughout ARU stay, attaining all LTGs at IND level with ADLs. Pt discharging home, d/c from OT. Decreased UE Strength Eating (QC): 6 Oral Hygiene (QC): 6 Shower/Bathe Self (QC): 6 Upper Body Dressing (QC): 6 Lower Body Dressing (QC): 6 On/Off Footwear (QC): 6 Toileting Hygiene (QC): 6 PT Nursing Home Goals Commercial Loan Processor Goals PT Nursing Home Goals Time Frame: Jul 01, 2022 Roll Left to Right (QC): 6 (MET) Sit to Lying (QC): 6 (MET) Lying-Sitting on Side/Bed(QC): 6 (MET) Sit to Stand (QC): 6 (MET) Chair/Jdq-ro-Wdkky Xfer(QC): 6 (MET) Toilet/Commode Transfer (QC): 6 (MET) Car Transfer (QC): 6 (MET) Does the Patient Walk: Yes Walk 10 feet (QC): 6 (MET) Walk 10ft-Uneven Surface(QC): 6 (MET) Walk 50ft with 2 Turns (QC): 6 (MET) Walk 150 ft (QC): 6 (MET) Does the Pt use WC or Scooter?: No Wheel 50 feet with 2 turns (QC: 9 Wheel 150 feet: 9 1 Step (curb) (QC): 4 (SBA) 4 Steps (QC): 4 (SBA) 12 Steps (QC): 88 Picking up an Object (QC): 6 (using chilling hood operator) OT Commercial Loan Processor Goals Commercial Loan Processor Goals Time Frame: Jul 11, 2022 Acute change in mental status: 0 Inattention: 0 Disorganized thinkin Altered level of consciousness: 0 Eating (QC): 6 (met) Oral Hygiene (QC): 6 (met) Toileting Hygiene (QC): 6 (met) Shower/Bathe Self (QC): 6 (met) Upper Body Dressing (QC): 6 (met) Lower Body Dressing (QC): 6 (met) On/Off Footwear (QC): 6 (met) Additional Goals: 1-Demonstrate ADL Tasks, 2-Verbalize Understanding, 3- ImproveStrength/Kaitlyn 1=Demonstrate adherence to instructed precautions during ADL tasks. 2=Patient will verbalize/demonstrate understanding of assistive devices/modifications for ADL. 3=Patient will improve strength/tolerance for activity to enable patient to perform ADL's. YESSENIA MELENDEZ OT Jun 24, 2022 13:29
[2022-06-24 13:41] VITALS: BP 161/80
== END 2022-06-24 11:45 | disposition home health service (06) | DRG 561 ==
PROVIDERS: ADMIT Internal Medicine; ATTEND Internal Medicine
DX: S72.142D Displaced intertrochanteric fracture of left femur, subsequent encounter for closed fracture with routine healing (principal); I10 Essential (primary) hypertension; C4A.9 Merkel cell carcinoma, unspecified; E11.42 Type 2 diabetes mellitus with diabetic polyneuropathy; D64.9 Anemia, unspecified; Z79.84 Long term (current) use of oral hypoglycemic drugs; Z79.899 Other long term (current) drug therapy; Z83.3 Family history of diabetes mellitus; Z82.49 Family history of ischemic heart disease and other diseases of the circulatory system; W19.XXXD Unspecified fall, subsequent encounter; Y92.009 Unspecified place in unspecified non-institutional (private) residence as the place of occurrence of the external cause
CPT/HCPCS: 36415; 80053; 82947; 85007; 85025; 85027

== ENCOUNTER 2022-07-03 12:54 | Outpatient (RCR) | payer MEDICARE ==
[2022-07-03] MEDS ORDERED: NS (IVPB) 250 ML IV SCH (13:19)
[2022-07-03] MEDS ORDERED: NIVOLUMAB 480 MG in NS (IVPB) 100 ML IV SCH (13:19)
[2022-07-03] MEDS ORDERED: HEParin (CENTRAL IV FLUSH) 500 UNIT/5 ML SYR IV PRN (13:19)
[2022-07-03 13:28] LABS: BASOPHILS % (AUTO) 0 % (0-10); EOSINOPHILS % (AUTO) 0 % (0-10); HEMATOCRIT 41 % (35-52); HEMOGLOBIN 12.8 g/dL (11.5-16.0); LYMPHOCYTES # (AUTO) 3.9 10^3/uL (1.0-4.0); LYMPHOCYTES % (AUTO) 20 % (12-44); MEAN CORPUSCULAR HEMOGLOBIN 28 pg (25-34); MEAN CORPUSCULAR HGB CONC 32 g/dL (32-36); MEAN CORPUSCULAR VOLUME 88 fL (80-99); MONOCYTES # (AUTO) 4.1 10^3/uL (0.0-1.0); MONOCYTES % (AUTO) 21 % (0-12); NEUTROPHILS # (AUTO) 11.7 10^3/uL (1.8-7.8); NEUTROPHILS % (AUTO) 59 % (42-75); PLATELET COUNT 401 10^3/uL (130-400); WHITE BLOOD COUNT 19.8 10^3/uL (4.3-11.0)
[2022-07-03 13:46] LABS: BILIRUBIN,TOTAL 0.4 MG/DL (0.1-1.0); CREATININE SERUM 0.93 MG/DL (0.60-1.30); POTASSIUM 4.1 MMOL/L (3.6-5.0)
== END 2022-07-15 | disposition home or self-care (01) ==
LOC: ONC 12:54
PROVIDERS: ATTEND Internal Medicine Hematology & Oncology
DX: Z51.11 Encounter for antineoplastic chemotherapy (principal); Z45.2 Encounter for adjustment and management of vascular access device; C4A.59 Merkel cell carcinoma of other part of trunk; D72.829 Elevated white blood cell count, unspecified; M25.50 Pain in unspecified joint; M54.50 Low back pain, unspecified; J32.9 Chronic sinusitis, unspecified; R19.7 Diarrhea, unspecified
CPT/HCPCS: 36591; 80053; 85025; 96360; 96413

== ENCOUNTER 2022-07-31 12:34 | Outpatient (RCR) | payer MEDICARE ==
[~2022-07-31 12:34] MED LIST changes: +HEParin (CENTRAL IV FLUSH) 500 UNIT/5 ML SYR IV PRN; +NIVOLUMAB 480 MG in NS (IVPB) 100 ML IV SCH; +NS (IVPB) 250 ML IV SCH
[2022-07-31 13:06] LABS: BASOPHILS # (AUTO) 0.1 10^3/uL (0.0-0.1); BASOPHILS % (AUTO) 0 % (0-10); EOSINOPHILS % (AUTO) 0 % (0-10); HEMATOCRIT 42 % (35-52); HEMOGLOBIN 13.6 g/dL (11.5-16.0); LYMPHOCYTES # (AUTO) 4.9 10^3/uL (1.0-4.0); LYMPHOCYTES % (AUTO) 23 % (12-44); MEAN CORPUSCULAR HEMOGLOBIN 28 pg (25-34); MEAN CORPUSCULAR HGB CONC 33 g/dL (32-36); MEAN CORPUSCULAR VOLUME 86 fL (80-99); MEAN PLATELET VOLUME 9.1 fL (9.0-12.2); MONOCYTES # (AUTO) 4.2 10^3/uL (0.0-1.0); MONOCYTES % (AUTO) 20 % (0-12); NEUTROPHILS # (AUTO) 12.1 10^3/uL (1.8-7.8); NEUTROPHILS % (AUTO) 57 % (42-75); PLATELET COUNT 380 10^3/uL (130-400); WHITE BLOOD COUNT 21.4 10^3/uL (4.3-11.0)
[2022-07-31 13:26] LABS: ALBUMIN 4.3 GM/DL (3.2-4.5); BILIRUBIN,TOTAL 0.3 MG/DL (0.1-1.0); CALCIUM 11.6 MG/DL (8.5-10.1); CREATININE SERUM 0.86 MG/DL (0.60-1.30); POTASSIUM 4.4 MMOL/L (3.6-5.0); TOTAL PROTEIN 8.2 GM/DL (6.4-8.2)
== END 2022-08-15 | disposition home or self-care (01) ==
LOC: ONC 12:34
PROVIDERS: ATTEND Internal Medicine Hematology & Oncology
DX: Z51.11 Encounter for antineoplastic chemotherapy (principal); Z45.2 Encounter for adjustment and management of vascular access device; C4A.59 Merkel cell carcinoma of other part of trunk; D72.829 Elevated white blood cell count, unspecified; J32.9 Chronic sinusitis, unspecified; R19.7 Diarrhea, unspecified
CPT/HCPCS: 36591; 80053; 84443; 85025; 96360; 96413

== ENCOUNTER → 2022-08-11 | Outpatient (CLI) | payer MEDICARE ==
[~2022-08-11] MED LIST changes: -HEParin (CENTRAL IV FLUSH) 500 UNIT/5 ML SYR IV PRN; +HOLD METFORMIN - RECEIVED CONTRAST 20 ML VIAL IV SCH; +IOHEXOL 350 MG/ML 100 ML (OMNIPAQUE 350) VIAL IV ONE; -NIVOLUMAB 480 MG in NS (IVPB) 100 ML IV SCH; -NS (IVPB) 250 ML IV SCH; +NS 100 ML (IVPB) BAG IV ONE
--- NOTE | 2022-08-11 11:34 | Diagnostic Imaging Report ---
PROCEDURE: CT chest, abdomen, and pelvis with contrast. TECHNIQUE: Multiple contiguous axial images were obtained through the chest, abdomen, and pelvis after the administration of intravenous contrast. Auto Exposure Controls were utilized during the CT exam to meet ALARA standards for radiation dose reduction. Date: August 11, 2022. Indication: 81-year-old female, history of Newman cell carcinoma, on current treatment. Evaluation for treatment response. Comparisons: CT chest, abdomen and pelvis April 07, 2022. PET/CT April 09, 2021. Findings: There is a 4 mm left lower lobe noncalcified pulmonary nodule on axial image 66. This is unchanged since the comparison CT on April 07, 2022. There is a 4 mm pleural-based left upper lobe pulmonary nodule which is unchanged on current axial image 40. There is no new or enlarging pulmonary nodule. There is no otherwise identified focal airspace consolidation. There is no pneumothorax. There is no pleural effusion. The central airways are patent. The heart is not enlarged. There is no pericardial effusion. There is a precarinal left abdomen on axial image 42 which measures 11 mm in short axis. This is unchanged. There are no additional mediastinal, hilar, or axillary lymph nodes which meet CT size criteria for adenopathy. There is incidental note of direct origin of left vertebral artery off the aortic arch. There is a 5 mm low-attenuation lesion in the liver on axial image 88 which is unchanged. The liver is unremarkable in size and contour. There is no otherwise identified liver lesion. The main, right, and left portal veins are patent. The gallbladder is unremarkable. There is no biliary ductal dilation. The main pancreatic duct is not abnormally dilated. Unremarkable appearance of the pancreatic parenchyma. The spleen is normal in size. The previously noted left adrenal mass is substantially decreased in size. There is currently mild thickening of the adrenal gland with areas of abnormal low-attenuation measuring roughly 1.6 x 0.9 cm in size on the current exam. Prior left adrenal mass measured approximately 5.3 x 3.7 cm in axial extent. There is a low-attenuation 8 mm left renal lesion on axial image 136 too small to characterize and unchanged from prior exam. The urinary collecting systems are not distended. There is no identified renal or ureteral stone. Urinary bladder is unremarkable. There is no evidence of acute appendicitis. There is a small fat-containing paraumbilical hernia. There is no free intraperitoneal air. There is no drainable fluid collection. There is no free fluid in the abdomen or pelvis. There are atherosclerotic calcifications. There are subcentimeter short axis retroperitoneal and iliac chain lymph nodes. These are unchanged. There is hardware in the left proximal femur. There are multilevel degenerative changes of the spine. There is a mildly displaced fracture of the left lateral seventh rib. There is mild periosteal reaction present. This is new since the prior exam. Impression: 1. Significant interval decrease in size of the previously noted left adrenal mass consistent with treatment related response at this site. 2. Unchanged subcentimeter left-sided pulmonary nodules. No new or enlarging pulmonary nodule. 3. Late acute to early subacute left seventh rib fracture laterally. Dictated on workstation # [id number]
== END ==
LOC: RAD 09:48
PROVIDERS: ATTEND Internal Medicine Hematology & Oncology
DX: C4A.9 Merkel cell carcinoma, unspecified (principal); R91.8 Other nonspecific abnormal finding of lung field; S22.32XA Fracture of one rib, left side, initial encounter for closed fracture
CPT/HCPCS: 71260; 74177

== ENCOUNTER 2022-09-04 13:30 | Outpatient (RCR) | payer MEDICARE ==
[2022-08-28 13:25] LABS: BASOPHILS % (AUTO) 0 % (0-10); EOSINOPHILS % (AUTO) 0 % (0-10); HEMATOCRIT 42 % (35-52); HEMOGLOBIN 13.5 g/dL (11.5-16.0); LYMPHOCYTES # (AUTO) 4.4 10^3/uL (1.0-4.0); LYMPHOCYTES % (AUTO) 22 % (12-44); MEAN CORPUSCULAR HEMOGLOBIN 27 pg (25-34); MEAN CORPUSCULAR HGB CONC 32 g/dL (32-36); MEAN CORPUSCULAR VOLUME 85 fL (80-99); MEAN PLATELET VOLUME 9.3 fL (9.0-12.2); MONOCYTES # (AUTO) 3.8 10^3/uL (0.0-1.0); MONOCYTES % (AUTO) 19 % (0-12); NEUTROPHILS # (AUTO) 11.8 10^3/uL (1.8-7.8); NEUTROPHILS % (AUTO) 59 % (42-75); PLATELET COUNT 363 10^3/uL (130-400); WHITE BLOOD COUNT 20.1 10^3/uL (4.3-11.0)
[2022-08-28 13:38] LABS: ALBUMIN 4.4 GM/DL (3.2-4.5); BILIRUBIN,TOTAL 0.2 MG/DL (0.1-1.0); CALCIUM 11.6 MG/DL (8.5-10.1); CREATININE SERUM 0.97 MG/DL (0.60-1.30); POTASSIUM 3.8 MMOL/L (3.6-5.0); TOTAL PROTEIN 8.1 GM/DL (6.4-8.2)
[~2022-09-04 13:30] MED LIST changes: +HEParin (CENTRAL IV FLUSH) 500 UNIT/5 ML SYR IV PRN; -HOLD METFORMIN - RECEIVED CONTRAST 20 ML VIAL IV SCH; -IOHEXOL 350 MG/ML 100 ML (OMNIPAQUE 350) VIAL IV ONE; +NIVOLUMAB 480 MG in NS (IVPB) 100 ML IV SCH; +NS (IVPB) 250 ML IV SCH; -NS 100 ML (IVPB) BAG IV ONE
[2022-09-04 14:01] LABS: BASOPHILS # (AUTO) 0.1 10^3/uL (0.0-0.1); BASOPHILS % (AUTO) 0 % (0-10); EOSINOPHILS % (AUTO) 0 % (0-10); HEMATOCRIT 41 % (35-52); HEMOGLOBIN 13.5 g/dL (11.5-16.0); LYMPHOCYTES # (AUTO) 5.4 10^3/uL (1.0-4.0); LYMPHOCYTES % (AUTO) 14 % (12-44); MEAN CORPUSCULAR HEMOGLOBIN 28 pg (25-34); MEAN CORPUSCULAR HGB CONC 33 g/dL (32-36); MEAN CORPUSCULAR VOLUME 84 fL (80-99); MEAN PLATELET VOLUME 9.3 fL (9.0-12.2); MONOCYTES # (AUTO) 4.9 10^3/uL (0.0-1.0); MONOCYTES % (AUTO) 13 % (0-12); NEUTROPHILS # (AUTO) 27.1 10^3/uL (1.8-7.8); NEUTROPHILS % (AUTO) 70 % (42-75); PLATELET COUNT 416 10^3/uL (130-400)
[2022-09-04 14:03] LABS: WHITE BLOOD COUNT 38.5 10^3/uL (4.3-11.0)
[2022-09-04 14:21] LABS: ALBUMIN 4.4 GM/DL (3.2-4.5); BILIRUBIN,TOTAL 0.3 MG/DL (0.1-1.0); CALCIUM 11.3 MG/DL (8.5-10.1); CREATININE SERUM 1.08 MG/DL (0.60-1.30); POTASSIUM 4.3 MMOL/L (3.6-5.0); TOTAL PROTEIN 8.1 GM/DL (6.4-8.2)
== END 2022-09-14 | disposition home or self-care (01) ==
LOC: ONC 13:30
PROVIDERS: ATTEND Internal Medicine Hematology & Oncology
DX: Z45.2 Encounter for adjustment and management of vascular access device (principal); C4A.59 Merkel cell carcinoma of other part of trunk; D72.829 Elevated white blood cell count, unspecified; R19.7 Diarrhea, unspecified
CPT/HCPCS: 36415; 36591; 80053; 84443; 85025

== ENCOUNTER 2022-09-17 05:33 | Outpatient (CLI) | payer MEDICARE ==
[~2022-09-17] VITALS: Ht 163 cm; Wt 59.1 kg
[~2022-09-17 05:33] MED LIST changes: -HEParin (CENTRAL IV FLUSH) 500 UNIT/5 ML SYR IV PRN; -NIVOLUMAB 480 MG in NS (IVPB) 100 ML IV SCH; -NS (IVPB) 250 ML IV SCH
== END 2022-09-18 12:42 | disposition home or self-care (01) ==
LOC: PREOP 05:33
PROVIDERS: ATTEND Orthopaedic Surgery
DX: Z01.818 Encounter for other preprocedural examination (principal)

== ENCOUNTER 2022-09-24 08:06 | Day surgery (SDC) | payer MEDICARE ==
--- NOTE | 2022-09-18 09:49 | HISTORY AND PHYSICAL ---
This will be for inpatient admission on 09/24/2022 for left hip hardware removal and conversion to bipolar replacement. HISTORY: The patient is a 81-year-old female who sustained an intertrochanteric femur fracture in May. She underwent an intramedullary nail; however, the fracture has collapsed with hardware cut out. Because of this, it was recommended the patient undergo operative fixation. 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 No known drug allergies. PAST MEDICAL HISTORY: Tivoli's carcinoma, hypertension, diabetes. PAST SURGICAL HISTORY: Appendectomy, hysterectomy, oophorectomy and left hip. PHYSICAL EXAMINATION: GENERAL: The patient is well-developed, well-nourished, in no acute distress. HEENT: Normocephalic, atraumatic. Pupils equal, round, reactive to light. Oropharynx is clear. NECK: Supple. No lymphadenopathy. LUNGS: Clear to auscultation bilaterally. HEART: Regular rate and rhythm. ABDOMEN: Soft, nontender, nondistended. EXTREMITIES: The left lower extremity shortened. She has pain with internal and external rotation of the hip, which is limited. Her incision is well healed. There is no erythema or warmth. IMPRESSION: Hardware failure, status post intertrochanteric femur fracture. PLAN: Hardware removal, conversion to a bipolar replacement. The risks, benefits, options, ramifications and recovery were discussed at length with the patient. She understands and wishes to proceed. Job ID: [id number] DocumentID: [id number] Dictated Date: 09/11/2022 13:47:20 Air Breaker Operator Date: 09/11/2022 14:23:00 Dictated By: TREVOR MENENDEZ MD
[2022-09-24] VITALS (11 sets, daily range): BP systolic 83–143; BP diastolic 41–74
[~2022-09-24] VITALS: Ht 163 cm; Wt 65.5 kg
[~2022-09-24 08:06] MED LIST changes: +diphenhydrAMINE 50 MG/ML INJ (BENADRYL) IVP PRN; +morphine INJ 10 MG/ML 1ML (SYR OR VIAL) IVP PRN
--- NOTE | 2022-09-24 08:08 | Progress Note-Pre Operative ---
Pre-Operative Progress Note Date of Available H&P: Sep 11, 2022 Date H&P Reviewed: September 24, 2022 Time H&P Reviewed: 08:08 Changes from last HP none Pre-Operative Diagnosis: left hip hardware failure status post intertrochanteric fracture TREVOR MENENDEZ MD September 24, 2022 08:08
--- NOTE | 2022-09-24 08:09 | Progress Note-Post Operative ---
Post-Operative Progess Note Surgeon (s)/Ocean Export Coordinator (s) Surgeon TREVOR MENENDEZ MD Ocean Export Coordinator: Noam Faust Pre-Operative Diagnosis left hip hardware failure status post intertrochanteric fracture Post-Operative Diagnosis left hip hardware failure status post intertrochanteric fracture Procedure & Operative Findings Date of Procedure 09/24/22 Procedure Performed/Findings left hip HW removal and bipolar replacement Anesthesia Type GETA Estimated Blood Loss Estimated blood loss (mL): 200ml Specimens/Packing Specimens Removed femoral head Packing: none TREVOR MENENDEZ MD September 24, 2022 08:09
--- NOTE | 2022-09-24 08:11 | D/C HH Face to Face Order ---
D/C Face to Face Orders Reconcile Patient Problems Problems Reviewed?: Yes Instructions for Patient Via [employer], Patient Instructions/FollowUp: two weeks Physician to follow Patient: two weeks Discharge Diet for Home: Regular Diet Patient Data-Allergies,Ht & Wt Patient Allergies: Coded Allergies: No Known Drug Allergies (Unverified , 09/18/22) Home Health Need/Face to Face Date of Face to Face: September 24, 2022 Clinical Findings: Generalized weakness and fatigue, Muscle weakness, Pain with ambulation, Unsteady gait I have seen Pt fokj-al-logn: Yes Discharged To: Home Diagnosis/Conditions: lef thip bipolar replacement Patient is Homebound due to: Muscle weakness, Pain w/ambulation Homebound Status Due to the above stated illness, injury or surgical procedure (medical condition or diagnosis) and associated clinical findings, the patient is homebound because of his/her inability to leave home except with aid of a supportive device and/or person AND leaving the home requires a considerable and taxing effort or is medically contraindicated. Pt req the following assistanc: Walker Home Health Nursing Orders Home Health Services Order: Physical Therapy-Evaluate & Treat DC left hip saurabh and apply steri strips 10/08/22 Therapy Orders Therapy Orders: Physical Therapy, PT to assess for OT Therapy Specific Orders: Eval assistive deivces, Teach enviro modifications/safety, Gait training, Increase strength/endurance, Provider maintenance therapy, Restore ROM Certify Stmt I certify that this patient is under my care and that I, a nurse practitioner or a physician; a temporary administrative assistant working with me, had a face to face encounter that - meets the physician face to face encounter requirements with this patient as dated. TREVOR MENENDEZ MD September 24, 2022 08:11
[2022-09-24] MEDS ORDERED: ceFAZolin INJECTION 2,000 MG in NS (IVPB) 50 ML IV ONE (08:15)
[2022-09-24] MEDS ORDERED: NS (IVPB) 50 ML ONE (08:16)
[2022-09-24] MEDS ORDERED: ceFAZolin INJECTION 2,000 MG ONE (08:16)
[2022-09-24] MEDS ORDERED: SEVOFLURANE (ULTANE) 15 ML INHAL SOLN ONE ×2 (08:33→10:39)
[2022-09-24] MEDS ORDERED: MIDAZOLAM 2 MG/2 ML (VERSED) VIAL ONE (08:33)
[2022-09-24] MEDS ORDERED: LIDOCAINE PF 2% 5 ML (XYLOCAINE) VIAL ONE (08:33)
[2022-09-24] MEDS ORDERED: proPOfol 200 MG/20 ML (DIPRIVAN) VIAL IV ONE (08:33)
[2022-09-24] MEDS ORDERED: ONDANSETRON 4 MG/2 ML (SDV) Z0FRAN ONE (08:33)
[2022-09-24] MEDS ORDERED: fentaNYL INJ 100 MCG/2 ML AMP ONE (08:33)
[2022-09-24] MEDS: LACTATED RINGERS 1,000 ML IV PRN ×2 (08:40→10:14)
[2022-09-24] MEDS ORDERED: BUPIVACAINE 0.5% 30 ML (SENSORCAINE) VIAL ONE (08:42)
[2022-09-24] MEDS ORDERED: OXYC1TAB87 PO (08:54)
[2022-09-24] MEDS ORDERED: SENNOSIDES 8.6 MG (SENOKOT) TAB PO SCH (09:00)
[2022-09-24] MEDS ORDERED: PHENYLEPHRINE 100 MCG/ML 10 ML (ANESTHESIA) SYR ONE (09:35)
[2022-09-24] MEDS ORDERED: ROPIVACAINE 5MG/ML 30ML VIAL ONE (09:36)
[2022-09-24] MEDS ORDERED: ROCURONIUM 50 MG/5 ML (ZEMURON) VIAL IV ONE (10:39)
[2022-09-24] MEDS ORDERED: fentaNYL INJ 100 MCG/2 ML AMP IVP ONE (11:00)
[2022-09-24] MEDS ORDERED: ONDANSETRON 4 MG/2 ML (SDV) Z0FRAN IVP PRN (11:00)
[2022-09-24] MEDS ORDERED: morphine INJ 10 MG/ML 1ML (SYR OR VIAL) IVP ONE (11:00)
[2022-09-24] MEDS ORDERED: morphine INJ 4 MG/ML 1 ML (VIAL/SYRINGE) IV PRN (12:45)
[2022-09-24] MEDS: ONDANSETRON 4 MG/2 ML (SDV) Z0FRAN IVP PRN (13:31)
--- NOTE | 2022-09-24 14:25 | Consultation - Hospitalist ---
HPI History of Present Illness: HPI/Chief Complaint Ramya Valladares is a 81 year old female with PMH HTN, T2DM, Amalia carcinoma, who presented for a scheduled left hip bipolar replacement due to failure of previous hardware. She had a hip fracture in May and had an intramedullary nail placement but the hardware failed. She has also been undergoing immunotherapy for Yee carcinoma. This has been held for the past month due to diarrhea. She is seen postoperatively. She is having a bit of pain in her hip. She has also had some nausea. She has not tried to eat or drink anything yet. She denies fevers. She denies chest pain. She denies shortness of breath. Source: patient Exam Limitations: no limitations Date Seen 09/24/22 Attending Physician Ever Peterson MD PCP Admitting Physician: Attending Physician: Clovis Mckeon MD Referring Physician Date of Admission Home Medications & Allergies Home Medications Reviewed patient Home Medication Reconciliation performed by pharmacy medication reconciliations certified histologic technician and/or nursing. Patients Allergies have been reviewed. Allergies Allergies Coded Allergies No Known Drug Allergies (Unverified09/24/22) Past Wprrqxx-Dzdkze-Nxjapy Hx Patient Social History Smoking Status: Never a Smoker Immunizations Up To Date Date of Influenza Vaccine: Feb 21, 2019 First/Initial COVID19 Vaccinat: 07/22/20 Second COVID19 Vaccination Jabier: 08/24/20 Tetanus Booster (TDap): Unknown Hepatitis A: No Hepatitis B: No Date of Pneumonia Vaccine: Feb 19, 2015 Seasonal Allergies Seasonal Allergies: Yes Current Status Primary Language: Ukrainian Past Medical History Surgeries: Appendectomy, Hysterectomy, Oophorectomy, Orthopedic Currently Using CPAP: No Currently Using BIPAP: No Hypertension CUSHION PADDER History: Hysterectomy Sexually Transmitted Disease: No HIV/AIDS: No Chronic Diarrhea Fractures Diabetes, Non-Insulin dep Loss of Vision: Denies Hearing Impairment: Denies Skin Blood Disorders: No Adverse Reaction/Blood Tranf: No (N/A) Family Medical History No Pertinent Family Hx Review of Systems Constitutional: no symptoms reported Respiratory: no symptoms reported Cardiovascular: no symptoms reported Gastrointestinal: diarrhea, nausea Physical Exam Physical Exam Vital Signs Vital Signs - First Documented 09/24/22 08:20 Temp 36.4 Pulse 88 Resp 20 B/P (MAP) 143/67 (92) Pulse Ox 97 O2 Delivery Room Air Capillary Refill : Height, Weight, BMI Height: '" Weight: lbs. oz. kg; 22.24 BMI Method: General Appearance: No Apparent Distress, WD/WN HEENT: PERRL/EOMI, Pharynx Normal Neck: Normal Inspection, Supple Respiratory: Lungs Clear, No Respiratory Distress Cardiovascular: Regular Rate, Rhythm, No Murmur Gastrointestinal: Normal Bowel Sounds, Non Tender, Soft Extremity: Non Tender, Pedal Edema Neurologic/Psychiatric: Alert, Normal Mood/Affect Skin: Normal Color, Warm/Dry Results Results/Procedures Labs Patient resulted labs reviewed. Imaging: Reviewed Imaging Report Assessment/Plan Assessment and Plan Assess & Plan/Chief Complaint History of left hip fracture Hardware failure Orthopedic surgery primary, Dr. Mckeon s/p bipolar replacement 09/24 Pain regimen Bowel regimen Incentive spirometry PT/OT HTN Continue home meds as able T2DM Sliding scale insulin Amalia carcinoma Outpatient immunotherapy currently on hold Follows with Dr. Clark Monitor DVT prophylaxis: Lovenox Diagnosis/Problems Diagnosis/Problems (1) Hardware failure Status: Acute (2) History of fracture of left hip Status: Acute (3) HTN (hypertension) Status: Chronic (4) T2DM (type 2 diabetes mellitus) Status: Chronic Qualifiers: Diabetes mellitus manager long term care insulin use: without manager long term care use Diabetes mellitus complication status: without complication Qualified Codes: E11.9 - Type 2 diabetes mellitus without complications (5) Amalia cell carcinoma Status: Chronic RAJAN HURT MD September 24, 2022 14:25
--- NOTE | 2022-09-24 14:57 | Physical Therapy Evaluation ---
PT Evaluation-General Medical Diagnosis Admission Date 09/24/22 Medical Diagnosis: Left JOSY Onset Date: September 24, 2022 Therapy Diagnosis Therapy Diagnosis: Gait deficit, strength deficit Precautions Precautions/Isolations: Fall Prevention, Standard Precautions Weight Bear Status Right Lower Extremity: Right Full Weight Bearing Left Lower Extremity: Left Weight Bearing/Tolerated Referral Physician: Dr. Mckeon Reason for Referral: Evaluation/Treatment Medical History Reviewed History: Yes Social History Home: Single Level Current Living Status: Alone Entry Into Home: Stairs With Railing PT Steps Into Home: 3 Prior Prior Level of Function SCALE: Activities may be completed with or without assistive devices. 2-Mymsjxaegr-jlzhbuw completes the activity by him/herself with no assistance from a helper. 5-Set-up or Clean-up Assistance-helper sets up or cleans up; patient completes activity. [place] assists only prior to or following the activity. 4-Supervision or Touching Assistance-helper provides verbal cues and/or touching/steadying and/or contact guard assistance as patient completes activity. Assistance may be provided throughout the activity or intermittently. 3-Partial/Moderate Assistance-helper does LESS THAN HALF the effort. [place] lifts, holds or supports trunk or limbs, but provides less than half the effort. 2-Substantial/Maximal Assistance-helper does MORE THAN HALF the effort. [place] lifts or holds trunk or limbs and provides more than half the effort. 7-Mayadqgzo-ohmcxm does ALL the effort. Patient does none of the effort to complete the activity. Or, the assistance of 2 or more helpers is required for the patient to complete the activity. If activity was not attempted, code reason: 7-Patient Refused. 9-Not Applicable-not attempted and the patient did not perform the activity before the current illness, exacerbation or injury. 10-Not Attempted due to Environmental Limitations-(lack of equipment, weather restraints, etc.). 88-Not Attempted due to Medical Conditions or Safety Concerns. Bed Mobility: 6 Transfers (B,C,W/C): 6 Gait: 6 Stairs: 6 Indoor Mobility (Ambulation): Independent Stairs: Independent Prior Devices Use: Walker PT Evaluation-Current Subjective Patient lying supine in bed upon PT arrival, agreeable to treatment. Rates pain at 4/10 currently. Objective Patient Orientation: Person, Place, Time, Situation Attachments: IV ROM/Strength ROM Lower Extremities Left hip limited all planes; Right LE and Left knee/ankle WFLs all planes Strength Lower Extremities RLE 4/5 all planes; LLE 3/5 all planes Sensory Vision: Functional Hearing: Functional Sensation Right Lower Extremit: Intact Sensation Left Lower Extremity: Intact Transfers Roll Left to Right (QC): 3 Sit to Lying (QC): 3 Lying to Sitting/Side of Bed(Q: 3 Sit to Stand (QC): 3 Gait Does the Patient Walk?: No and Walking Goal IS indicated Mode of Locomotion: Walk Anticipated Mode of Locomotion: Walk Balance Sitting Static: Fair Sitting Dynamic: Fair Standing Static: Poor Standing Dynamic: Poor Assessment/Needs Patient initially tolerated treatment well. Educated patient on left Posterior hip precautions. She requires min/mod A for all bed mobility and transfers. Patient performed sit to stand with mod A and FWW. Upon standing, left surgical incision began bleeding significantly. Patient was returned to bed and nurse notified. Nurse assessed patient and reinforced dressing. Patient in bed post treatment with all needs met, nurse in the room. Rehab Potential: Fair PT Care Home Goals Warper Tender Goals PT Warper Tender Goals Time Frame: October 15, 2022 Roll Left & Right (QC): 6 Sit to Lying (QC): 6 Lying-Sitting on Side/Bed(QC): 6 Sit to Stand (QC): 6 Chair/Nff-hl-Lnasz Xfer(QC): 6 Toilet Transfer (QC): 5 Does the Patient Walk: Yes Walk 10 feet (QC): 5 Walk 50ft with 2 Turns (QC): 5 Walk 150 ft (QC): 5 1 Step (curb) (QC): 4 4 Steps (QC): 4 PT Plan Problem List Problem List: Activity Tolerance, Functional Strength, Safety, Balance, Gait, Transfer, Bed Mobility, ROM Treatment/Plan Treatment Plan: Continue Plan of Care Treatment Plan: Bed Mobility, Education, Functional Activity Kaitlyn, Functional Strength, Group Therapy, Gait, Safety, Therapeutic Exercise, Transfers Treatment Duration: October 15, 2022 Frequency: 11 times per week Estimated Hrs Per Day: .25 hour per day Patient and/or Family Agrees t: Yes Safety Risks/Education Patient Education: Transfer Techniques Teaching Recipient: Patient Teaching Methods: Demonstration, Discussion Response to Teaching: Reinforcement Needed Time Time In: 1320 Time Out: 1345 DATE: September 24, 2022 Total Billed Treatment Time: 25 Total Billed Treatment Visit, LARRY JAIMES JOHN A PT September 24, 2022 14:57
[2022-09-24] MEDS: inSUlin ASPART (NovoLOG) 1 UNIT/0.01 ML (CHARGE PER UNIT) SC SCH ×2 (16:38→20:45)
[2022-09-24] MEDS: CEFUROXIME INJECTION 750 MG in NS (IVPB) 50 ML IV SCH (16:48)
--- NOTE | 2022-09-24 18:42 | Diagnostic Imaging Report ---
INDICATION: hip surgery COMPARISON: None. FINDINGS: Single AP view of the pelvis was obtained. There are expected postsurgical changes of left hip hemiarthroplasty. There is appropriate anatomic alignment of the femoral component in relation to the acetabulum. The stem of the femoral component is located centrally in the medullary cavity. There is no periprosthetic fracture. No acute fracture or dislocation is identified. There is a small amount of subcutaneous emphysema in the surrounding soft tissues. No unexpected radiopaque foreign bodies identified. IMPRESSION: Expected postsurgical changes of left hip hemiarthroplasty. No unexpected radiopaque foreign body identified. Dictated by: Dictated on workstation # [id number]
[2022-09-24] MEDS: SENNOSIDES 8.6 MG (SENOKOT) TAB PO SCH (20:43)
--- NOTE | 2022-09-24 20:46 | OPERATIVE REPORT ---
DATE OF SERVICE: 09/24/2022 PREOPERATIVE DIAGNOSIS: Hardware failure, left hip, status post intramedullary nail for intertrochanteric femur fracture. POSTOPERATIVE DIAGNOSES: Hardware failure, left hip, status post intramedullary nail for intertrochanteric femur fracture. PROCEDURES: 1. Left hip hardware removal. 2. Left hip bipolar replacement. SURGEON: Clovis Menendez MD BATON TWIRLER: Noam Faust, who assisted throughout the procedure and closed the incisions. ANESTHESIA: General endotracheal by Noam Friend CRNA. ESTIMATED BLOOD LOSS: 200 mL. DRAINS: None. COMPLICATIONS: None. POSTOPERATIVE PLAN: Hip precautions with weightbearing as tolerated. The patient was transferred to recovery room awake and stable condition. MATERIALS: Link press-fit 15 stem with a neutral neck and a 45 head/liner. STATEMENT OF MEDICAL NECESSITY: The patient is a 81-year-old female who previously underwent left hip intramedullary nail for intertrochanteric femur fracture. Unfortunately, there was cut out of the spiral blade with failure of union;therefore it was elected to proceed with conversion to a bipolar replacement. DESCRIPTION OF PROCEDURE: After risks and benefits of the procedure were discussed and questions were answered and informed consent was signed and placed on the chart, the operative site was confirmed in the preoperative holding area initialed by surgeon. The patient was then transported to the operating room and after adequate levels of general endotracheal anesthesia was obtained, a timeout was called, confirming the operative site. The patient was carefully placed in the right lateral decubitus position, being careful placed an axillary roll. The left hip and lower extremity were prepped and draped in the usual sterile fashion. The previous incisions were utilized. The distal locking screw was identified and removed without difficulty. The blade was identified and also removed without difficulty. Proximally, the proximal aspect of the nail was identified and removed without difficulty. The femoral head was then removed and the joint was copiously irrigated with pulse lavage. No loose bodies were noted. The canal was then hand reamed up to a size 15. The 15 trial was placed and then trialled with a neutral neck and a 45 liner. The hip was reduced and found to be stable in all planes. There was no impingement noted, no instability noted. The hip was then redislocated. The trials were removed. The joint was further irrigated with pulse lavage. The prosthesis was then placed in 15 degrees of anteversion and found to be stable. The proximal aspect was then irrigated and the head liner construct was placed. The acetabulum was then inspected for any loose bodies and irrigated. The hip was reduced and found to be stable in all planes with no impingement noted and no instability noted in any plane. The joint was further irrigated with pulse lavage. The capsule was closed with #5 Tevdek in pmdhvu-xh-losrn interrupted fashion. The abductor was reapproximated using #5 Tevdek in tyyxnx-ml-wjcan interrupted fashion. The wound was further irrigated. The iliotibial band was closed in a xeozks-vi-jfemg interrupted fashion with #1 Vicryl, 0 Vicryl was used for deep subcutaneous layer, 2-0 Vicryl for the superficial subcutaneous layer. [place] were used on the skin. A soft dressing was applied. The patient was transported to the recovery room awake and in stable condition. Job ID: [id number] DocumentID: [id number] Dictated Date: 09/24/2022 10:48:59 Cloth Mender Date: 09/24/2022 20:44:00 Dictated By: CLOVIS MENENDEZ MD
[2022-09-25] VITALS (9 sets, daily range): BP systolic 82–145; BP diastolic 42–72
[2022-09-25] MEDS: LACTATED RINGERS 1,000 ML IV PRN ×2 (00:04→20:24)
[2022-09-25] MEDS: CEFUROXIME INJECTION 750 MG in NS (IVPB) 50 ML IV SCH (00:04)
[2022-09-25] MEDS: ACETAMINOPHEN 325 MG TABLET PO PRN ×5 (04:38→20:23)
[2022-09-25 05:50] LABS: BASOPHILS % (AUTO) 0 % (0-10); EOSINOPHILS % (AUTO) 0 % (0-10); HEMATOCRIT 24 % (35-52); HEMOGLOBIN 8.2 g/dL (11.5-16.0); LYMPHOCYTES # (AUTO) 3.4 10^3/uL (1.0-4.0); LYMPHOCYTES % (AUTO) 15 % (12-44); MEAN CORPUSCULAR HEMOGLOBIN 28 pg (25-34); MEAN CORPUSCULAR HGB CONC 34 g/dL (32-36); MEAN CORPUSCULAR VOLUME 84 fL (80-99); MEAN PLATELET VOLUME 9.9 fL (9.0-12.2); MONOCYTES # (AUTO) 6.5 10^3/uL (0.0-1.0); MONOCYTES % (AUTO) 29 % (0-12); NEUTROPHILS # (AUTO) 12.2 10^3/uL (1.8-7.8); NEUTROPHILS % (AUTO) 55 % (42-75); PLATELET COUNT 365 10^3/uL (130-400); WHITE BLOOD COUNT 22.1 10^3/uL (4.3-11.0)
[2022-09-25 06:00] LABS: POTASSIUM 4.6 MMOL/L (3.6-5.0)
[2022-09-25 06:01] LABS: CALCIUM 9.3 MG/DL (8.5-10.1)
[2022-09-25 06:03] LABS: TOTAL PROTEIN 5.5 GM/DL (6.4-8.2)
[2022-09-25 06:04] LABS: BILIRUBIN,TOTAL 0.3 MG/DL (0.1-1.0)
[2022-09-25 06:06] LABS: CREATININE SERUM 0.85 MG/DL (0.60-1.30)
[2022-09-25 06:19] LABS: NEUTROPHILS % (MANUAL) 58 %
[2022-09-25 06:20] LABS: HYPOCHROMASIA SLIGHT; LYMPHOCYTES % (MANUAL) 20 %; MONOCYTES % (MANUAL) 22 %; PLATELET ESTIMATE ADEQUATE; POLYCHROMASIA SLIGHT
[2022-09-25] MEDS: inSUlin ASPART (NovoLOG) 1 UNIT/0.01 ML (CHARGE PER UNIT) SC SCH ×4 (06:27→21:13)
[2022-09-25] MEDS: ENOXAPARIN 40 MG/0.4 ML (LOVENOX) SYR SC SCH (07:58)
[2022-09-25] MEDS: lisINopril 20 MG (PRINIVIL) TABLET PO SCH (07:59)
[2022-09-25] MEDS: SENNOSIDES 8.6 MG (SENOKOT) TAB PO SCH ×2 (07:59→20:24)
--- NOTE | 2022-09-25 08:06 | Progress Note ---
Standard Progress Note Progress Notes/Assess & Plan Date Seen by a Provider: September 25, 2022 Time Seen by a Provider: 07:53 Progress/Assessment & Plan no complaints Laboratory Tests Test 09/24/22 08:24 09/24/22 15:43 09/24/22 20:08 09/25/22 05:08 Range/Units Glucometer 132 H 170 H 201 H 70-110 MG/DL White Blood Count 22.1 H 4.3-11.0 10^3/uL Red Blood Count 2.92 L 3.80-5.11 10^6/uL Hemoglobin 8.2 L 11.5-16.0 g/dL Hematocrit 24 L 35-52 % Mean Corpuscular Volume 84 80-99 fL Mean Corpuscular Hemoglobin 28 25-34 pg Mean Corpuscular Hemoglobin Concent 34 32-36 g/dL Red Cell Distribution Width 15.0 H 10.0-14.5 % Platelet Count 365 130-400 10^3/uL Mean Platelet Volume 9.9 9.0-12.2 fL Immature Granulocyte % (Auto) 1 % Neutrophils (%) (Auto) 55 42-75 % Lymphocytes (%) (Auto) 15 12-44 % Monocytes (%) (Auto) 29 H 0-12 % Eosinophils (%) (Auto) 0 0-10 % Basophils (%) (Auto) 0 0-10 % Neutrophils # (Auto) 12.2 H 1.8-7.8 10^3/uL Lymphocytes # (Auto) 3.4 1.0-4.0 10^3/uL Monocytes # (Auto) 6.5 H 0.0-1.0 10^3/uL Eosinophils # (Auto) 0.0 0.0-0.3 10^3/uL Basophils # (Auto) 0.0 0.0-0.1 10^3/uL Immature Granulocyte # (Auto) 0.1 0.0-0.1 10^3/uL Neutrophils % (Manual) 58 % Lymphocytes % (Manual) 20 % Monocytes % (Manual) 22 % Platelet Estimate ADEQUATE Polychromasia SLIGHT Hypochromasia SLIGHT Basophilic Stippling SLIGHT Sodium Level 130 L 135-145 MMOL/L Potassium Level 4.6 3.6-5.0 MMOL/L Chloride Level 102 98-107 MMOL/L Carbon Dioxide Level 21 21-32 MMOL/L Anion Gap 7 5-14 MMOL/L Blood Urea Nitrogen 17 7-18 MG/DL Creatinine 0.85 0.60-1.30 MG/DL Estimat Glomerular Filtration Rate 70 BUN/Creatinine Ratio 20 Glucose Level 137 H 70-105 MG/DL Calcium Level 9.3 8.5-10.1 MG/DL Corrected Calcium 10.1 8.5-10.1 MG/DL Total Bilirubin 0.3 0.1-1.0 MG/DL Aspartate Amino Transf (AST/SGOT) 16 5-34 U/L Alanine Aminotransferase (ALT/SGPT) 13 0-55 U/L Alkaline Phosphatase 39 L 40-136 U/L Total Protein 5.5 L 6.4-8.2 GM/DL Albumin 3.0 L 3.2-4.5 GM/DL Test 09/25/22 06:24 Range/Units Glucometer 137 H 70-110 MG/DL Vital Signs Date Time Temp Pulse Resp B/P (MAP) Pulse Ox O2 Delivery O2 Flow Rate FiO2 09/25/22 07:20 36.8 100 18 120/55 (76) 91 Room Air 09/25/22 06:27 37.4 09/25/22 04:38 37.5 09/25/22 04:34 37.5 114 18 122/72 (89) 93 Room Air 09/25/22 00:05 109 16 122/58 (79) 93 Room Air 09/24/22 19:35 Room Air 09/24/22 19:28 36.2 92 17 121/74 (90) 97 Room Air 09/24/22 19:09 Room Air 0.00 09/24/22 17:26 Room Air 09/24/22 15:39 36.0 80 18 111/55 (73) 98 Room Air 09/24/22 12:30 35.3 61 18 100/53 (69) 91 Room Air 09/24/22 11:55 Room Air 09/24/22 11:50 36.3 16 98/46 (63) 94 Room Air 09/24/22 11:40 15 98/44 (62) 97 Room Air 09/24/22 11:30 17 108/53 (71) 97 Room Air 09/24/22 11:30 Room Air 09/24/22 11:20 14 111/44 (66) 99 OxyMask 2.00 09/24/22 11:15 OxyMask 2.00 09/24/22 11:10 15 98/45 (62) 99 OxyMask 2.00 09/24/22 11:00 15 83/41 (55) 100 OxyMask 4.00 09/24/22 10:56 36.1 16 90/43 (59) 100 OxyMask 6.00 09/24/22 10:56 OxyMask 6.00 09/24/22 08:20 36.4 88 20 143/67 (92) 97 Room Air I & O 09/25/22 07:00 Intake Total 2510 ml Output Total 0 ml Balance 2510 ml radiographs--HW well positioned without fracture LLE--intact DF and PF of toes and ankle sensation intact throughout pulse equal s/p left hip bipolar PT/OT TREVOR KIM MD September 25, 2022 08:06
--- NOTE | 2022-09-25 08:59 | Anesthesia-General Post-Op ---
General Patient Condition Mental Status/LOC: Same as Preop Cardiovascular: Satisfactory Nausea/Vomiting: Absent Respiratory: Satisfactory Pain: Controlled Complications: Absent Post Op Complications Complications None Follow Up Care/Instructions Patient Instructions None needed. Anesthesia/Patient Condition Patient Condition Patient is doing well, no complaints, stable vital signs, no apparent adverse anesthesia problems. No complications reported per nursing. [place] [facility] [place] GREGG CAGE CRNA September 25, 2022 08:59
--- NOTE | 2022-09-25 10:06 | Physical Therapy Daily Note ---
PT Daily Note-Current Subjective Patient lying supine in bed upon PT arrival, agreeable to treatment. Patient rates pain at 4/10 in left hip. Pain Section J - Health Conditions 1. Rarely or not at all 2. Occasionally 3. Frequently 4. Almost constantly 8. Unable to answer Pain Effect on Sleep: 2 Pain Interference with Therapy: 2 Pain Interference w/Day-to-Day: 2 Mental Status Patient Orientation: Person, Place, Time, Situation Transfers SCALE: Activities may be completed with or without assistive devices. 1-Xepoqcoaxg-vcewkcg completes the activity by him/herself with no assistance from a helper. 5-Set-up or Clean-up Assistance-helper sets up or cleans up; patient completes activity. [place] assists only prior to or following the activity. 4-Supervision or Touching Assistance-helper provides verbal cues and/or touching /steadying and/or contact guard assistance as patient completes activity. Assistance may be provided throughout the activity or intermittently. 3-Partial/Moderate Assistance-helper does LESS THAN HALF the effort. [place] lifts, holds or supports trunk or limbs, but provides less than half the effort. 2-Substantial/Maximal Assistance-helper does MORE THAN HALF the effort. [place] lifts or holds trunk or limbs and provides more than half the effort. 4-Yivnyqqij-daaihh does ALL the effort. Patient does none of the effort to complete the activity. Or, the assistance of 2 or more helpers is required for the patient to complete the activity. If activity was not attempted, code reason: 7-Patient Refused. 9-Not Applicable-not attempted and the patient did not perform the activity before the current illness, exacerbation or injury. 10-Not Attempted due to Environmental Limitations-(lack of equipment, weather restraints, etc.). 88-Not Attempted due to Medical Conditions or Safety Concerns. Roll Left & Right (QC): 3 Sit to Lying (QC): 3 Lying to Sitting/Side of Bed(Q: 3 Sit to Stand (QC): 3 Chair/Lmx-be-Kmmcb Xfer(QC): 3 Toilet Transfer (QC): 3 Weight Bearing Right Lower Extremity: Right Full Weight Bearing Left Lower Extremity: Left Weight Bearing/Tolerated Gait Training Does the Patient Walk?: Yes Distance: 15' x 2 Walk 10 feet (QC): 4 Gait Persons Needed: 1 Gait Assistive Device: FWW Exercises Supine Ex: Ankle pumps, Quad Set, Glut sets Supine Reps: 20 Seated Therapy Exercises: Long arc quads, Hamstring Curls Seated Reps: 20 Assessment Current Status: Good Progress Patient tolerated treatment well. Patient performs LE therapeutic exercise as listed above. Performs all bed mobility and transfers with min A. Patient ambulates 15 feet x 2 with FWW, with CGA and verbal cues for gait pattern and safety. Patient in chair post treatment with all needs met, nursing notified, call light in hand. PT Phlebotomy Technician Goals Phlebotomy Technician Goals PT Phlebotomy Technician Goals Time Frame: October 15, 2022 Roll Left & Right (QC): 6 Sit to Lying (QC): 6 Lying-Sitting on Side/Bed(QC): 6 Sit to Stand (QC): 6 Chair/Wsn-cf-Cyvmg Xfer(QC): 6 Toilet Transfer (QC): 5 Does the Patient Walk: Yes Walk 10 feet (QC): 5 Walk 50ft with 2 Turns (QC): 5 Walk 150 ft (QC): 5 1 Step (curb) (QC): 4 4 Steps (QC): 4 PT Plan Treatment/Plan Treatment Plan: Continue Plan of Care Treatment Plan: Bed Mobility, Education, Functional Activity Kaitlyn, Functional Strength, Group Therapy, Gait, Safety, Therapeutic Exercise, Transfers Treatment Duration: October 15, 2022 Frequency: 11 times per week Estimated Hrs Per Day: .25 hour per day Patient and/or Family Agrees t: Yes Safety Risks/Education Patient Education: Gait Training, Transfer Techniques Teaching Recipient: Patient Teaching Methods: Demonstration, Discussion Response to Teaching: Verbalize Understanding, Return Demonstration Time Time In: 846 Time Out: 910 DATE: September 25, 2022 Total Billed Treatment Time: 24 Total Billed Treatment Visit, Gait, EITAN Bentley PT September 25, 2022 10:06
--- NOTE | 2022-09-25 11:22 | Occupational Therapy Eval ---
OT Evaluation-General/PLF Medical Diagnosis Admission Date Medical Diagnosis: Left JOSY Onset Date: September 24, 2022 Therapy Diagnosis Therapy Diagnosis: weakness, s/p LTKA Precautions Precautions/Isolations: Standard Precautions ( JOSY precautions) Weight Bear Status Weight Bearing Restriction: Weight Bearing/Tolerated Location Restriction: L LE Referral Physician: Dr. Mckeon Referral Reason: Activity Tolerance, Self Care, Evaluation/Treatment, Strengthening/ROM Medical History Additional Medical History Failed nailing Social History Home: Single Level Current Living Status: Alone Entry Into Home: Stairs With Railing Steps Into Home: 3 ADL-Prior Level of Function SCALE: Activities may be completed with or without assistive devices. 6-Txeouuxkzi-zfwdjxx completes the activity by him/herself with no assistance from a helper. 5-Set-up or Clean-up Assistance-helper sets up or cleans up; patient completes activity. [place] assists only prior to or following the activity. 4-Supervision or Touching Assistance-helper provides verbal cues and/or touching/steadying and/or contact guard assistance as patient completes activity. Assistance may be provided throughout the activity or intermittently. 3-Partial/Moderate Assistance-helper does LESS THAN HALF the effort. [place] lifts, holds or supports trunk or limbs, but provides less than half the effort. 2-Substantial/Maximal Assistance-helper does MORE THAN HALF the effort. [place] lifts or holds trunk or limbs and provides more than half the effort. 6-Ryhwtwzdt-sudaav does ALL the effort. Patient does none of the effort to complete the activity. Or, the assistance of 2 or more helpers is required for the patient to complete the activity. If activity was not attempted, code reason: 7-Patient Refused. 9-Not Applicable-not attempted and the patient did not perform the activity before the current illness, exacerbation or injury. 10-Not Attempted due to Environmental Limitations-(lack of equipment, weather restraints, etc.). 88-Not Attempted due to Medical Conditions or Safety Concerns. Self Care: Independent Functional Cognition: Independent OT Current Status Subjective Up in recliner, agreeable to OT Pain Numeric Pain Scale: 4 Location: Left Location Body Site: Hip Mental Status/Objective Patient Orientation: Person, Place, Time, Situation Current Upper Extremity ROM BUE ROM WFLS Upper Extremity Coordination BUE FMC/GMC intact Upper Extremity Sensation INTACT Upper Extremity Strength -4/5 grossly, composite/pinch pin ball machine mechanic WFLs ADL-Treatment Eating (QC): 6 Oral Hygiene (QC): 5 (set up in sitting) Shower/Bathe Self (QC): 7 (declined, wound will need coverage) Upper Body Dressing (QC): 4 Lower Body Dressing (QC): 3 On/Off Footwear (QC): 4 Toileting Hygiene (QC): 4 Extensive ADL tool kit education, JOSY precaution review, patient verbalized however during tool kit intervention does need recall and demonstration to avoid greater than 90 degree flexion and prevent IR of LLE Education OT Patient Education: Correct positioning, Exercise program, Modified ADL techniques, Progress toward Goal/Update tx plan, Purpose of tx/functional activities, Reviewed precautions, Rehab process, Safety issues, Transfer techniques, Use of adapted equipment Teaching Recipient: Patient Teaching Methods: Demonstration, Discussion Response to Teaching: Verbalize Understanding, Reinforcement Needed OT Prison Goals Shareholder Goals Eating (QC): 6 Oral Hygiene (QC): 6 Toileting Hygiene (QC): 6 Shower/Bathe Self (QC): 6 Upper Body Dressing (QC): 6 Lower Body Dressing (QC): 6 On/Off Footwear (QC): 6 1=Demonstrate adherence to instructed precautions during ADL tasks. 2=Patient will verbalize/demonstrate understanding of assistive devices/modifications for ADL. 3=Patient will improve strength/tolerance for activity to enable patient to perform ADL's. OT Education/Plan Problem List/Assessment Assessment: Impaired I ADL's, Impaired Self-Care Skills Discharge Recommendations Plan/Recommendations: Continue POC Therapy Discharge Recommendati: Post Acute OT Treatment Plan/Plan of Care Patient would benefit from OT for education, treatment and training to promote independence in ADL's, mobility, safety and/or upper extremity function for ADL's. Plan of Care: ADL Retraining, Functional Mobility, Group Exercise/Act as Ind, UE Funct Exercise/Act Treatment Duration: October 04, 2022 Frequency: 3 times per week (3-5 times per week) Estimated Hrs Per Day: .25 hour per day Agreement: Yes Rehab Potential: Fair Time Start Time: 10:22 Stop Time: 10:43 DATE: September 25, 2022 Total Time Billed (hr/min): 23 Billed Treatment Time EVM , ADL 23 min GUY SANDHU OT September 25, 2022 11:22
--- NOTE | 2022-09-25 14:33 | Physical Therapy Progress Note ---
Therapy Progress Note Patient BP at 82/42 upon PT arrival. She politely refuses due to not feeling well. Will attempt again tomorrow and progress per patient tolerance. EITAN VALERO PT September 25, 2022 14:33
[2022-09-26] VITALS (10 sets, daily range): BP systolic 129–153; BP diastolic 61–84
[2022-09-26] MEDS: ACETAMINOPHEN 325 MG TABLET PO PRN (03:54)
[2022-09-26 04:22] LABS: BASOPHILS % (AUTO) 0 % (0-10); EOSINOPHILS % (AUTO) 0 % (0-10); HEMATOCRIT 21 % (35-52); LYMPHOCYTES # (AUTO) 4.5 10^3/uL (1.0-4.0); LYMPHOCYTES % (AUTO) 15 % (12-44); MEAN CORPUSCULAR HEMOGLOBIN 27 pg (25-34); MEAN CORPUSCULAR HGB CONC 33 g/dL (32-36); MEAN CORPUSCULAR VOLUME 83 fL (80-99); MEAN PLATELET VOLUME 9.7 fL (9.0-12.2); MONOCYTES # (AUTO) 11.4 10^3/uL (0.0-1.0); MONOCYTES % (AUTO) 37 % (0-12); NEUTROPHILS # (AUTO) 14.4 10^3/uL (1.8-7.8); NEUTROPHILS % (AUTO) 47 % (42-75); PLATELET COUNT 342 10^3/uL (130-400)
[2022-09-26 04:45] LABS: ALBUMIN 2.9 GM/DL (3.2-4.5); BILIRUBIN,TOTAL 0.4 MG/DL (0.1-1.0); CALCIUM 9.2 MG/DL (8.5-10.1); CREATININE SERUM 0.79 MG/DL (0.60-1.30); POTASSIUM 3.9 MMOL/L (3.6-5.0); TOTAL PROTEIN 5.4 GM/DL (6.4-8.2)
[2022-09-26 05:01] LABS: WHITE BLOOD COUNT 30.5 10^3/uL (4.3-11.0)
[2022-09-26 05:05] LABS: HEMOGLOBIN 6.8 g/dL (11.5-16.0)
[2022-09-26 05:06] LABS: LYMPHOCYTES % (MANUAL) 10 %; MONOCYTES % (MANUAL) 39 %; NEUTROPHILS % (MANUAL) 51 %
[2022-09-26 05:07] LABS: RBC MORPH NORMAL
[2022-09-26] MEDS: HYDROcodone/APAP 7.5 MG/325 MG (LORTAB, LORCET PLUS) TABLET PO PRN ×3 (05:50→17:16)
[2022-09-26] MEDS: inSUlin ASPART (NovoLOG) 1 UNIT/0.01 ML (CHARGE PER UNIT) SC SCH ×4 (05:51→20:12)
--- NOTE | 2022-09-26 06:55 | Progress Note ---
Standard Progress Note Progress Notes/Assess & Plan Date Seen by a Provider: September 26, 2022 Time Seen by a Provider: 06:44 Progress/Assessment & Plan no complaints Laboratory Tests Test 09/24/22 08:24 09/24/22 15:43 09/24/22 20:08 09/25/22 05:08 Range/Units Glucometer 132 H 170 H 201 H 70-110 MG/DL White Blood Count 22.1 H 4.3-11.0 10^3/uL Red Blood Count 2.92 L 3.80-5.11 10^6/uL Hemoglobin 8.2 L 11.5-16.0 g/dL Hematocrit 24 L 35-52 % Mean Corpuscular Volume 84 80-99 fL Mean Corpuscular Hemoglobin 28 25-34 pg Mean Corpuscular Hemoglobin Concent 34 32-36 g/dL Red Cell Distribution Width 15.0 H 10.0-14.5 % Platelet Count 365 130-400 10^3/uL Mean Platelet Volume 9.9 9.0-12.2 fL Immature Granulocyte % (Auto) 1 % Neutrophils (%) (Auto) 55 42-75 % Lymphocytes (%) (Auto) 15 12-44 % Monocytes (%) (Auto) 29 H 0-12 % Eosinophils (%) (Auto) 0 0-10 % Basophils (%) (Auto) 0 0-10 % Neutrophils # (Auto) 12.2 H 1.8-7.8 10^3/uL Lymphocytes # (Auto) 3.4 1.0-4.0 10^3/uL Monocytes # (Auto) 6.5 H 0.0-1.0 10^3/uL Eosinophils # (Auto) 0.0 0.0-0.3 10^3/uL Basophils # (Auto) 0.0 0.0-0.1 10^3/uL Immature Granulocyte # (Auto) 0.1 0.0-0.1 10^3/uL Neutrophils % (Manual) 58 % Lymphocytes % (Manual) 20 % Monocytes % (Manual) 22 % Platelet Estimate ADEQUATE Polychromasia SLIGHT Hypochromasia SLIGHT Basophilic Stippling SLIGHT Sodium Level 130 L 135-145 MMOL/L Potassium Level 4.6 3.6-5.0 MMOL/L Chloride Level 102 98-107 MMOL/L Carbon Dioxide Level 21 21-32 MMOL/L Anion Gap 7 5-14 MMOL/L Blood Urea Nitrogen 17 7-18 MG/DL Creatinine 0.85 0.60-1.30 MG/DL Estimat Glomerular Filtration Rate 70 BUN/Creatinine Ratio 20 Glucose Level 137 H 70-105 MG/DL Calcium Level 9.3 8.5-10.1 MG/DL Corrected Calcium 10.1 8.5-10.1 MG/DL Total Bilirubin 0.3 0.1-1.0 MG/DL Aspartate Amino Transf (AST/SGOT) 16 5-34 U/L Alanine Aminotransferase (ALT/SGPT) 13 0-55 U/L Alkaline Phosphatase 39 L 40-136 U/L Total Protein 5.5 L 6.4-8.2 GM/DL Albumin 3.0 L 3.2-4.5 GM/DL Test 09/25/22 06:24 Range/Units Glucometer 137 H 70-110 MG/DL Vital Signs Date Time Temp Pulse Resp B/P (MAP) Pulse Ox O2 Delivery O2 Flow Rate FiO2 09/25/22 07:20 36.8 100 18 120/55 (76) 91 Room Air 09/25/22 06:27 37.4 09/25/22 04:38 37.5 09/25/22 04:34 37.5 114 18 122/72 (89) 93 Room Air 09/25/22 00:05 109 16 122/58 (79) 93 Room Air 09/24/22 19:35 Room Air 09/24/22 19:28 36.2 92 17 121/74 (90) 97 Room Air 09/24/22 19:09 Room Air 0.00 09/24/22 17:26 Room Air 09/24/22 15:39 36.0 80 18 111/55 (73) 98 Room Air 09/24/22 12:30 35.3 61 18 100/53 (69) 91 Room Air 09/24/22 11:55 Room Air 09/24/22 11:50 36.3 16 98/46 (63) 94 Room Air 09/24/22 11:40 15 98/44 (62) 97 Room Air 09/24/22 11:30 17 108/53 (71) 97 Room Air 09/24/22 11:30 Room Air 09/24/22 11:20 14 111/44 (66) 99 OxyMask 2.00 09/24/22 11:15 OxyMask 2.00 09/24/22 11:10 15 98/45 (62) 99 OxyMask 2.00 09/24/22 11:00 15 83/41 (55) 100 OxyMask 4.00 09/24/22 10:56 36.1 16 90/43 (59) 100 OxyMask 6.00 09/24/22 10:56 OxyMask 6.00 09/24/22 08:20 36.4 88 20 143/67 (92) 97 Room Air I & O 09/25/22 07:00 Intake Total 2510 ml Output Total 0 ml Balance 2510 ml radiographs--HW well positioned without fracture LLE--intact DF and PF of toes and ankle sensation intact throughout pulse equal s/p left hip bipolar PT/OT IRU Final Diagnosis feeling tired Laboratory Tests Test 09/25/22 10:20 09/25/22 13:37 09/25/22 15:30 09/25/22 20:48 Range/Units Glucometer 211 H 151 H 202 H 70-110 MG/DL Hemoglobin 8.0 L 11.5-16.0 g/dL Hematocrit 25 L 35-52 % Test 09/26/22 04:00 Range/Units White Blood Count 30.5 *H 4.3-11.0 10^3/uL Red Blood Count 2.52 L 3.80-5.11 10^6/uL Hemoglobin 6.8 *L 11.5-16.0 g/dL Hematocrit 21 L 35-52 % Mean Corpuscular Volume 83 80-99 fL Mean Corpuscular Hemoglobin 27 25-34 pg Mean Corpuscular Hemoglobin Concent 33 32-36 g/dL Red Cell Distribution Width 14.6 H 10.0-14.5 % Platelet Count 342 130-400 10^3/uL Mean Platelet Volume 9.7 9.0-12.2 fL Immature Granulocyte % (Auto) 1 % Neutrophils (%) (Auto) 47 42-75 % Lymphocytes (%) (Auto) 15 12-44 % Monocytes (%) (Auto) 37 H 0-12 % Eosinophils (%) (Auto) 0 0-10 % Basophils (%) (Auto) 0 0-10 % Neutrophils # (Auto) 14.4 H 1.8-7.8 10^3/uL Lymphocytes # (Auto) 4.5 H 1.0-4.0 10^3/uL Monocytes # (Auto) 11.4 H 0.0-1.0 10^3/uL Eosinophils # (Auto) 0.0 0.0-0.3 10^3/uL Basophils # (Auto) 0.0 0.0-0.1 10^3/uL Immature Granulocyte # (Auto) 0.3 H 0.0-0.1 10^3/uL Neutrophils % (Manual) 51 % Lymphocytes % (Manual) 10 % Monocytes % (Manual) 39 % Blood Morphology Comment NORMAL Sodium Level 129 L 135-145 MMOL/L Potassium Level 3.9 3.6-5.0 MMOL/L Chloride Level 99 98-107 MMOL/L Carbon Dioxide Level 23 21-32 MMOL/L Anion Gap 7 5-14 MMOL/L Blood Urea Nitrogen 11 7-18 MG/DL Creatinine 0.79 0.60-1.30 MG/DL Estimat Glomerular Filtration Rate 76 BUN/Creatinine Ratio 14 Glucose Level 135 H 70-105 MG/DL Calcium Level 9.2 8.5-10.1 MG/DL Corrected Calcium 10.1 8.5-10.1 MG/DL Total Bilirubin 0.4 0.1-1.0 MG/DL Aspartate Amino Transf (AST/SGOT) 12 5-34 U/L Alanine Aminotransferase (ALT/SGPT) 13 0-55 U/L Alkaline Phosphatase 42 40-136 U/L Total Protein 5.4 L 6.4-8.2 GM/DL Albumin 2.9 L 3.2-4.5 GM/DL left hip incision with bloody DC inferiorly no erythema NVI distally neg Efrem's s/p L hip bipolar PT/OT IRU one unit of PRBC TREVOR MENENDEZ MD September 26, 2022 06:55
[2022-09-26] MEDS ORDERED: ACETAMINOPHEN 325 MG TABLET PO PRN (07:00)
[2022-09-26] MEDS ORDERED: diphenhydrAMINE 50 MG/ML INJ (BENADRYL) IVP PRN (07:00)
[2022-09-26] MEDS ORDERED: NS IV 500 ML 500 ML IV SCH ×2 (07:00)
[2022-09-26] MEDS: SENNOSIDES 8.6 MG (SENOKOT) TAB PO SCH ×2 (08:02→20:12)
[2022-09-26] MEDS: lisINopril 20 MG (PRINIVIL) TABLET PO SCH (08:02)
--- NOTE | 2022-09-26 09:12 | Physical Therapy Daily Note ---
PT Daily Note-Current Subjective Patient lying supine in bed upon PT arrival, agreeable to treatment. Patient rates pain at 0/10 currently but notes increased soreness with pressure on the incision. Pain Section J - Health Conditions 1. Rarely or not at all 2. Occasionally 3. Frequently 4. Almost constantly 8. Unable to answer Pain Effect on Sleep: 2 Pain Interference with Therapy: 2 Pain Interference w/Day-to-Day: 2 Mental Status Patient Orientation: Person, Place, Time, Situation Transfers SCALE: Activities may be completed with or without assistive devices. 2-Wihvdifzsc-mumgvey completes the activity by him/herself with no assistance from a helper. 5-Set-up or Clean-up Assistance-helper sets up or cleans up; patient completes activity. [place] assists only prior to or following the activity. 4-Supervision or Touching Assistance-helper provides verbal cues and/or touching/steadying and/or contact guard assistance as patient completes activit y. Assistance may be provided throughout the activity or intermittently. 3-Partial/Moderate Assistance-helper does LESS THAN HALF the effort. [place] lifts, holds or supports trunk or limbs, but provides less than half the effort. 2-Substantial/Maximal Assistance-helper does MORE THAN HALF the effort. [place] lifts or holds trunk or limbs and provides more than half the effort. 2-Wyrrmxtre-vimkpb does ALL the effort. Patient does none of the effort to complete the activity. Or, the assistance of 2 or more helpers is required for the patient to complete the activity. If activity was not attempted, code reason: 7-Patient Refused. 9-Not Applicable-not attempted and the patient did not perform the activity before the current illness, exacerbation or injury. 10-Not Attempted due to Environmental Limitations-(lack of equipment, weather restraints, etc.). 88-Not Attempted due to Medical Conditions or Safety Concerns. Roll Left & Right (QC): 3 Sit to Lying (QC): 4 Lying to Sitting/Side of Bed(Q: 3 Sit to Stand (QC): 3 Weight Bearing Right Lower Extremity: Right Full Weight Bearing Left Lower Extremity: Left Weight Bearing/Tolerated Gait Training Does the Patient Walk?: Yes Exercises Supine Ex: Ankle pumps, Glut sets Supine Reps: 20 Assessment Current Status: Poor Progress Patient performed ther ex as listed while supine in bed. Patient requires SBA- Min A for all bed mobility and transfers. Patient sitting at EOB with no issues. Requires min A for sit to stand and as soon as she stands, the left hip incision begins bleeding. Patient returned to bed immediately and nurse notified. Patient in be post treatment with nurse in the room reinforcing the dressing. PT Residential Goals Mosaic Tile Maker Goals PT Mosaic Tile Maker Goals Time Frame: October 15, 2022 Roll Left & Right (QC): 6 Sit to Lying (QC): 6 Lying-Sitting on Side/Bed(QC): 6 Sit to Stand (QC): 6 Chair/Jds-ne-Txltp Xfer(QC): 6 Toilet Transfer (QC): 5 Does the Patient Walk: Yes Walk 10 feet (QC): 5 Walk 50ft with 2 Turns (QC): 5 Walk 150 ft (QC): 5 1 Step (curb) (QC): 4 4 Steps (QC): 4 PT Plan Problem List Problem List: Activity Tolerance, Functional Strength, Safety, Balance, Gait, Transfer, Bed Mobility, ROM Treatment/Plan Treatment Plan: Continue Plan of Care Treatment Plan: Bed Mobility, Education, Functional Activity Kaitlyn, Functional Strength, Group Therapy, Gait, Safety, Therapeutic Exercise, Transfers Treatment Duration: October 15, 2022 Frequency: 11 times per week Estimated Hrs Per Day: .25 hour per day Patient and/or Family Agrees t: Yes Safety Risks/Education Patient Education: Gait Training, Transfer Techniques Teaching Recipient: Patient Teaching Methods: Demonstration, Discussion Response to Teaching: Verbalize Understanding, Return Demonstration Time Time In: 838 Time Out: 855 DATE: September 26, 2022 Total Billed Treatment Time: 17 Total Billed Treatment Visit, EITAN WILLARD PT September 26, 2022 09:12
--- NOTE | 2022-09-26 12:27 | Progress Note - Hospitalist ---
[facility] 09/26/22 1227: Subjective HPI/CC On Admission Ramya Valladares is a 81 year old female with PMH HTN, T2DM, [place] carcinoma, who presented for a scheduled left hip bipolar replacement due to failure of previous hardware. She had a hip fracture in May and had an intramedullary nail placement but the hardware failed. She has also been undergoing immunotherapy for [place] carcinoma. This has been held for the past month due to diarrhea. She is seen postoperatively. She is having a bit of pain in her hip. She has also had some nausea. She has not tried to eat or drink anything yet. She denies fevers. She denies chest pain. She denies shortness of breath. Subjective/Events-last exam Today patient is feeling generally weak and tired with some lightheadedness. She was unable to complete PT this morning due to bleeding from the hip when she stood up. She maintains a good appetite. Review of Systems General: Fatigue, Malaise Pulmonary: No Dyspnea Cardiovascular: No: Chest Pain Gastrointestinal: No: Nausea, Vomiting Objective Exam Vital Signs Vital Signs Date Time Temp Pulse Resp B/P (MAP) Pulse Ox O2 Delivery O2 Flow Rate FiO2 09/26/22 09:59 37.9 98 18 129/61 98 Room Air 09/24/22 19:09 0.00 Capillary Refill : General Appearance: No Apparent Distress, WD/WN HEENT: PERRL/EOMI, Pale Conjunctivae (L), Pale Conjunctivae (R) Respiratory: Lungs Clear, No Respiratory Distress Cardiovascular: Regular Rate, Rhythm, No Murmur Gastrointestinal: Non Tender, Soft Extremity: No Pedal Edema, Other (left hip with bulky dressing) Neurologic/Psychiatric: Alert, Normal Mood/Affect Skin: Cool, Pallor Results/Procedures Lab Laboratory Tests 09/25/22 13:37 09/26/22 04:00 Patient resulted labs reviewed. Imaging: Reviewed Imaging Report Assessment/Plan Assessment and Plan Assess & Plan/Chief Complaint History of left hip fracture Hardware failure Orthopedic surgery primary, Dr. Mckeon s/p bipolar replacement 09/24 Pain regimen Bowel regimen Incentive spirometry PT/OT Plan to go to inpatient rehab unit upon approval Post operative anemia d/t acute blood loss Receiving 1 unit PRBC Continue to monitor hemoglobin Transfuse as needed Hold Lovenox HTN Continue home meds as able T2DM Sliding scale insulin Yee carcinoma Outpatient immunotherapy currently on hold Follows with Dr. Clark Monitor DVT prophylaxis: Lovenox - held d/t active bleeding RAJAN HURT MD 09/26/22 1702: Subjective HPI/CC On Admission Date Seen by Provider: September 26, 2022 Time Seen by Provider: 11:30 Assessment/Plan Assessment and Plan Assess & Plan/Chief Complaint Transfusing one unit PRBC today due to acute blood loss. Monitor hemoglobin. Holding Lovenox. PT/OT as able. IRU acceptance pending insurance approval. Monitor acute on chronic leukocytosis, no signs of infection, likely reactive. Diagnosis/Problems Diagnosis/Problems (1) Postoperative anemia due to acute blood loss (2) Hardware failure Status: Acute (3) History of fracture of left hip Status: Acute (4) HTN (hypertension) Status: Chronic (5) T2DM (type 2 diabetes mellitus) Status: Chronic Qualifiers: Qualified Codes: E11.9 - Type 2 diabetes mellitus without complications (6) Yee cell carcinoma Status: Chronic Supervisory-Addendum Brief Verification & Attestation Participated in pt care: history, MDM, physical Personally performed: exam, history, MDM, supervision of care Care discussed with: Medical Student Procedures: n/a Results interpretation: Verified all documentation A medical student performed and documented this service in my presence. I re viewed and verified all information documented by the medical student and made modifications to such information, when appropriate. I personally performed the physical exam and medical decision making. JACK KELSEY September 26, 2022 12:27 RAJAN HURT MD September 26, 2022 17:02
--- NOTE | 2022-09-26 14:55 | Occupational Ther Daily Note ---
OT Current Status-Daily Note Subjective Reclined in bed with compression L hip for blood control, declines EOB sitting however agreeable to UE ther ex Mental Status/Objective Patient Orientation: Person, Place, Situation ADL-Treatment Therapy Code Descriptions/Definitions Functional [place] Measure: 0=Not Assessed/NA 4=Minimal Assistance 1=Total Assistance 5=Supervision or Setup 2=Maximal Assistance 6=Modified [place] 3=Moderate Assistance 7=Complete IndependenceSCALE: Activities may be completed with or without assistive devices. 1-Znxuhgkcfm-ukkrrrk completes the activity by him/herself with no assistance from a helper. 5-Set-up or Clean-up Assistance-helper sets up or cleans up; patient completes activity. [place] assists only prior to or following the activity. 4-Supervision or Touching Assistance-helper provides verbal cues and/or touching/steadying and/or contact guard assistance as patient completes activity. Assistance may be provided throughout the activity or intermittently. 3-Partial/Moderate Assistance-helper does LESS THAN HALF the effort. [place] lif ts, holds or supports trunk or limbs, but provides less than half the effort. 2-Substantial/Maximal Assistance-helper does MORE THAN HALF the effort. [place] lifts or holds trunk or limbs and provides more than half the effort. 8-Rbzfnuwtb-niikvn does ALL the effort. Patient does none of the effort to complete the activity. Or, the assistance of 2 or more helpers is required for the patient to complete the activity. If activity was not attempted, code reason: 7-Patient Refused. 9-Not Applicable-not attempted and the patient did not perform the activity before the current illness, exacerbation or injury. 10-Not Attempted due to Environmental Limitations-(lack of equipment, weather restraints, etc.). 88-Not Attempted due to Medical Conditions or Safety Concerns. Eating (QC): 6 Oral Hygiene (QC): 5 (set up bedside) Shower/Bathe Self (QC): 7 Upper Body Dressing (QC): 7 (declined) Lower Body Dressing (QC): 7 (declined) On/Off Footwear: 7 (declined) Toileting Hygiene (QC): 7 (mena, declined) Toilet Transfer (QC): 7 Recall of JOSY precautions and use of tools for ADLS Other Treatment BUE THER EX for transfers, offloading LLE w/ mobility and endurance training Education OT Patient Education: Correct positioning, Exercise program, Purpose of tx/functional activities, Safety issues, Use of adapted equipment Teaching Recipient: Patient, Family (daughter present) Teaching Methods: Demonstration, Discussion Response to Teaching: Verbalize Understanding, Return Demonstration OT Mcc Goals Building Custodial Supervisor Goals Eating (QC): 6 Oral Hygiene (QC): 6 Toileting Hygiene (QC): 6 Shower/Bathe Self (QC): 6 Upper Body Dressing (QC): 6 Lower Body Dressing (QC): 6 On/Off Footwear (QC): 6 1=Demonstrate adherence to instructed precautions during ADL tasks. 2=Patient will verbalize/demonstrate understanding of assistive de vices/modifications for ADL. 3=Patient will improve strength/tolerance for activity to enable patient to perform ADL's. OT Education/Plan Discharge Recommendations Plan/Recommendations: Continue POC Equpiment Recommendations-D/C: Hip Kit Treatment Plan/Plan of Care Treatment,Training & Education: Yes Patient would benefit from OT for education, treatment and training to promote independence in ADL's, mobility, safety and/or upper extremity function for ADL's. Plan of Care: ADL Retraining, Functional Mobility, Group Exercise/Act as Ind, UE Funct Exercise/Act Treatment Duration: October 04, 2022 Frequency: 3 times per week (3-5 times per week) Estimated Hrs Per Day: .25 hour per day Agreement: Yes Rehab Potential: Fair Time Start Time: 14:30 Stop Time: 14:53 DATE: September 26, 2022 Total Time Billed (hr/min): 23 Billed Treatment Time EX 23 GUY SANDHU OT September 26, 2022 14:55
--- NOTE | 2022-09-26 15:06 | Physical Therapy Daily Note ---
PT Daily Note-Current Subjective Patient lying supine in bed upon PT arrival, agreeable to treatment. Patient rates pain at 0/10 currently but does refuse OOB activity due to fear of left hip bleeding. Pain Section J - Health Conditions 1. Rarely or not at all 2. Occasionally 3. Frequently 4. Almost constantly 8. Unable to answer Pain Effect on Sleep: 2 Pain Interference with Therapy: 2 Pain Interference w/Day-to-Day: 2 Mental Status Patient Orientation: Person, Place, Time, Situation Transfers SCALE: Activities may be completed with or without assistive devices. 6-Oqpcwiwlak-vfnccax completes the activity by him/herself with no assistance from a helper. 5-Set-up or Clean-up Assistance-helper sets up or cleans up; patient completes activity. [place] assists only prior to or following the activity. 4-Supervision or Touching Assistance-helper provides verbal cues and/or touching/steadying and/or contact guard assistance as patient completes acti vity. Assistance may be provided throughout the activity or intermittently. 3-Partial/Moderate Assistance-helper does LESS THAN HALF the effort. [place] lifts, holds or supports trunk or limbs, but provides less than half the effort. 2-Substantial/Maximal Assistance-helper does MORE THAN HALF the effort. [place] lifts or holds trunk or limbs and provides more than half the effort. 4-Vkpcnrfaw-jajaap does ALL the effort. Patient does none of the effort to complete the activity. Or, the assistance of 2 or more helpers is required for the patient to complete the activity. If activity was not attempted, code reason: 7-Patient Refused. 9-Not Applicable-not attempted and the patient did not perform the activity before the current illness, exacerbation or injury. 10-Not Attempted due to Environmental Limitations-(lack of equipment, weather restraints, etc.). 88-Not Attempted due to Medical Conditions or Safety Concerns. Weight Bearing Right Lower Extremity: Right Full Weight Bearing Left Lower Extremity: Left Weight Bearing/Tolerated Exercises Supine Ex: Ankle pumps, Quad Set, Glut sets, Heel Slides, Straight leg raise, Hip abd/add Supine Reps: 20 Assessment Current Status: Poor Progress Patient refused OOB treatment this afternoon. Patient performed LE therapeutic exercise as listed above. Patient in bed post treatment with all needs met, nursing notified, call light in reach. PT Official Court Interpreter Goals Official Court Interpreter Goals PT Official Court Interpreter Goals Time Frame: October 15, 2022 Roll Left & Right (QC): 6 Sit to Lying (QC): 6 Lying-Sitting on Side/Bed(QC): 6 Sit to Stand (QC): 6 Chair/Abr-wk-Makvv Xfer(QC): 6 Toilet Transfer (QC): 5 Does the Patient Walk: Yes Walk 10 feet (QC): 5 Walk 50ft with 2 Turns (QC): 5 Walk 150 ft (QC): 5 1 Step (curb) (QC): 4 4 Steps (QC): 4 PT Plan Treatment/Plan Treatment Plan: Continue Plan of Care Treatment Plan: Bed Mobility, Education, Functional Activity Kaitlyn, Functional Strength, Group Therapy, Gait, Safety, Therapeutic Exercise, Transfers Treatment Duration: October 15, 2022 Frequency: 11 times per week Estimated Hrs Per Day: .25 hour per day Patient and/or Family Agrees t: Yes Time Time In: 1316 Time Out: 1334 DATE: September 26, 2022 Total Billed Treatment Time: 18 Total Billed Treatment Visit, Ex EITAN VALERO PT September 26, 2022 15:06
[2022-09-27 04:27] VITALS: BP 147/71
[2022-09-27] MEDS: inSUlin ASPART (NovoLOG) 1 UNIT/0.01 ML (CHARGE PER UNIT) SC SCH ×4 (05:52→21:22)
[2022-09-27 06:00] LABS: BASOPHILS % (AUTO) 0 % (0-10); EOSINOPHILS % (AUTO) 0 % (0-10); HEMATOCRIT 23 % (35-52); HEMOGLOBIN 7.7 g/dL (11.5-16.0); LYMPHOCYTES # (AUTO) 4.5 10^3/uL (1.0-4.0); LYMPHOCYTES % (AUTO) 16 % (12-44); MEAN CORPUSCULAR HEMOGLOBIN 28 pg (25-34); MEAN CORPUSCULAR HGB CONC 34 g/dL (32-36); MEAN CORPUSCULAR VOLUME 83 fL (80-99); MEAN PLATELET VOLUME 9.7 fL (9.0-12.2); MONOCYTES # (AUTO) 9.3 10^3/uL (0.0-1.0); MONOCYTES % (AUTO) 33 % (0-12); NEUTROPHILS # (AUTO) 14.2 10^3/uL (1.8-7.8); NEUTROPHILS % (AUTO) 50 % (42-75); PLATELET COUNT 295 10^3/uL (130-400); WHITE BLOOD COUNT 28.3 10^3/uL (4.3-11.0)
[2022-09-27 06:16] LABS: ALBUMIN 2.6 GM/DL (3.2-4.5); BILIRUBIN,TOTAL 0.5 MG/DL (0.1-1.0); CALCIUM 9.5 MG/DL (8.5-10.1); CREATININE SERUM 0.73 MG/DL (0.60-1.30); TOTAL PROTEIN 5.1 GM/DL (6.4-8.2)
[2022-09-27 07:25] VITALS: BP 134/69
[2022-09-27] MEDS: SENNOSIDES 8.6 MG (SENOKOT) TAB PO SCH ×2 (09:12→22:08)
[2022-09-27] MEDS: ACETAMINOPHEN 325 MG TABLET PO PRN ×3 (09:13→22:07)
[2022-09-27] MEDS: lisINopril 20 MG (PRINIVIL) TABLET PO SCH (09:13)
--- NOTE | 2022-09-27 09:46 | Physical Therapy Daily Note ---
PT Daily Note-Current Subjective Patient lying supine in bed upon PT arrival, agreeable to treatment. Patent rates pain at 3/10 in left hip. Pain Section J - Health Conditions 1. Rarely or not at all 2. Occasionally 3. Frequently 4. Almost constantly 8. Unable to answer Pain Effect on Sleep: 2 Pain Interference with Therapy: 2 Pain Interference w/Day-to-Day: 2 Mental Status Patient Orientation: Person, Place, Time, Situation Transfers SCALE: Activities may be completed with or without assistive devices. 0-Fsgsersldg-erkapqp completes the activity by him/herself with no assistance from a helper. 5-Set-up or Clean-up Assistance-helper sets up or cleans up; patient completes activity. [place] assists only prior to or following the activity. 4-Supervision or Touching Assistance-helper provides verbal cues and/or touching/steadying and/or contact guard assistance as patient completes activity. Assistance may be provided throughout the activity or intermittently. 3-Partial/Moderate Assistance-helper does LESS THAN HALF the effort. [place] lifts, holds or supports trunk or limbs, but provides less than half the effort. 2-Substantial/Maximal Assistance-helper does MORE THAN HALF the effort. [place] lifts or holds trunk or limbs and provides more than half the effort. 2-Itfghprtk-cjfoum does ALL the effort. Patient does none of the effort to complete the activity. Or, the assistance of 2 or more helpers is required for the patient to complete the activity. If activity was not attempted, code reason: 7-Patient Refused. 9-Not Applicable-not attempted and the patient did not perform the activity before the current illness, exacerbation or injury. 10-Not Attempted due to Environmental Limitations-(lack of equipment, weather restraints, etc.). 88-Not Attempted due to Medical Conditions or Safety Concerns. Roll Left & Right (QC): 3 Sit to Lying (QC): 3 Lying to Sitting/Side of Bed(Q: 3 Sit to Stand (QC): 4 Chair/Dyv-bi-Ckhck Xfer(QC): 4 Toilet Transfer (QC): 4 Weight Bearing Right Lower Extremity: Right Full Weight Bearing Left Lower Extremity: Left Weight Bearing/Tolerated Gait Training Does the Patient Walk?: Yes Distance: 30' Walk 10 feet (QC): 4 Gait Assistive Device: FWW Exercises Supine Ex: Ankle pumps, Quad Set, Glut sets Supine Reps: 20 Assessment Current Status: Fair Progress Patient tolerated treatment better this date. Patient performs therapeutic exercise as listed above. She performs all observed bed mobility and transfers with Min A to SBA. Patient ambulates 30 feet with FWW, with CGA and verbal cues for safety, progression, posture. Patient in bed post treatment with all needs met, nursing notified, call light in hand. PT Security Systems Installer Goals Shelter Goals PT Security Systems Installer Goals Time Frame: October 15, 2022 Roll Left & Right (QC): 6 Sit to Lying (QC): 6 Lying-Sitting on Side/Bed(QC): 6 Sit to Stand (QC): 6 Chair/Nkm-ig-Pgfvm Xfer(QC): 6 Toilet Transfer (QC): 5 Does the Patient Walk: Yes Walk 10 feet (QC): 5 Walk 50ft with 2 Turns (QC): 5 Walk 150 ft (QC): 5 1 Step (curb) (QC): 4 4 Steps (QC): 4 PT Plan Treatment/Plan Treatment Plan: Continue Plan of Care Treatment Plan: Bed Mobility, Education, Functional Activity Kaitlyn, Functional Strength, Group Therapy, Gait, Safety, Therapeutic Exercise, Transfers Treatment Duration: October 15, 2022 Frequency: 11 times per week Estimated Hrs Per Day: .25 hour per day Patient and/or Family Agrees t: Yes Safety Risks/Education Patient Education: Gait Training, Transfer Techniques Teaching Recipient: Patient Teaching Methods: Demonstration, Discussion Response to Teaching: Verbalize Understanding, Return Demonstration Time Time In: 750 Time Out: 817 DATE: September 27, 2022 Total Billed Treatment Time: 27 Total Billed Treatment Visit, Ex, GT EITAN VALERO PT September 27, 2022 09:46
[2022-09-27 11:10] VITALS: BP 131/69
--- NOTE | 2022-09-27 14:28 | Progress Note - Hospitalist ---
[facility] 09[facility] 1428: Subjective HPI/CC On Admission Ramya Valladares is a 81 year old female with PMH HTN, T2DM, [place] carcinoma, who presented for a scheduled left hip bipolar replacement due to failure of previous hardware. She had a hip fracture in May and had an intramedullary nail placement but the hardware failed. She has also been undergoing immunotherapy for [place] carcinoma. This has been held for the past month due to diarrhea. She is seen postoperatively. She is having a bit of pain in her hip. She has also had some nausea. She has not tried to eat or drink anything yet. She denies fevers. She denies chest pain. She denies shortness of breath. Subjective/Events-last exam Ramya received 1 unit of PRBC yesterday. She is still feeling tired and weak today but better than yesterday. She reports some back pain today up to a 5-6/10 in severity but improves with pain medication, she attributes it to lying in bed. Patient was able to get out of bed and walk to door of room as well as commode. No blood oozing from hip dressing today. Review of Systems General: No Chills; Fatigue Pulmonary: No Dyspnea, No Cough Cardiovascular: No: Chest Pain, Lt [place]adedness Gastrointestinal: No: Nausea, Vomiting, Abdominal Pain Musculoskeletal: back pain Objective Exam Vital Signs Vital Signs Date Time Temp Pulse Resp B/P (MAP) Pulse Ox O2 Delivery O2 Flow Rate FiO2 09/27/22 11:10 36.8 86 18 131/69 (89) 94 Room Air 09/26/22 14:06 0.00 0.00 Capillary Refill : General Appearance: No Apparent Distress, WD/WN HEENT: PERRL/EOMI, Pale Conjunctivae (L), Pale Conjunctivae (R) Respiratory: Lungs Clear, No Respiratory Distress Cardiovascular: Regular Rate, Rhythm, No Murmur Gastrointestinal: Non Tender, Soft Extremity: No Pedal Edema, Other (left hip with bulky dressing, no blood visible) Neurologic/Psychiatric: Alert, Normal Mood/Affect Skin: Cool, Pallor (improved from yesterday) Results/Procedures Lab Laboratory Tests 09/26/22 17:06 09/27/22 05:50 Patient resulted labs reviewed. Imaging: Reviewed Imaging Report Assessment/Plan Assessment and Plan Assess & Plan/Chief Complaint History of left hip fracture Hardware failure Orthopedic surgery primary, Dr. Mckeon s/p bipolar replacement 09/24 Pain regimen Bowel regimen Incentive spirometry PT/OT Plan to go to inpatient rehab unit upon insurance approval Post operative anemia d/t acute blood loss Received 1 unit PRBC 09/26 Continue to monitor hemoglobin Transfuse as needed Hold Lovenox, consider restart tomorrow if Hgb stable HTN Continue home meds as able T2DM Sliding scale insulin Yee carcinoma Outpatient immunotherapy currently on hold Follows with Dr. Clark Monitor DVT prophylaxis: Lovenox - held RAJAN HURT MD 09/27/22 1654: Subjective HPI/CC On Admission Date Seen by Provider: September 27, 2022 Time Seen by Provider: 10:35 Assessment/Plan Assessment and Plan Assess & Plan/Chief Complaint Monitor hemoglobin. Bleeding appears to have stopped. If hemoglobin remains stable, will resume Lovenox tomorrow. Continue to monitor leukocytosis and signs of infection. Continue PT/OT, await insurance authorization for IRU. Diagnosis/Problems Diagnosis/Problems (1) Hardware failure Status: Acute (2) Postoperative anemia due to acute blood loss (3) History of fracture of left hip Status: Acute (4) HTN (hypertension) Status: Chronic (5) T2DM (type 2 diabetes mellitus) Status: Chronic Qualifiers: Qualified Codes: E11.9 - Type 2 diabetes mellitus without complications (6) Yee cell carcinoma Status: Chronic Supervisory-Addendum Brief Verification & Attestation Participated in pt care: history, MDM, physical Personally performed: exam, history, MDM, supervision of care Care discussed with: Medical Student Procedures: n/a Results interpretation: Verified all documentation A medical student performed and documented this service in my presence. I reviewed and verified all information documented by the medical student and made modifications to such information, when appropriate. I personally performed the physical exam and medical decision making. JACK KELSEY September 27, 2022 14:28 RAJAN HURT MD September 27, 2022 16:54
[2022-09-27 15:30] VITALS: BP 129/61
--- NOTE | 2022-09-27 19:30 | Progress Note ---
Standard Progress Note Progress Notes/Assess & Plan Date Seen by a Provider: September 27, 2022 Time Seen by a Provider: 19:25 Progress/Assessment & Plan Patient has no complaints. Reports she was able to walk with PT today. She is POD 3. Dressing left hip clean and dry. Intact PF, DF and EHL. Calves soft and nontender with negative Efrem's. VSS Laboratory Tests 09/26/22 20:02: Glucometer 197H 09/27/22 05:49: Glucometer 126H 09/27/22 05:50: White Blood Count 28.3H, Red Blood Count 2.73L, Hemoglobin 7.7L, Hematocrit 23L, Mean Corpuscular Volume 83, Mean Corpuscular Hemoglobin 28, Mean Corpuscular Hemoglobin Concent 34, Red Cell Distribution Width 14.5, Platelet Count 295, Mean Platelet Volume 9.7, Immature Granulocyte % (Auto) 1, Neutrophils (%) (Auto) 50, Lymphocytes (%) (Auto) 16, Monocytes (%) (Auto) 33H, Eosinophils (%) (Auto) 0, Basophils (%) (Auto) 0, Neutrophils # (Auto) 14.2H, Lymphocytes # (Auto) 4.5H, Monocytes # (Auto) 9.3H, Eosinophils # (Auto) 0.0, Basophils # (Auto) 0.0, Immature Granulocyte # (Auto) 0.3H, Sodium Level 131L, Potassium Level 4.0, Chloride Level 100, Carbon Dioxide Level 24, Anion Gap 7, Blood Urea Nitrogen 7, Creatinine 0.73, Estimat Glomerular Filtration Rate 84, BUN/Creatinine Ratio 10, Glucose Level 132H, Calcium Level 9.5, Corrected Calcium 10.6H, Total Bilirubin 0.5, Aspartate Amino Transf (AST/SGOT) 11, Alanine Aminotransferase (ALT/SGPT) 9, Alkaline Phosphatase 40, Total Protein 5.1L, Albumin 2.6L 09/27/22 10:11: Glucometer 161H 09/27/22 15:58: Glucometer 153H Microbiology 09/24/22 MRSA Screen - Final, Complete MRSA not isolated Assessment: Doing well S/P Left hip bipolar hemiarthroplasty Plan: PT/OT DVT prophylaxis Mobilize prn To ARU Thursday JOSE PANDEY September 27, 2022 19:30
[2022-09-27 19:48] VITALS: BP 133/72
[2022-09-27] MEDS: TEMAZEPAM 15 MG (RESTORIL) CAP PO PRN (22:08)
[2022-09-27 23:16] VITALS: BP 143/67
[2022-09-28 03:20] VITALS: BP 141/65
[2022-09-28 04:53] LABS: BASOPHILS % (AUTO) 0 % (0-10); EOSINOPHILS % (AUTO) 0 % (0-10); HEMATOCRIT 25 % (35-52); HEMOGLOBIN 8.1 g/dL (11.5-16.0); LYMPHOCYTES # (AUTO) 4.2 10^3/uL (1.0-4.0); LYMPHOCYTES % (AUTO) 17 % (12-44); MEAN CORPUSCULAR HEMOGLOBIN 27 pg (25-34); MEAN CORPUSCULAR HGB CONC 33 g/dL (32-36); MEAN CORPUSCULAR VOLUME 83 fL (80-99); MEAN PLATELET VOLUME 9.5 fL (9.0-12.2); MONOCYTES # (AUTO) 6.8 10^3/uL (0.0-1.0); MONOCYTES % (AUTO) 27 % (0-12); NEUTROPHILS # (AUTO) 14.1 10^3/uL (1.8-7.8); NEUTROPHILS % (AUTO) 55 % (42-75); PLATELET COUNT 390 10^3/uL (130-400); WHITE BLOOD COUNT 25.4 10^3/uL (4.3-11.0)
[2022-09-28 05:12] LABS: ALBUMIN 2.8 GM/DL (3.2-4.5); POTASSIUM 3.7 MMOL/L (3.6-5.0)
[2022-09-28 05:13] LABS: CALCIUM 9.6 MG/DL (8.5-10.1)
[2022-09-28 05:15] LABS: TOTAL PROTEIN 5.7 GM/DL (6.4-8.2)
[2022-09-28 05:16] LABS: BILIRUBIN,TOTAL 0.7 MG/DL (0.1-1.0)
[2022-09-28 05:18] LABS: CREATININE SERUM 0.75 MG/DL (0.60-1.30)
[2022-09-28] MEDS: inSUlin ASPART (NovoLOG) 1 UNIT/0.01 ML (CHARGE PER UNIT) SC SCH ×4 (05:43→21:02)
[2022-09-28 07:20] VITALS: BP 168/74
[2022-09-28] MEDS: ENOXAPARIN 40 MG/0.4 ML (LOVENOX) SYR SC SCH (08:00)
[2022-09-28] MEDS: SENNOSIDES 8.6 MG (SENOKOT) TAB PO SCH ×2 (08:03→19:29)
[2022-09-28] MEDS: lisINopril 20 MG (PRINIVIL) TABLET PO SCH (08:03)
--- NOTE | 2022-09-28 10:14 | Physical Therapy Daily Note ---
PT Daily Note-Current Subjective Patient lying supine in bed upon PT arrival, agreeable to treatment. Patient rates pain at 4/10 currently in left hip. Pain Section J - Health Conditions 1. Rarely or not at all 2. Occasionally 3. Frequently 4. Almost constantly 8. Unable to answer Pain Effect on Sleep: 2 Pain Interference with Therapy: 2 Pain Interference w/Day-to-Day: 2 Mental Status Patient Orientation: Person, Place, Time, Situation Transfers SCALE: Activities may be completed with or without assistive devices. 7-Exdrltsdzi-nayexwk completes the activity by him/herself with no assistance from a helper. 5-Set-up or Clean-up Assistance-helper sets up or cleans up; patient completes activity. [place] assists only prior to or following the activity. 4-Supervision or Touching Assistance-helper provides verbal cues and/or touching/steadying and/or contact guard assistance as patient completes activity. Assistance may be provided throughout the activity or intermittently. 3-Partial/Moderate Assistance-helper does LESS THAN HALF the effort. [place] lifts, holds or supports trunk or limbs, but provides less than half the effort. 2-Substantial/Maximal Assistance-helper does MORE THAN HALF the effort. [place] lifts or holds trunk or limbs and provides more than half the effort. 9-Rrnphbarv-zyoxfz does ALL the effort. Patient does none of the effort to complete the activity. Or, the assistance of 2 or more helpers is required for the patient to complete the activity. If activity was not attempted, code reason: 7-Patient Refused. 9-Not Applicable-not attempted and the patient did not perform the activity before the current illness, exacerbation or injury. 10-Not Attempted due to Environmental Limitations-(lack of equipment, weather restraints, etc.). 88-Not Attempted due to Medical Conditions or Safety Concerns. Roll Left & Right (QC): 3 Sit to Lying (QC): 4 Lying to Sitting/Side of Bed(Q: 3 Sit to Stand (QC): 4 Chair/Qbv-zx-Vpwxe Xfer(QC): 4 Toilet Transfer (QC): 4 Weight Bearing Right Lower Extremity: Right Full Weight Bearing Left Lower Extremity: Left Weight Bearing/Tolerated Gait Training Does the Patient Walk?: Yes Distance: 80' Walk 10 feet (QC): 4 Walk 50 ft with 2 Turns(QC): 4 Gait Persons Needed: 1 Gait Assistive Device: FWW Exercises Supine Ex: Ankle pumps, Quad Set, Glut sets Supine Reps: 20 Assessment Current Status: Good Progress Patient tolerated well Patient performs therapeutic exercise as listed above. She performs all observed bed mobility and transfers with Min A to SBA. Patient ambulates 80 feet with FWW, with CGA and verbal cues for safety, progression, posture. Patient in chair post treatment with all needs met, nursing notified, call light in hand. PT Prison Goals Rubber Compounder Mixer Goals PT Prison Goals Time Frame: October 15, 2022 Roll Left & Right (QC): 6 Sit to Lying (QC): 6 Lying-Sitting on Side/Bed(QC): 6 Sit to Stand (QC): 6 Chair/Neh-ff-Qycpb Xfer(QC): 6 Toilet Transfer (QC): 5 Does the Patient Walk: Yes Walk 10 feet (QC): 5 Walk 50ft with 2 Turns (QC): 5 Walk 150 ft (QC): 5 1 Step (curb) (QC): 4 4 Steps (QC): 4 PT Plan Treatment/Plan Treatment Plan: Continue Plan of Care Treatment Plan: Bed Mobility, Education, Functional Activity Kaitlyn, Functional Strength, Group Therapy, Gait, Safety, Therapeutic Exercise, Transfers Treatment Duration: October 15, 2022 Frequency: 11 times per week Estimated Hrs Per Day: .25 hour per day Patient and/or Family Agrees t: Yes Safety Risks/Education Patient Education: Gait Training, Transfer Techniques Teaching Recipient: Patient Teaching Methods: Demonstration, Discussion Response to Teaching: Verbalize Understanding, Return Demonstration Time Time In: 935 Time Out: 1000 DATE: September 28, 2022 Total Billed Treatment Time: 25 Total Billed Treatment Visit, ashley Reyes JOHN A PT September 28, 2022 10:14
--- NOTE | 2022-09-28 10:16 | Progress Note ---
Standard Progress Note Progress Notes/Assess & Plan Date Seen by a Provider: September 28, 2022 Time Seen by a Provider: 10:08 Progress/Assessment & Plan Patient has no c/o. Walked with PT. POD 4. Intact DF, PF and EHL. Bilateral calves soft and nontender with negative Homans. Laboratory Tests 09/28/22 04:48 Assessment: doing well S/P Left hip bipolar hemiarthroplasty Plan: OT/PT Mobilize ARU tomorrow JOSE PANDEY September 28, 2022 10:16
[2022-09-28 11:13] VITALS: BP 152/66
--- NOTE | 2022-09-28 14:05 | Progress Note - Hospitalist ---
[facility] 09/28/22 1405: Subjective HPI/CC On Admission Ramya Valladares is a 81 year old female with PMH HTN, T2DM, [place] carcinoma, who presented for a scheduled left hip bipolar replacement due to failure of previous hardware. She had a hip fracture in May and had an intramedullary nail placement but the hardware failed. She has also been undergoing immunotherapy for [place] carcinoma. This has been held for the past month due to diarrhea. She is seen postoperatively. She is having a bit of pain in her hip. She has also had some nausea. She has not tried to eat or drink anything yet. She denies fevers. She denies chest pain. She denies shortness of breath. Subjective/Events-last exam Today Ramya is feeling well and sitting in chair, no further bleeding from hip. Still planning to go to inpatient rehab. Review of Systems General: No Chills, No Night Sweats Pulmonary: No Dyspnea, No Cough Cardiovascular: No: Chest Pain, Palpitations Gastrointestinal: No: Nausea, Abdominal Pain Objective Exam Vital Signs Vital Signs Date Time Temp Pulse Resp B/P (MAP) Pulse Ox O2 Delivery O2 Flow Rate FiO2 09/28/22 11:13 37.4 93 18 152/66 (94) 96 Room Air 09/26/22 14:06 0.00 0.00 Capillary Refill : General Appearance: No Apparent Distress, WD/WN HEENT: PERRL/EOMI, Moist Mucous Membranes Respiratory: No Accessory Muscle Use, No Respiratory Distress Cardiovascular: No Edema, No JVD Gastrointestinal: Non Tender, Soft Neurologic/Psychiatric: Alert, Normal Mood/Affect Skin: Normal Color, Warm/Dry Results/Procedures Lab Laboratory Tests 09/28/22 04:48 Patient resulted labs reviewed. Imaging: Reviewed Imaging Report Assessment/Plan Assessment and Plan Assess & Plan/Chief Complaint History of left hip fracture Hardware failure Orthopedic surgery primary, Dr. Mckeon s/p bipolar replacement 09/24 Pain regimen Bowel regimen Incentive spirometry PT/OT Plan to go to inpatient rehab unit upon insurance approval Post operative anemia d/t acute blood loss Received 1 unit PRBC 09/26 Continue to monitor hemoglobin Transfuse as needed Restart Lovenox given stable Hgb HTN Continue home meds as able T2DM Sliding scale insulin [place] carcinoma Outpatient immunotherapy currently on hold Follows with Dr. Clark Monitor DVT prophylaxis: Lovenox - restart RAJAN HURT MD 09/28/22 1715: Subjective HPI/CC On Admission Date Seen by Provider: September 28, 2022 Time Seen by Provider: 12:05 Objective Exam General Appearance: No Apparent Distress, WD/WN Respiratory: Lungs Clear, No Respiratory Distress Cardiovascular: Regular Rate, Rhythm, No Murmur Gastrointestinal: Normal Bowel Sounds, Soft Extremity: Normal Inspection, No Pedal Edema Neurologic/Psychiatric: Alert, Normal Mood/Affect Skin: Normal Color, Warm/Dry Assessment/Plan Assessment and Plan Assess & Plan/Chief Complaint Hemoglobin stable. No evidence of ongoing bleeding. Resume Lovenox DVT prop hylaxis. Awaiting IRU insurance approval. Diagnosis/Problems Diagnosis/Problems (1) Hardware failure Status: Acute (2) History of fracture of left hip Status: Acute (3) Postoperative anemia due to acute blood loss (4) Yee cell carcinoma Status: Chronic (5) HTN (hypertension) Status: Chronic (6) T2DM (type 2 diabetes mellitus) Status: Chronic Qualifiers: Qualified Codes: E11.9 - Type 2 diabetes mellitus without complications Supervisory-Addendum Brief Verification & Attestation Participated in pt care: history, MDM, physical Personally performed: exam, history, MDM, supervision of care Care discussed with: Medical Student Procedures: n/a Results interpretation: Verified all documentation A medical student performed and documented this service in my presence. I reviewed and verified all information documented by the medical student and made modifications to such information, when appropriate. I personally performed the physical exam and medical decision making. JACK KELSEY September 28, 2022 14:05 RAJAN HURT MD September 28, 2022 17:15
[2022-09-28 15:38] VITALS: BP 134/62
[2022-09-28] MEDS: TEMAZEPAM 15 MG (RESTORIL) CAP PO PRN (19:28)
[2022-09-28] MEDS: ACETAMINOPHEN 325 MG TABLET PO PRN (19:29)
[2022-09-28 20:00] VITALS: BP 145/65
[2022-09-29 00:13] VITALS: BP 130/63
[2022-09-29 04:28] LABS: BASOPHILS % (AUTO) 0 % (0-10); EOSINOPHILS % (AUTO) 0 % (0-10); HEMATOCRIT 23 % (35-52); HEMOGLOBIN 7.8 g/dL (11.5-16.0); LYMPHOCYTES # (AUTO) 4.6 10^3/uL (1.0-4.0); LYMPHOCYTES % (AUTO) 18 % (12-44); MEAN CORPUSCULAR HEMOGLOBIN 28 pg (25-34); MEAN CORPUSCULAR HGB CONC 34 g/dL (32-36); MEAN CORPUSCULAR VOLUME 84 fL (80-99); MEAN PLATELET VOLUME 9.3 fL (9.0-12.2); MONOCYTES % (AUTO) 27 % (0-12); NEUTROPHILS % (AUTO) 54 % (42-75); PLATELET COUNT 426 10^3/uL (130-400)
[2022-09-29 04:42] LABS: ALBUMIN 2.7 GM/DL (3.2-4.5)
[2022-09-29 04:43] LABS: POTASSIUM 3.7 MMOL/L (3.6-5.0)
[2022-09-29 04:44] LABS: CALCIUM 9.8 MG/DL (8.5-10.1)
[2022-09-29 04:45] LABS: TOTAL PROTEIN 5.5 GM/DL (6.4-8.2)
[2022-09-29 04:47] LABS: BILIRUBIN,TOTAL 0.6 MG/DL (0.1-1.0)
[2022-09-29 04:49] LABS: CREATININE SERUM 0.85 MG/DL (0.60-1.30)
[2022-09-29] MEDS: inSUlin ASPART (NovoLOG) 1 UNIT/0.01 ML (CHARGE PER UNIT) SC SCH ×4 (05:00→21:20)
[2022-09-29 07:37] VITALS: BP 137/64
--- NOTE | 2022-09-29 07:41 | Progress Note ---
Standard Progress Note Progress Notes/Assess & Plan Date Seen by a Provider: September 29, 2022 Time Seen by a Provider: 07:36 Progress/Assessment & Plan no complaints Laboratory Tests Test 09/24/22 08:24 09/24/22 15:43 09/24/22 20:08 09/25/22 05:08 Range/Units Glucometer 132 H 170 H 201 H 70-110 MG/DL White Blood Count 22.1 H 4.3-11.0 10^3/uL Red Blood Count 2.92 L 3.80-5.11 10^6/uL Hemoglobin 8.2 L 11.5-16.0 g/dL Hematocrit 24 L 35-52 % Mean Corpuscular Volume 84 80-99 fL Mean Corpuscular Hemoglobin 28 25-34 pg Mean Corpuscular Hemoglobin Concent 34 32-36 g/dL Red Cell Distribution Width 15.0 H 10.0-14.5 % Platelet Count 365 130-400 10^3/uL Mean Platelet Volume 9.9 9.0-12.2 fL Immature Granulocyte % (Auto) 1 % Neutrophils (%) (Auto) 55 42-75 % Lymphocytes (%) (Auto) 15 12-44 % Monocytes (%) (Auto) 29 H 0-12 % Eosinophils (%) (Auto) 0 0-10 % Basophils (%) (Auto) 0 0-10 % Neutrophils # (Auto) 12.2 H 1.8-7.8 10^3/uL Lymphocytes # (Auto) 3.4 1.0-4.0 10^3/uL Monocytes # (Auto) 6.5 H 0.0-1.0 10^3/uL Eosinophils # (Auto) 0.0 0.0-0.3 10^3/uL Basophils # (Auto) 0.0 0.0-0.1 10^3/uL Immature Granulocyte # (Auto) 0.1 0.0-0.1 10^3/uL Neutrophils % (Manual) 58 % Lymphocytes % (Manual) 20 % Monocytes % (Manual) 22 % Platelet Estimate ADEQUATE Polychromasia SLIGHT Hypochromasia SLIGHT Basophilic Stippling SLIGHT Sodium Level 130 L 135-145 MMOL/L Potassium Level 4.6 3.6-5.0 MMOL/L Chloride Level 102 98-107 MMOL/L Carbon Dioxide Level 21 21-32 MMOL/L Anion Gap 7 5-14 MMOL/L Blood Urea Nitrogen 17 7-18 MG/DL Creatinine 0.85 0.60-1.30 MG/DL Estimat Glomerular Filtration Rate 70 BUN/Creatinine Ratio 20 Glucose Level 137 H 70-105 MG/DL Calcium Level 9.3 8.5-10.1 MG/DL Corrected Calcium 10.1 8.5-10.1 MG/DL Total Bilirubin 0.3 0.1-1.0 MG/DL Aspartate Amino Transf (AST/SGOT) 16 5-34 U/L Alanine Aminotransferase (ALT/SGPT) 13 0-55 U/L Alkaline Phosphatase 39 L 40-136 U/L Total Protein 5.5 L 6.4-8.2 GM/DL Albumin 3.0 L 3.2-4.5 GM/DL Test 09/25/22 06:24 Range/Units Glucometer 137 H 70-110 MG/DL Vital Signs Date Time Temp Pulse Resp B/P (MAP) Pulse Ox O2 Delivery O2 Flow Rate FiO2 09/25/22 07:20 36.8 100 18 120/55 (76) 91 Room Air 09/25/22 06:27 37.4 09/25/22 04:38 37.5 09/25/22 04:34 37.5 114 18 122/72 (89) 93 Room Air 09/25/22 00:05 109 16 122/58 (79) 93 Room Air 09/24/22 19:35 Room Air 09/24/22 19:28 36.2 92 17 121/74 (90) 97 Room Air 09/24/22 19:09 Room Air 0.00 09/24/22 17:26 Room Air 09/24/22 15:39 36.0 80 18 111/55 (73) 98 Room Air 09/24/22 12:30 35.3 61 18 100/53 (69) 91 Room Air 09/24/22 11:55 Room Air 09/24/22 11:50 36.3 16 98/46 (63) 94 Room Air 09/24/22 11:40 15 98/44 (62) 97 Room Air 09/24/22 11:30 17 108/53 (71) 97 Room Air 09/24/22 11:30 Room Air 09/24/22 11:20 14 111/44 (66) 99 OxyMask 2.00 09/24/22 11:15 OxyMask 2.00 09/24/22 11:10 15 98/45 (62) 99 OxyMask 2.00 09/24/22 11:00 15 83/41 (55) 100 OxyMask 4.00 09/24/22 10:56 36.1 16 90/43 (59) 100 OxyMask 6.00 09/24/22 10:56 OxyMask 6.00 09/24/22 08:20 36.4 88 20 143/67 (92) 97 Room Air I & O 09/25/22 07:00 Intake Total 2510 ml Output Total 0 ml Balance 2510 ml radiographs--HW well positioned without fracture LLE--intact DF and PF of toes and ankle sensation intact throughout pulse equal s/p left hip bipolar PT/OT IRU Final Diagnosis feeling better Vital Signs Date Time Temp Pulse Resp B/P (MAP) Pulse Ox O2 Delivery O2 Flow Rate FiO2 09/29/22 07:37 37.1 93 16 137/64 (88) 95 Room Air 09/29/22 00:13 36.6 74 18 130/63 (85) 96 Room Air 09/28/22 20:00 37.1 93 18 145/65 (91) 91 Room Air 09/28/22 19:30 Room Air 09/28/22 15:38 37.6 93 17 134/62 (86) 94 Room Air 09/28/22 11:13 37.4 93 18 152/66 (94) 96 Room Air 09/28/22 08:00 Room Air I & O 09/29/22 07:00 Intake Total 1640 ml Output Total 2375 ml Balance -735 ml Laboratory Tests Test 09/28/22 10:06 09/28/22 15:45 09/28/22 20:07 09/29/22 04:21 Range/Units Glucometer 187 H 182 H 140 H 70-110 MG/DL White Blood Count 26.0 H 4.3-11.0 10^3/uL Red Blood Count 2.78 L 3.80-5.11 10^6/uL Hemoglobin 7.8 L 11.5-16.0 g/dL Hematocrit 23 L 35-52 % Mean Corpuscular Volume 84 80-99 fL Mean Corpuscular Hemoglobin 28 25-34 pg Mean Corpuscular Hemoglobin Concent 34 32-36 g/dL Red Cell Distribution Width 14.5 10.0-14.5 % Platelet Count 426 H 130-400 10^3/uL Mean Platelet Volume 9.3 9.0-12.2 fL Immature Granulocyte % (Auto) 2 % Neutrophils (%) (Auto) 54 42-75 % Lymphocytes (%) (Auto) 18 12-44 % Monocytes (%) (Auto) 27 H 0-12 % Eosinophils (%) (Auto) 0 0-10 % Basophils (%) (Auto) 0 0-10 % Neutrophils # (Auto) 14.0 H 1.8-7.8 10^3/uL Lymphocytes # (Auto) 4.6 H 1.0-4.0 10^3/uL Monocytes # (Auto) 7.0 H 0.0-1.0 10^3/uL Eosinophils # (Auto) 0.0 0.0-0.3 10^3/uL Basophils # (Auto) 0.0 0.0-0.1 10^3/uL Immature Granulocyte # (Auto) 0.4 H 0.0-0.1 10^3/uL Sodium Level 136 135-145 MMOL/L Potassium Level 3.7 3.6-5.0 MMOL/L Chloride Level 104 98-107 MMOL/L Carbon Dioxide Level 24 21-32 MMOL/L Anion Gap 8 5-14 MMOL/L Blood Urea Nitrogen 12 7-18 MG/DL Creatinine 0.85 0.60-1.30 MG/DL Estimat Glomerular Filtration Rate 70 BUN/Creatinine Ratio 14 Glucose Level 135 H 70-105 MG/DL Calcium Level 9.8 8.5-10.1 MG/DL Corrected Calcium 10.8 H 8.5-10.1 MG/DL Total Bilirubin 0.6 0.1-1.0 MG/DL Aspartate Amino Transf (AST/SGOT) 11 5-34 U/L Alanine Aminotransferase (ALT/SGPT) 13 0-55 U/L Alkaline Phosphatase 46 40-136 U/L Total Protein 5.5 L 6.4-8.2 GM/DL Albumin 2.7 L 3.2-4.5 GM/DL L hip dressing clean and dry no calf tenderness neg Efrem's s/p L hip bipolar To IRU today TREVOR MENENDEZ MD September 29, 2022 07:41
--- NOTE | 2022-09-29 07:57 | DISCHARGE SUMMARY ---
DATE OF SERVICE: 09/24/2022 DIAGNOSES: 1. Left hip hardware failure, status post intramedullary nail for an intertrochanteric femur fracture. 2. Hypertension. 3. Type 2 diabetes mellitus. 4. Power carcinoma. 5. Anemia secondary to surgical blood loss. PROCEDURES: 1. Left hip hardware removal with bipolar replacement. 2. Transfusion of packed red blood cells. HISTORY: The patient is a 81-year-old female who underwent hardware removal and conversion to a bipolar hip replacement of the left hip the day of admission. Postoperatively, she did well. Her hemoglobin dropped below 7 and she received packed red blood cells, which elevated to 7.8 at the time of discharge. In addition, at the time of discharge, her wound was clean and dry. She had no calf tenderness. Negative Homans sign. She was progressing well with physical therapy. CONDITION AT DISCHARGE: Good. DISCHARGE DIET: Regular. DISCHARGE DISPOSITION: Transferred to the inpatient rehabilitation unit for continued physical and occupational therapy. Job ID: [id number] DocumentID: [id number] Dictated Date: 09/29/2022 07:43:48 Sushi Chef Date: 09/29/2022 07:54:00 Dictated By: TREVOR MENENDEZ MD
[2022-09-29] MEDS: ENOXAPARIN 40 MG/0.4 ML (LOVENOX) SYR SC SCH (08:44)
[2022-09-29] MEDS: lisINopril 20 MG (PRINIVIL) TABLET PO SCH (08:45)
[2022-09-29] MEDS: ACETAMINOPHEN 325 MG TABLET PO PRN ×2 (08:45→20:05)
[2022-09-29] MEDS: SENNOSIDES 8.6 MG (SENOKOT) TAB PO SCH ×2 (08:45→20:04)
--- NOTE | 2022-09-29 10:33 | Physical Therapy Daily Note ---
PT Daily Note-Current Subjective Patient agrees to PT. Pain Section J - Health Conditions 1. Rarely or not at all 2. Occasionally 3. Frequently 4. Almost constantly 8. Unable to answer Pain Effect on Sleep: 2 Pain Interference with Therapy: 2 Pain Interference w/Day-to-Day: 2 Mental Status Patient Orientation: Normal For Age Transfers SCALE: Activities may be completed with or without assistive devices. 4-Wswyfhcywx-dxodznf completes the activity by him/herself with no assistance from a helper. 5-Set-up or Clean-up Assistance-helper sets up or cleans up; patient completes activity. [place] assists only prior to or following the activity. 4-Supervision or Touching Assistance-helper provides verbal cues and/or touching/steadying and/or contact guard assistance as patient completes activity. Assistance may be provided throughout the activity or intermittently. 3-Partial/Moderate Assistance-helper does LESS THAN HALF the effort. [place] lifts, holds or supports trunk or limbs, but provides less than half the effort. 2-Substantial/Maximal Assistance-helper does MORE THAN HALF the effort. [place] lifts or holds trunk or limbs and provides more than half the effort. 5-[place]-wqcuxk does ALL the effort. Patient does none of the effort to complete the activity. Or, the assistance of 2 or more helpers is required for the patient to complete the activity. If activity was not attempted, code reason: 7-Patient Refused. 9-Not Applicable-not attempted and the patient did not perform the activity before the current illness, exacerbation or injury. 10-Not Attempted due to Environmental Limitations-(lack of equipment, weather restraints, etc.). 88-Not Attempted due to Medical Conditions or Safety Concerns. Lying to Sitting/Side of Bed(Q: 3 Sit to Stand (QC): 4 Chair/Moe-nz-Fdqrt Xfer(QC): 4 Toilet Transfer (QC): 3 Weight Bearing Right Lower Extremity: Right Full Weight Bearing Left Lower Extremity: Left Weight Bearing/Tolerated Gait Training Distance: 150' Walk 10 feet (QC): 4 Walk 50 ft with 2 Turns(QC): 4 Walk 150 ft (QC): 4 Gait Assistive Device: FWW slow, antalgic, step to gait sequence Exercises Supine Ex: LE Protocol Supine Reps: 10 Seated Therapy Exercises: Long arc quads Seated Reps: 15 Assessment Patient is incontinent BM requiring assist to cleanse and change brief. OT addressing toileting. Patient became diaphoretic during gait ceasing treatment due to elevated blood sugar. RN is aware. PT to increase activity as tolerated by patient. PT [place] Tower Loader Goals [place] Tower Loader Goals PT [place] Tower Loader Goals Time Frame: October 15, 2022 Roll Left & Right (QC): 6 Sit to Lying (QC): 6 Lying-Sitting on Side/Bed(QC): 6 Sit to Stand (QC): 6 Chair/Uvl-py-Fikar Xfer(QC): 6 Toilet Transfer (QC): 5 Does the Patient Walk: Yes Walk 10 feet (QC): 5 Walk 50ft with 2 Turns (QC): 5 Walk 150 ft (QC): 5 1 Step (curb) (QC): 4 4 Steps (QC): 4 PT Plan Treatment/Plan Treatment Plan: Continue Plan of Care Treatment Plan: Bed Mobility, Education, Functional Activity Kaitlyn, Functional Strength, Group Therapy, Gait, Safety, Therapeutic Exercise, Transfers Treatment Duration: October 15, 2022 Frequency: 11 times per week Estimated Hrs Per Day: .25 hour per day Patient and/or Family Agrees t: Yes Time Time In: 850 Time Out: 914 DATE: September 29, 2022 Total Billed Treatment Time: 24 Total Billed Treatment 1 visit GT 10 min EX 14 min ROYA PHILLIPS PT September 29, 2022 10:33
--- NOTE | 2022-09-29 10:38 | Occupational Ther Daily Note ---
OT Current Status-Daily Note Subjective Agreeable to OT, reports use of group manager over weekend and PT in hallways ambulating Mental Status/Objective Patient Orientation: Person, Place, Time, Situation JOSY precaution recall 07/18 ADL-Treatment Therapy Code Descriptions/Definitions Functional [place] Measure: 0=Not Assessed/NA 4=Minimal Assistance 1=Total Assistance 5=Supervision or Setup 2=Maximal Assistance 6=Modified [place] 3=Moderate Assistance 7=Complete IndependenceSCALE: Activities may be completed with or without assistive devices. 1-Kcpuqcomhf-mnawfck completes the activity by him/herself with no assistance from a helper. 5-Set-up or Clean-up Assistance-helper sets up or cleans up; patient completes activity. [place] assists only prior to or following the activity. 4-Supervision or Touching Assistance-helper provides verbal cues and/or touching/steadying and/or contact guard assistance as patient completes activity. Assistance may be provided throughout the activity or intermittently. 3-Partial/Moderate Assistance-helper does LESS THAN HALF the effort. [place] lifts, holds or supports trunk or limbs, but provides less than half the effort. 2-Substantial/Maximal Assistance-helper does MORE THAN HALF the effort. [place] lifts or holds trunk or limbs and provides more than half the effort. 7-Rbstuemfc-gvyqse does ALL the effort. Patient does none of the effort to complete the activity. Or, the assistance of 2 or more helpers is required for the patient to complete the activity. If activity was not attempted, code reason: 7-Patient Refused. 9-Not Applicable-not attempted and the patient did not perform the activity before the current illness, exacerbation or injury. 10-Not Attempted due to Environmental Limitations-(lack of equipment, weather restraints, etc.). 88-Not Attempted due to Medical Conditions or Safety Concerns. Eating (QC): 6 (BS too high today during therapy. RN monitored) Oral Hygiene (QC): 5 Shower/Bathe Self (QC): 7 (wound dressing not be wet) Upper Body Dressing (QC): 5 Lower Body Dressing (QC): 4 On/Off Footwear: 5 Toileting Hygiene (QC): 4 Toilet Transfer (QC): 4 Education OT Patient Education: Correct positioning, Exercise program, Modified ADL techniques, Progress toward Goal/Update tx plan, Purpose of tx/functional activities, Reviewed precautions, Rehab process, Safety issues, Transfer techniques, Use of adapted equipment Teaching Recipient: Patient Teaching Methods: Demonstration, Discussion Response to Teaching: Reinforcement Needed OT Half-Way Goals [employer] Caster Goals Eating (QC): 6 Oral Hygiene (QC): 6 Toileting Hygiene (QC): 6 Shower/Bathe Self (QC): 6 Upper Body Dressing (QC): 6 Lower Body Dressing (QC): 6 On/Off Footwear (QC): 6 1=Demonstrate adherence to instructed precautions during ADL tasks. 2=Patient will verbalize/demonstrate understanding of assistive devices/modifications for ADL. 3=Patient will improve strength/tolerance for activity to enable patient to perform ADL's. OT Education/Plan Problem List/Assessment Assessment: Decreased Activ Tolerance, Impaired Self-Care Skills Discharge Recommendations Plan/Recommendations: Continue POC Treatment Plan/Plan of Care Treatment,Training & Education: Yes Patient would benefit from OT for education, treatment and training to promote independence in ADL's, mobility, safety and/or upper extremity function for ADL's. Plan of Care: ADL Retraining, Functional Mobility, Group Exercise/Act as Ind, UE Funct Exercise/Act Treatment Duration: October 04, 2022 Frequency: 3 times per week (3-5 times per week) Estimated Hrs Per Day: .25 hour per day Agreement: Yes Rehab Potential: Fair remains up in recliner following toileting and ambulation, all needs met Time Start Time: 08:50 Stop Time: 09:14 DATE: September 29, 2022 Total Time Billed (hr/min): 24 Billed Treatment Time ADL 2 24 min GUY SANDHU OT September 29, 2022 10:38
--- NOTE | 2022-09-29 14:26 | Physical Therapy Daily Note ---
PT Daily Note-Current Subjective Patient declined OOB activity but agrees to bilateral LE exercises in bed. Pain Section J - Health Conditions 1. Rarely or not at all 2. Occasionally 3. Frequently 4. Almost constantly 8. Unable to answer Pain Effect on Sleep: 2 Pain Interference with Therapy: 2 Pain Interference w/Day-to-Day: 2 Mental Status Patient Orientation: Normal For Age Transfers SCALE: Activities may be completed with or without assistive devices. 8-Cvlzovmyda-czmigpq completes the activity by him/herself with no assistance from a helper. 5-Set-up or Clean-up Assistance-helper sets up or cleans up; patient completes activity. [place] assists only prior to or following the activity. 4-Supervision or Touching Assistance-helper provides verbal cues and/or touching/steadying and/or contact guard assistance as patient completes activity. Assistance may be provided throughout the activity or intermittently. 3-Partial/Moderate Assistance-helper does LESS THAN HALF the effort. [place] lifts, holds or supports trunk or limbs, but provides less than half the effort. 2-Substantial/Maximal Assistance-helper does MORE THAN HALF the effort. [place] lifts or holds trunk or limbs and provides more than half the effort. 2-Hqvtvovog-wjadkp does ALL the effort. Patient does none of the effort to complete the activity. Or, the assistance of 2 or more helpers is required for the patient to complete the activity. If activity was not attempted, code reason: 7-Patient Refused. 9-Not Applicable-not attempted and the patient did not perform the activity before the current illness, exacerbation or injury. 10-Not Attempted due to Environmental Limitations-(lack of equipment, weather restraints, etc.). 88-Not Attempted due to Medical Conditions or Safety Concerns. Weight Bearing Right Lower Extremity: Right Full Weight Bearing Left Lower Extremity: Left Weight Bearing/Tolerated Exercises Supine Ex: Ankle pumps, Quad Set, Glut sets, Heel Slides Supine Reps: 15 Assessment Patient ceased treatment due to fatigue and remain in bed with needs met. PT to increase activity as tolerated by patient. PT Long-Term Goals Long-Term Goals PT Long-Term Goals Time Frame: October 15, 2022 Roll Left & Right (QC): 6 Sit to Lying (QC): 6 Lying-Sitting on Side/Bed(QC): 6 Sit to Stand (QC): 6 Chair/Ewq-tu-Xzwaq Xfer(QC): 6 Toilet Transfer (QC): 5 Does the Patient Walk: Yes Walk 10 feet (QC): 5 Walk 50ft with 2 Turns (QC): 5 Walk 150 ft (QC): 5 1 Step (curb) (QC): 4 4 Steps (QC): 4 PT Plan Treatment/Plan Treatment Plan: Continue Plan of Care Treatment Plan: Bed Mobility, Education, Functional Activity Kaitlyn, Functional Strength, Group Therapy, Gait, Safety, Therapeutic Exercise, Transfers Treatment Duration: October 15, 2022 Frequency: 11 times per week Estimated Hrs Per Day: .25 hour per day Patient and/or Family Agrees t: Yes Time Time In: 1411 Time Out: 1422 DATE: September 29, 2022 Total Billed Treatment Time: 11 Total Billed Treatment 1 visit EX 11 min ROYA PHILLIPS PT September 29, 2022 14:25
--- NOTE | 2022-09-29 15:10 | Progress Note - Hospitalist ---
Subjective HPI/CC On Admission Date Seen by Provider: September 29, 2022 Ramya Valladares is a 81 year old female with PMH HTN, T2DM, Yee carcinoma, who presented for a scheduled left hip bipolar replacement due to failure of previous hardware. She had a hip fracture in May and had an intramedullary nail placement but the hardware failed. She has also been undergoing immunotherapy for Yee carcinoma. This has been held for the past month due to diarrhea. She is seen postoperatively. She is having a bit of pain in her hip. She has also had some nausea. She has not tried to eat or drink anything yet. She denies fevers. She denies chest pain. She denies shortness of breath. Subjective/Events-last exam Pt reports doing well. No complaints. Pain controlled. Had BM this AM. Objective Exam Vital Signs Vital Signs Date Time Temp Pulse Resp B/P (MAP) Pulse Ox O2 Delivery O2 Flow Rate FiO2 09/29/22 08:00 Room Air 09/29/22 07:37 37.1 93 16 137/64 (88) 95 09/26/22 14:06 0.00 0.00 Capillary Refill : General Appearance: No Apparent Distress Respiratory: Lungs Clear, No Respiratory Distress Cardiovascular: Regular Rate, Rhythm, No Murmur Neurologic/Psychiatric: Alert, Oriented x3 Results/Procedures Lab Laboratory Tests 09/29/22 04:21 Patient resulted labs reviewed. Imaging: Reviewed Imaging Report Assessment/Plan Assessment and Plan Assess & Plan/Chief Complaint History of left hip fracture Hardware failure Orthopedic surgery primary, Dr. Mckeon s/p bipolar replacement 09/24 Pain regimen Bowel regimen Incentive spirometry PT/OT Plan to go to inpatient rehab unit but insurance has denied this, expedited appeal Post operative anemia d/t acute blood loss Received 1 unit PRBC 09/26 Continue to monitor hemoglobin Hgb stable with resumption of Lovenox HTN Continue home meds as able T2DM Sliding scale insulin Yee carcinoma Outpatient immunotherapy currently on hold Follows with Dr. Clark Monitor DVT prophylaxis: VAL Johnston MD September 29, 2022 15:10
[2022-09-29 16:35] VITALS: BP 132/64
[2022-09-29 20:20] VITALS: BP 134/70
[2022-09-30 00:10] VITALS: BP 140/61
[2022-09-30 03:51] VITALS: BP 137/64
[2022-09-30 06:06] LABS: BASOPHILS % (AUTO) 0 % (0-10); EOSINOPHILS % (AUTO) 0 % (0-10); HEMATOCRIT 23 % (35-52); HEMOGLOBIN 7.7 g/dL (11.5-16.0); LYMPHOCYTES % (AUTO) 17 % (12-44); MEAN CORPUSCULAR HEMOGLOBIN 28 pg (25-34); MEAN CORPUSCULAR HGB CONC 33 g/dL (32-36); MEAN CORPUSCULAR VOLUME 84 fL (80-99); MEAN PLATELET VOLUME 9.2 fL (9.0-12.2); MONOCYTES # (AUTO) 6.4 10^3/uL (0.0-1.0); MONOCYTES % (AUTO) 27 % (0-12); NEUTROPHILS # (AUTO) 12.8 10^3/uL (1.8-7.8); NEUTROPHILS % (AUTO) 54 % (42-75); PLATELET COUNT 448 10^3/uL (130-400); WHITE BLOOD COUNT 23.6 10^3/uL (4.3-11.0)
[2022-09-30] MEDS: inSUlin ASPART (NovoLOG) 1 UNIT/0.01 ML (CHARGE PER UNIT) SC SCH ×4 (06:16→21:33)
[2022-09-30 06:18] LABS: ALBUMIN 2.7 GM/DL (3.2-4.5)
[2022-09-30 06:19] LABS: POTASSIUM 3.8 MMOL/L (3.6-5.0)
[2022-09-30 06:20] LABS: CALCIUM 9.4 MG/DL (8.5-10.1)
[2022-09-30 06:21] LABS: TOTAL PROTEIN 5.5 GM/DL (6.4-8.2)
[2022-09-30 06:23] LABS: BILIRUBIN,TOTAL 0.6 MG/DL (0.1-1.0)
[2022-09-30 06:25] LABS: CREATININE SERUM 0.76 MG/DL (0.60-1.30)
[2022-09-30 07:31] VITALS: BP 131/74
[2022-09-30] MEDS: lisINopril 20 MG (PRINIVIL) TABLET PO SCH (09:04)
[2022-09-30] MEDS: ACETAMINOPHEN 325 MG TABLET PO PRN (09:04)
[2022-09-30] MEDS: ENOXAPARIN 40 MG/0.4 ML (LOVENOX) SYR SC SCH (09:05)
[2022-09-30] MEDS: SENNOSIDES 8.6 MG (SENOKOT) TAB PO SCH ×2 (09:05→21:33)
--- NOTE | 2022-09-30 10:45 | Physical Therapy Daily Note ---
PT Daily Note-Current Subjective Patient agrees to PT. Pain Section J - Health Conditions 1. Rarely or not at all 2. Occasionally 3. Frequently 4. Almost constantly 8. Unable to answer Pain Effect on Sleep: 2 Pain Interference with Therapy: 2 Pain Interference w/Day-to-Day: 2 Mental Status Patient Orientation: Normal For Age Transfers SCALE: Activities may be completed with or without assistive devices. 5-Ckmdwhtfdn-hkomhnt completes the activity by him/herself with no assistance from a helper. 5-Set-up or Clean-up Assistance-helper sets up or cleans up; patient completes activity. [place] assists only prior to or following the activity. 4-Supervision or Touching Assistance-helper provides verbal cues and/or touching/steadying and/or contact guard assistance as patient completes activity. Assistance may be provided throughout the activity or intermittently. 3-Partial/Moderate Assistance-helper does LESS THAN HALF the effort. [place] lifts, holds or supports trunk or limbs, but provides less than half the effort. 2-Substantial/Maximal Assistance-helper does MORE THAN HALF the effort. [place] lifts or holds trunk or limbs and provides more than half the effort. 2-Otihttfpo-drlihp does ALL the effort. Patient does none of the effort to complete the activity. Or, the assistance of 2 or more helpers is required for the patient to complete the activity. If activity was not attempted, code reason: 7-Patient Refused. 9-Not Applicable-not attempted and the patient did not perform the activity before the current illness, exacerbation or injury. 10-Not Attempted due to Environmental Limitations-(lack of equipment, weather restraints, etc.). 88-Not Attempted due to Medical Conditions or Safety Concerns. Sit to Stand (QC): 4 Weight Bearing Right Lower Extremity: Right Full Weight Bearing Left Lower Extremity: Left Weight Bearing/Tolerated Gait Training Distance: 250' x 2 Walk 10 feet (QC): 4 Walk 50 ft with 2 Turns(QC): 4 Walk 150 ft (QC): 4 Gait Assistive Device: FWW steady, reciprocal pattern Stair Training Stair Training: Handrails/: 2 handrails #of Steps: 4 1 Step (curb) (QC): 4 4 Steps (QC): 4 Stairs: Pattern: Step to Assessment SBA with all mobility and stair training. Patient much improved on this date. Continue to increase activity as tolerated by patient. PT Perfect Binder Operator Goals Longterm Goals PT Perfect Binder Operator Goals Time Frame: October 15, 2022 Roll Left & Right (QC): 6 Sit to Lying (QC): 6 Lying-Sitting on Side/Bed(QC): 6 Sit to Stand (QC): 6 Chair/Oqw-yj-Izcnd Xfer(QC): 6 Toilet Transfer (QC): 5 Does the Patient Walk: Yes Walk 10 feet (QC): 5 Walk 50ft with 2 Turns (QC): 5 Walk 150 ft (QC): 5 1 Step (curb) (QC): 4 4 Steps (QC): 4 PT Plan Treatment/Plan Treatment Plan: Continue Plan of Care Treatment Plan: Bed Mobility, Education, Functional Activity Kaitlyn, Functional Strength, Group Therapy, Gait, Safety, Therapeutic Exercise, Transfers Treatment Duration: October 15, 2022 Frequency: 11 times per week Estimated Hrs Per Day: .25 hour per day Patient and/or Family Agrees t: Yes Time Time In: 1020 Time Out: 1033 DATE: September 30, 2022 Total Billed Treatment Time: 13 Total Billed Treatment 1 visit FA 13 min ROYA PHILLIPS PT September 30, 2022 10:45
--- NOTE | 2022-09-30 11:47 | Occupational Ther Daily Note ---
OT Current Status-Daily Note Subjective Up in recliner, feeling energetic and agreeable to OT Mental Status/Objective Patient Orientation: Situation recalls 3/3 JOSY precautions and performs tasks w/o VCs ADL-Treatment Therapy Code Descriptions/Definitions Functional [place] [employer] Measure: 0=Not Assessed/NA 4=Minimal Assistance 1=Total Assistance 5=Supervision or Setup 2=Maximal Assistance 6=Modified [employer] 3=Moderate Assistance 7=Complete IndependenceSCALE: Activities may be completed with or without assistive devices. 0-Wewpglmsdm-ymocmtp completes the activity by him/herself with no assistance from a helper. 5-Set-up or Clean-up Assistance-helper sets up or cleans up; patient completes activity. [place] assists only prior to or following the activity. 4-Supervision or Touching Assistance-helper provides verbal cues and/or touching/steadying and/or contact guard assistance as patient completes activity. Assistance may be provided throughout the activity or intermittently. 3-Partial/Moderate Assistance-helper does LESS THAN HALF the effort. [place] lifts, holds or supports trunk or limbs, but provides less than half the effort. 2-Substantial/Maximal Assistance-helper does MORE THAN HALF the effort. [place] lifts or holds trunk or limbs and provides more than half the effort. 8-[place]-lfdwhu does ALL the effort. Patient does none of the effort to complete the activity. Or, the assistance of 2 or more helpers is required for the patient to complete the activity. If activity was not attempted, code reason: 7-Patient Refused. 9-Not Applicable-not attempted and the patient did not perform the activity before the current illness, exacerbation or injury. 10-Not Attempted due to Environmental Limitations-(lack of equipment, weather restraints, etc.). 88-Not Attempted due to Medical Conditions or Safety Concerns. Eating (QC): 6 Oral Hygiene (QC): 6 Bathing Location: L Arm, R Arm, L Upper Leg, R Upper Leg, Chest, Abdomen, Buttocks, Perineal Area Shower/Bathe Self (QC): 4 (Assistance w/ BLES) Upper Body Dressing (QC): 6 Lower Body Dressing (QC): 5 On/Off Footwear: 6 (w/ ADs) Toileting Hygiene (QC): 5 Toilet Transfer (QC): 5 Education OT Patient Education: Exercise program, Modified ADL techniques, Progress toward Goal/Update tx plan, Purpose of tx/functional activities, Reviewed precautions, Rehab process, Safety issues, Transfer techniques, Use of adapted equipment Teaching Recipient: Patient Teaching Methods: Demonstration, Discussion Response to Teaching: Return Demonstration OT Media/Instructional Designer Goals Media/Instructional Designer Goals Eating (QC): 6 Oral Hygiene (QC): 6 Toileting Hygiene (QC): 6 Shower/Bathe Self (QC): 6 Upper Body Dressing (QC): 6 Lower Body Dressing (QC): 6 On/Off Footwear (QC): 6 1=Demonstrate adherence to instructed precautions during ADL tasks. 2=Patient will verbalize/demonstrate understanding of assistive devices/modifications for ADL. 3=Patient will improve strength/tolerance for activity to enable patient to perform ADL's. OT Education/Plan Problem List/Assessment Assessment: Decreased Activ Tolerance, Impaired Self-Care Skills Discharge Recommendations Plan/Recommendations: Continue POC Treatment Plan/Plan of Care Treatment,Training & Education: Yes Patient would benefit from OT for education, treatment and training to promote independence in ADL's, mobility, safety and/or upper extremity function for ADL's. Plan of Care: ADL Retraining, Functional Mobility, Group Exercise/Act as Ind, UE Funct Exercise/Act Treatment Duration: October 04, 2022 Frequency: 3 times per week (3-5 times per week) Estimated Hrs Per Day: .25 hour per day Agreement: Yes Rehab Potential: Fair all needs met Time Start Time: 10:18 Stop Time: 10:33 DATE: September 30, 2022 Total Time Billed (hr/min): 15 Billed Treatment Time ADL 15 min GUY SANDHU OT September 30, 2022 11:47
--- NOTE | 2022-09-30 12:09 | Progress Note ---
Standard Progress Note Progress Notes/Assess & Plan Date Seen by a Provider: September 30, 2022 Time Seen by a Provider: 12:00 Progress/Assessment & Plan no complaints Laboratory Tests Test 09/24/22 08:24 09/24/22 15:43 09/24/22 20:08 09/25/22 05:08 Range/Units Glucometer 132 H 170 H 201 H 70-110 MG/DL White Blood Count 22.1 H 4.3-11.0 10^3/uL Red Blood Count 2.92 L 3.80-5.11 10^6/uL Hemoglobin 8.2 L 11.5-16.0 g/dL Hematocrit 24 L 35-52 % Mean Corpuscular Volume 84 80-99 fL Mean Corpuscular Hemoglobin 28 25-34 pg Mean Corpuscular Hemoglobin Concent 34 32-36 g/dL Red Cell Distribution Width 15.0 H 10.0-14.5 % Platelet Count 365 130-400 10^3/uL Mean Platelet Volume 9.9 9.0-12.2 fL Immature Granulocyte % (Auto) 1 % Neutrophils (%) (Auto) 55 42-75 % Lymphocytes (%) (Auto) 15 12-44 % Monocytes (%) (Auto) 29 H 0-12 % Eosinophils (%) (Auto) 0 0-10 % Basophils (%) (Auto) 0 0-10 % Neutrophils # (Auto) 12.2 H 1.8-7.8 10^3/uL Lymphocytes # (Auto) 3.4 1.0-4.0 10^3/uL Monocytes # (Auto) 6.5 H 0.0-1.0 10^3/uL Eosinophils # (Auto) 0.0 0.0-0.3 10^3/uL Basophils # (Auto) 0.0 0.0-0.1 10^3/uL Immature Granulocyte # (Auto) 0.1 0.0-0.1 10^3/uL Neutrophils % (Manual) 58 % Lymphocytes % (Manual) 20 % Monocytes % (Manual) 22 % Platelet Estimate ADEQUATE Polychromasia SLIGHT Hypochromasia SLIGHT Basophilic Stippling SLIGHT Sodium Level 130 L 135-145 MMOL/L Potassium Level 4.6 3.6-5.0 MMOL/L Chloride Level 102 98-107 MMOL/L Carbon Dioxide Level 21 21-32 MMOL/L Anion Gap 7 5-14 MMOL/L Blood Urea Nitrogen 17 7-18 MG/DL Creatinine 0.85 0.60-1.30 MG/DL Estimat Glomerular Filtration Rate 70 BUN/Creatinine Ratio 20 Glucose Level 137 H 70-105 MG/DL Calcium Level 9.3 8.5-10.1 MG/DL Corrected Calcium 10.1 8.5-10.1 MG/DL Total Bilirubin 0.3 0.1-1.0 MG/DL Aspartate Amino Transf (AST/SGOT) 16 5-34 U/L Alanine Aminotransferase (ALT/SGPT) 13 0-55 U/L Alkaline Phosphatase 39 L 40-136 U/L Total Protein 5.5 L 6.4-8.2 GM/DL Albumin 3.0 L 3.2-4.5 GM/DL Test 09/25/22 06:24 Range/Units Glucometer 137 H 70-110 MG/DL Vital Signs Date Time Temp Pulse Resp B/P (MAP) Pulse Ox O2 Delivery O2 Flow Rate FiO2 09/25/22 07:20 36.8 100 18 120/55 (76) 91 Room Air 09/25/22 06:27 37.4 09/25/22 04:38 37.5 09/25/22 04:34 37.5 114 18 122/72 (89) 93 Room Air 09/25/22 00:05 109 16 122/58 (79) 93 Room Air 09/24/22 19:35 Room Air 09/24/22 19:28 36.2 92 17 121/74 (90) 97 Room Air 09/24/22 19:09 Room Air 0.00 09/24/22 17:26 Room Air 09/24/22 15:39 36.0 80 18 111/55 (73) 98 Room Air 09/24/22 12:30 35.3 61 18 100/53 (69) 91 Room Air 09/24/22 11:55 Room Air 09/24/22 11:50 36.3 16 98/46 (63) 94 Room Air 09/24/22 11:40 15 98/44 (62) 97 Room Air 09/24/22 11:30 17 108/53 (71) 97 Room Air 09/24/22 11:30 Room Air 09/24/22 11:20 14 111/44 (66) 99 OxyMask 2.00 09/24/22 11:15 OxyMask 2.00 09/24/22 11:10 15 98/45 (62) 99 OxyMask 2.00 09/24/22 11:00 15 83/41 (55) 100 OxyMask 4.00 09/24/22 10:56 36.1 16 90/43 (59) 100 OxyMask 6.00 09/24/22 10:56 OxyMask 6.00 09/24/22 08:20 36.4 88 20 143/67 (92) 97 Room Air I & O 09/25/22 07:00 Intake Total 2510 ml Output Total 0 ml Balance 2510 ml radiographs--HW well positioned without fracture LLE--intact DF and PF of toes and ankle sensation intact throughout pulse equal s/p left hip bipolar PT/OT IRU Final Diagnosis no complaints Laboratory Tests Test 09/29/22 12:10 09/29/22 16:38 09/29/22 20:23 09/30/22 05:55 Range/Units Lab Scanned Report Transfusion Reaction Form [id number] Glucometer 138 H 224 H 70-110 MG/DL White Blood Count 23.6 H 4.3-11.0 10^3/uL Red Blood Count 2.78 L 3.80-5.11 10^6/uL Hemoglobin 7.7 L 11.5-16.0 g/dL Hematocrit 23 L 35-52 % Mean Corpuscular Volume 84 80-99 fL Mean Corpuscular Hemoglobin 28 25-34 pg Mean Corpuscular Hemoglobin Concent 33 32-36 g/dL Red Cell Distribution Width 14.6 H 10.0-14.5 % Platelet Count 448 H 130-400 10^3/uL Mean Platelet Volume 9.2 9.0-12.2 fL Immature Granulocyte % (Auto) 2 % Neutrophils (%) (Auto) 54 42-75 % Lymphocytes (%) (Auto) 17 12-44 % Monocytes (%) (Auto) 27 H 0-12 % Eosinophils (%) (Auto) 0 0-10 % Basophils (%) (Auto) 0 0-10 % Neutrophils # (Auto) 12.8 H 1.8-7.8 10^3/uL Lymphocytes # (Auto) 4.0 1.0-4.0 10^3/uL Monocytes # (Auto) 6.4 H 0.0-1.0 10^3/uL Eosinophils # (Auto) 0.0 0.0-0.3 10^3/uL Basophils # (Auto) 0.0 0.0-0.1 10^3/uL Immature Granulocyte # (Auto) 0.4 H 0.0-0.1 10^3/uL Sodium Level 136 135-145 MMOL/L Potassium Level 3.8 3.6-5.0 MMOL/L Chloride Level 104 98-107 MMOL/L Carbon Dioxide Level 24 21-32 MMOL/L Anion Gap 8 5-14 MMOL/L Blood Urea Nitrogen 10 7-18 MG/DL Creatinine 0.76 0.60-1.30 MG/DL Estimat Glomerular Filtration Rate 80 BUN/Creatinine Ratio 13 Glucose Level 129 H 70-105 MG/DL Calcium Level 9.4 8.5-10.1 MG/DL Corrected Calcium 10.4 H 8.5-10.1 MG/DL Total Bilirubin 0.6 0.1-1.0 MG/DL Aspartate Amino Transf (AST/SGOT) 14 5-34 U/L Alanine Aminotransferase (ALT/SGPT) 16 0-55 U/L Alkaline Phosphatase 44 40-136 U/L Total Protein 5.5 L 6.4-8.2 GM/DL Albumin 2.7 L 3.2-4.5 GM/DL Test 09/30/22 05:56 09/30/22 11:25 Range/Units Glucometer 140 H 148 H 70-110 MG/DL Laboratory Tests Test 09/29/22 12:10 09/29/22 16:38 09/29/22 20:23 09/30/22 05:55 Range/Units Lab Scanned Report Transfusion Reaction Form [id number] Glucometer 138 H 224 H 70-110 MG/DL White Blood Count 23.6 H 4.3-11.0 10^3/uL Red Blood Count 2.78 L 3.80-5.11 10^6/uL Hemoglobin 7.7 L 11.5-16.0 g/dL Hematocrit 23 L 35-52 % Mean Corpuscular Volume 84 80-99 fL Mean Corpuscular Hemoglobin 28 25-34 pg Mean Corpuscular Hemoglobin Concent 33 32-36 g/dL Red Cell Distribution Width 14.6 H 10.0-14.5 % Platelet Count 448 H 130-400 10^3/uL Mean Platelet Volume 9.2 9.0-12.2 fL Immature Granulocyte % (Auto) 2 % Neutrophils (%) (Auto) 54 42-75 % Lymphocytes (%) (Auto) 17 12-44 % Monocytes (%) (Auto) 27 H 0-12 % Eosinophils (%) (Auto) 0 0-10 % Basophils (%) (Auto) 0 0-10 % Neutrophils # (Auto) 12.8 H 1.8-7.8 10^3/uL Lymphocytes # (Auto) 4.0 1.0-4.0 10^3/uL Monocytes # (Auto) 6.4 H 0.0-1.0 10^3/uL Eosinophils # (Auto) 0.0 0.0-0.3 10^3/uL Basophils # (Auto) 0.0 0.0-0.1 10^3/uL Immature Granulocyte # (Auto) 0.4 H 0.0-0.1 10^3/uL Sodium Level 136 135-145 MMOL/L Potassium Level 3.8 3.6-5.0 MMOL/L Chloride Level 104 98-107 MMOL/L Carbon Dioxide Level 24 21-32 MMOL/L Anion Gap 8 5-14 MMOL/L Blood Urea Nitrogen 10 7-18 MG/DL Creatinine 0.76 0.60-1.30 MG/DL Estimat Glomerular Filtration Rate 80 BUN/Creatinine Ratio 13 Glucose Level 129 H 70-105 MG/DL Calcium Level 9.4 8.5-10.1 MG/DL Corrected Calcium 10.4 H 8.5-10.1 MG/DL Total Bilirubin 0.6 0.1-1.0 MG/DL Aspartate Amino Transf (AST/SGOT) 14 5-34 U/L Alanine Aminotransferase (ALT/SGPT) 16 0-55 U/L Alkaline Phosphatase 44 40-136 U/L Total Protein 5.5 L 6.4-8.2 GM/DL Albumin 2.7 L 3.2-4.5 GM/DL Test 09/30/22 05:56 09/30/22 11:25 Range/Units Glucometer 140 H 148 H 70-110 MG/DL Vital Signs Date Time Temp Pulse Resp B/P (MAP) Pulse Ox O2 Delivery O2 Flow Rate FiO2 09/30/22 08:00 Room Air 09/30/22 07:31 36.7 83 20 131/74 (93) 96 Room Air 09/30/22 03:51 36.5 79 18 137/64 (88) 94 Room Air 09/30/22 00:10 36.4 77 18 140/61 (87) 97 Room Air 09/29/22 20:20 36.8 90 18 134/70 (91) 96 Room Air 09/29/22 20:00 Room Air 09/29/22 16:35 36.9 83 18 132/64 (86) 98 Room Air I & O 09/30/22 07:00 Intake Total 1810 ml Output Total 200 ml Balance 1610 ml LLE dressing intact no calf tenderness neg Efrem's s/p L hip bipolar PT/OT TREVOR MENENDEZ MD September 30, 2022 12:09
--- NOTE | 2022-09-30 13:10 | Progress Note - Hospitalist ---
Subjective HPI/CC On Admission Date Seen by Provider: September 30, 2022 Ramya Valladares is a 81 year old female with PMH HTN, T2DM, Yee carcinoma, who presented for a scheduled left hip bipolar replacement due to failure of previous hardware. She had a hip fracture in May and had an intramedullary nail placement but the hardware failed. She has also been undergoing immunotherapy for Yee carcinoma. This has been held for the past month due to diarrhea. She is seen postoperatively. She is having a bit of pain in her hip. She has also had some nausea. She has not tried to eat or drink anything yet. She denies fevers. She denies chest pain. She denies shortness of breath. Subjective/Events-last exam Pt reports doing well. No complaints. Pain controlled. Having BMs. Explained we are still waiting on insurance authorization for IRF. Objective Exam Vital Signs Vital Signs Date Time Temp Pulse Resp B/P (MAP) Pulse Ox O2 Delivery O2 Flow Rate FiO2 09/30/22 08:00 Room Air 09/30/22 07:31 36.7 83 20 131/74 (93) 96 09/26/22 14:06 0.00 0.00 Capillary Refill : General Appearance: No Apparent Distress Respiratory: Lungs Clear, No Respiratory Distress Cardiovascular: Regular Rate, Rhythm Neurologic/Psychiatric: Alert, Oriented x3 Results/Procedures Lab Laboratory Tests 09/30/22 05:55 Patient resulted labs reviewed. Imaging: Reviewed Imaging Report Assessment/Plan Assessment and Plan Assess & Plan/Chief Complaint History of left hip fracture Hardware failure Orthopedic surgery primary, Dr. Mckoen s/p bipolar replacement 09/24 Pain regimen Bowel regimen Incentive spirometry PT/OT Plan to go to inpatient rehab unit but insurance has denied this, expedited appeal- still awaiting response Post operative anemia d/t acute blood loss Received 1 unit PRBC 09/26 Continue to monitor hemoglobin Hgb stable with resumption of Lovenox HTN Continue home meds as able T2DM Sliding scale insulin Yee carcinoma Outpatient immunotherapy currently on hold Follows with Dr. Clark Monitor DVT prophylaxis: VAL Johnston MD September 30, 2022 13:10
--- NOTE | 2022-09-30 14:22 | Physical Therapy Daily Note ---
PT Daily Note-Current Subjective Patient agrees to PT. Pain Section J - Health Conditions 1. Rarely or not at all 2. Occasionally 3. Frequently 4. Almost constantly 8. Unable to answer Pain Effect on Sleep: 2 Pain Interference with Therapy: 2 Pain Interference w/Day-to-Day: 2 Transfers SCALE: Activities may be completed with or without assistive devices. 0-Qzovjnmwtj-cnbvfve completes the activity by him/herself with no assistance from a helper. 5-Set-up or Clean-up Assistance-helper sets up or cleans up; patient completes activity. Elmer assists only prior to or following the activity. 4-Supervision or Touching Assistance-helper provides verbal cues and/or touching/steadying and/or contact guard assistance as patient completes activity. Assistance may be provided throughout the activity or intermittently. 3-Partial/Moderate Assistance-helper does LESS THAN HALF the effort. Elmer lifts, holds or supports trunk or limbs, but provides less than half the effort. 2-Substantial/Maximal Assistance-helper does MORE THAN HALF the effort. Elmer lifts or holds trunk or limbs and provides more than half the effort. 6-Zezucgzjc-xvtjle does ALL the effort. Patient does none of the effort to complete the activity. Or, the assistance of 2 or more helpers is required for the patient to complete the activity. If activity was not attempted, code reason: 7-Patient Refused. 9-Not Applicable-not attempted and the patient did not perform the activity before the current illness, exacerbation or injury. 10-Not Attempted due to Environmental Limitations-(lack of equipment, weather restraints, etc.). 88-Not Attempted due to Medical Conditions or Safety Concerns. Sit to Stand (QC): 5 Weight Bearing Right Lower Extremity: Right Full Weight Bearing Left Lower Extremity: Left Weight Bearing/Tolerated Gait Training Distance: 300' Walk 10 feet (QC): 5 Walk 50 ft with 2 Turns(QC): 5 Walk 150 ft (QC): 5 Gait Assistive Device: FWW safe and functional, reciprocal pattern Exercises Seated Therapy Exercises: Long arc quads (15) Assessment Patient remains up in recliner with needs met. Patient does report fatigue at the end of the day. PT Usp Goals Usp Goals PT Usp Goals Time Frame: October 15, 2022 Roll Left & Right (QC): 6 Sit to Lying (QC): 6 Lying-Sitting on Side/Bed(QC): 6 Sit to Stand (QC): 6 Chair/Ngv-tl-Zxisz Xfer(QC): 6 Toilet Transfer (QC): 5 Does the Patient Walk: Yes Walk 10 feet (QC): 5 Walk 50ft with 2 Turns (QC): 5 Walk 150 ft (QC): 5 1 Step (curb) (QC): 4 4 Steps (QC): 4 PT Plan Treatment/Plan Treatment Plan: Continue Plan of Care Treatment Plan: Bed Mobility, Education, Functional Activity Kaitlyn, Functional Strength, Group Therapy, Gait, Safety, Therapeutic Exercise, Transfers Treatment Duration: October 15, 2022 Frequency: 11 times per week Estimated Hrs Per Day: .25 hour per day Patient and/or Family Agrees t: Yes Time Time In: 1400 Time Out: 1412 DATE: September 30, 2022 Total Billed Treatment Time: 12 Total Billed Treatment 1 visit FA 12 min ROYA PHILLIPS PT September 30, 2022 14:22
[2022-09-30 15:38] VITALS: BP 128/78
[2022-09-30] MEDS: HYDROcodone/APAP 7.5 MG/325 MG (LORTAB, LORCET PLUS) TABLET PO PRN (20:46)
[2022-10-01 00:07] VITALS: BP 130/64
[2022-10-01 03:52] VITALS: BP 139/65
[2022-10-01] MEDS: inSUlin ASPART (NovoLOG) 1 UNIT/0.01 ML (CHARGE PER UNIT) SC SCH ×4 (05:44→20:36)
[2022-10-01 05:46] LABS: BASOPHILS % (AUTO) 0 % (0-10); EOSINOPHILS % (AUTO) 0 % (0-10); HEMATOCRIT 23 % (35-52); HEMOGLOBIN 7.6 g/dL (11.5-16.0); LYMPHOCYTES # (AUTO) 4.1 10^3/uL (1.0-4.0); LYMPHOCYTES % (AUTO) 18 % (12-44); MEAN CORPUSCULAR HEMOGLOBIN 28 pg (25-34); MEAN CORPUSCULAR HGB CONC 33 g/dL (32-36); MEAN CORPUSCULAR VOLUME 85 fL (80-99); MEAN PLATELET VOLUME 9.3 fL (9.0-12.2); MONOCYTES # (AUTO) 5.8 10^3/uL (0.0-1.0); MONOCYTES % (AUTO) 25 % (0-12); NEUTROPHILS % (AUTO) 55 % (42-75); PLATELET COUNT 469 10^3/uL (130-400); WHITE BLOOD COUNT 23.5 10^3/uL (4.3-11.0)
[2022-10-01 06:03] LABS: ALBUMIN 2.8 GM/DL (3.2-4.5); BILIRUBIN,TOTAL 0.5 MG/DL (0.1-1.0); CALCIUM 9.8 MG/DL (8.5-10.1); CREATININE SERUM 0.78 MG/DL (0.60-1.30); POTASSIUM 3.6 MMOL/L (3.6-5.0); TOTAL PROTEIN 5.6 GM/DL (6.4-8.2)
[2022-10-01 07:40] VITALS: BP 135/75
[2022-10-01] MEDS: SENNOSIDES 8.6 MG (SENOKOT) TAB PO SCH ×2 (08:11→20:36)
[2022-10-01] MEDS: ENOXAPARIN 40 MG/0.4 ML (LOVENOX) SYR SC SCH (08:11)
[2022-10-01] MEDS: lisINopril 20 MG (PRINIVIL) TABLET PO SCH (08:11)
--- NOTE | 2022-10-01 09:31 | Physical Therapy Daily Note ---
PT Daily Note-Current Subjective Patient lying supine in bed upon PT arrival, agreeable to treatment. Patient rates pain at 0/10 currently. Pain Section J - Health Conditions 1. Rarely or not at all 2. Occasionally 3. Frequently 4. Almost constantly 8. Unable to answer Pain Effect on Sleep: 2 Pain Interference with Therapy: 2 Pain Interference w/Day-to-Day: 2 Transfers SCALE: Activities may be completed with or without assistive devices. 8-Bgfmphvfyh-lcfwyvi completes the activity by him/herself with no assistance from a helper. 5-Set-up or Clean-up Assistance-helper sets up or cleans up; patient completes activity. Continental assists only prior to or following the activity. 4-Supervision or Touching Assistance-helper provides verbal cues and/or touching/steadying and/or contact guard assistance as patient completes activity. Assistance may be provided throughout the activity or intermittently. 3-Partial/Moderate Assistance-helper does LESS THAN HALF the effort. Continental lif ts, holds or supports trunk or limbs, but provides less than half the effort. 2-Substantial/Maximal Assistance-helper does MORE THAN HALF the effort. [place] lifts or holds trunk or limbs and provides more than half the effort. 3-Xljehawqd-rgtghl does ALL the effort. Patient does none of the effort to complete the activity. Or, the assistance of 2 or more helpers is required for the patient to complete the activity. If activity was not attempted, code reason: 7-Patient Refused. 9-Not Applicable-not attempted and the patient did not perform the activity before the current illness, exacerbation or injury. 10-Not Attempted due to Environmental Limitations-(lack of equipment, weather restraints, etc.). 88-Not Attempted due to Medical Conditions or Safety Concerns. Roll Left & Right (QC): 6 Sit to Lying (QC): 6 Lying to Sitting/Side of Bed(Q: 6 Sit to Stand (QC): 6 Chair/Dmg-ko-Pioop Xfer(QC): 5 Toilet Transfer (QC): 5 Weight Bearing Right Lower Extremity: Right Full Weight Bearing Left Lower Extremity: Left Weight Bearing/Tolerated Gait Training Does the Patient Walk?: Yes Distance: 200' Walk 10 feet (QC): 6 Walk 50 ft with 2 Turns(QC): 4 Walk 150 ft (QC): 4 Gait Persons Needed: 1 Gait Assistive Device: FWW Exercises Supine Ex: Ankle pumps, Quad Set, Glut sets Supine Reps: 20 Seated Therapy Exercises: Long arc quads Seated Reps: 20 Assessment Current Status: Fair Progress Patient demonstrates and reports significant fatigue during this session. Patient performs LE therapeutic exercise as listed above. Patient performs all bed mobility with [place] and transfers with setup. Gait distance significantly declined due to patient increased breathing and reports of feeling light-headed. Patient ambulates 200 feet with FWW, with SBA and verbal cues for safety, progression and conservation of energy. Patient in chair post treatment with all needs met, nursing notified, call light in hand. PT Horticultural Technical Officer Goals Horticultural Technical Officer Goals PT Horticultural Technical Officer Goals Time Frame: October 15, 2022 Roll Left & Right (QC): 6 Sit to Lying (QC): 6 Lying-Sitting on Side/Bed(QC): 6 Sit to Stand (QC): 6 Chair/Sxb-kj-Qnhaq Xfer(QC): 6 Toilet Transfer (QC): 5 Does the Patient Walk: Yes Walk 10 feet (QC): 5 Walk 50ft with 2 Turns (QC): 5 Walk 150 ft (QC): 5 1 Step (curb) (QC): 4 4 Steps (QC): 4 PT Plan Problem List Problem List: Activity Tolerance, Functional Strength, Safety, Balance, Gait, Transfer, Bed Mobility, ROM Treatment/Plan Treatment Plan: Continue Plan of Care Treatment Plan: Bed Mobility, Education, Functional Activity Kaitlyn, Functional Strength, Group Therapy, Gait, Safety, Therapeutic Exercise, Transfers Treatment Duration: October 15, 2022 Frequency: 11 times per week Estimated Hrs Per Day: .25 hour per day Patient and/or Family Agrees t: Yes Safety Risks/Education Patient Education: Gait Training, Transfer Techniques Teaching Recipient: Patient Teaching Methods: Demonstration, Discussion Response to Teaching: Verbalize Understanding, Return Demonstration Time Time In: 855 Time Out: 920 DATE: October 01, 2022 Total Billed Treatment Time: 25 Total Billed Treatment Visit, JOSHUA Reyes JOHN A PT October 01, 2022 09:31
[2022-10-01] MEDS: HYDROcodone/APAP 7.5 MG/325 MG (LORTAB, LORCET PLUS) TABLET PO PRN ×2 (09:59→23:35)
--- NOTE | 2022-10-01 10:34 | Progress Note ---
Standard Progress Note Progress Notes/Assess & Plan Date Seen by a Provider: October 01, 2022 Time Seen by a Provider: 10:33 Progress/Assessment & Plan no complaints Laboratory Tests Test 09/24/22 08:24 09/24/22 15:43 09/24/22 20:08 09/25/22 05:08 Range/Units Glucometer 132 H 170 H 201 H 70-110 MG/DL White Blood Count 22.1 H 4.3-11.0 10^3/uL Red Blood Count 2.92 L 3.80-5.11 10^6/uL Hemoglobin 8.2 L 11.5-16.0 g/dL Hematocrit 24 L 35-52 % Mean Corpuscular Volume 84 80-99 fL Mean Corpuscular Hemoglobin 28 25-34 pg Mean Corpuscular Hemoglobin Concent 34 32-36 g/dL Red Cell Distribution Width 15.0 H 10.0-14.5 % Platelet Count 365 130-400 10^3/uL Mean Platelet Volume 9.9 9.0-12.2 fL Immature Granulocyte % (Auto) 1 % Neutrophils (%) (Auto) 55 42-75 % Lymphocytes (%) (Auto) 15 12-44 % Monocytes (%) (Auto) 29 H 0-12 % Eosinophils (%) (Auto) 0 0-10 % Basophils (%) (Auto) 0 0-10 % Neutrophils # (Auto) 12.2 H 1.8-7.8 10^3/uL Lymphocytes # (Auto) 3.4 1.0-4.0 10^3/uL Monocytes # (Auto) 6.5 H 0.0-1.0 10^3/uL Eosinophils # (Auto) 0.0 0.0-0.3 10^3/uL Basophils # (Auto) 0.0 0.0-0.1 10^3/uL Immature Granulocyte # (Auto) 0.1 0.0-0.1 10^3/uL Neutrophils % (Manual) 58 % Lymphocytes % (Manual) 20 % Monocytes % (Manual) 22 % Platelet Estimate ADEQUATE Polychromasia SLIGHT Hypochromasia SLIGHT Basophilic Stippling SLIGHT Sodium Level 130 L 135-145 MMOL/L Potassium Level 4.6 3.6-5.0 MMOL/L Chloride Level 102 98-107 MMOL/L Carbon Dioxide Level 21 21-32 MMOL/L Anion Gap 7 5-14 MMOL/L Blood Urea Nitrogen 17 7-18 MG/DL Creatinine 0.85 0.60-1.30 MG/DL Estimat Glomerular Filtration Rate 70 BUN/Creatinine Ratio 20 Glucose Level 137 H 70-105 MG/DL Calcium Level 9.3 8.5-10.1 MG/DL Corrected Calcium 10.1 8.5-10.1 MG/DL Total Bilirubin 0.3 0.1-1.0 MG/DL Aspartate Amino Transf (AST/SGOT) 16 5-34 U/L Alanine Aminotransferase (ALT/SGPT) 13 0-55 U/L Alkaline Phosphatase 39 L 40-136 U/L Total Protein 5.5 L 6.4-8.2 GM/DL Albumin 3.0 L 3.2-4.5 GM/DL Test 09/25/22 06:24 Range/Units Glucometer 137 H 70-110 MG/DL Vital Signs Date Time Temp Pulse Resp B/P (MAP) Pulse Ox O2 Delivery O2 Flow Rate FiO2 09/25/22 07:20 36.8 100 18 120/55 (76) 91 Room Air 09/25/22 06:27 37.4 09/25/22 04:38 37.5 09/25/22 04:34 37.5 114 18 122/72 (89) 93 Room Air 09/25/22 00:05 109 16 122/58 (79) 93 Room Air 09/24/22 19:35 Room Air 09/24/22 19:28 36.2 92 17 121/74 (90) 97 Room Air 09/24/22 19:09 Room Air 0.00 09/24/22 17:26 Room Air 09/24/22 15:39 36.0 80 18 111/55 (73) 98 Room Air 09/24/22 12:30 35.3 61 18 100/53 (69) 91 Room Air 09/24/22 11:55 Room Air 09/24/22 11:50 36.3 16 98/46 (63) 94 Room Air 09/24/22 11:40 15 98/44 (62) 97 Room Air 09/24/22 11:30 17 108/53 (71) 97 Room Air 09/24/22 11:30 Room Air 09/24/22 11:20 14 111/44 (66) 99 OxyMask 2.00 09/24/22 11:15 OxyMask 2.00 09/24/22 11:10 15 98/45 (62) 99 OxyMask 2.00 09/24/22 11:00 15 83/41 (55) 100 OxyMask 4.00 09/24/22 10:56 36.1 16 90/43 (59) 100 OxyMask 6.00 09/24/22 10:56 OxyMask 6.00 09/24/22 08:20 36.4 88 20 143/67 (92) 97 Room Air I & O 09/25/22 07:00 Intake Total 2510 ml Output Total 0 ml Balance 2510 ml radiographs--HW well positioned without fracture LLE--intact DF and PF of toes and ankle sensation intact throughout pulse equal s/p left hip bipolar PT/OT IRU Final Diagnosis no complaints Laboratory Tests Test 09/30/22 11:25 09/30/22 15:41 09/30/22 20:20 10/01/22 05:30 Range/Units Glucometer 148 H 130 H 137 H 70-110 MG/DL White Blood Count 23.5 H 4.3-11.0 10^3/uL Red Blood Count 2.74 L 3.80-5.11 10^6/uL Hemoglobin 7.6 L 11.5-16.0 g/dL Hematocrit 23 L 35-52 % Mean Corpuscular Volume 85 80-99 fL Mean Corpuscular Hemoglobin 28 25-34 pg Mean Corpuscular Hemoglobin Concent 33 32-36 g/dL Red Cell Distribution Width 15.0 H 10.0-14.5 % Platelet Count 469 H 130-400 10^3/uL Mean Platelet Volume 9.3 9.0-12.2 fL Immature Granulocyte % (Auto) 2 % Neutrophils (%) (Auto) 55 42-75 % Lymphocytes (%) (Auto) 18 12-44 % Monocytes (%) (Auto) 25 H 0-12 % Eosinophils (%) (Auto) 0 0-10 % Basophils (%) (Auto) 0 0-10 % Neutrophils # (Auto) 13.0 H 1.8-7.8 10^3/uL Lymphocytes # (Auto) 4.1 H 1.0-4.0 10^3/uL Monocytes # (Auto) 5.8 H 0.0-1.0 10^3/uL Eosinophils # (Auto) 0.0 0.0-0.3 10^3/uL Basophils # (Auto) 0.0 0.0-0.1 10^3/uL Immature Granulocyte # (Auto) 0.5 H 0.0-0.1 10^3/uL Sodium Level 135 135-145 MMOL/L Potassium Level 3.6 3.6-5.0 MMOL/L Chloride Level 103 98-107 MMOL/L Carbon Dioxide Level 24 21-32 MMOL/L Anion Gap 8 5-14 MMOL/L Blood Urea Nitrogen 13 7-18 MG/DL Creatinine 0.78 0.60-1.30 MG/DL Estimat Glomerular Filtration Rate 77 BUN/Creatinine Ratio 17 Glucose Level 127 H 70-105 MG/DL Calcium Level 9.8 8.5-10.1 MG/DL Corrected Calcium 10.8 H 8.5-10.1 MG/DL Total Bilirubin 0.5 0.1-1.0 MG/DL Aspartate Amino Transf (AST/SGOT) 17 5-34 U/L Alanine Aminotransferase (ALT/SGPT) 14 0-55 U/L Alkaline Phosphatase 48 40-136 U/L Total Protein 5.6 L 6.4-8.2 GM/DL Albumin 2.8 L 3.2-4.5 GM/DL Test 10/01/22 05:33 Range/Units Glucometer 122 H 70-110 MG/DL Vital Signs Date Time Temp Pulse Resp B/P (MAP) Pulse Ox O2 Delivery O2 Flow Rate FiO2 10/01/22 08:00 Room Air 10/01/22 07:40 36.7 93 20 135/75 (95) 96 Room Air 10/01/22 03:52 36.5 73 19 139/65 (89) 96 Room Air 10/01/22 00:07 36.8 77 18 130/64 (86) 94 Room Air 09/30/22 20:40 Room Air 09/30/22 15:38 36.8 76 18 128/78 (95) 98 Room Air I & O 10/01/22 07:00 Intake Total 1690 ml Output Total 250 ml Balance 1440 ml L hip incision clean and dry no calf tenderness neg Efrem's s/p L hip bipolar plan for DC to home tomorrow TREVOR MENENDEZ MD October 01, 2022 10:34
--- NOTE | 2022-10-01 10:44 | Progress Note - Hospitalist ---
Subjective HPI/CC On Admission Date Seen by Provider: October 01, 2022 Ramya Valladares is a 81 year old female with PMH HTN, T2DM, Yee carcinoma, who presented for a scheduled left hip bipolar replacement due to failure of previous hardware. She had a hip fracture in May and had an intramedullary nail placement but the hardware failed. She has also been undergoing immunotherapy for Yee carcinoma. This has been held for the past month due to diarrhea. She is seen postoperatively. She is having a bit of pain in her hip. She has also had some nausea. She has not tried to eat or drink anything yet. She denies fevers. She denies chest pain. She denies shortness of breath. Subjective/Events-last exam Pt reports doing well. I saw her while she was up walking in the hallway with PT. Still awaiting insurance authorization for IRF. Objective Exam Vital Signs Vital Signs Date Time Temp Pulse Resp B/P (MAP) Pulse Ox O2 Delivery O2 Flow Rate FiO2 10/01/22 08:00 Room Air 10/01/22 07:40 36.7 93 20 135/75 (95) 96 09/26/22 14:06 0.00 0.00 Capillary Refill : General Appearance: No Apparent Distress, WD/WN Respiratory: No Accessory Muscle Use Neurologic/Psychiatric: Alert, Oriented x3 Results/Procedures Lab Laboratory Tests 10/01/22 05:30 Patient resulted labs reviewed. Imaging: Reviewed Imaging Report Assessment/Plan Assessment and Plan Assess & Plan/Chief Complaint History of left hip fracture Hardware failure Orthopedic surgery primary, Dr. Mckeon s/p bipolar replacement 09/24 Pain regimen Bowel regimen Incentive spirometry PT/OT Plan to go to inpatient rehab unit but insurance has denied this, expedited appeal- still awaiting response rn women services consulted, appreciate recs Post operative anemia d/t acute blood loss Received 1 unit PRBC 09/26 Continue to monitor hemoglobin Hgb stable with resumption of Lovenox HTN Continue home meds as able T2DM Sliding scale insulin Yee carcinoma Outpatient immunotherapy currently on hold Follows with Dr. Clark Monitor DVT prophylaxis: Lovenox Will round VAL Lares MD October 01, 2022 10:43
--- NOTE | 2022-10-01 10:57 | Occupational Ther Daily Note ---
OT Current Status-Daily Note Subjective Patient agreeable to OT, during session patient rates pain over 5/10 and reports she feels she overdid her activity yestrerday. Pain meds offered by RN and patient returned to bed following OT session Pain Numeric Pain Scale: 7 Mental Status/Objective Patient Orientation: Situation ADL-Treatment Therapy Code Descriptions/Definitions Functional [place] Measure: 0=Not Assessed/NA 4=Minimal Assistance 1=Total Assistance 5=Supervision or Setup 2=Maximal Assistance 6=Modified [place] 3=Moderate Assistance 7=Complete IndependenceSCALE: Activities may be completed with or without assistive devices. 3-Eokythsxpf-ormmrbl completes the activity by him/herself with no assistance from a helper. 5-Set-up or Clean-up Assistance-helper sets up or cleans up; patient completes activity. Worden assists only prior to or following the activity. 4-Supervision or Touching Assistance-helper provides verbal cues and/or touching/steadying and/or contact guard assistance as patient completes activity. Assistance may be provided throughout the activity or intermittently. 3-Partial/Moderate Assistance-helper does LESS THAN HALF the effort. Worden lifts, holds or supports trunk or limbs, but provides less than half the effort. 2-Substantial/Maximal Assistance-helper does MORE THAN HALF the effort. Worden lifts or holds trunk or limbs and provides more than half the effort. 3-Kvhlqmhxj-jajquo does ALL the effort. Patient does none of the effort to complete the activity. Or, the assistance of 2 or more helpers is required for the patient to complete the activity. If activity was not attempted, code reason: 7-Patient Refused. 9-Not Applicable-not attempted and the patient did not perform the activity before the current illness, exacerbation or injury. 10-Not Attempted due to Environmental Limitations-(lack of equipment, weather restraints, etc.). 88-Not Attempted due to Medical Conditions or Safety Concerns. Eating (QC): 6 (Pours own water and adds ice from various cups to her mug, ate breakfast this morning) Oral Hygiene (QC): 5 (standing at sink w/ FWW) Shower/Bathe Self (QC): 4 Upper Body Dressing (QC): 5 Lower Body Dressing (QC): 5 On/Off Footwear: 6 Toileting Hygiene (QC): 5 Toilet Transfer (QC): 5 Education OT Patient Education: Correct positioning, Disease process, Modified ADL techniques, Progress toward Goal/Update tx plan, Purpose of tx/functional activities, Safety issues, Use of adapted equipment Teaching Recipient: Patient Teaching Methods: Discussion Response to Teaching: Return Demonstration OT Combat Information Center Officer Goals Combat Information Center Officer Goals Eating (QC): 6 Oral Hygiene (QC): 6 Toileting Hygiene (QC): 6 Shower/Bathe Self (QC): 6 Upper Body Dressing (QC): 6 Lower Body Dressing (QC): 6 On/Off Footwear (QC): 6 1=Demonstrate adherence to instructed precautions during ADL tasks. 2=Patient will verbalize/demonstrate understanding of assistive devices/modifications for ADL. 3=Patient will improve strength/tolerance for activity to enable patient to perform ADL's. OT Education/Plan Discharge Recommendations Plan/Recommendations: Continue POC Patient/Family Goals Patient reports she would like to know the plan so she can plan for DC. Declines performance of ADL personal garment d/t not knowing the hospital/rehab/DC plan Treatment Plan/Plan of Care Treatment,Training & Education: Yes Patient would benefit from OT for education, treatment and training to promote independence in ADL's, mobility, safety and/or upper extremity function for ADL's. Plan of Care: ADL Retraining, Functional Mobility, Group Exercise/Act as Ind, UE Funct Exercise/Act Treatment Duration: October 04, 2022 Frequency: 3 times per week (3-5 times per week) Estimated Hrs Per Day: .25 hour per day Agreement: Yes Rehab Potential: Fair Time Start Time: 10:00 Stop Time: 10:17 DATE: October 01, 2022 Total Time Billed (hr/min): 17 Billed Treatment Time ADL 17 min GUY SANDHU OT October 01, 2022 10:57
[2022-10-01] MEDS: ONDANSETRON 4 MG/2 ML (SDV) Z0FRAN IVP PRN (13:22)
--- NOTE | 2022-10-01 13:39 | Physical Therapy Progress Note ---
Therapy Progress Note Attempted to see patient for PT treatment. She refused stating she feels very sick and doesn't want to move. Nurse notified, and reports patient is discharging home tomorrow. Will attempt to treat patient again in the morning prior to D/C. EITAN VALERO PT October 01, 2022 13:39
[2022-10-01 15:42] VITALS: BP 126/69
[2022-10-01 23:26] VITALS: BP 135/62
--- NOTE | 2022-10-01 23:40 | DISCHARGE SUMMARY ---
DATE OF SERVICE: 09/24/2022 ADDENDUM The patient was denied inpatient rehabilitation care. She has advanced well with physical therapy and has attained independent status. We will plan for discharge to home with followup in 1 week. Discharge medications are home medications. ACTIVITIES: Weightbearing as tolerated with a walker. Home physical therapy will be arranged. Her date of discharge will be 10/02/2022. Job ID: [id number] DocumentID: [id number] Dictated Date: 10/01/2022 10:33:14 Rehabilitation Services Director Date: 10/01/2022 23:38:00 Dictated By: TREVOR MENENDEZ MD
[2022-10-02] MEDS: inSUlin ASPART (NovoLOG) 1 UNIT/0.01 ML (CHARGE PER UNIT) SC SCH ×2 (05:30→11:56)
[2022-10-02 05:40] LABS: BASOPHILS % (AUTO) 0 % (0-10); EOSINOPHILS % (AUTO) 0 % (0-10); HEMATOCRIT 23 % (35-52); HEMOGLOBIN 7.3 g/dL (11.5-16.0); LYMPHOCYTES # (AUTO) 4.8 10^3/uL (1.0-4.0); LYMPHOCYTES % (AUTO) 19 % (12-44); MEAN CORPUSCULAR HEMOGLOBIN 27 pg (25-34); MEAN CORPUSCULAR HGB CONC 32 g/dL (32-36); MEAN CORPUSCULAR VOLUME 86 fL (80-99); MEAN PLATELET VOLUME 9.4 fL (9.0-12.2); MONOCYTES # (AUTO) 5.8 10^3/uL (0.0-1.0); MONOCYTES % (AUTO) 24 % (0-12); NEUTROPHILS # (AUTO) 13.2 10^3/uL (1.8-7.8); NEUTROPHILS % (AUTO) 54 % (42-75); PLATELET COUNT 486 10^3/uL (130-400); WHITE BLOOD COUNT 24.6 10^3/uL (4.3-11.0)
[2022-10-02 05:57] LABS: ALBUMIN 2.7 GM/DL (3.2-4.5); BILIRUBIN,TOTAL 0.4 MG/DL (0.1-1.0); CALCIUM 9.9 MG/DL (8.5-10.1); CREATININE SERUM 0.81 MG/DL (0.60-1.30); POTASSIUM 3.8 MMOL/L (3.6-5.0); TOTAL PROTEIN 5.4 GM/DL (6.4-8.2)
[2022-10-02 06:06] LABS: BAND NEUTROPHILS 1 %; LYMPHOCYTES % (MANUAL) 13 %; MONOCYTES % (MANUAL) 28 %; NEUTROPHILS % (MANUAL) 54 %
[2022-10-02 06:07] LABS: ANISOCYTOSIS SLIGHT; ATYPICAL LYMPHOCYTES 1 %; MICROCYTOSIS SLIGHT; MYELOCYTES % 1 %; NUCLEATED RED BLOOD CELLS 2; POLYCHROMASIA SLIGHT; REACTIVE LYMPHOCYTES 2 %
[2022-10-02 07:44] VITALS: BP 132/64
[2022-10-02] MEDS: lisINopril 20 MG (PRINIVIL) TABLET PO SCH (07:54)
[2022-10-02] MEDS: SENNOSIDES 8.6 MG (SENOKOT) TAB PO SCH (07:55)
[2022-10-02] MEDS: ENOXAPARIN 40 MG/0.4 ML (LOVENOX) SYR SC SCH (07:55)
--- NOTE | 2022-10-02 10:38 | Physical Therapy Daily Note ---
PT Daily Note-Current Subjective Patient reports she is going home today. Agrees to PT. Pain Section J - Health Conditions 1. Rarely or not at all 2. Occasionally 3. Frequently 4. Almost constantly 8. Unable to answer Pain Effect on Sleep: 1 Pain Interference with Therapy: 1 Pain Interference w/Day-to-Day: 1 Mental Status Patient Orientation: Normal For Age Transfers SCALE: Activities may be completed with or without assistive devices. 7-Akbwxbggvp-tnaqano completes the activity by him/herself with no assistance from a helper. 5-Set-up or Clean-up Assistance-helper sets up or cleans up; patient completes activity. [place] assists only prior to or following the activity. 4-Supervision or Touching Assistance-helper provides verbal cues and/or touching/steadying and/or contact guard assistance as patient completes activi ty. Assistance may be provided throughout the activity or intermittently. 3-Partial/Moderate Assistance-helper does LESS THAN HALF the effort. [place] lifts, holds or supports trunk or limbs, but provides less than half the effort. 2-Substantial/Maximal Assistance-helper does MORE THAN HALF the effort. [place] lifts or holds trunk or limbs and provides more than half the effort. 7-Onamemvgb-bziuhm does ALL the effort. Patient does none of the effort to complete the activity. Or, the assistance of 2 or more helpers is required for the patient to complete the activity. If activity was not attempted, code reason: 7-Patient Refused. 9-Not Applicable-not attempted and the patient did not perform the activity before the current illness, exacerbation or injury. 10-Not Attempted due to Environmental Limitations-(lack of equipment, weather restraints, etc.). 88-Not Attempted due to Medical Conditions or Safety Concerns. Sit to Stand (QC): 6 Weight Bearing Right Lower Extremity: Right Full Weight Bearing Left Lower Extremity: Left Weight Bearing/Tolerated Gait Training Distance: 225' x 2 Walk 10 feet (QC): 5 Walk 50 ft with 2 Turns(QC): 5 Walk 150 ft (QC): 5 Gait Assistive Device: FWW safe and functional gait sequence Stair Training Stair Training: Handrails/: 2 handrails #of Steps: 4 1 Step (curb) (QC): 4 4 Steps (QC): 4 Stairs: Pattern: Step to Assessment Patient tolerated treatment well and will dismiss to home on this date. PT Lead Inspector Goals Lead Inspector Goals PT Senior Living Goals Time Frame: October 15, 2022 Roll Left & Right (QC): 6 Sit to Lying (QC): 6 Lying-Sitting on Side/Bed(QC): 6 Sit to Stand (QC): 6 Chair/Llr-an-Kuvjj Xfer(QC): 6 Toilet Transfer (QC): 5 Does the Patient Walk: Yes Walk 10 feet (QC): 5 Walk 50ft with 2 Turns (QC): 5 Walk 150 ft (QC): 5 1 Step (curb) (QC): 4 4 Steps (QC): 4 PT Plan Treatment/Plan Treatment Plan: Discontinue PT Treatment Plan: Bed Mobility, Education, Functional Activity Kaitlyn, Functional Strength, Group Therapy, Gait, Safety, Therapeutic Exercise, Transfers Treatment Duration: October 15, 2022 Frequency: 11 times per week Estimated Hrs Per Day: .25 hour per day Patient and/or Family Agrees t: Yes Time Time In: 930 Time Out: 940 DATE: October 02, 2022 Total Billed Treatment Time: 10 Total Billed Treatment 1 visit FA 10 min ROYA PHILLIPS PT October 02, 2022 10:38
--- NOTE | 2022-10-02 10:38 | Occupational Ther Daily Note ---
OT Current Status-Daily Note Subjective Up in chair agreeable to OT, performs toileting tasks modified independent Mental Status/Objective Patient Orientation: Situation ADL-Treatment Therapy Code Descriptions/Definitions Functional [place] Measure: 0=Not Assessed/NA 4=Minimal Assistance 1=Total Assistance 5=Supervision or Setup 2=Maximal Assistance 6=Modified [place] 3=Moderate Assistance 7=Complete IndependenceSCALE: Activities may be completed with or without assistive devices. 7-Rwmioxkpkv-uxsupuj completes the activity by him/herself with no assistance from a helper. 5-Set-up or Clean-up Assistance-helper sets up or cleans up; patient completes activity. [place] assists only prior to or following the activity. 4-Supervision or Touching Assistance-helper provides verbal cues and/or touching/steadying and/or contact guard assistance as patient completes activity. Assistance may be provided throughout the activity or intermittently. 3-Partial/Moderate Assistance-helper does LESS THAN HALF the effort. [place] lifts, holds or supports trunk or limbs, but provides less than half the effort. 2-Substantial/Maximal Assistance-helper does MORE THAN HALF the effort. [place] lifts or holds trunk or limbs and provides more than half the effort. 3-Fteobvmgo-pfcyxr does ALL the effort. Patient does none of the effort to compl ete the activity. Or, the assistance of 2 or more helpers is required for the patient to complete the activity. If activity was not attempted, code reason: 7-Patient Refused. 9-Not Applicable-not attempted and the patient did not perform the activity before the current illness, exacerbation or injury. 10-Not Attempted due to Environmental Limitations-(lack of equipment, weather restraints, etc.). 88-Not Attempted due to Medical Conditions or Safety Concerns. Eating (QC): 6 Oral Hygiene (QC): 6 Shower/Bathe Self (QC): 4 Upper Body Dressing (QC): 6 Lower Body Dressing (QC): 6 On/Off Footwear: 6 Toileting Hygiene (QC): 6 Toilet Transfer (QC): 6 W/ use of hip kit Education OT Patient Education: Correct positioning, Energy conservation, Exercise program, Modified ADL techniques, Progress toward Goal/Update tx plan, Purpose of tx/functional activities, Reviewed precautions, Rehab process, Safety issues, Transfer techniques, Use of adapted equipment Teaching Recipient: Patient Response to Teaching: Return Demonstration OT Senior Care Goals Senior Care Goals Eating (QC): 6 Oral Hygiene (QC): 6 Toileting Hygiene (QC): 6 Shower/Bathe Self (QC): 6 Upper Body Dressing (QC): 6 Lower Body Dressing (QC): 6 On/Off Footwear (QC): 6 1=Demonstrate adherence to instructed precautions during ADL tasks. 2=Patient will verbalize/demonstrate understanding of assistive devices/modifications for ADL. 3=Patient will improve strength/tolerance for activity to enable patient to perform ADL's. OT Education/Plan Discharge Recommendations Plan/Recommendations: Continue POC (while at hospital, expectd to DC today) Treatment Plan/Plan of Care Patient would benefit from OT for education, treatment and training to promote independence in ADL's, mobility, safety and/or upper extremity function for ADL's. Plan of Care: ADL Retraining, Functional Mobility, Group Exercise/Act as Ind, UE Funct Exercise/Act Treatment Duration: October 04, 2022 Frequency: 3 times per week (3-5 times per week) Estimated Hrs Per Day: .25 hour per day Agreement: Yes Rehab Potential: Fair Returned to recliner all needs met Time Start Time: 00:30 Stop Time: 09:45 DATE: October 02, 2022 Total Time Billed (hr/min): 15 Billed Treatment Time ADL 15 min GUY SANDHU OT October 02, 2022 10:38
== END 2022-10-02 14:03 | disposition home or self-care (01) ==
LOC: SDC 08:06 → EDSTATUS 09:30 → 4TH 12:00 → SDC 10-02 14:03
PROVIDERS: ATTEND Orthopaedic Surgery
DX: T84.091A Other mechanical complication of internal left hip prosthesis, initial encounter (principal); S72.142D Displaced intertrochanteric fracture of left femur, subsequent encounter for closed fracture with routine healing; I10 Essential (primary) hypertension; E78.5 Hyperlipidemia, unspecified; C4A.9 Merkel cell carcinoma, unspecified; D62 Acute posthemorrhagic anemia; E11.9 Type 2 diabetes mellitus without complications; Z79.4 Long term (current) use of insulin; Z79.899 Other long term (current) drug therapy
CPT/HCPCS: 27236; 73501; 80053; 82947 ×2; 85007; 85027; 87081; 94664; 97110; 97116; 97162; 97166; 97530 ×2; 97535 ×2; C1776 ×4; 36415

== ENCOUNTER 2022-10-23 13:59 | Outpatient (RCR) | payer MEDICARE ==
[~2022-10-23 13:59] MED LIST changes: +DILT240C74 PO; -DILT240C87 PO; +OXYC1TAB87 PO; -diphenhydrAMINE 50 MG/ML INJ (BENADRYL) IVP PRN; -morphine INJ 10 MG/ML 1ML (SYR OR VIAL) IVP PRN
[2022-10-23 14:21] LABS: BASOPHILS % (AUTO) 0 % (0-10); EOSINOPHILS % (AUTO) 0 % (0-10); HEMATOCRIT 36 % (35-52); LYMPHOCYTES # (AUTO) 3.5 10^3/uL (1.0-4.0); LYMPHOCYTES % (AUTO) 20 % (12-44); MEAN CORPUSCULAR HEMOGLOBIN 26 pg (25-34); MEAN CORPUSCULAR HGB CONC 31 g/dL (32-36); MEAN CORPUSCULAR VOLUME 84 fL (80-99); MEAN PLATELET VOLUME 9.9 fL (9.0-12.2); MONOCYTES # (AUTO) 5.3 10^3/uL (0.0-1.0); MONOCYTES % (AUTO) 30 % (0-12); NEUTROPHILS # (AUTO) 8.6 10^3/uL (1.8-7.8); NEUTROPHILS % (AUTO) 49 % (42-75); PLATELET COUNT 304 10^3/uL (130-400); WHITE BLOOD COUNT 17.6 10^3/uL (4.3-11.0)
[2022-10-23 14:50] LABS: ALBUMIN 4.1 GM/DL (3.2-4.5); BILIRUBIN,TOTAL 0.4 MG/DL (0.1-1.0); CALCIUM 10.2 MG/DL (8.5-10.1); CREATININE SERUM 0.91 MG/DL (0.60-1.30); POTASSIUM 3.7 MMOL/L (3.6-5.0); TOTAL PROTEIN 7.5 GM/DL (6.4-8.2)
== END 2022-11-14 | disposition home or self-care (01) ==
LOC: ONC 13:59
PROVIDERS: ATTEND Internal Medicine Hematology & Oncology
DX: C4A.59 Merkel cell carcinoma of other part of trunk (principal); D72.829 Elevated white blood cell count, unspecified; R19.7 Diarrhea, unspecified; R91.8 Other nonspecific abnormal finding of lung field
CPT/HCPCS: 36415; 80053; 85025

== ENCOUNTER 2022-11-26 09:09 | Outpatient (RCR) | payer MEDICARE ==
[2022-11-20 14:08] LABS: BASOPHILS % (AUTO) 0 % (0-10); EOSINOPHILS % (AUTO) 0 % (0-10); HEMATOCRIT 38 % (35-52); HEMOGLOBIN 11.7 g/dL (11.5-16.0); LYMPHOCYTES # (AUTO) 4.2 10^3/uL (1.0-4.0); LYMPHOCYTES % (AUTO) 22 % (12-44); MEAN CORPUSCULAR HEMOGLOBIN 25 pg (25-34); MEAN CORPUSCULAR HGB CONC 31 g/dL (32-36); MEAN CORPUSCULAR VOLUME 80 fL (80-99); MEAN PLATELET VOLUME 10.3 fL (9.0-12.2); MONOCYTES # (AUTO) 4.6 10^3/uL (0.0-1.0); MONOCYTES % (AUTO) 25 % (0-12); NEUTROPHILS # (AUTO) 9.8 10^3/uL (1.8-7.8); NEUTROPHILS % (AUTO) 53 % (42-75); PLATELET COUNT 302 10^3/uL (130-400); WHITE BLOOD COUNT 18.6 10^3/uL (4.3-11.0)
[2022-11-20 14:30] LABS: ALBUMIN 4.3 GM/DL (3.2-4.5); BILIRUBIN,TOTAL 0.4 MG/DL (0.1-1.0); CALCIUM 11.1 MG/DL (8.5-10.1); CREATININE SERUM 0.93 MG/DL (0.60-1.30); TOTAL PROTEIN 8.1 GM/DL (6.4-8.2)
[~2022-11-26] VITALS: Ht 162.6 cm; Wt 59.6 kg
[2022-11-26] MEDS ORDERED: NS IV 1000 ML (CANCER CTR) IV SCH (09:15)
[2022-11-26] MEDS ORDERED: HEParin (CENTRAL IV FLUSH) 500 UNIT/5 ML SYR IV PRN (09:15)
[2022-11-26] MEDS ORDERED: NIVOLUMAB 480 MG in NS (IVPB) 100 ML 100 ML IV SCH (09:15)
[2022-11-26 14:15] VITALS: BP 130/72
[2022-11-26 14:34] LABS: BASOPHILS % (AUTO) 0 % (0-10); EOSINOPHILS % (AUTO) 0 % (0-10); HEMATOCRIT 38 % (35-52); HEMOGLOBIN 11.7 g/dL (11.5-16.0); LYMPHOCYTES # (AUTO) 4.5 10^3/uL (1.0-4.0); LYMPHOCYTES % (AUTO) 24 % (12-44); MEAN CORPUSCULAR HEMOGLOBIN 25 pg (25-34); MEAN CORPUSCULAR HGB CONC 31 g/dL (32-36); MEAN CORPUSCULAR VOLUME 79 fL (80-99); MEAN PLATELET VOLUME 10.1 fL (9.0-12.2); MONOCYTES % (AUTO) 26 % (0-12); NEUTROPHILS # (AUTO) 9.6 10^3/uL (1.8-7.8); NEUTROPHILS % (AUTO) 50 % (42-75); PLATELET COUNT 328 10^3/uL (130-400); WHITE BLOOD COUNT 19.1 10^3/uL (4.3-11.0)
[2022-11-26 14:57] LABS: ALBUMIN 4.1 GM/DL (3.2-4.5); BILIRUBIN,TOTAL 0.3 MG/DL (0.1-1.0); CALCIUM 10.7 MG/DL (8.5-10.1); CREATININE SERUM 0.89 MG/DL (0.60-1.30); POTASSIUM 4.1 MMOL/L (3.6-5.0); TOTAL PROTEIN 7.5 GM/DL (6.4-8.2)
== END 2022-12-15 | disposition home or self-care (01) ==
LOC: ONC 09:09
PROVIDERS: ATTEND Internal Medicine Hematology & Oncology
DX: C4A.59 Merkel cell carcinoma of other part of trunk (principal); D72.829 Elevated white blood cell count, unspecified; R19.7 Diarrhea, unspecified; R91.8 Other nonspecific abnormal finding of lung field
CPT/HCPCS: 36415; 36591; 80053; 85025; 96413

== ENCOUNTER 2022-12-31 08:31 | Outpatient (RCR) | payer MEDICARE ==
[~2022-12-31] VITALS: Ht 162.6 cm; Wt 60.4 kg
[2022-12-31] MEDS ORDERED: HEParin (CENTRAL IV FLUSH) 500 UNIT/5 ML SYR IV PRN (09:40)
[2022-12-31] MEDS ORDERED: NIVOLUMAB 480 MG in NS (IVPB) 100 ML 100 ML IV SCH (09:40)
[2022-12-31] MEDS ORDERED: NS IV 1000 ML (CANCER CTR) IV SCH (09:40)
[2022-12-31 13:23] LABS: BASOPHILS % (AUTO) 0 % (0-10); EOSINOPHILS % (AUTO) 0 % (0-10); HEMATOCRIT 37 % (35-52); HEMOGLOBIN 11.5 g/dL (11.5-16.0); LYMPHOCYTES # (AUTO) 3.7 10^3/uL (1.0-4.0); LYMPHOCYTES % (AUTO) 20 % (12-44); MEAN CORPUSCULAR HEMOGLOBIN 23 pg (25-34); MEAN CORPUSCULAR HGB CONC 31 g/dL (32-36); MEAN CORPUSCULAR VOLUME 75 fL (80-99); MEAN PLATELET VOLUME 9.7 fL (9.0-12.2); MONOCYTES # (AUTO) 5.7 10^3/uL (0.0-1.0); MONOCYTES % (AUTO) 31 % (0-12); NEUTROPHILS # (AUTO) 8.8 10^3/uL (1.8-7.8); NEUTROPHILS % (AUTO) 48 % (42-75); PLATELET COUNT 399 10^3/uL (130-400); WHITE BLOOD COUNT 18.3 10^3/uL (4.3-11.0)
[2022-12-31 13:30] VITALS: BP 122/68
[2022-12-31 13:42] LABS: ALBUMIN 4.1 GM/DL (3.2-4.5); BILIRUBIN,TOTAL 0.3 MG/DL (0.1-1.0); CALCIUM 10.6 MG/DL (8.5-10.1); CREATININE SERUM 1.07 MG/DL (0.60-1.30); TOTAL PROTEIN 7.5 GM/DL (6.4-8.2)
== END 2023-01-15 | disposition home or self-care (01) ==
LOC: ONC 08:31
PROVIDERS: ATTEND Internal Medicine Hematology & Oncology
DX: Z51.11 Encounter for antineoplastic chemotherapy (principal); Z45.2 Encounter for adjustment and management of vascular access device; C4A.59 Merkel cell carcinoma of other part of trunk
CPT/HCPCS: 80053; 85027; 96413; G0463; 36591; 85025; 99214

== ENCOUNTER 2023-02-26 08:27 | Outpatient (RCR) | payer MEDICARE ==
[~2023-02-26 08:27] MED LIST changes: +HEParin (CENTRAL IV FLUSH) 500 UNIT/5 ML SYR IV PRN; +NIVOLUMAB 480 MG in NS (IVPB) 100 ML 100 ML IV SCH; +NS IV 1000 ML (CANCER CTR) IV SCH
[2023-02-26 13:28] LABS: BASOPHILS % (AUTO) 0 % (0-10); EOSINOPHILS % (AUTO) 0 % (0-10); HEMATOCRIT 36 % (35-52); HEMOGLOBIN 11.1 g/dL (11.5-16.0); LYMPHOCYTES # (AUTO) 3.3 10^3/uL (1.0-4.0); LYMPHOCYTES % (AUTO) 20 % (12-44); MEAN CORPUSCULAR HEMOGLOBIN 23 pg (25-34); MEAN CORPUSCULAR HGB CONC 31 g/dL (32-36); MEAN CORPUSCULAR VOLUME 74 fL (80-99); MEAN PLATELET VOLUME 9.5 fL (9.0-12.2); MONOCYTES # (AUTO) 4.1 10^3/uL (0.0-1.0); MONOCYTES % (AUTO) 24 % (0-12); NEUTROPHILS # (AUTO) 9.2 10^3/uL (1.8-7.8); NEUTROPHILS % (AUTO) 55 % (42-75); PLATELET COUNT 404 10^3/uL (130-400); WHITE BLOOD COUNT 16.6 10^3/uL (4.3-11.0)
[2023-02-26 13:49] LABS: ALBUMIN 3.9 GM/DL (3.2-4.5); BILIRUBIN,TOTAL 0.4 MG/DL (0.1-1.0); CALCIUM 9.9 MG/DL (8.5-10.1); CREATININE SERUM 1.01 MG/DL (0.60-1.30); POTASSIUM 4.1 MMOL/L (3.6-5.0); TOTAL PROTEIN 7.1 GM/DL (6.4-8.2)
[2023-02-26 14:14] VITALS: BP 119/68
== END 2023-03-17 | disposition still patient (30) ==
LOC: ONC 08:27
PROVIDERS: ATTEND Internal Medicine Hematology & Oncology
DX: Z51.11 Encounter for antineoplastic chemotherapy (principal); Z45.2 Encounter for adjustment and management of vascular access device; C4A.59 Merkel cell carcinoma of other part of trunk
CPT/HCPCS: 80053; 82728; 83540; 83550; 85025; 96413; G0463; 36591; 99214

== ENCOUNTER 2023-03-11 08:08 | Outpatient (CLI) | payer MEDICARE ==
[2023-03-11] VITALS (11 sets, daily range): BP systolic 112–163; BP diastolic 54–78
[~2023-03-11 08:08] MED LIST changes: -HEParin (CENTRAL IV FLUSH) 500 UNIT/5 ML SYR IV PRN; -NIVOLUMAB 480 MG in NS (IVPB) 100 ML 100 ML IV SCH; -NS IV 1000 ML (CANCER CTR) IV SCH
[2023-03-11] MEDS ORDERED: NS IV 1000 ML 1,000 ML IV STA (08:17)
[2023-03-11] MEDS ORDERED: MIDAZOLAM INJ 2 MG/2 ML VIAL IVP ONE (08:30)
[2023-03-11] MEDS ORDERED: fentaNYL INJECTION 100 MCG/2 ML VIAL IVP ONE (08:30)
[2023-03-11] MEDS ORDERED: LIDOCAINE 1% INJ 10 ML VIAL INJ ONE (08:30)
[2023-03-11 09:06] LABS: ABSOLUTE RETIC # 54 10e9/uL (24-90); BASOPHILS % (AUTO) 0 % (0-10); EOSINOPHILS % (AUTO) 0 % (0-10); HEMATOCRIT 34 % (35-52); HEMOGLOBIN 10.8 g/dL (11.5-16.0); LYMPHOCYTES # (AUTO) 4.6 10^3/uL (1.0-4.0); LYMPHOCYTES % (AUTO) 24 % (12-44); MEAN CORPUSCULAR HEMOGLOBIN 23 pg (25-34); MEAN CORPUSCULAR HGB CONC 32 g/dL (32-36); MEAN CORPUSCULAR VOLUME 73 fL (80-99); MEAN PLATELET VOLUME 9.6 fL (9.0-12.2); MONOCYTES # (AUTO) 5.3 10^3/uL (0.0-1.0); MONOCYTES % (AUTO) 28 % (0-12); NEUTROPHILS # (AUTO) 9.1 10^3/uL (1.8-7.8); NEUTROPHILS % (AUTO) 48 % (42-75); PLATELET COUNT 432 10^3/uL (130-400); RETICULOCYTE % 1.17 % (0.50-2.40)
[2023-03-11 09:12] LABS: INR 0.9 (0.8-1.4)
[2023-03-11 09:56] LABS: ANISOCYTOSIS MARKED; BAND NEUTROPHILS 0 %; BASOPHILS % (MANUAL) 0 %; EOSINOPHILS % (MANUAL) 0 %; LYMPHOCYTES % (MANUAL) 28 %; MONOCYTES % (MANUAL) 21 %; NEUTROPHILS % (MANUAL) 51 %; TARGET CELLS SLIGHT
[2023-03-11 09:57] LABS: POIKILOCYTOSIS SLIGHT
[2023-03-11] MEDS ORDERED: HYDROcodone/ACETAMINOPHEN 5 MG/325 MG TABLET PO PRN (11:00)
--- NOTE | 2023-03-11 11:13 | Pre-Op Note & Conscious Sedat ---
Pre-Operative Progress Note Date of Available H&P: Mar 11, 2023 Date H&P Reviewed: Mar 11, 2023 Time H&P Reviewed: 09:00 Pre-Op Diagnosis: shu cell lymphoma Moderate Sedation PreProcedure Time 09:00 ASA Score 2 Airway Lungs Heart ASA score ASA 1: a normal healthy patient ASA 2: a patient with a mild systemic disease (mid diabetes, controlled hypertension, obesity ASA 3: a patient with a severe systemic disease that limits activity (angina, COPD, prior Myocardial infarction) ASA 4: a patient with an incapacitating disease that is a constant threat to life (CHF, renal failure) ASA 5: a moribund patient not expected to survive 24 hrs. (ruptured aneurysm) ASA 6: a declared brain- patient whose organs are being harvested. For emergent operations, add the letter E after the classification Mallampati Classification Grade 2 Sedation Plan Analgesia, Amnesia, Plan communicated to team members, Discussed options with patient/fam, Discussed risks with patient/fam The patient is an appropriate candidate to undergo the planned procedure, sedation, and anesthesia. The patient immediately re-assessed prior to indication. DELORIS GRULLON MD Mar 11, 2023 11:12
--- NOTE | 2023-03-11 12:25 | Diagnostic Imaging Report ---
INDICATION: Yee cell carcinoma. Patient presents for CT-guided bone marrow aspiration and biopsy. DETAILS OF THE PROCEDURE: The patient was brought to the CT suite and placed on the table in the prone position. Axial imaging through the pelvis was performed to evaluate for an appropriate entry site. The low back was then prepped and draped in the usual sterile fashion. A small amount of 1% lidocaine was utilized for local anesthesia. The procedure was performed utilizing conscious sedation with Radiology nursing and constant patient monitoring. The patient was given a total of 50 mg of fentanyl intravenously and 1 mg of Versed intravenously. Total procedure time was approximately 4 minutes. Bone marrow biopsy needle was advanced and placed with its tip along the posterior cortex of the right iliac bone. Needle was advanced through the bone into the marrow utilizing the bone marrow drill. Two bone marrow aspirates were then obtained. Next, the bone marrow drill was utilized to obtain a bone marrow core biopsy. The needle was removed and hemostasis was obtained. The patient tolerated the procedure well and left the Department in stable condition. IMPRESSION: Successful CT-guided bone marrow aspiration and core biopsy utilizing conscious sedation. Pathology results are currently pending. Dictated by: Dictated on workstation # [id number]
== END 2023-03-11 12:30 ==
LOC: RAD 08:08
PROVIDERS: ATTEND Internal Medicine Hematology & Oncology
DX: C4A.9 Merkel cell carcinoma, unspecified (principal); D72.829 Elevated white blood cell count, unspecified; D50.9 Iron deficiency anemia, unspecified; D72.820 Lymphocytosis (symptomatic); D72.821 Monocytosis (symptomatic)
CPT/HCPCS: 36415; 38222; 77012; 85007; 85027; 85045; 85610; 85730; 99156

== ENCOUNTER 2023-03-26 08:41 | Outpatient (RCR) | payer MEDICARE ==
[~2023-03-26] VITALS: Ht 162.6 cm; Wt 62.9 kg
[~2023-03-26 08:41] MED LIST changes: +HEParin (CENTRAL IV FLUSH) 500 UNIT/5 ML SYR IV PRN; +NIVOLUMAB 480 MG in NS (IVPB) 100 ML 100 ML IV SCH; +NS IV 1000 ML (CANCER CTR) IV SCH
[2023-03-26 13:29] LABS: BASOPHILS # (AUTO) 0.1 10^3/uL (0.0-0.1); BASOPHILS % (AUTO) 0 % (0-10); EOSINOPHILS % (AUTO) 0 % (0-10); HEMATOCRIT 35 % (35-52); LYMPHOCYTES # (AUTO) 3.7 10^3/uL (1.0-4.0); LYMPHOCYTES % (AUTO) 20 % (12-44); MEAN CORPUSCULAR HEMOGLOBIN 24 pg (25-34); MEAN CORPUSCULAR HGB CONC 31 g/dL (32-36); MEAN CORPUSCULAR VOLUME 77 fL (80-99); MEAN PLATELET VOLUME 9.5 fL (9.0-12.2); MONOCYTES # (AUTO) 4.7 10^3/uL (0.0-1.0); MONOCYTES % (AUTO) 26 % (0-12); NEUTROPHILS # (AUTO) 9.8 10^3/uL (1.8-7.8); NEUTROPHILS % (AUTO) 53 % (42-75); PLATELET COUNT 426 10^3/uL (130-400); WHITE BLOOD COUNT 18.4 10^3/uL (4.3-11.0)
[2023-03-26 13:30] VITALS: BP 142/76
[2023-03-26 13:47] LABS: BILIRUBIN,TOTAL 0.3 MG/DL (0.1-1.0); CALCIUM 10.1 MG/DL (8.5-10.1); TOTAL PROTEIN 7.7 GM/DL (6.4-8.2)
== END 2023-04-02 09:02 | disposition home or self-care (01) ==
LOC: ONC 08:41
PROVIDERS: ATTEND Internal Medicine Hematology & Oncology
DX: Z51.11 Encounter for antineoplastic chemotherapy (principal); Z45.2 Encounter for adjustment and management of vascular access device; C4A.59 Merkel cell carcinoma of other part of trunk
CPT/HCPCS: 36591; 80053; 85025; 96413